=== PATIENT | male | born 1940 | race Caucasian/White ===

== ENCOUNTER → 2017-11-20 | Day surgery (SDC) | payer OTHER ==
[2017-11-15 15:17] VITALS: Ht 167.6 cm; Wt 48.2 kg
--- NOTE | 2017-11-15 15:52 | Anesthesiology Progress Note ---
Anesthesia Progress Note Date of Service Nov 15, 2017. Progress Notes Patient scheduled for EGD (per Nena Levy RN for monitoring of duodenal ulcer which was clipped 08/2017). Patient received 3 units PRBC's during admission secondary to acute blood loss anemia. Patient status post BMS x2 on 08/24/17 secondary to chest pain/ACS. Also, underwent ablation 08/2017 for a. flutter. Currently on Plavix and Eliquis. Case discussed with Dr. Williamson. If GI feels this is necessary for ulcer monitoring, okay to proceed. 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 Information given to Nena Levy RN to relay to surgeon's office.
[~2017-11-20] VITALS: Ht 167.6 cm; Wt 48.2 kg
[~2017-11-20] MED LIST: ALBU1.257 NEB; APIX1TAB3 PO; ATOR-22 PO; CLOP1TAB15 PO; FINA5TAB PO; FLM4 PO; FLUT1INH INH; FURO-85 PO; GABA-1220 PO; LEVO25TA5 PO; LIDOCAINE HCL 2% 2 ML VIAL (20MG/ML) ONE; LISI-725 PO; METO25TA3 PO; PANT40TA PO; POTA1TAB97 PO; PROPOFOL IV EMULSION 10 MG/ML 20 ML VIAL ONE; SODIUM CHLORIDE 0.9% 500ML 500 ML IV ONE; VNTHFA/IN INH
--- NOTE | 2017-11-20 09:47 | Endo History and Physical ---
History & Physical Date of Service: Nov 20, 2017. Chief Complaint: Gastro and Duodenal Ulcers Referring Physician: Zac Singh History of Present Illness Follow up on gastric ulcer Past Surgical History Hx Cardiac Surgery: Yes (HEART CATH/2 STENTS ?) Hx Internal Defibrillator: No Hx Pacemaker: No Hx Abdominal Surgery: Yes (INGUINAL HERNIA) Hx of Implantable Prosthesis: No Hx Post-Op Nausea and Vomiting: No Hx Cancer Surgery: No Hx Thoracic Surgery: No Hx Orthopedic: No Hx Urinary Tract Surgery: No Family History None Social History Smoking Status: Former Smoker Hx Substance Use: No Hx Alcohol Use: No Allergies Coded Allergies: No Known Allergies (Unverified , 11/20/17) Current Medications Reported Home Medications Medications Dose Route/Sig Max Daily Dose Days Date Category Albuterol Sulfate 1.25 Mg/3 Ml Neb 1 Vial NEB Q4 PRN 11/15/17 Reported Ventolin Hfa (Albuterol) 200 Puffs/99014 Mcg Aers 2-4 Puffs INH Q6H PRN 11/15/17 Reported Breo Ellipta (Fluticasone Furoate-Vilanterol) 1 Inh Inh 1 Dose INH QAM 11/15/17 Reported Tamsulosin HCl 0.4 Mg Cap 1 Cap PO HS 11/15/17 Reported Zestril (Lisinopril) 20 Mg Tab 10 Mg PO QAM 11/15/17 Reported Levothyroxine Sodium 25 Mcg Tab 1 Tab PO QAM 11/15/17 Reported Neurontin (Gabapentin) 400 Mg Cap 400 Mg PO TID 11/15/17 Reported K-Tab (Potassium Chloride) 20 Meq Tab 1 Tab PO QAM 11/15/17 Reported Protonix (Pantoprazole Sodium) 40 Mg Tab 40 Mg PO BID 11/15/17 Reported Toprol-Xl (Metoprolol Succinate) 25 Mg Tabcr 25 Mg PO QAM 11/15/17 Reported Lasix (Furosemide) 20 Mg Tab 10 Mg PO QAM 11/15/17 Reported Proscar (Finasteride) 5 Mg Tab 5 Mg PO QAM 11/15/17 Reported Plavix (Clopidogrel Bisulfate) 75 Mg Tab 75 Mg PO QAM 11/15/17 Reported Lipitor (Atorvastatin Calcium) 20 Mg Tab 20 Mg PO QAM 11/15/17 Reported Eliquis (Apixaban) 5 Mg Tab 5 Mg PO BID 11/15/17 Reported Vital Signs Weight (Kilograms): 48.18 Height (Feet): 5 Height (Inches): 6 Date Time Temp Pulse Resp B/P (MAP) Pulse Ox O2 Delivery O2 Flow Rate FiO2 11/20/17 09:24 36.4 57 20 238/102 (147) 99 Room Air Physical Exam General Appearance: no apparent distress Respiratory/Chest: Auscultation: breath sounds normal Cardiovascular: Heart Auscultation: RRR Abdomen: Inspection & Palpation: soft, non-distended Assessment and Plan Stable for EGD
--- NOTE | 2017-11-20 10:30 | GI REPORT ---
Patient Name: Kirby Alonso Procedure Date: 11/20/2017 10:13 AM Date of : 1940 Admit Type: Outpatient Age: 77 Gender: Male Attending MD: Precious Metcalf MD Procedure: Upper GI endoscopy Providers: Precious Metcalf MD Referring MD: Migue Love Indications: Follow-up of acute gastric ulcer Medicines: Monitored Anesthesia Care Complications: No immediate complications. Estimated Blood Loss: Estimated blood loss: none. Procedure: Pre-Anesthesia Assessment: - Prior to the procedure, a History and Physical was performed, and patient medications and allergies were reviewed. The patient is competent. The risks and benefits of the procedure and the sedation options and risks were discussed with the patient. All questions were answered and informed consent was obtained. Patient identification and proposed procedure were verified by the physician and the nurse in the procedure room. Mental Status Examination: alert and oriented. Airway Examination: normal oropharyngeal airway and neck mobility. Respiratory Examination: clear to auscultation. CV Examination: normal. ASA Grade Assessment: III - A patient with severe systemic disease. After reviewing the risks and benefits, the patient was deemed in satisfactory condition to undergo the procedure. The anesthesia plan was to use monitored anesthesia care (MAC). Immediately prior to administration of medications, the patient was re-assessed for adequacy to receive sedatives. The heart rate, respiratory rate, oxygen saturations, blood pressure, adequacy of pulmonary ventilation, and response to care were monitored throughout the procedure. The physical status of the patient was re-assessed after the procedure. After obtaining informed consent, the endoscope was passed under direct vision. Throughout the procedure, the patient's blood pressure, pulse, and oxygen saturations were monitored continuously. The scope was introduced through the mouth, and advanced to the second part of duodenum. The upper GI endoscopy was accomplished without difficulty. The patient tolerated the procedure well. Findings: A hiatal hernia was found. The proximal extent of the gastric folds (end of tubular esophagus) was 37 cm from the incisors. The hiatal narrowing was 41 cm from the incisors. A healed ulcer was found in the gastric antrum. Biopsies were taken with a cold forceps for Helicobacter pylori testing. Verification of patient identification for the specimen was done by the physician and nurse using the patient's name and date. The duodenal bulb and second portion of the duodenum were normal. Prior ulcers are well healed. Impression: - Hiatal hernia. - Scar in the gastric antrum. Biopsied. - Normal duodenal bulb and second portion of the duodenum. Prior ulcers are healed. Recommendation: - Discharge patient to home. - Await pathology results. - Use Protonix (pantoprazole) 20 mg PO daily indefinitely. - Return to referring physician. Precious Metcalf MD 11/20/2017 10:30:13 AM This report has been signed electronically. Note Initiated On: 11/20/2017 10:13 AM Number of Addenda: 0 I attest to the content of the Intraoperative Record and orders documented therein, exceptions below {[id number]}
[2017-11-20 10:59] VITALS: BP 202/91; PULSE 70; O2SAT 99
--- NOTE | 2017-11-20 11:37 | Anesthesiology Progress Note ---
Anesthesia Post Op Note Date & Time Nov 20, 2017 at 11:37 Vital Signs Pain Intensity: 0 Vital Signs Past 12 Hours Date Time Temp Pulse Resp B/P (MAP) Pulse Ox O2 Delivery O2 Flow Rate FiO2 11/20/17 10:59 70 20 202/91 (128) 99 Room Air 11/20/17 10:44 63 20 139/90 (106) 97 Room Air 11/20/17 10:29 62 18 105/69 (81) 100 Room Air 11/20/17 09:24 36.4 57 20 238/102 (147) 99 Room Air Notes Mental Status: alert / awake / arousable, participated in evaluation Pt Amnestic to Procedure: Yes Nausea / Vomiting: adequately controlled Pain: adequately controlled Airway Patency, RR, SpO2: stable & adequate BP & HR: stable & adequate Hydration State: stable & adequate Anesthetic Complications: no major complications apparent
--- NOTE | 2017-11-20 11:45 | Discharge Instructions ---
Endoscopy Patient Instructions Date / Procedure(s) Performed Nov 20, 2017. EGD Allergy Information Coded Allergies: No Known Allergies (Unverified , 11/20/17) Discharge Date / Findings Nov 20, 2017. Healed ulcer Provider Instructions Activity Restrictions - No exercising or heavy lifting for 24 hours. - Do not drink alcohol the day of the procedure. - Do not drive a car or operate machinery until the day after the procedure. - Do not make any important decisions or sign important papers in 24 hours after the procedure. Following Day: - Return to full activity which may include returning to work/school. Diet Start your diet with liquids and light foods (jello, soup, juice, toast). Then eat your usual diet if not nauseated. Treatment For Common After Affects For mild abdominal pain, bloating, or excessive gas: - Rest - Eat lightly - Lie on right side Follow-Up Information Follow-up with Zac Singh as scheduled Anesthesia Information What You Should Know You have had a procedure that required some medicine to reduce anxiety and discomfort. This treatment is called moderate sedation. After receiving the treatment, you may be sleepy, but you will be able to breathe on your own. The effects of the treatment may last for several hours. Follow these instructions along with Activity/Diet recommendations noted above: * Do NOT do anything where dizziness or clumsiness would be dangerous. * Rest quietly at home today, then you can be up and about tomorrow. * Have a responsible person stay with you the rest of today. * You may have had an I.V. today. If so, you may take the dressing off later today. Recommendations Call your doctor if: * Trouble breathing * Continuous vomiting for more than 24 hours * Temperature above 101 degrees * Severe abdominal pain or bloating * Pain not relieved by pain medicine ordered * There is increased drainage or redness from any incision * A large amount of rectal bleeding greater than 2-3 tablespoons. (If you had a polyp/s removed or have hemorrhoids, a small amount of blood - from the rectum is to be expected.) * You have any unanswered questions or concerns. IN THE EVENT OF A SERIOUS EMERGENCY, GO TO THE NEAREST EMERGENCY ROOM Your discharge instructions were prepared by provider Precious Metcalf. Patient Instructions Signature Page Kirby Alonso Patient (or Guardian) Signature/Date: I have read and understand the instructions given to me by my caregivers. Caregiver/RN/Doctor Signature/Date: The above-named patient and/or guardian has received patient instructions on this date. + Original Patient Signature Page (only) stays with chart. Please make copy for patient.
== END | disposition home or self-care (01) ==
LOC: C.GI 08:39
PROVIDERS: ATTEND Student in an Organized Health Care Education/Training Program
DX: K26.9 Duodenal ulcer, unspecified as acute or chronic, without hemorrhage or perforation (principal); K44.9 Diaphragmatic hernia without obstruction or gangrene; K25.9 Gastric ulcer, unspecified as acute or chronic, without hemorrhage or perforation; J44.9 Chronic obstructive pulmonary disease, unspecified; I10 Essential (primary) hypertension; I25.2 Old myocardial infarction; Z87.891 Personal history of nicotine dependence

== ENCOUNTER 2019-02-26 09:40 | Inpatient (IN) ==
--- NOTE | 2019-02-26 10:38 | XRay Report ---
XR chest 1V portable HISTORY: 78 years-old Male Chest Pain acute atypical chest pain COMPARISON: Chest radiograph 07/24/2018 TECHNIQUE: Portable AP view of the chest FINDINGS: Cardiac silhouette is enlarged, unchanged. There is no overt pulmonary edema. Advanced emphysema with out pneumothorax, pleural effusion or overt pulmonary edema. There are patchy bilateral airspace opac ities, notably within the midlung zones and lung bases, right greater than left. Degenerative changes of the shoulders and spine. IMPRESSION: 1. Advanced emphysema with chronic interstitial coarsening. 2. Patchy bilateral alveolar opacities are suspicious for aspiration pneumonitis versus multifocal pn eumonia. The above report was generated using voice recognition software. It may contain grammatical, syntax o r spelling errors. Electronically signed by: Serjio Becerra M.D. 02/26/2019 10:36 AM
[2019-02-26 10:43] LABS: Basophils # (auto) 0.02 K/uL (0-0.2); Basophils % (auto) 0.2 %; Hematocrit (blood only) 34.8 % (42-52); Hemoglobin 11.8 g/dL (14.0-18.0); Immature Granulocytes # (auto) 0.04 K/uL (0.00-0.02); Immature Granulocytes % (auto) 0.3 %; Lymphocytes # (auto) 0.56 K/uL (1.2-3.4); Lymphocytes % (auto) 4.2 %; Mean Corpuscular Hemoglobin 31.7 pg (25-34); Mean Corpuscular Hgb Conc 33.9 g/dL (32-36); Mean Corpuscular Volume 93.5 fL (80-100); Mean Platelet Volume 8.8 fL (7.4-10.4); Monocytes # (auto) 0.75 K/uL (0.11-0.59); Monocytes % (auto) 5.7 %; Neutrophils # (auto) 11.88 K/uL (1.4-6.5); Neutrophils % (auto) 89.6 %; Platelet Count 292 K/uL (130-400); RDW Coefficient of Variation 13.3 % (11.5-14.5); Red Blood Count 3.72 M/uL (4.7-6.1); White Blood Count 13.25 K/uL (4.8-10.8)
[2019-02-26] MEDS ORDERED: PIPERACILL/TAZOBAC CONSULT ACTIVE PRN (10:53)
[2019-02-26] MEDS ORDERED: DOXYCYCLINE HYCLATE 100 MG in DEXTROSE 5% 100 ML IV STA (10:53)
[2019-02-26] MEDS ORDERED: methylPREDNISolone 125 MG/2 ML VIAL IV STA (10:53)
[2019-02-26] MEDS ORDERED: PIPERACILLIN/TAZOBACTAM 4.5 GM/120 ML BAG IV ONE (10:53)
[2019-02-26] MEDS ORDERED: ALBUT/IPRATROP 3MG/0.5MG NEB 3 ML VIAL NEB ONE (10:56)
[2019-02-26] MEDS ORDERED: SODIUM CHLORIDE 0.9% 1000ML 1,000 ML IV ONE (10:56)
[2019-02-26 11:00] LABS: Alanine Aminotransferase 18 U/L (12-78); Aspartate Aminotransferase 19 U/L (15-37); BUN Creatinine Ratio 14.1 (10-20); Blood Urea Nitrogen 15 mg/dl (7-18); Calcium 8.8 mg/dl (8.5-10.1); Carbon Dioxide 29 mmol/L (21-32); Chloride 98 mmol/L (98-107); Est GFR (African American) 80.3; Est GFR (Non-African American) 69.3; Glucose 149 mg/dl (70-99); Lipase 79 U/L (73-393); Magnesium 2.1 mg/dl (1.8-2.4); Potassium 3.6 mmol/L (3.5-5.1); Sodium 136 mmol/L (136-145)
[2019-02-26 11:08] LABS: Albumin Globulin Ratio 0.7 (0.9-2); Alkaline Phosphatase 118 U/L (45-117); Bilirubin,Total 1.8 mg/dl (0.2-1); Globulin 4.4 gm/dl (2.5-4.0); NT Pro B Type Natriuretic Pept 1027 pg/ml (0-1800); Total Protein 7.4 gm/dl (6.4-8.2); Troponin I 0.103 ng/ml (0-0.045)
[2019-02-26 11:47] LABS: Base Excess VBG 5.1 mEq/L; HCO3 VBG 30 mmol/L; Oxygen Saturation VBG < 60.0 %; PCO2 VBG 45 mmHg (38-50); PO2 VBG 29 mmHg; pH VBG 7.44 (7.36-7.41)
[2019-02-26 12:37] LABS: Influenza A virus by PCR Neg for Influ A (Neg); Influenza B virus by PCR Neg for Influ B (Neg)
--- NOTE | 2019-02-26 12:41 | History & Physical Report ---
Date of Service February 26, 2019 Assessment & Plan (1) Multifocal pneumonia: Pt is 78 y/o M with PMH COPD, chronic hypoxia on chronic oxygen at 2.5L via [place], CAD s/p stent to circumflex in 2018, A-flutter s/p ablation in 2018, GERD, hypothyroidism, BPH presented with c/o increased SOB x 1 week, white productive cough x 5 days and tactile fevers. In ER T: 36.6, P: 101, R: 24, BP: 137/77, 95% on 2L O2 WBC: 13, H/H: 11.8/34.8 (baseline Hgb: 12), BNP: 1027, Troponin: 0.1, Lacate: 2.2. Negative influenza swab CXR: Advanced emphysema with chronic interstitial coarsening. Patchy bilateral alveolar opacities are suspicious for aspiration pneumonitis versus multifocal pneumonia. -In ER given hour long nebulizer treatment, Solumedrol 125mg, Zosyn, Doxycycline, 1L NSS -Trend lactic acid -Blood cultures pending -MRSA swab -Sputum culture -IVF -Zosyn, doxycycline -CBC, BMP in am -Pulmonology consult (2) Elevated troponin: Troponin: 0.1. EKG sinus rhythm with chronic T wave inversions anterior, lateral, inferior leads No CP Probable demand ischemia. R/O ACS. Risk factors: HTN, CAD -Monitor Vitals -Repeat EKG in am -Will trend troponin -Echo -Continue statin, plavix, metoprolol -Nitro prn CP and repeat EKG for CP -Cardiology consult (3) COPD (chronic obstructive pulmonary disease): (4) Chronic respiratory failure with hypoxia: On Chronic oxgyen at 2.5L via [place] -Continue home inhalers -Xopenex/Atrovent nebs -Solumedrol 40mg Q8H -Continue chronic oxygen supplementation -Pulmonology consult (5) Hypophosphatemia: Phos: 2.0 -Replace and monitor (6) HTN (hypertension): Stable -Continue lisinopril, metoprolol (7) CHF (congestive heart failure): Hx CHF. Recent echo 08/2018 with improved EF at 58%, grade 1 diastolic dysfunction, moderate mitral regurgitation Currently appears dry -Monitor I&O's and fluid status -Hold lasix currently (8) CAD (coronary artery disease): S/P stent to circumflex in 2018 No CP -Plan as above -Continue Plavix, statin, metoprolol (9) Hypothyroidism: -Continue levothyroxine (10) BPH (benign prostatic hyperplasia): -Continue tamsulosin DVT Prophylaxis -On Eliquis DNR/DNI as per discussion with pt Follows with Dr Singh for routine care Pt was seen and care coordinated with Dr Meyer. See addendum History of Present Illness Chief Complaint: SOB Primary Care Provider: Zac Singh DO Pt is 78 y/o M with PMH COPD, chronic hypoxia on chronic oxygen at 2.5L via [place], CAD s/p stent to circumflex in 2018, A-flutter s/p ablation in 2018, GERD, hypothyroidism, BPH presented to ER with c/o increased SOB x 1 week. Pt states for past week with increased SOB that has been worse at night. Also c/o white productive cough x 5 days. Having tactile fevers at home, hasn't taken temperature. Pt reports has been trying to use his home albuterol nebulizer without much relief. Denies CP or palpitations or LE edema. Vomited once last week. Denies diarrhea or abdominal pain. Has had decreased appetite and decreased oral intake past several days. C/O generalized weakness past week. Reports had influenza vaccine this season. Does not get out of house much. Lives home alone, daughter visits and helps with medications. Denies ill contacts. Reports chronic intermittent dizziness with standing. Denies increased symptoms and denies recent falls. Denies hematemesis, melena, hematochezia, SOARES, syncope, vision changes, neck pain, sore throat, choking, otalgia, rhinorrhea, paresthesias, rashes, urinary symptoms. Allergies Allergy/AdvReac Type Severity Reaction Status Date / Time No Known Allergies Allergy Unverified 02/26/19 10:41 Home Medications Home Medications Medication Instructions Recorded Confirmed Type albuterol sulfate 2.5 mg INHALATION QID PRN 02/26/19 02/26/19 History apixaban [Eliquis] 5 mg PO BID 02/26/19 02/26/19 History atorvastatin 20 mg PO DAILY 02/26/19 02/26/19 History clopidogrel 75 mg PO DAILY 02/26/19 02/26/19 History fluticasone furoate [Arnuity 1 inh INHALATION DAILY 02/26/19 02/26/19 History Ellipta] furosemide 20 mg PO UD 02/26/19 02/26/19 History gabapentin 400 mg PO TID 02/26/19 02/26/19 History levothyroxine 25 mcg PO DAILY 02/26/19 02/26/19 History lisinopril 10 mg PO DAILY 02/26/19 02/26/19 History metoprolol succinate 25 mg PO DAILY 02/26/19 02/26/19 History pantoprazole 20 mg PO DAILY 02/26/19 02/26/19 History potassium chloride [Klor-Con M20] 20 meq PO DAILY 02/26/19 02/26/19 History tamsulosin 0.4 mg PO DAILY 02/26/19 02/26/19 History Past Med/Surg History Medical History A-fib Atrial flutter BPH (benign prostatic hyperplasia) CAD (coronary artery disease) CHF (congestive heart failure) (Chronic) Chronic respiratory failure with hypoxia COPD (chronic obstructive pulmonary disease) (Chronic) GERD (gastroesophageal reflux disease) HTN (hypertension) (Chronic) Hypothyroidism Surgical History History of cardiac cath History of radiofrequency ablation procedure for cardiac arrhythmia Family History Other Hypertension Social History Preferred Language: Yakut Communication Ability: Effective 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 Beliefs That Will Affect Care: None marital status: / Current Living Situation: Alone current occupational status: retired Other Information That Helps Us Care for You: No Feels Safe at Home: Yes Safety Concerns: Feels Safe At This Time Smoking Status: Former smoker Hx Alcohol Use: No Hx Substance Use: No Review of Systems Review of Systems: All systems reviewed & are unremarkable except as noted in HPI & below Physical Exam Physical Exam: General: chronic ill appearing, thin elderly male, mild respiratory distress Head: normocephalic, atraumatic Eyes: PERRL, EOM's intact, conjunctiva non-injected, anicteric ENT: normal inspection external ears, nose, mucous membranes dry Neck: supple, trachea midline Lungs: R: 20 without significant retractions on current nebulizer treatment, breath sounds diminished throughout with scattered wheezing CV: regular rhythm, rate 100, no JVD, no pretibial edema Abd: normal BS, soft, non-tender Ext: no cyanosis, no calf tenderness Neuro: A&O x 3, no focal deficits noted, normal affect Skin: warm, dry Results & Data Vital Signs (Past 12 Hours) Vital Signs Temp Pulse Pulse Resp BP BP Pulse Ox 02/26/19 11:40 93 H 20 118/55 L 100 02/26/19 11:07 85 19 96 02/26/19 10:29 94 02/26/19 10:27 90 92 H 18 159/90 H 95 02/26/19 09:47 36.6 C 101 H 24 137/77 95 Laboratory Results Short CBC 02/26/19 Range/Units 10:32 WBC 13.25 H (4.8-10.8) K/uL Hgb 11.8 L (14.0-18.0) g/dL Hct 34.8 L (42-52) % Plt Count 292 (130-400) K/uL BMP 02/26/19 10:32 Sodium 136 Potassium 3.6 Chloride 98 Carbon Dioxide 29 BUN 15 Creatinine 1.03 Glucose 149 H Calcium 8.8 Cardiac Enzymes 02/26/19 Range/Units 10:32 Troponin I 0.103 H* (0-0.045) ng/ml Liver Function 02/26/19 Range/Units 10:32 Total Bilirubin 1.8 H (0.2-1) mg/dl AST 19 (15-37) U/L ALT 18 (12-78) U/L Alkaline Phosphatase 118 H (45-117) U/L Albumin 3.0 L (3.4-5.0) gm/dl Diagnostic Findings CXR: IMPRESSION: 1. Advanced emphysema with chronic interstitial coarsening. 2. Patchy bilateral alveolar opacities are suspicious for aspiration pneumonitis versus multifocal pneumonia. ECG Rate (beats per minute): 88 Rhythm: sinus rhythm Findings: + T-wave inversion (Anterolateral, inferior) Additional Comments: Compared to EKG 2018, no significant change in T wave inversions anterior, inferior, lateral Supervising Physician Co-Signing Physician Notes Attending addendum: The patient was seen and examined in the emergency room He is a 78 y/o M with PMH COPD, chronic hypoxia on chronic oxygen at 2.5L via [place], CAD s/p stent to circumflex in 2018, A-flutter s/p ablation in 2018, GERD, hypothyroidism, BPH presented with c/o increased SOB x 1 week, white productive cough x 5 days and tactile fevers. 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
[2019-02-26] MEDS ORDERED: POTASSIUM PHOS 3 MMOL/1 ML INFUSION IV STA (14:01)
[2019-02-26] MEDS ORDERED: ACETAMINOPHEN 325 MG TAB PO PRN (14:01)
[2019-02-26] MEDS ORDERED: NITROGLYCERIN SL 0.4 MG/TAB TAB SL PRN (14:01)
[2019-02-26] MEDS ORDERED: LEVALBUTEROL HCL 0.63 MG/3 ML NEB NEB PRN (14:01)
[2019-02-26] MEDS ORDERED: POTASSIUM PHOSPHATE 15 MMOL in SODIUM CHLORIDE 0.9% 250 ML IV ONE (14:15)
[2019-02-26] MEDS ORDERED: PATIENT'S HEIGHT AND/OR WEIGHT NEEDED SCH (14:15)
[2019-02-26] MEDS: LEVALBUTEROL 1.25MG/0.5ML NEB NEB SCH ×2 (14:25→19:19)
--- NOTE | 2019-02-26 15:32 | Pulmonary Consultation ---
Date of Consultation February 26, 2019 Assessment & Plan (1) Multifocal pneumonia: Patient most likely with combination pneumonia including aspiration based on history Recommend swallow study versus video swallow -will defer to primary team Aspiration precautions Agree with antibiotics. Continue doxycycline and Zosyn Treat underlying COPD exacerbation (2) COPD (chronic obstructive pulmonary disease): Patient with most recent PFTs from 08/21/2018 as listed above in HPI Home medications include * Albuterol rescue inhaler * Trelegy Ellipta * DuoNeb nebulizer Would continue treat underlying pneumonia with antibiotics Agree with steroids - taper as tolerated Continue bronchodilators scheduled and as needed (3) Chronic respiratory failure with hypoxia: Patient follows with [facility] pulmonology Recent PFTs in August 2018 as listed above With treat pneumonia and COPD exacerbation and refer back to [facility] as an outpatient Maintain SaO2 between 88 and 92% Serum carbon dioxide is 29 If status changes we will get an ABG Continue supportive care Thank you for including us in the care of this patient. Please refer to Dr. Wilson's addendum for further recommendations. We will continue to follow along with you. Supervising Physician Co-Signing Physician Notes Patient seen and examined. Discussed extensively with IVAN dong. EMR reviewed. Imaging was independently reviewed. Agree with assessment and plan as noted. Impression: 78-year-old male with advanced obstructive lung disease and chronic hypoxemic respiratory failure admitted with possible pneumonia. Recommendations: 1. Agree with antibiotics. Follow clinical response including fever curve white blood cell count. 2. Continue supplemental oxygen titrated to keep saturations at or above 88%. 3. Continue patient's outpatient respiratory regimen. He does not appear overtly bronchospastic currently. Steroids may be continued but a rapid taper may be appropriate. The patient will need to follow-up with his pulmonary providers through [facility]. History of Present Illness Attending Physician: Houston Meyer MD History of Present Illness Attending: Dr. Wilson This is a 78-year-old male that presents with past medical history including severe COPD with an FEV1 of 76% and an FEV1/FVC of 33. TLC 116. RV 219. RV/TLC 73. He also has past medical history including CAD status post stent to the circumflex in 2018, chronic anticoagulation and chronic antiplatelet therapy, history of atrial flutter status post ablation 2018, GERD, hypothyroidism, postherpetic neuralgia, BPH, cachectic, weight loss, history of tobacco abuse, history of ethanol abuse. The patient reports respiratory symptoms worsening for about the last 1 week. He is on chronic O2 at 2.5 L/min via nasal cannula. He also has a nebulizer as well as COPD medications he uses regularly at home. Over the last 3 to 4 days he has had worsening shortness of breath and refused to go to the doctor or come to the ER per his daughter. Yesterday he uses nebulizer 3 times with no improvement to his symptoms. This morning he called his daughter and reported worsening of his symptoms and she brought him to the emergency room for further evaluation treatment. PCR for influenza was negative for a and B. VBG with pH 7.44, PCO2 45, PaO2 29, HCO3 30. Chest x-ray showed advanced emphysema chronic interstitial coarsening. There were also areas of bilateral alveolar opacity suspicious for aspiration pneumonitis versus multifocal pneumonia. Patient was loaded with 125 mg of IV methylprednisolone and started on doxycycline and Zosyn to treat his pneumonia. Patient states that he had fever and chills over the weekend but temperature was undocumented. Patient also states that he had sweats and chills last night. He had no rigors that he reports. He had no nausea and vomiting other than one event secondary to cough. He does have worsening cough over the last week with whitish phlegm. He reports that he has typical cough late in the afternoon as a day goes on. He does report that he feels as though food is stuck at his "Sharad's apple". He also coughs with ingestion of liquids and food. The patient does not have any teeth and does not use dentures. The patient is a after 57 years of marriage. His 3 years ago. The patient lives alone at home and occupies himself with [id number] puzzles. He gets very short of breath walking on a flat surface after 15 to 20 feet. This is been ongoing for last 2 years. His daughter lives 5 miles away and checks on him frequently. He has no pets and no one else living with him. The patient previously smoked cigarettes for greater than 30 years but quit 20 years ago. He then chewed tobacco until 6 years ago. He also used ethanol and quit drinking 3 years ago. Allergies Allergy/AdvReac Type Severity Reaction Status Date / Time No Known Allergies Allergy Unverified 02/26/19 10:41 Home Medications Home Medications Medication Instructions Recorded Confirmed Type albuterol sulfate 2.5 mg INHALATION QID PRN 02/26/19 02/26/19 History apixaban [Eliquis] 5 mg PO BID 02/26/19 02/26/19 History atorvastatin 20 mg PO DAILY 02/26/19 02/26/19 History clopidogrel 75 mg PO DAILY 02/26/19 02/26/19 History fluticasone furoate [Arnuity 1 inh INHALATION DAILY 02/26/19 02/26/19 History Ellipta] furosemide 20 mg PO UD 02/26/19 02/26/19 History gabapentin 400 mg PO TID 02/26/19 02/26/19 History levothyroxine 25 mcg PO DAILY 02/26/19 02/26/19 History lisinopril 10 mg PO DAILY 02/26/19 02/26/19 History metoprolol succinate 25 mg PO DAILY 02/26/19 02/26/19 History pantoprazole 20 mg PO DAILY 02/26/19 02/26/19 History potassium chloride [Klor-Con M20] 20 meq PO DAILY 02/26/19 02/26/19 History tamsulosin 0.4 mg PO DAILY 02/26/19 02/26/19 History Patient History Medical History A-fib Atrial flutter BPH (benign prostatic hyperplasia) CAD (coronary artery disease) CHF (congestive heart failure) (Chronic) Chronic respiratory failure with hypoxia COPD (chronic obstructive pulmonary disease) (Chronic) GERD (gastroesophageal reflux disease) HTN (hypertension) (Chronic) Hypothyroidism Surgical History History of cardiac cath History of radiofrequency ablation procedure for cardiac arrhythmia Family History Other Hypertension Social History Preferred Language: Italian Communication Ability: Effective Park Interpreter Required: No Beliefs That Will Affect Care: None marital status: / Current Living Situation: Alone current occupational status: retired Other Information That Helps Us Care for You: No Feels Safe at Home: Yes Safety Concerns: Feels Safe At This Time Smoking Status: Former smoker Hx Alcohol Use: No Hx Substance Use: No Review of Systems Review of Systems: All systems reviewed & are unremarkable except as noted in HPI & below Physical Exam Physical Exam: GENERAL : No acute distress. Patient does get short of breath with speaking in full sentences. Patient's daughter is present in the room during interview and examination. Patient declares her as the POA and refers to her frequently for clarification of his answers. EYES: No icterus, gaze conjugate. Pupils equal round and reactive to light NOSE: No evidence of epistaxis. Nasal cannula in place and secure MOUTH: No lesions or candidiasis. No teeth and no dentures. NECK: Supple. No stridor LUNGS: Patient with quiet breath sounds throughout. No significant bronc hospasm. Patient does have some crackles at the bases. No rhonchi. There is no paradoxical chest wall movement. HEART: Regular, rate controlled ABDOMEN: Soft, NT, ND, BS Present. No guarding or rebound tenderness BACK: Patient with tenderness at the right CVA secondary to postherpetic neuralgia. No evidence of open or healing sores. EXTREMITIES: No LE edema, pedal pulses intact and equal bilaterally NEURO: A&OX3. Strength is equal and appropriate bilaterally to the upper and lower extremities. Deep tendon reflexes of the biceps brachioradialis and patellar tendons 2/4. Toes are downgoing bilaterally. Tongue is midline. No facial droop. No slurred speech. Pupils equal round and reactive to light. No focal deficits appreciated. Results & Data Vital Signs (Past 12 Hours) Vital Signs Temp Pulse Pulse Resp BP BP Pulse Ox 02/26/19 15:08 36.7 C 96 H 30 H 164/91 H 96 02/26/19 14:25 85 18 96 02/26/19 13:40 36.7 C 91 H 16 164/70 H 93 02/26/19 13:21 101 H 21 140/70 94 02/26/19 11:40 93 H 20 118/55 L 100 02/26/19 11:07 85 19 96 02/26/19 10:29 94 02/26/19 10:27 90 92 H 18 159/90 H 95 02/26/19 09:47 36.6 C 101 H 24 137/77 95 Laboratory Results 02/26/19 10:32 02/26/19 10:32 PCR influenza A and B negative Diagnostic Findings XR chest 1V portable HISTORY: 78 years-old Male Chest Pain acute atypical chest pain COMPARISON: Chest radiograph 07/24/2018 TECHNIQUE: Portable AP view of the chest FINDINGS: Cardiac silhouette is enlarged, unchanged. There is no overt pulmonary edema. Advanced emphysema without pneumothorax, pleural effusion or overt pulmonary edema. There are patchy bilateral airspace opacities, notably within the midlung zones and lung bases, right greater than left. Degenerative changes of the shoulders and spine. IMPRESSION: 1. Advanced emphysema with chronic interstitial coarsening. 2. Patchy bilateral alveolar opacities are suspicious for aspiration pneumonitis versus multifocal pneumonia. Electronically signed by: Serjio Becerra M.D. 02/26/2019 10:36 AM Medications Administered Methylprednisolone 125 mg IV Doxycycline 100 mg IV Zosyn 4.5 g IV Potassium phosphate 15 mmol PG Care Time/CCT Total # of Minutes Spent Total Time Spent with Patient: Total time spent is greater than 50% in coordination of care (as documented) at patient's floor/unit and/or counseling patient:
--- NOTE | 2019-02-26 16:11 | Cardiology Consultation ---
Date of Consultation February 26, 2019 Assessment & Plan (1) Elevated troponin: Given the clinical context of multifocal pneumonia in a patient with pulmonary hypertension along with no wall motion abnormalities on echocardiogram I do not believe the troponin elevation represents acute ischemia. No further cardiac testing or intervention is necessary at this time and would recommend continued treatment of his pneumonia. (2) Multifocal pneumonia: Will defer treatment to our pulmonary colleagues (3) CAD (coronary artery disease): Stable (4) Atrial flutter: Currently in normal sinus rhythm on Eliquis anticoagulation. Given the active pneumonia process he is at increased risk of recurrent atrial arrhythmias so his Eliquis will be continued for now along with his outpatient dose of metoprolol. (5) Tachycardia induced cardiomyopathy: Resolved History of Present Illness Reason for Consultation: Troponin elevation with a history of coronary artery disease Attending Physician: Houston Meyer MD History of Present Illness It was my pleasure to see Mr. Alonso in consultation today February 26, 2019. He is a very pleasant 78-year-old gentleman who follows with Dr. Guzmán of our cardiology practice. He presents to [facility] emergency department on 02/26/2019 with 1 week duration of increasing shortness of breath. He states over the last week he is been having difficulty catching his breath even at rest. He is also had a productive cough with white sputum and he has been feeling warm and feverish. He particularly having trouble breathing at night and has not been sleeping well because of this. His symptoms progressed to the point where he could not breathe anymore and he came in the emergency department. Initial laboratory studies in the emergency room were drawn including troponin is minimally elevated at 0.1. He denies experiencing any chest pain, palpitations, lightheadedness, dizziness or syncope. He is been take his medications as directed at home and otherwise feeling well. Past cardiac history as per Dr. Crenshaw's most recent office note of 01/07/2019: His cardiac history dates back to August 2017. He initially presented with complaints of acute worsening shortness of breath as well as exertional chest tightness. He was found to have atrial flutter with rapid ventricular response and an echocardiogram revealed severe left ventricular systolic dysfunction with an ejection fraction in the range of 25%. EKG revealed significant inferior and lateral repolarization changes with deep T-wave inversions suggestive of Coronary angiography revealed single-vessel CAD for which she underwent PCI and bare metal stenting to the circumflex. He also underwent electrophysiology study during that admission successful ablation of atypical atrial flutter for which he underwent tricuspid caval isthmus ablation. His hospital stay was complicated by blood per rectum while on anticoagulation with heparin. He was supported with transfusion and EGD revealed evidence of a duodenal ulcer which was clipped with stabilization of his hemoglobin. Allergies Allergy/AdvReac Type Severity Reaction Status Date / Time No Known Allergies Allergy Unverified 02/26/19 10:41 Home Medications Home Medications Medication Instructions Recorded Confirmed Type albuterol sulfate 2.5 mg INHALATION QID PRN 02/26/19 02/26/19 History apixaban [Eliquis] 5 mg PO BID 02/26/19 02/26/19 History atorvastatin 20 mg PO DAILY 02/26/19 02/26/19 History clopidogrel 75 mg PO DAILY 02/26/19 02/26/19 History fluticasone furoate [Arnuity 1 inh INHALATION DAILY 02/26/19 02/26/19 History Ellipta] furosemide 20 mg PO UD 02/26/19 02/26/19 History gabapentin 400 mg PO TID 02/26/19 02/26/19 History levothyroxine 25 mcg PO DAILY 02/26/19 02/26/19 History lisinopril 10 mg PO DAILY 02/26/19 02/26/19 History metoprolol succinate 25 mg PO DAILY 02/26/19 02/26/19 History pantoprazole 20 mg PO DAILY 02/26/19 02/26/19 History potassium chloride [Klor-Con M20] 20 meq PO DAILY 02/26/19 02/26/19 History tamsulosin 0.4 mg PO DAILY 02/26/19 02/26/19 History Patient History Medical History A-fib Atrial flutter BPH (benign prostatic hyperplasia) CAD (coronary artery disease) CHF (congestive heart failure) (Chronic) Chronic respiratory failure with hypoxia COPD (chronic obstructive pulmonary disease) (Chronic) GERD (gastroesophageal reflux disease) HTN (hypertension) (Chronic) Hypothyroidism Surgical History History of cardiac cath History of radiofrequency ablation procedure for cardiac arrhythmia Family History Other Hypertension Social History Preferred Language: Setswana Communication Ability: Effective Manager Trust Required: No Beliefs That Will Affect Care: None marital status: / Current Living Situation: Alone current occupational status: retired Other Information That Helps Us Care for You: No Feels Safe at Home: Yes Safety Concerns: Feels Safe At This Time Smoking Status: Former smoker Hx Alcohol Use: No Hx Substance Use: No Review of Systems Review of Systems: All systems reviewed & are unremarkable except as noted in HPI & below Physical Exam Physical Exam: General: Awake, alert and oriented x 3. No acute distress. Cachectic HEENT: Normocephalic, atraumatic. Pupils equal, round and reactive to light and accommodation. Extraocular muscles are intact. Anicteric sclera. Moist m ucous membranes. Neck: No JVD. No bruit. Cardiovascular: Regular. Positive S-4. Normal S-1 and S-2. No S-3. No murmurs or rubs. Pulmonary: Coarse breath sounds diffusely with scattered rhonchi and wheezing. No rales Abdomen: Bowel sounds x 4, soft. No rebound, guarding or tenderness. No organomegaly. Extremities: No clubbing, cyanosis or edema. +2 pedal pulses bilaterally. Skin: Warm and dry. Results & Data Vital Signs (Past 12 Hours) Vital Signs Temp Pulse Pulse Resp BP BP Pulse Ox 02/26/19 15:08 36.7 C 96 H 30 H 164/91 H 96 02/26/19 14:25 85 18 96 02/26/19 13:40 36.7 C 91 H 16 164/70 H 93 02/26/19 13:21 101 H 21 140/70 94 02/26/19 11:40 93 H 20 118/55 L 100 02/26/19 11:07 85 19 96 02/26/19 10:29 94 02/26/19 10:27 90 92 H 18 159/90 H 95 02/26/19 09:47 36.6 C 101 H 24 137/77 95 Laboratory Results Laboratory Results - last 24 hr 02/26/19 02/26/19 02/26/19 10:32 10:32 11:28 WBC 13.25 H RBC 3.72 L Hgb 11.8 L Hct 34.8 L MCV 93.5 MCH 31.7 MCHC 33.9 RDW Std Deviation 46.0 RDW Coeff of Tracey 13.3 Plt Count 292 MPV 8.8 Immature Gran % (Auto) 0.3 Neut % (Auto) 89.6 Lymph % (Auto) 4.2 [place] % (Auto) 5.7 Eos % (Auto) 0.0 Baso % (Auto) 0.2 Immature Gran # (Auto) 0.04 H Neut # (Auto) 11.88 H Lymph # (Auto) 0.56 L [place] # (Auto) 0.75 H Eos # (Auto) 0.00 Baso # (Auto) 0.02 VBG pH VBG pCO2 VBG pO2 VBG HCO3 VBG O2 Saturation VBG Base Excess Barometric Pressure Sodium 136 Potassium 3.6 Chloride 98 Carbon Dioxide 29 Anion Gap 9.0 BUN 15 Creatinine 1.03 Est Cr Clr Drug Dosing Not Reportable Est GFR ( Amer) 80.3 Est GFR (Non-Af Amer) 69.3 BUN/Creatinine Ratio 14.1 Glucose 149 H Lactate 2.2 H* Calcium 8.8 Phosphorus 2.0 L Magnesium 2.1 Total Bilirubin 1.8 H AST 19 ALT 18 Alkaline Phosphatase 118 H Troponin I 0.103 H* NT-Pro-B Natriuret Pep 1027 Total Protein 7.4 Albumin 3.0 L Globulin 4.4 H Albumin/Globulin Ratio 0.7 L Lipase 79 Influenza Type A (PCR) Influenza Type B (PCR) 02/26/19 02/26/19 02/26/19 11:28 11:44 14:21 WBC RBC Hgb Hct MCV MCH MCHC RDW Std Deviation RDW Coeff of Tracey Plt Count MPV Immature Gran % (Auto) Neut % (Auto) Lymph % (Auto) [place] % (Auto) Eos % (Auto) Baso % (Auto) Immature Gran # (Auto) Neut # (Auto) Lymph # (Auto) [place] # (Auto) Eos # (Auto) Baso # (Auto) VBG pH 7.44 H VBG pCO2 45 VBG pO2 29 VBG HCO3 30 VBG O2 Saturation < 60.0 VBG Base Excess 5.1 Barometric Pressure 726.7 Sodium Potassium Chloride Carbon Dioxide Anion Gap BUN Creatinine Est Cr Clr Drug Dosing Est GFR ( Amer) Est GFR (Non-Af Amer) BUN/Creatinine Ratio Glucose Lactate 4.1 H* Calcium Phosphorus Magnesium Total Bilirubin AST ALT Alkaline Phosphatase Troponin I NT-Pro-B Natriuret Pep Total Protein Albumin Globulin Albumin/Globulin Ratio Lipase Influenza Type A (PCR) Neg for Influ A Influenza Type B (PCR) Neg for Influ B Medications Administered Current Inpatient Medications Acetaminophen (Tylenol) 650 mg PO Q4H PRN PRN Reason: Pain or Fever Stop: 03/28/19 14:00 Apixaban (Eliquis) 5 mg PO BID NERY Stop: 03/28/19 20:59 Atorvastatin Calcium (Lipitor) 20 mg PO DAILY NERY Stop: 03/29/19 08:59 Clopidogrel Bisulfate (Plavix) 75 mg PO DAILY NERY Stop: 03/29/19 08:59 Fluticasone Propionate (Flovent Hfa 110mch) 2 puffs INH BID NERY Stop: 03/28/19 20:59 Gabapentin (Neurontin) 400 mg PO TID NERY Stop: 03/28/19 14:29 Doxycycline Hyclate 100 mg/ (Dextrose) 110 mls @ 50 mls/hr IV BID NERY Stop: 03/05/19 20:59 Sodium Chloride (Nss 1000ml) 1,000 mls @ 100 mls/hr IV .Q10H NERY Stop: 02/27/19 10:00 Potassium Phosphate 15 mmol/ (Sodium Chloride) 255 mls @ 88 mls/hr IV NOW ONE Stop: 02/26/19 17:08 Last Admin: 02/26/19 14:52 Dose: 88 mls/hr Documented by: Methylprednisolone 40 mg/ (Syringe) 0.64 mls @ 1.5 mls/min IV Q8H NERY Stop: 03/28/19 17:59 Piperacillin Sod/Tazobactam (Sod 3.375 gm/ Dextrose) 115 mls @ 28.75 mls/hr IV Q8H NERY; Protocol Stop: 03/05/19 15:59 Levalbuterol HCl (Xopenex 1.25mg/0.5ml Neb) 1.25 mg NEB Q6R NERY Stop: 03/28/19 14:14 Last Admin: 02/26/19 14:25 Dose: 1.25 mg Documented by: Levalbuterol HCl (Xopenex 0.63 Mg/3 Ml Neb) 0.63 mg NEB Q4R PRN PRN Reason: Shortness Of Breath Or Wheezing Stop: 03/28/19 14:00 Levothyroxine Sodium (Synthroid) 25 mcg PO DAILYBB [facility] Stop: 03/29/19 06:29 Lisinopril (Zestril) 10 mg PO DAILY NERY Stop: 03/29/19 08:59 Metoprolol Succinate (Toprol Xl) 25 mg PO DAILY [facility] Stop: 03/29/19 08:59 Miscellaneous Information (Consult) 1 ea N/A UD PRN PRN Reason: Consult Stop: 03/28/19 10:52 Nitroglycerin (Nitrostat) 0.4 mg SL UD PRN PRN Reason: Chest Pain Stop: 03/28/19 14:00 Pantoprazole Sodium (Protonix) 40 mg PO DAILY [facility] Stop: 03/29/19 08:59 Tamsulosin HCl (Flomax) 0.4 mg PO DAILY [facility] Stop: 03/29/19 08:59
[2019-02-26] MEDS: SODIUM CHLORIDE 0.9% 1000ML 1,000 ML IV SCH (17:24)
[2019-02-26] MEDS: PIPERACILLIN/TAZOBACTAM 3.375 GM in DEXTROSE 5% 100 ML IV SCH (17:24)
[2019-02-26] MEDS: methylPREDNISolone 40 MG in SYRINGE 0 ML IV SCH (17:25)
[2019-02-26] MEDS: GABAPENTIN 400 MG CAP PO SCH ×2 (17:25→20:33)
--- NOTE | 2019-02-26 18:55 | Emergency Department Note ---
Entered by Izzy Singh acting as a scribe for History of Present Illness General Chief complaint: Illness Stated complaint: SICK FOR A WEEK, SOB, NOT EATING OR DRINKING Time Seen by Provider: 02/26/19 10:17 Source: patient History of Present Illness Onset (ago): day(s) 8 Location: chest Pain Consistency: + other (worsening) Maximum Pain Intensity: 5 Quality: + other (illness) Relieved By: not by medication (nebulizer, inhaler) Associated symptoms: + cough (productive milky, frothy, white sputum), + fever/chills (hot flashes, chills, possible fever) and + shortness of breath The patient is a 78 year old male who presents to the Emergency Room with complaints of a worsening illness starting 8 days ago. The patient states that he has a history of COPD. He states that recently he has been having a productive cough of milky, frothy white sputum, hot flashes, and chills. He reports that he thinks he may have a fever, but has not checked. He states that along with it, he has been having increased shortness of breath. He states that he was up all last night because he could not breathe. He states that this morning he decided it was time to come to the ED because he was huffing and puffing really hard. He notes that he hast been using his nebulizer and inhalers at home with no relief. He notes that he is on Eliquis as well. The patient denies missing any doses of his medications. Home Medications Home Medications Medication Instructions Recorded Confirmed Type albuterol sulfate 2.5 mg INHALATION QID PRN 02/26/19 02/26/19 History apixaban [Eliquis] 5 mg PO BID 02/26/19 02/26/19 History atorvastatin 20 mg PO DAILY 02/26/19 02/26/19 History clopidogrel 75 mg PO DAILY 02/26/19 02/26/19 History fluticasone furoate [Arnuity 1 inh INHALATION DAILY 02/26/19 02/26/19 History Ellipta] furosemide 20 mg PO UD 02/26/19 02/26/19 History gabapentin 400 mg PO TID 02/26/19 02/26/19 History levothyroxine 25 mcg PO DAILY 02/26/19 02/26/19 History lisinopril 10 mg PO DAILY 02/26/19 02/26/19 History metoprolol succinate 25 mg PO DAILY 02/26/19 02/26/19 History pantoprazole 20 mg PO DAILY 02/26/19 02/26/19 History potassium chloride [Klor-Con M20] 20 meq PO DAILY 02/26/19 02/26/19 History tamsulosin 0.4 mg PO DAILY 02/26/19 02/26/19 History Allergies Allergy/AdvReac Type Severity Reaction Status Date / Time No Known Allergies Allergy Unverified 02/26/19 10:41 Past Med/Surg History Medical History A-fib Atrial flutter BPH (benign prostatic hyperplasia) CAD (coronary artery disease) CHF (congestive heart failure) (Chronic) Chronic respiratory failure with hypoxia COPD (chronic obstructive pulmonary disease) (Chronic) GERD (gastroesophageal reflux disease) HTN (hypertension) (Chronic) Hypothyroidism Surgical History History of cardiac cath History of radiofrequency ablation procedure for cardiac arrhythmia Family History Other Hypertension Social History Preferred Language: Croatian Communication Ability: Effective Thread Twister Required: No Beliefs That Will Affect Care: None marital status: / Current Living Situation: Alone current occupational status: retired Other Information That Helps Us Care for You: No Feels Safe at Home: Yes Safety Concerns: Feels Safe At This Time Smoking Status: Former smoker Hx Alcohol Use: No Hx Substance Use: No Review of Systems See HPI for pertinent positives & negatives. and A total of 10 systems reviewed and were otherwise negative Physical Exam Vital Signs Vital Signs - 24 hr 02/26/19 09:47 02/26/19 10:27 02/26/19 10:29 Temperature 36.6 C Temperature Source Oral Pulse Rate 101 H 90 Pulse Rate [Right Finger] 92 H Pulse Rhythm [Right Finger] Respiratory Rate 24 18 Respiratory Effort / Characteristics Non-Labored Respiratory Depth Normal Respiratory Pattern Regular Blood Pressure 137/77 Blood Pressure [Left Arm] 159/90 H Blood Pressure Mean 97 Blood Pressure Mean [Left Arm] 113 Blood Pressure Position Sitting Pulse Oximetry 95 95 94 Oxygen Delivery Method Room Air Nasal Cannula Nasal Cannula Oxygen Flow Rate 2 2 Sepsis Recent Fever Within 48 Hours No Sepsis New/Unexplained Change in Mental Status No Sepsis Action Taken by Nursing No Action Required 02/26/19 11:07 02/26/19 11:40 Temperature Temperature Source Pulse Rate Pulse Rate [Right Finger] 85 93 H Pulse Rhythm [Right Finger] Regular Respiratory Rate 19 20 Respiratory Effort / Characteristics Non-Labored Spontaneous Spontaneous Respiratory Depth Respiratory Pattern Blood Pressure Blood Pressure [Left Arm] 118/55 L Blood Pressure Mean Blood Pressure Mean [Left Arm] 76 Blood Pressure Position Pulse Oximetry 96 100 Oxygen Delivery Method Nasal Cannula Room Air Oxygen Flow Rate 2 Sepsis Recent Fever Within 48 Hours Sepsis New/Unexplained Change in Mental Status Sepsis Action Taken by Nursing GENERAL: Awake, alert, ill-appearing, in no distress HENT: Normocephalic, atraumatic. Oropharynx with dry mucous membranes and otherwise unremarkable. EYES: Normal conjunctiva. Sclera non-icteric. NECK: Supple. No nuchal rigidity. FROM. No JVD. RESPIRATORY: Scattered wheezes and rhonchi. CARDIAC: Tachycardic rate, normal rhythm. Extremities warm and well perfused. Pulses equal. ABDOMEN: Soft, non-distended. No tenderness to palpation. No rebound or guarding. No masses. RECTAL: Deferred. MUSCULOSKELETAL: Chest examination reveals no tenderness. The back is symmetrical on inspection without obvious abnormality. There is no CVA tenderness to palpation. No joint edema. LOWER EXTREMITIES: Calves are equal size bilaterally and non-tender. No edema. No discoloration. NEURO: Normal sensorium. No sensory or motor deficits noted. SKIN: No rash or jaundice noted. Course Course 1050: The patient was evaluated in room A4B. A complete history and physical exam was performed. I discussed the patient's test results and treatment plan with him and his family. They verbally agree and understand. 1114: I discussed the patient's case with Cece Patten PA-C -[facility] Hospitalist. She will evaluate the patient for further management under Dr. Meyer's service. Administered Medications Apixaban (Eliquis) 5 mg PO BID NERY Stop: 03/28/19 20:59 Last Admin: 02/26/19 20:33 Dose: 5 mg Documented by: [id number] Fluticasone Propionate (Flovent Hfa 110mch) 2 puffs INH BID NERY Stop: 03/28/19 20:59 Last Admin: 02/26/19 20:35 Dose: Not Given Documented by: [id number] Gabapentin (Neurontin) 400 mg PO TID NERY Stop: 03/28/19 14:29 Last Admin: 02/26/19 20:33 Dose: 400 mg Documented by: [id number] Admin: 02/26/19 17:25 Dose: 400 mg Documented by: [id number] Doxycycline Hyclate 100 mg/ (Dextrose) 110 mls @ 50 mls/hr IV BID NERY Stop: 03/05/19 20:59 Last Admin: 02/26/19 22:08 Dose: 50 mls/hr Documented by: [id number] Sodium Chloride (Nss 1000ml) 1,000 mls @ 100 mls/hr IV .Q10H [facility] Stop: 02/27/19 10:00 Last Admin: 02/26/19 17:24 Dose: 100 mls/hr Documented by: [id number] Methylprednisolone 40 mg/ (Syringe) 0.64 mls @ 1.5 mls/min IV Q8H [facility] Stop: 03/28/19 17:59 Last Admin: 02/26/19 17:25 Dose: 1.5 mls/min Documented by: [id number] Piperacillin Sod/Tazobactam (Sod 3.375 gm/ Dextrose) 115 mls @ 28.75 mls/hr IV Q8H [facility]; Protocol Stop: 03/05/19 15:59 Last Infusion: 02/26/19 21:44 Dose: 0 mls/hr Documented by: [id number] Admin: 02/26/19 17:24 Dose: 28.8 mls/hr Documented by: [id number] Levalbuterol HCl (Xopenex 1.25mg/0.5ml Neb) 1.25 mg NEB Q6R NERY Stop: 03/28/19 14:14 Last Admin: 02/26/19 19:19 Dose: 1.25 mg Documented by: [id number] Admin: 02/26/19 14:25 Dose: 1.25 mg Documented by: [id number] Tamsulosin HCl (Flomax) 0.4 mg PO HS NERY Stop: 03/28/19 20:59 Last Admin: 02/26/19 22:09 Dose: 0.4 mg Documented by: [id number] Discontinued Medications Albuterol (Duoneb) 12 ml NEB ONE ONE Stop: 02/26/19 10:57 Last Admin: 02/26/19 11:06 Dose: 12 ml Documented by: [id number] Piperacillin Sod/Tazobactam Sod (Zosyn) 4.5 gm in 120 mls @ 240 mls/hr IV NOW ONE Stop: 02/26/19 11:22 Last Infusion: 02/26/19 12:05 Dose: 0 mls/hr Documented by: [id number] Admin: 02/26/19 11:35 Dose: 240 mls/hr Documented by: [id number] Doxycycline Hyclate 100 mg/ (Dextrose) 110 mls @ 50 mls/hr IV NOW STA Stop: 02/26/19 13:04 Last Infusion: 02/26/19 14:29 Dose: 0 mls/hr Documented by: [id number] Admin: 02/26/19 12:09 Dose: 50 mls/hr Documented by: [id number] Sodium Chloride (Nss 1000ml) 1,000 mls @ 999 mls/hr IV .Q1H1M ONE Stop: 02/26/19 11:56 Last Infusion: 02/26/19 12:44 Dose: 0 mls/hr Documented by: [id number] Admin: 02/26/19 11:35 Dose: 999 mls/hr Documented by: [id number] Potassium Phosphate 15 mmol/ (Sodium Chloride) 255 mls @ 88 mls/hr IV NOW ONE Stop: 02/26/19 17:08 Last Infusion: 02/26/19 17:46 Dose: 0 mls/hr Documented by: [id number] Admin: 02/26/19 14:52 Dose: 88 mls/hr Documented by: [id number] Methylprednisolone (Solumedrol) 125 mg IV NOW STA Stop: 02/26/19 10:54 Last Admin: 02/26/19 11:35 Dose: 125 mg Documented by: [id number] Miscellaneous (Patient's Height And/Or Weight Needed) 1 ea N/A Q30M NERY Stop: 02/26/19 17:15 Last Admin: 02/26/19 14:27 Dose: Not Given Documented by: [id number] Critical Care Time Critical Care Time: Yes Total Critical Care Time: 40 I have personally spent greater than 35 minutes of critical care time in the direct management of this patient. This includes bedside care, interpretation of diagnostic studies, and testing, discussion with consultants, patient, and family members, and other required patient management activities. This 35 minutes is in excess of all separately billable procedures. Medical Decision Making Differential Diagnosis Differential diagnoses includes but is not limited to pneumonia, bronchitis, COPD/Asthma exacerbation, pneumothorax, pulmonary embolism, congestive heart failure, acute coronary syndrome Medical Records Attestation: I reviewed the patient's medical records. Home Medications Current Medication List: was personally reviewed by me Laboratory Data Attestation: I reviewed the patient's lab results. Result diagrams: 02/26/19 10:32 02/26/19 10:32 Lab Results 02/26/19 02/26/19 02/26/19 Range/Units 10:32 10:32 11:28 WBC 13.25 H (4.8-10.8) K/uL RBC 3.72 L (4.7-6.1) M/uL Hgb 11.8 L (14.0-18.0) g/dL Hct 34.8 L (42-52) % MCV 93.5 (80-100) fL MCH 31.7 (25-34) pg MCHC 33.9 (32-36) g/dL RDW Std Deviation 46.0 (36.4-46.3) fL RDW Coeff of Tracey 13.3 (11.5-14.5) % Plt Count 292 (130-400) K/uL MPV 8.8 (7.4-10.4) fL Immature Gran % (Auto) 0.3 % Neut % (Auto) 89.6 % Lymph % (Auto) 4.2 % Nuckolls % (Auto) 5.7 % Eos % (Auto) 0.0 % Baso % (Auto) 0.2 % Immature Gran # (Auto) 0.04 H (0.00-0.02) K/uL Neut # (Auto) 11.88 H (1.4-6.5) K/uL Lymph # (Auto) 0.56 L (1.2-3.4) K/uL Nuckolls # (Auto) 0.75 H (0.11-0.59) K/uL Eos # (Auto) 0.00 (0-0.5) K/uL Baso # (Auto) 0.02 (0-0.2) K/uL VBG pH (7.36-7.41) VBG pCO2 (38-50) mmHg VBG pO2 mmHg VBG HCO3 mmol/L VBG O2 Saturation % VBG Base Excess mEq/L Barometric Pressure mm/Hg Sodium 136 (136-145) mmol/L Potassium 3.6 (3.5-5.1) mmol/L Chloride 98 (98-107) mmol/L Carbon Dioxide 29 (21-32) mmol/L Anion Gap 9.0 (3-11) BUN 15 (7-18) mg/dl Creatinine 1.03 (0.6-1.4) mg/dl Est Cr Clr Drug Dosing Not Reportable Est GFR ( Amer) 80.3 Est GFR (Non-Af Amer) 69.3 BUN/Creatinine Ratio 14.1 (10-20) Glucose 149 H (70-99) mg/dl Lactate 2.2 H* (0.4-2.0) mmol/L Calcium 8.8 (8.5-10.1) mg/dl Phosphorus 2.0 L (2.5-4.9) mg/dl Magnesium 2.1 (1.8-2.4) mg/dl Total Bilirubin 1.8 H (0.2-1) mg/dl AST 19 (15-37) U/L ALT 18 (12-78) U/L Alkaline Phosphatase 118 H (45-117) U/L Troponin I 0.103 H* (0-0.045) ng/ml NT-Pro-B Natriuret Pep 1027 (0-1800) pg/ml Total Protein 7.4 (6.4-8.2) gm/dl Albumin 3.0 L (3.4-5.0) gm/dl Globulin 4.4 H (2.5-4.0) gm/dl Albumin/Globulin Ratio 0.7 L (0.9-2) Lipase 79 (73-393) U/L Influenza Type A (PCR) (Neg) Influenza Type B (PCR) (Neg) 02/26/19 02/26/19 Range/Units 11:28 11:44 WBC (4.8-10.8) K/uL RBC (4.7-6.1) M/uL Hgb (14.0-18.0) g/dL Hct (42-52) % MCV (80-100) fL MCH (25-34) pg MCHC (32-36) g/dL RDW Std Deviation (36.4-46.3) fL RDW Coeff of Tracey (11.5-14.5) % Plt Count (130-400) K/uL MPV (7.4-10.4) fL Immature Gran % (Auto) % Neut % (Auto) % Lymph % (Auto) % Nuckolls % (Auto) % Eos % (Auto) % Baso % (Auto) % Immature Gran # (Auto) (0.00-0.02) K/uL Neut # (Auto) (1.4-6.5) K/uL Lymph # (Auto) (1.2-3.4) K/uL Nuckolls # (Auto) (0.11-0.59) K/uL Eos # (Auto) (0-0.5) K/uL Baso # (Auto) (0-0.2) K/uL VBG pH 7.44 H (7.36-7.41) VBG pCO2 45 (38-50) mmHg VBG pO2 29 mmHg VBG HCO3 30 mmol/L VBG O2 Saturation < 60.0 % VBG Base Excess 5.1 mEq/L Barometric Pressure 726.7 mm/Hg Sodium (136-145) mmol/L Potassium (3.5-5.1) mmol/L Chloride (98-107) mmol/L Carbon Dioxide (21-32) mmol/L Anion Gap (3-11) BUN (7-18) mg/dl Creatinine (0.6-1.4) mg/dl Est Cr Clr Drug Dosing Est GFR ( Amer) Est GFR (Non-Af Amer) BUN/Creatinine Ratio (10-20) Glucose (70-99) mg/dl Lactate (0.4-2.0) mmol/L Calcium (8.5-10.1) mg/dl Phosphorus (2.5-4.9) mg/dl Magnesium (1.8-2.4) mg/dl Total Bilirubin (0.2-1) mg/dl AST (15-37) U/L ALT (12-78) U/L Alkaline Phosphatase (45-117) U/L Troponin I (0-0.045) ng/ml NT-Pro-B Natriuret Pep (0-1800) pg/ml Total Protein (6.4-8.2) gm/dl Albumin (3.4-5.0) gm/dl Globulin (2.5-4.0) gm/dl Albumin/Globulin Ratio (0.9-2) Lipase (73-393) U/L Influenza Type A (PCR) Neg for Influ A (Neg) Influenza Type B (PCR) Neg for Influ B (Neg) Imaging Data Radiologist's Impression: Radiology results as stated below per my review and the radiologist's interpretation: XR chest 1V portable HISTORY: 78 years-old Male Chest Pain acute atypical chest pain COMPARISON: Chest radiograph 07/24/2018 TECHNIQUE: Portable AP view of the chest FINDINGS: Cardiac silhouette is enlarged, unchanged. There is no overt pulmonary edema. Advanced emphysema without pneumothorax, pleural effusion or overt pulmonary edema. There are patchy bilateral airspace opacities, notably within the midlung zones and lung bases, right greater than left. Degenerative changes of the shoulders and spine. IMPRESSION: 1. Advanced emphysema with chronic interstitial coarsening. 2. Patchy bilateral alveolar opacities are suspicious for aspiration pneumonitis versus multifocal pneumonia. The above report was generated using voice recognition software. It may contain grammatical, syntax or spelling errors. Electronically signed by: Serjio Becerra M.D. 02/26/2019 10:36 AM ECG Data Attestation: I personally reviewed and interpreted this ECG as follows: Indication: + SOB/dyspnea Rate (beats per minute): 88 Rhythm: + normal sinus ECG [place]: + Normal ECG ST segments: + T-wave inversions (inferior and lateral); no ST elevation Comparison ECG Date: from (07/24/2018) Change: no significant change Blood Pressure Blood Pressure Findings: Elevated blood pressure Blood Pressure Disposition: further management by hospitalist MDM Narrative The patient is a pleasant 78-year-old gentleman with a past medical history of COPD on home O2, afib/flutter on Eliquis, CAD who presents emergency department with cough congestion and sputum production with worsening shortness of breath over the past week per hpi. On arrival the patient is uncomfortable but no acute distress, afebrile with heart rate in the 100s and vital signs otherwise stable. The patient appears clinically dry. On exam patient has diffuse wheezes and rhonchi. EKG with T wave inversions inferior and laterally that are similar to prior. There is no ST elevations. Chest x-ray consistent with multifocal pneumonia. WBC 13.2, nonspecific. H/H 11.8/34.8 within range of prior values. Lactate 2.2. However chemistry without acidosis. LFTs unremarkable. Initial Troponin slightly elevated at 0.1 however given the setting of the patient's respiratory symptoms less likely to be primary cardiac process. Blood cultures were drawn and patient was treated with broad-spectrum antibiotics. Case was discussed with Kodak Alvarado, who evaluate the patient for admission. Impression & Plan Sepsis, Multifocal pneumonia, Elevated troponin, COPD (chronic obstructive pulmonary disease) Discharge Plan Visit Data *Final* Discharge Date/Time: 02/26/19 13:21 Chief Complaint: Illness Stated Complaint: SICK FOR A WEEK, SOB, NOT EATING OR DRINKING ED Provider: Ernesto Wright Discharge Problem: Sepsis, Multifocal pneumonia, Elevated troponin, COPD (chronic obstructive pulmonary disease) Patient Disposition: Admitted As Inpatient Discharge Instructions Interventions: ED Discharge Assessment Last Done: 02/26/19 13:21 The scribe's documentation has been prepared under my direction and personally reviewed by me in its entirety. I confirm that the note above accurately reflects all work, treatment, procedures, and medical decision making performed by me.
[2019-02-26] MEDS: APIXABAN 5 MG TABLET PO SCH (20:33)
[2019-02-26] MEDS: FLUTICASONE HFA 110MCG INHALER INH SCH (20:35)
[2019-02-26] MEDS: DOXYCYCLINE HYCLATE 100 MG in DEXTROSE 5% 100 ML IV SCH (22:08)
[2019-02-26] MEDS: TAMSULOSIN HCL 0.4 MG CAP PO SCH (22:09)
[2019-02-27] MEDS: SODIUM CHLORIDE 0.9% 1000ML 1,000 ML IV SCH (00:26)
[2019-02-27] MEDS: PIPERACILLIN/TAZOBACTAM 3.375 GM in DEXTROSE 5% 100 ML IV SCH ×4 (00:26→23:23)
[2019-02-27] MEDS: LEVALBUTEROL 1.25MG/0.5ML NEB NEB SCH ×4 (01:08→19:31)
[2019-02-27] MEDS: methylPREDNISolone 40 MG in SYRINGE 0 ML IV SCH ×3 (02:20→18:50)
[2019-02-27] MEDS: LEVOTHYROXINE SODIUM 25 MCG TABLET PO SCH (05:51)
[2019-02-27 06:53] LABS: Hematocrit (blood only) 28.9 % (42-52); Hemoglobin 9.7 g/dL (14.0-18.0); Immature Granulocytes # (auto) 0.02 K/uL (0.00-0.02); Immature Granulocytes % (auto) 0.3 %; Lymphocytes # (auto) 0.16 K/uL (1.2-3.4); Lymphocytes % (auto) 2.4 %; Mean Corpuscular Hemoglobin 31.5 pg (25-34); Mean Corpuscular Hgb Conc 33.6 g/dL (32-36); Mean Corpuscular Volume 93.8 fL (80-100); Mean Platelet Volume 8.8 fL (7.4-10.4); Monocytes # (auto) 0.22 K/uL (0.11-0.59); Monocytes % (auto) 3.3 %; Neutrophils # (auto) 6.28 K/uL (1.4-6.5); Platelet Count 217 K/uL (130-400); RDW Coefficient of Variation 13.6 % (11.5-14.5); RDW Standard Deviation 46.8 fL (36.4-46.3); Red Blood Count 3.08 M/uL (4.7-6.1); White Blood Count 6.68 K/uL (4.8-10.8)
[2019-02-27 07:40] LABS: BUN Creatinine Ratio 14.9 (10-20); Calcium 7.9 mg/dl (8.5-10.1); Creatinine Clr Calc Pharmacy 60.3 ml/min; Est GFR (African American) 104.8; Est GFR (Non-African American) 90.4; Phosphorus 2.5 mg/dl (2.5-4.9); Potassium 3.4 mmol/L (3.5-5.1)
[2019-02-27] MEDS: DOXYCYCLINE HYCLATE 100 MG in DEXTROSE 5% 100 ML IV SCH ×2 (08:49→21:06)
[2019-02-27] MEDS: GABAPENTIN 400 MG CAP PO SCH ×3 (08:50→21:07)
[2019-02-27] MEDS: ATORVASTATIN 20 MG TAB PO SCH (08:50)
[2019-02-27] MEDS: lisinopriL 10 MG TAB PO SCH (08:50)
[2019-02-27] MEDS: FLUTICASONE HFA 110MCG INHALER INH SCH ×2 (08:50→21:08)
[2019-02-27] MEDS: CLOPIDOGREL BISULFATE 75 MG TAB PO SCH (08:50)
[2019-02-27] MEDS: APIXABAN 5 MG TABLET PO SCH ×2 (08:50→21:07)
[2019-02-27] MEDS: METOPROLOL SUCC 25MG EXT REL TAB PO SCH (08:50)
[2019-02-27] MEDS ORDERED: TAMSULOSIN HCL 0.4 MG CAP PO SCH (09:00)
[2019-02-27] MEDS ORDERED: POTASSIUM CHLORIDE 20 MEQ TABCR PO ONE (09:00)
[2019-02-27] MEDS: PANTOprazole 40 MG TAB PO SCH (10:21)
--- NOTE | 2019-02-27 11:18 | Pulmonology Progress Note ---
Date of Service February 27, 2019 Assessment & Plan (1) Multifocal pneumonia: Patient most likely with combination pneumonia including aspiration based on history No significant change on chest x-ray from yesterday Discussed recommendation for swallow study / video swallow with primary team Continue antibiotics. Day #2 doxycycline and Zosyn Patient was clinical improvement. Continues with distant breath sounds and respiratory discomfort We will continue steroids but begin to taper tomorrow as patient does not have significant bronchospasm Incentive spirometry and flutter valve ordered Encouraged patient to be out of bed to chair and ambulate as tolerated with assistance (2) COPD (chronic obstructive pulmonary disease): PFTs from 08/21/2018 demonstrate advanced obstructive lung disease Home medications include * Albuterol rescue inhaler * Trelegy Ellipta * DuoNeb nebulizer Continue bronchodilators Continue steroids -may be able to begin taper tomorrow as patient is feeling improved We will continue to treat as COPD exacerbation secondary to pneumonia (3) Chronic respiratory failure with hypoxia: Outpatient follow-up with [facility] pulmonology on discharge Recent PFTs in August 2018 as listed above With treat pneumonia and COPD exacerbation and refer back to [facility] as an outpatient Maintain SaO2 between 88 and 92% Serum carbon dioxide 29 on admission and now 26 No indication for acute ABG at this time Patient denies history of polysomnography exam Patient further denies history of using noninvasive ventilation such as trilogy. Continue supportive care Thank you for including us in the care of this patient. Please refer to Dr. Wilson's addendum for further recommendations. We will continue to follow along with you. Supervising Physician Co-Signing Physician Notes Patient seen and examined. Discussed extensively with IVAN tripp. EMR reviewed. Imaging was independently reviewed. Agree with assessment and plan as noted. Impression: 78-year-old male with advanced obstructive lung disease and chronic hypoxemic respiratory failure admitted with possible pneumonia. Recommendations: 1. Agree with antibiotics. Follow clinical response including fever curve white blood cell count. 2. Continue supplemental oxygen titrated to keep saturations at or above 88%. 3. Continue patient's outpatient respiratory regimen. He does not appear overtly bronchospastic currently. Steroids may be continued but a rapid taper may be appropriate. The patient will need to follow-up with his pulmonary providers through [facility]. Recommend follow up CXR in 2-4 weeks. Subjective Attending: Dr. Wilson Is a 78-year-old male that was admitted yesterday for pneumonia and COPD exacerbation. He was seen by our service at that time. Patient was starting doxycycline and Zosyn for pneumonia. Was also started on methylprednisolone and bronchodilators. Patient states that he feels 95% better today as compared to yesterday. He continues to have some shortness of breath with speech and appears to tire easily. He denies any fever or sweats last night. He continues with a nonproductive cough. His cough is exacerbated with deep inspiration. He has no chest pain or tightness today. He has no lower extremity edema or pain. He is tolerating diet. He has no further nausea or vomiting. Aside from his respiratory issues, the patient has no acute complaints. Review of Systems Review of Systems: All systems reviewed & are unremarkable except as noted in HPI & below Physical Exam Physical Exam: GENERAL : No acute distress. Pleasant. Short of breath with full sentences. Some use of accessory muscles after prolonged conversation. EYES: No icterus, gaze conjugate. PERRL NOSE: No evidence of epistaxis. Nasal cannula placed MOUTH: No lesions or candidiasis. Mucosa moist NECK: Supple LUNGS: Diminished breath sounds throughout. Some very minimal bronchospasm in the upper acevedo. Some coarse crackles in the bilateral lower bases. Continues with cough with deep inspiration. HEART: Regular, rate controlled ABDOMEN: Soft, NT, ND, BS Present EXTREMITIES: No LE edema, pedal pulses intact NEURO: A&OX3. Results & Data Vital Signs (Past 12 Hours) Vital Signs Temp Pulse Pulse Resp BP Pulse Ox 02/27/19 10:59 36.4 C L 80 28 H 186/71 H 99 02/27/19 08:13 36.5 C 79 26 H 171/79 H 95 02/27/19 08:00 64 02/27/19 06:53 67 16 98 02/27/19 02:20 36.4 C L 77 18 168/81 H 96 02/27/19 01:08 84 16 95 02/27/19 00:02 64 Laboratory Results 02/27/19 06:25 02/27/19 06:25 Diagnostic Findings SINGLE VIEW CHEST 02/27/2019 CLINICAL HISTORY: Hypoxia. Pneumonia. COPD. FINDINGS: 2 AP, portable, upright chest radiographs are compared to study dated 02/26/2019 and correlated with chest CT dated 08/22/2017. The examination is degraded by portable technique and patient rotation. The heart is enlarged and there is atherosclerotic calcification of the thoracic aorta. The pulmonary vasculature is noncongested. Enlargement of the central pulmonary arteries suggests pulmonary artery hypertension. Advanced emphysema and chronic interstitial thickening are similar to previous. Foci of parenchymal scarring are again seen throughout both lungs. Patchy bibasilar airspace opacities are again noted and similar to yesterday. No large pleural effusion or pneumothorax is seen. The skeletal structures are osteopenic. The bony thorax is grossly intact. IMPRESSION: 1. Cardiomegaly and advanced emphysema. 2. Patchy bibasilar airspace opacities are not significant change from yesterday. Correlate clinically for evidence of pneumonia/aspiration pneumonitis. Radiographic follow-up to resolution is recommended. Electronically signed by: Yanick Gilbert M.D. 02/27/2019 11:39 AM XR chest 1V portable 02/26/2019 HISTORY: 78 years-old Male Chest Pain acute atypical chest pain COMPARISON: Chest radiograph 07/24/2018 TECHNIQUE: Portable AP view of the chest FINDINGS: Cardiac silhouette is enlarged, unchanged. There is no overt pulmonary edema. Advanced emphysema without pneumothorax, pleural effusion or overt pulmonary edema. There are patchy bilateral airspace opacities, notably within the midlung zones and lung bases, right greater than left. Degenerative changes of the shoulders and spine. IMPRESSION: 1. Advanced emphysema with chronic interstitial coarsening. 2. Patchy bilateral alveolar opacities are suspicious for aspiration pneumonitis versus multifocal pneumonia. Electronically signed by: Serjio Becerra M.D. 02/26/2019 10:36 AM PG Care Time/CCT Total # of Minutes Spent Total Time Spent with Patient: Total time spent is greater than 50% in coordination of care (as documented) at patient's floor/unit and/or counseling patient: 35
[2019-02-27] MEDS ORDERED: lisinopriL 20 MG TAB PO ONE (11:30)
--- NOTE | 2019-02-27 11:40 | XRay Report ---
SINGLE VIEW CHEST CLINICAL HISTORY: Hypoxia. Pneumonia. COPD. FINDINGS: 2 AP, portable, upright chest radiographs are compared to study dated 02/26/2019 and correl ated with chest CT dated 08/22/2017. The examination is degraded by portable technique and patient rot ation. The heart is enlarged and there is atherosclerotic calcification of the thoracic aorta. The pu lmonary vasculature is noncongested. Enlargement of the central pulmonary arteries suggests pulmonary artery hypertension. Advanced emphysema and chronic interstitial thickening are similar to previous. Foci of parenchymal scarring are again seen throughout both lungs. Patchy bibasilar airspace opaciti es are again noted and similar to yesterday. No large pleural effusion or pneumothorax is seen. The s keletal structures are osteopenic. The bony thorax is grossly intact. IMPRESSION: 1. Cardiomegaly and advanced emphysema. 2. Patchy bibasilar airspace opacities are not significant change from yesterday. Correlate clinicall y for evidence of pneumonia/aspiration pneumonitis. Radiographic follow-up to resolution is recommend ed. Electronically signed by: Yanick Gilbert M.D. 02/27/2019 11:39 AM
--- NOTE | 2019-02-27 12:25 | Hospitalist Progress Note ---
Date of Service February 27, 2019 Assessment & Plan (1) Multifocal pneumonia: Sill with some coughing activity but improved. Now eating. Zosyn/Doxy. Continuing scheduled nebs and Solumedrol per Pulmonology who is following. Patient has end stage COPD. Cont current treatment pending culture results and clinical improvement. Question dysphagia symptoms reported by patient. Pending speech recommendations who evaluated him earlier. (2) COPD exacerbation: Cont scheduled nebs, Solumedrol and antibiotic treatment for pneumonia. Cont chronic oxygen supplementation. (3) HTN (hypertension): uncontrolled possibly 2/2 steroids. Additional 20mg of lisinopril given by Cardio today. Taking lisinopril 10mg daily. Cont to monitor. (4) Elevated troponin: Has stable CAD. Pt denies chest pain. Per Cards this is unlikely ACS. No further cardiac workup. Cont medical management of CAD. (5) Chronic respiratory failure with hypoxia: 2/2 end stage COPD. Cont treatment as above. (6) CAD (coronary artery disease): stable, stent in 2018, Continue Plavix, statin, metoprolol (7) Hypothyroidism: -Continue levothyroxine per home dose (8) BPH (benign prostatic hyperplasia): -Continue tamsulosin per home regimen (9) Tachycardia induced cardiomyopathy: resolved. (10) Atrial flutter: Sinus rhythm with bursts of atrial tachycardia overnight on sinus rhythm. Rate controlled with Toprol and on Eliquis for anticoagulation. (11) DVT prophylaxis: Eliquis DNR/DNI Dispo-uncertain at this time. PT/OT to evaluate. [facility] Physical Exam Physical Exam: CONSTITUTIONAL: thin, vitals as above, generally well-appearing EYES: normal conjunctivae, no scleral icterus ENT: external ear and nose normal, oropharynx clear RESPIRATORY: mild expiratory wheezing throughout with crackles at the right base. Some increased respiratory effort with speaking and he is at his baseline oxygen supplementation CARDIOVASCULAR: regular rate and rhythm, S1 and 2 heard without murmurs, gallops or rubs, no peripheral edema GASTROINTESTINAL: soft, nontender, nondistended MUSCULOSKELETAL: strength 5/5 throughout, head is normocephalic and atraumatic SKIN: warm and dry NEUROLOGIC: CN 2-12 grossly intact, no sensory deficit, normal cognition, normal speech, no gross focal deficits PSYCHIATRIC: alert cooperative and oriented to person, place and time. Results & Data Vital Signs (Past 12 Hours) Vital Signs Temp Pulse Pulse Resp BP Pulse Ox 02/27/19 12:00 64 02/27/19 10:59 36.4 C L 80 28 H 186/71 H 99 02/27/19 08:13 36.5 C 79 26 H 171/79 H 95 02/27/19 08:00 64 02/27/19 06:53 67 16 98 02/27/19 02:20 36.4 C L 77 18 168/81 H 96 02/27/19 01:08 84 16 95 Laboratory Results Short CBC 02/27/19 Range/Units 06:25 WBC 6.68 (4.8-10.8) K/uL Hgb 9.7 L (14.0-18.0) g/dL Hct 28.9 L (42-52) % Plt Count 217 (130-400) K/uL BMP 02/27/19 06:25 Sodium 139 Potassium 3.4 L Chloride 106 Carbon Dioxide 26 BUN 11 Creatinine 0.70 D Glucose 172 H Calcium 7.9 L Cardiac Enzymes 02/26/19 02/26/19 Range/Units 16:18 22:11 Troponin I 0.075 H* 0.079 H* (0-0.045) ng/ml Medications Administered Current Inpatient Medications Acetaminophen (Tylenol) 650 mg PO Q4H PRN PRN Reason: Pain or Fever Stop: 03/28/19 14:00 Apixaban (Eliquis) 5 mg PO BID [facility] Stop: 03/28/19 20:59 Last Admin: 02/27/19 08:50 Dose: 5 mg Documented by: Atorvastatin Calcium (Lipitor) 20 mg PO DAILY [facility] Stop: 03/29/19 08:59 Last Admin: 02/27/19 08:50 Dose: 20 mg Documented by: Clopidogrel Bisulfate (Plavix) 75 mg PO DAILY [facility] Stop: 03/29/19 08:59 Last Admin: 02/27/19 08:50 Dose: 75 mg Documented by: Fluticasone Propionate (Flovent Hfa 110mch) 2 puffs INH BID [facility] Stop: 03/28/19 20:59 Last Admin: 02/27/19 08:50 Dose: 2 puffs Documented by: Gabapentin (Neurontin) 400 mg PO TID [facility] Stop: 03/28/19 14:29 Last Admin: 02/27/19 08:50 Dose: 400 mg Documented by: Doxycycline Hyclate 100 mg/ (Dextrose) 110 mls @ 50 mls/hr IV BID [facility] Stop: 03/05/19 20:59 Last Infusion: 02/27/19 10:26 Dose: Infused Documented by: Methylprednisolone 40 mg/ (Syringe) 0.64 mls @ 1.5 mls/min IV Q8H [facility] Stop: 03/28/19 17:59 Last Admin: 02/27/19 10:22 Dose: 1.5 mls/min Documented by: Piperacillin Sod/Tazobactam (Sod 3.375 gm/ Dextrose) 115 mls @ 28.75 mls/hr IV Q8H [facility]; Protocol Stop: 03/05/19 15:59 Last Admin: 02/27/19 10:21 Dose: 28.8 mls/hr Documented by: Levalbuterol HCl (Xopenex 1.25mg/0.5ml Neb) 1.25 mg NEB Q6R [facility] Stop: 03/28/19 14:14 Last Admin: 02/27/19 06:53 Dose: 1.25 mg Documented by: Levalbuterol HCl (Xopenex 0.63 Mg/3 Ml Neb) 0.63 mg NEB Q4R PRN PRN Reason: Shortness Of Breath Or Wheezing Stop: 03/28/19 14:00 Levothyroxine Sodium (Synthroid) 25 mcg PO DAILYBB [facility] Stop: 03/29/19 06:29 Last Admin: 02/27/19 05:51 Dose: 25 mcg Documented by: Lisinopril (Zestril) 10 mg PO DAILY [facility] Stop: 03/29/19 08:59 Last Admin: 02/27/19 08:50 Dose: 10 mg Documented by: Metoprolol Succinate (Toprol Xl) 25 mg PO DAILY [facility] Stop: 03/29/19 08:59 Last Admin: 02/27/19 08:50 Dose: 25 mg Documented by: Miscellaneous Information (Consult) 1 ea N/A UD PRN PRN Reason: Consult Stop: 03/28/19 10:52 Nitroglycerin (Nitrostat) 0.4 mg SL UD PRN PRN Reason: Chest Pain Stop: 03/28/19 14:00 Pantoprazole Sodium (Protonix) 40 mg PO DAILY [facility] Stop: 03/29/19 08:59 Last Admin: 02/27/19 10:21 Dose: 40 mg Documented by: Tamsulosin HCl (Flomax) 0.4 mg PO HS [facility] Stop: 03/28/19 20:59 Last Admin: 02/26/19 22:09 Dose: 0.4 mg Documented by:
[2019-02-27] MEDS: TAMSULOSIN HCL 0.4 MG CAP PO SCH (21:08)
[2019-02-28] MEDS: LEVALBUTEROL 1.25MG/0.5ML NEB NEB SCH ×4 (01:05→19:14)
[2019-02-28] MEDS: methylPREDNISolone 40 MG in SYRINGE 0 ML IV SCH ×2 (02:52→10:30)
[2019-02-28] MEDS: LEVOTHYROXINE SODIUM 25 MCG TABLET PO SCH (05:37)
[2019-02-28 06:27] LABS: Hematocrit (blood only) 29.1 % (42-52); Hemoglobin 9.7 g/dL (14.0-18.0); Mean Corpuscular Hemoglobin 30.8 pg (25-34); Mean Corpuscular Hgb Conc 33.3 g/dL (32-36); Mean Corpuscular Volume 92.4 fL (80-100); Mean Platelet Volume 8.5 fL (7.4-10.4); Platelet Count 272 K/uL (130-400); RDW Coefficient of Variation 13.6 % (11.5-14.5); RDW Standard Deviation 46.1 fL (36.4-46.3); Red Blood Count 3.15 M/uL (4.7-6.1); White Blood Count 11.69 K/uL (4.8-10.8)
[2019-02-28 07:06] LABS: BUN Creatinine Ratio 15.5 (10-20); Calcium 8.2 mg/dl (8.5-10.1); Creatinine Clr Calc Pharmacy 53.8 ml/min; Est GFR (African American) 98.2; Est GFR (Non-African American) 84.7; Magnesium 1.9 mg/dl (1.8-2.4)
[2019-02-28] MEDS: DOXYCYCLINE HYCLATE 100 MG in DEXTROSE 5% 100 ML IV SCH (07:34)
[2019-02-28] MEDS: CLOPIDOGREL BISULFATE 75 MG TAB PO SCH (07:39)
[2019-02-28] MEDS: ATORVASTATIN 20 MG TAB PO SCH (07:40)
[2019-02-28] MEDS: APIXABAN 5 MG TABLET PO SCH ×2 (07:40→20:31)
[2019-02-28] MEDS: METOPROLOL SUCC 25MG EXT REL TAB PO SCH (07:41)
[2019-02-28] MEDS: GABAPENTIN 400 MG CAP PO SCH ×3 (07:42→20:31)
[2019-02-28] MEDS: PANTOprazole 40 MG TAB PO SCH (07:42)
[2019-02-28] MEDS: FLUTICASONE HFA 110MCG INHALER INH SCH ×2 (07:44→20:32)
[2019-02-28] MEDS: lisinopriL 10 MG TAB PO SCH (07:46)
--- NOTE | 2019-02-28 08:45 | Pulmonology Progress Note ---
Date of Service February 28, 2019 Assessment & Plan (1) Multifocal pneumonia: Patient most likely with combination pneumonia including aspiration based on history Swallow study scheduled for today Continue antibiotics. Day #3 doxycycline and Zosyn From a pulmonary standpoint, okay to discontinue doxycycline and Zosyn and convert to Augmentin Would change to oral prednisone today and taper over 5 days Outpatient follow-up with [facility] with follow-up chest x-ray in 2 weeks Encouraged patient to be out of bed to chair and ambulate as tolerated with assistance (2) COPD (chronic obstructive pulmonary disease): PFTs from 08/21/2018 demonstrate advanced obstructive lung disease Home medications include * Albuterol rescue inhaler * Trelegy Ellipta * DuoNeb nebulizer Okay to resume outpatient medications 5-day prednisone taper Outpatient follow-up with [facility] pulmonology (3) Chronic respiratory failure with hypoxia: Outpatient follow-up with [facility] pulmonology on discharge Recent PFTs in August 2018 as listed above With treat pneumonia and COPD exacerbation and refer back to [facility] as an outpatient Maintain SaO2 between 88 and 92% No evidence of hypercapnia Continue supportive care Thank you for including us in the care of this patient. Please refer to Dr. Wilson's addendum for further recommendations. We will sign off at this time. Please feel free to reconsult as needed. Supervising Physician Co-Signing Physician Notes Patient seen and examined. Discussed extensively with IVAN tripp. EMR reviewed. Imaging was independently reviewed. Agree with assessment and plan as noted. Impression: 78-year-old male with advanced obstructive lung disease and chronic hypoxemic respiratory failure admitted with possible pneumonia. Recommendations: 1. Agree with antibiotics. Follow clinical response including fever curve white blood cell count. 2. Continue supplemental oxygen titrated to keep saturations at or above 88%. 3. Continue patient's outpatient respiratory regimen. He does not appear overtly bronchospastic currently. Steroids may be continued but a rapid taper may be appropriate. The patient will need to follow-up with his pulmonary providers through [facility]. Recommend follow up CXR in 2-4 weeks. Will sign off. OK to discharge from pulmonary perspective. Call if questions. Subjective Attending: Dr. Wilson Is a 78-year-old male that was admitted for shortness of breath and found to have pneumonia and severe COPD. Patient presents with history that suggest aspiration pneumonia. He is scheduled for a barium swallow this morning. Patient was placed on doxycycline and Zosyn on admission and continues to show clinical improvement. Sputum culture came back with very few gram- positive cocci. Blood cultures are negative x2. Patient is now able to speak in full sentences without shortness of breath. He is also able to take deep breaths without eliciting severe cough. He still has no sputum production. He denies hemoptysis. Patient reports he has had no fever or chills or sweats. He feels significantly improved from a pulmonary standpoint. He is scheduled for a video swallow study this morning. He has no other acute complaints. Review of Systems Review of Systems: All systems reviewed & are unremarkable except as noted in HPI & below Physical Exam Physical Exam: GENERAL : No acute distress. Pleasant and talkative EYES: No icterus, gaze conjugate NOSE: No evidence of epistaxis. Nasal cannula in place MOUTH: No lesions or candidiasis. Mucosa moist NECK: Supple. LUNGS: Very minimal bibasilar rales. No rhonchi. No bronchospasm. Aeration seems to be improved since admission. HEART: Regular, rate controlled. No appreciation of murmurs gallops or rubs ABDOMEN: Soft, NT, ND, BS Present. EXTREMITIES: No LE edema, pedal pulses intact. NEURO: A&OX3 Results & Data Vital Signs (Past 12 Hours) Vital Signs Temp Pulse Resp BP Pulse Ox 02/28/19 07:05 36.4 C L 73 18 193/81 H 100 02/28/19 07:02 78 20 100 02/28/19 02:52 36.7 C 72 18 158/83 H 98 02/28/19 01:05 84 16 98 02/27/19 23:21 36.4 C L 75 20 160/81 H 99 Laboratory Results 02/28/19 06:16 02/28/19 06:16 Diagnostic Findings Previous chest x-ray 02/27/2019 No further imaging Anticipate video swallow study this morning. PG Care Time/CCT Total # of Minutes Spent Total Time Spent with Patient: Total time spent is greater than 50% in coordination of care (as documented) at patient's floor/unit and/or counseling patient: 30
--- NOTE | 2019-02-28 09:38 | Fluoroscopy Report ---
FL barium swallow CLINICAL HISTORY: c/o food sticking in stomach COMPARISON STUDY: Abdomen and pelvis CTA 08/22/2017. FLUOROSCOPY TIME: 0.4 minutes. 22 fluoroscopic spot images submitted. FINDINGS: The contours of the hypopharynx are within normal limits. Small amount of aspiration demons trated during the examination. Therefore, examination was terminated early. The esophagus appears be normal and course and caliber. No hiatus hernia. IMPRESSION: Small amount of aspiration demonstrated during the examination. Therefore, the examinatio n was terminated early. Follow-up video swallow is pending. Electronically signed by: Tra Monsivais M.D. 02/28/2019 9:37 AM
[2019-02-28] MEDS: PIPERACILLIN/TAZOBACTAM 3.375 GM in DEXTROSE 5% 100 ML IV SCH (10:29)
--- NOTE | 2019-02-28 10:50 | Fluoroscopy Report ---
VIDEO SWALLOW STUDY CLINICAL HISTORY: Aspiration. COMPARISON STUDY: Barium esophagram performed the same day 02/28/2019. Fluoroscopy time: 2.6 minutes. FINDINGS: Fluoroscopic guidance was provided to the Department of speech pathology in performing a vi boom swallow study. The patient consumed barium-impregnated pudding, cracker with paste, nectar thick liquid, and thin barium while the swallowing mechanism was observed in real-time. There was deep phar yngeal penetration without aspiration seen with nectar thick liquids. No definite penetration or aspi ration was seen with the remaining textures. Esophageal dysmotility is observed. IMPRESSION: 1. Deep pharyngeal penetration with aspiration was seen with nectar thick liquids. 2. No definite aspiration was seen with any of the additional sampled textures. 3. See dedicated speech pathology report for detailed findings and recommendations. Dictated: 02/28/2019 10:29 AM Transcribed: 02/28/2019 10:37 AM Elizabeth [id number] Electronically signed by: Yanick Gilbert M.D. 02/28/2019 10:49 AM
[2019-02-28] MEDS ORDERED: HydrALAZINE HCL 20 MG/ML VIAL IV STA ×2 (11:39→19:32)
--- NOTE | 2019-02-28 12:29 | Cardiology Progress Note ---
Date of Service February 28, 2019 Assessment & Plan (1) Elevated troponin: Given the clinical context of multifocal pneumonia in a patient with pulmonary hypertension along with no wall motion abnormalities on echocardiogram I do not believe the troponin elevation represents acute ischemia. No further cardiac testing or intervention is necessary at this time and would recommend continued treatment of his pneumonia. Will sign off, please call with questions or concerns. (2) Multifocal pneumonia: Will defer treatment to our pulmonary colleagues (3) CAD (coronary artery disease): Stable (4) Atrial flutter: Currently in normal sinus rhythm on Eliquis anticoagulation. Given the active pneumonia process he is at increased risk of recurrent atrial arrhythmias so his Eliquis will be continued for now along with his outpatient dose of metoprolol. (5) Tachycardia induced cardiomyopathy: Resolved Subjective Patient seen and examined, states that he is feeling okay today. Still with a productive cough and some shortness of breath but denies any chest pain, palpita tions, lightheadedness, dizziness or syncope. Telemetry reviewed shows normal sinus rhythm without arrhythmia or significant ectopy. Review of Systems Review of Systems: All systems reviewed & are unremarkable except as noted in HPI & below Physical Exam Physical Exam: General: Awake, alert and oriented x 3. No acute distress. HEENT: Normocephalic, atraumatic. Pupils equal, round and reactive to light and accommodation. Extraocular muscles are intact. Anicteric sclera. Moist mucous membranes. Neck: No JVD. No bruit. Cardiovascular: Regular. Positive S-4. Normal S-1 and S-2. No S-3. No murmurs or rubs. Pulmonary: Coarse breath sounds with diffuse rhonchi. Coarse breath sounds with diffuse rhonchi. No rales or wheezing Abdomen: Bowel sounds x 4, soft. No rebound, guarding or tenderness. No organomegaly. Extremities: No clubbing, cyanosis or edema. +2 pedal pulses bilaterally. Skin: Warm and dry. Results & Data Vital Signs (Past 12 Hours) Vital Signs Temp Pulse Pulse Resp BP BP Pulse Ox 02/28/19 11:32 36.4 C L 74 20 188/94 H 199/84 H 97 02/28/19 08:00 95 H 02/28/19 07:05 36.4 C L 73 18 193/81 H 100 02/28/19 07:02 78 20 100 02/28/19 02:52 36.7 C 72 18 158/83 H 98 02/28/19 01:05 84 16 98
--- NOTE | 2019-02-28 13:23 | Hospitalist Progress Note ---
Date of Service February 28, 2019 Assessment & Plan (1) Multifocal pneumonia: Improved overall with resolution of wheezing on exam. Per pulmonology we are just de-escalating therapy to Augmentin and prednisone. Patient has end- stage COPD and is aware of his limitations. We discussed possible silent aspiration causing this event and future events. He will continue to try diet modifications recommended by speech pathology. He is not interested in any further work-up or aggressive intervention that may be offered such as esophageal dilation. Continue to monitor progress (2) COPD exacerbation: Continue nebulizers, Solu-Medrol changed to prednisone for 5 days. Continue base oxygen supplementation. (3) HTN (hypertension): Urgency this morning with blood pressure in the 190s possibly secondary to steroids. IV hydralazine improved blood pressure back into normal range. Lisinopril was increased to 40 mg daily. Continue to monitor closely. Of note, patient did mention a history of whitecoat hypertension which may be contributing. Close primary care follow-up will be recommended with a BMP in 2 weeks. (4) Elevated troponin: Has stable CAD. Pt denies chest pain. Per Cards this is unlikely ACS. No further cardiac workup. Cont medical management of CAD. (5) Chronic respiratory failure with hypoxia: 2/2 end stage COPD. Cont treatment as above. (6) CAD (coronary artery disease): stable, stent in 2018, Continue Plavix, statin, metoprolol (7) Hypothyroidism: -Continue levothyroxine per home dose (8) BPH (benign prostatic hyperplasia): -Continue tamsulosin per home regimen (9) Tachycardia induced cardiomyopathy: resolved. (10) Atrial flutter: Sinus rhythm on telemetry. Rate controlled with Toprol and on Eliquis for anticoagulation. (11) Anemia: acute drop in H/H on HD2 likely 2/2 IVF administration and dilution. There is no active bleeding present. No indication for transfusion. Stable, cont to monitor. (12) DVT prophylaxis: Eliquis DNR/DNI Dispo-likely to home when clinically improved. Pending PT/OT recommendations. May benefit from pulmonary rehab-defer to pulmonology. Maureen Hassan DO [facility] Hospitalist Subjective Patient feels that breathing is better however he did have an episode with occupational therapy today where he became significantly short of breath with exertion. He felt it took him a long time to recover. Otherwise he feels improved with cough improved. We discussed the results from the barium and video swallow today resulting in silent aspiration. We discussed foods that would be good for him including moist slippery foods, but that ultimately aspiration pneumonia may still recur in the future. He reported to me that he understands he is old and things are run down and giving out on him. He does not want any aggressive interventions. Despite the fact he gets intermittent dysphasia with a globus sensation he does not want to explore dilation. He denies any pain. He is tolerating p.o. Review of Systems Review of Systems: All systems reviewed & are unremarkable except as noted in HPI & below Physical Exam Physical Exam: CONSTITUTIONAL: thin, vitals as above, generally well-appearing EYES: normal conjunctivae, no scleral icterus ENT: eMMM RESPIRATORY: Clear to auscultation throughout. Some increased respiratory effort with speaking and he is at his baseline oxygen supplementation CARDIOVASCULAR: regular rate and rhythm, S1 and 2 heard without murmurs, gallops or rubs, no peripheral edema GASTROINTESTINAL: soft, nontender, nondistended MUSCULOSKELETAL: strength 5/5 throughout, head is normocephalic and atraumatic SKIN: warm and dry NEUROLOGIC: CN 2-12 grossly intact, no sensory deficit, normal cognition, normal speech, no gross focal deficits PSYCHIATRIC: alert cooperative and oriented to person, place and time. Results & Data Vital Signs (Past 12 Hours) Vital Signs Temp Pulse Pulse Resp BP BP Pulse Ox 02/28/19 12:00 147/75 H 02/28/19 11:32 36.4 C L 74 20 188/94 H 199/84 H 97 02/28/19 08:00 95 H 02/28/19 07:05 36.4 C L 73 18 193/81 H 100 02/28/19 07:02 78 20 100 02/28/19 02:52 36.7 C 72 18 158/83 H 98 Laboratory Results Short CBC 02/28/19 Range/Units 06:16 WBC 11.69 H (4.8-10.8) K/uL Hgb 9.7 L (14.0-18.0) g/dL Hct 29.1 L (42-52) % Plt Count 272 (130-400) K/uL BMP 02/28/19 06:16 Sodium 138 Potassium 4.0 D Chloride 107 Carbon Dioxide 27 BUN 13 Creatinine 0.82 Glucose 147 H Calcium 8.2 L Medications Administered Current Inpatient Medications Acetaminophen (Tylenol) 650 mg PO Q4H PRN PRN Reason: Pain or Fever Stop: 03/28/19 14:00 Amoxicillin/Clavulanate Potassium (Augmentin 875mg) 1 tab PO BIDM [facility]; Protocol Stop: 03/07/19 16:59 Apixaban (Eliquis) 5 mg PO BID [facility] Stop: 03/28/19 20:59 Last Admin: 02/28/19 07:40 Dose: 5 mg Documented by: Atorvastatin Calcium (Lipitor) 20 mg PO DAILY [facility] Stop: 03/29/19 08:59 Last Admin: 02/28/19 07:40 Dose: 20 mg Documented by: Clopidogrel Bisulfate (Plavix) 75 mg PO DAILY [facility] Stop: 03/29/19 08:59 Last Admin: 02/28/19 07:39 Dose: 75 mg Documented by: Fluticasone Propionate (Flovent Hfa 110mch) 2 puffs INH BID [facility] Stop: 03/28/19 20:59 Last Admin: 02/28/19 07:44 Dose: 2 puffs Documented by: Gabapentin (Neurontin) 400 mg PO TID [facility] Stop: 03/28/19 14:29 Last Admin: 02/28/19 07:42 Dose: 400 mg Documented by: Levalbuterol HCl (Xopenex 1.25mg/0.5ml Neb) 1.25 mg NEB Q6R [facility] Stop: 03/28/19 14:14 Last Admin: 02/28/19 13:05 Dose: 1.25 mg Documented by: Levalbuterol HCl (Xopenex 0.63 Mg/3 Ml Neb) 0.63 mg NEB Q4R PRN PRN Reason: Shortness Of Breath Or Wheezing Stop: 03/28/19 14:00 Levothyroxine Sodium (Synthroid) 25 mcg PO DAILYBB [facility] Stop: 03/29/19 06:29 Last Admin: 02/28/19 05:37 Dose: Not Given Documented by: Lisinopril (Zestril) 40 mg PO DAILY [facility] Stop: 03/31/19 08:59 Metoprolol Succinate (Toprol Xl) 25 mg PO DAILY [facility] Stop: 03/29/19 08:59 Last Admin: 02/28/19 07:41 Dose: 25 mg Documented by: Nitroglycerin (Nitrostat) 0.4 mg UD PRN PRN Reason: Chest Pain Stop: 03/28/19 14:00 Pantoprazole Sodium (Protonix) 40 mg PO DAILY [facility] Stop: 03/29/19 08:59 Last Admin: 02/28/19 07:42 Dose: 40 mg Documented by: Prednisone (Prednisone) 40 mg PO DAILY [facility] Stop: 03/06/19 08:59 Tamsulosin HCl (Flomax) 0.4 mg PO HS [facility] Stop: 03/28/19 20:59 Last Admin: 02/27/19 21:08 Dose: 0.4 mg Documented by:
[2019-02-28] MEDS: AMOXICILLIN/CLAVULANATE 875 MG TAB PO SCH (17:10)
[2019-02-28] MEDS: TAMSULOSIN HCL 0.4 MG CAP PO SCH (20:31)
[2019-03-01] MEDS: LEVALBUTEROL 1.25MG/0.5ML NEB NEB SCH ×2 (01:13→06:56)
[2019-03-01] MEDS: LEVOTHYROXINE SODIUM 25 MCG TABLET PO SCH (06:15)
[2019-03-01] MEDS: CLOPIDOGREL BISULFATE 75 MG TAB PO SCH (08:29)
[2019-03-01] MEDS: ATORVASTATIN 20 MG TAB PO SCH (08:29)
[2019-03-01] MEDS: PANTOprazole 40 MG TAB PO SCH (08:29)
[2019-03-01] MEDS: GABAPENTIN 400 MG CAP PO SCH ×3 (08:29→20:19)
[2019-03-01] MEDS: METOPROLOL SUCC 25MG EXT REL TAB PO SCH (08:29)
[2019-03-01] MEDS: APIXABAN 5 MG TABLET PO SCH ×2 (08:30→20:18)
[2019-03-01] MEDS: FLUTICASONE HFA 110MCG INHALER INH SCH ×2 (08:30→20:20)
[2019-03-01] MEDS: lisinopriL 40 MG TAB PO SCH (08:30)
[2019-03-01] MEDS: AMOXICILLIN/CLAVULANATE 875 MG TAB PO SCH ×2 (08:31→15:55)
[2019-03-01] MEDS: predniSONE 20 MG TAB PO SCH (08:31)
[2019-03-01] MEDS: LEVALBUTEROL HCL 1.25 MG/3 ML NEB NEB SCH ×2 (13:08→19:23)
--- NOTE | 2019-03-01 15:51 | Hospitalist Progress Note ---
Date of Service March 01, 2019 Assessment & Plan (1) HTN (hypertension): Continues to have uncontrolled blood pressure requiring IV hydralazine. Switch to lisinopril to 40 mg daily with first dose this morning. We will continue to monitor closely, noting history of whitecoat hypertension. Will need close primary care follow-up as outpatient with a BMP in 2 weeks. (2) Multifocal pneumonia: Improved overall with resolution of wheezing on exam. Continue Augmentin and prednisone. Patient has end-stage COPD and is aware of his limitations. Barium and video swallow reveal evidence of silent aspiration. Speech pathology discussed modification of diet with him as well as swallowing techniques. He is not interested in further work-up or aggressive intervention that may be offered such as esophageal dilation. He verbalized understanding the risks. (3) COPD exacerbation: Continue nebulizers, continue prednisone for total 5 days. Cruciate pulmonary recommendations. Continue base oxygen supplementation. (4) Elevated troponin: Has stable CAD. Pt denies chest pain. Per Cards this is unlikely ACS. No further cardiac workup. Cont medical management of CAD. (5) Chronic respiratory failure with hypoxia: 2/2 end stage COPD. Cont treatment as above. (6) CAD (coronary artery disease): stable, stent in 2018, Continue Plavix, statin, metoprolol (7) Hypothyroidism: -Continue levothyroxine per home dose (8) BPH (benign prostatic hyperplasia): -Continue tamsulosin per home regimen (9) Tachycardia induced cardiomyopathy: resolved. (10) Atrial flutter: Sinus rhythm. Rate controlled with Toprol and on Eliquis for anticoagulation. (11) Anemia: acute drop in H/H on HD2 likely 2/2 IVF administration and dilution. There is no active bleeding present. No indication for transfusion. Stable, cont to monitor. (12) DVT prophylaxis: Eliquis DNR/DNI Dispo-likely to home when clinically improved. Pending PT/OT recommendations. May benefit from pulmonary rehab-defer to pulmonology. Maureen Hassan DO [facility] Hospitalist Subjective Patient feeling well today, denies attacks of shortness of breath today. He is still rocked by the excessive shortness of breath that occurred with yesterday's OT session. He is tolerating p.o. Blood pressure is still uncontrolled and again he reinforces his history of whitecoat hypertension. He does not feel well enough to leave today. He lives alone and depends on his daughter who is not too far away. Uncertain therapy recommendations at this point but will likely plan to return home at discharge. Bronchospasm has improved and he is doing well on current therapy. He is hemodynamically stable and ambulating and mentating at baseline. Review of Systems Review of Systems: All systems reviewed & are unremarkable except as noted in HPI & below Physical Exam Physical Exam: CONSTITUTIONAL: thin, vitals as above, generally well-appearing EYES: normal conjunctivae, no scleral icterus ENT: MMM RESPIRATORY: Clear to auscultation throughout. Some increased respiratory effort with speaking and he is at his baseline oxygen supplementation CARDIOVASCULAR: regular rate and rhythm, S1 and 2 heard without murmurs, gallops or rubs, no peripheral edema GASTROINTESTINAL: soft, nontender, nondistended MUSCULOSKELETAL: strength 5/5 throughout, head is normocephalic and atraumatic SKIN: warm and dry NEUROLOGIC: CN 2-12 grossly intact, no sensory deficit, normal cognition, normal speech, no gross focal deficits PSYCHIATRIC: alert cooperative and oriented to person, place and time. Results & Data Vital Signs (Past 12 Hours) Vital Signs Temp Pulse Pulse Resp BP Pulse Ox 03/01/19 15:16 75 178/96 H 03/01/19 15:08 36.5 C 75 19 202/100 H 96 03/01/19 13:10 71 18 98 03/01/19 11:01 36.6 C 71 18 163/83 H 95 03/01/19 10:05 71 166/78 H 03/01/19 07:30 75 03/01/19 07:05 36.4 C L 79 18 183/97 H 97 03/01/19 07:00 86 18 97 Medications Administered Current Inpatient Medications Acetaminophen (Tylenol) 650 mg PO Q4H PRN PRN Reason: Pain or Fever Stop: 03/28/19 14:00 Amoxicillin/Clavulanate Potassium (Augmentin 875mg) [address] [facility]; Protocol Stop: 03/07/19 16:59 Last Admin: 03/01/19 08:31 Dose: 1 tab Documented by: Apixaban (Eliquis) [address] [facility] Stop: 03/28/19 20:59 Last Admin: 03/01/19 08:30 Dose: 5 mg Documented by: Atorvastatin Calcium (Lipitor) [address] [facility] Stop: 03/29/19 08:59 Last Admin: 03/01/19 08:29 Dose: 20 mg Documented by: Clopidogrel Bisulfate (Plavix) 75 mg PO DAILY [facility] Stop: 03/29/19 08:59 Last Admin: 03/01/19 08:29 Dose: 75 mg Documented by: Fluticasone Propionate (Flovent Hfa 110mch) 2 puffs INH BID [facility] Stop: 03/28/19 20:59 Last Admin: 03/01/19 08:30 Dose: 2 puffs Documented by: Gabapentin (Neurontin) 400 mg PO TID [facility] Stop: 03/28/19 14:29 Last Admin: 03/01/19 14:31 Dose: 400 mg Documented by: Levalbuterol HCl (Xopenex 0.63 Mg/3 Ml Neb) 0.63 mg NEB Q4R PRN PRN Reason: Shortness Of Breath Or Wheezing Stop: 03/28/19 14:00 Levalbuterol HCl (Xopenex 1.25mg/3ml Neb) 1.25 mg NEB Q6R [facility] Stop: 03/31/19 12:59 Last Admin: 03/01/19 13:08 Dose: 1.25 mg Documented by: Levothyroxine Sodium (Synthroid) [address] [facility] Stop: 03/29/19 06:29 Last Admin: 03/01/19 06:15 Dose: 25 mcg Documented by: Lisinopril (Zestril) 40 mg PO DAILY [facility] Stop: 03/31/19 08:59 Last Admin: 03/01/19 08:30 Dose: 40 mg Documented by: Metoprolol Succinate (Toprol Xl) 25 mg PO DAILY [facility] Stop: 03/29/19 08:59 Last Admin: 03/01/19 08:29 Dose: 25 mg Documented by: Nitroglycerin (Nitrostat) 0.4 mg SL UD PRN PRN Reason: Chest Pain Stop: 03/28/19 14:00 Pantoprazole Sodium (Protonix) 40 mg PO DAILY [facility] Stop: 03/29/19 08:59 Last Admin: 03/01/19 08:29 Dose: 40 mg Documented by: Prednisone (Prednisone) 40 mg PO DAILY [facility] Stop: 03/06/19 08:59 Last Admin: 03/01/19 08:31 Dose: 40 mg Documented by: Tamsulosin HCl (Flomax) 0.4 mg PO HS [facility] Stop: 03/28/19 20:59 Last Admin: 02/28/19 20:31 Dose: 0.4 mg Documented by:
[2019-03-01] MEDS ORDERED: HydrALAZINE HCL 20 MG/ML VIAL IV STA (17:40)
[2019-03-01] MEDS: TAMSULOSIN HCL 0.4 MG CAP PO SCH (20:18)
[2019-03-01] MEDS: AMLODIPINE BESYLATE 5 MG TAB PO SCH (20:19)
[2019-03-02] MEDS: LEVALBUTEROL HCL 1.25 MG/3 ML NEB NEB SCH ×4 (00:37→19:06)
[2019-03-02] MEDS: LEVOTHYROXINE SODIUM 25 MCG TABLET PO SCH (05:41)
[2019-03-02] MEDS: APIXABAN 5 MG TABLET PO SCH ×2 (07:50→20:57)
[2019-03-02] MEDS: FLUTICASONE HFA 110MCG INHALER INH SCH ×2 (07:50→20:57)
[2019-03-02] MEDS: AMOXICILLIN/CLAVULANATE 875 MG TAB PO SCH ×2 (07:50→17:27)
[2019-03-02] MEDS: ATORVASTATIN 20 MG TAB PO SCH (07:51)
[2019-03-02] MEDS: METOPROLOL SUCC 25MG EXT REL TAB PO SCH (07:51)
[2019-03-02] MEDS: CLOPIDOGREL BISULFATE 75 MG TAB PO SCH (07:51)
[2019-03-02] MEDS: predniSONE 20 MG TAB PO SCH (07:51)
[2019-03-02] MEDS: lisinopriL 40 MG TAB PO SCH (07:51)
[2019-03-02] MEDS: PANTOprazole 40 MG TAB PO SCH (07:51)
[2019-03-02] MEDS: GABAPENTIN 400 MG CAP PO SCH ×3 (07:51→20:56)
--- NOTE | 2019-03-02 11:05 | Pulmonology Progress Note ---
Date of Service March 02, 2019 78-year-old male that was admitted for shortness of breath and found to have pneumonia and severe COPD. Patient presents with history that suggest aspiration pneumonia. He is scheduled for a barium swallow this morning. Patient was placed on doxycycline and Zosyn on admission and continues to show clinical improvement. Sputum culture came back with very few gram-positive cocci. Blood cultures are negative x2. Patient is now able to speak in full sentences without shortness of breath. He is also able to take deep breaths without eliciting severe cough. He still has no sputum production. He denies hemoptysis. Patient reports he has had no fever or chills or sweats. He feels significantly improved from a pulmonary standpoint. He is scheduled for a video swallow study this morning. He has no other acute complaints. Patient continues to complain of shortness of breath with exertion. Sputum production. No pleuritic pain recent fevers chills or sweats. Ambulating to bathroom and extremely winded. Results & Data Vital Signs (Past 12 Hours) Vital Signs Temp Pulse Resp BP BP Pulse Ox 03/02/19 07:28 90 18 93 03/02/19 07:00 36.4 C L 82 20 175/75 H 94 03/02/19 00:37 94 H 16 98 03/01/19 23:43 36.6 C 99 H 20 149/74 H 97 PG Care Time/CCT Total # of Minutes Spent Total Time Spent with Patient: Total time spent is greater than 50% in coordination of care (as documented) at patient's floor/unit and/or counseling patient:
--- NOTE | 2019-03-02 11:06 | Pulmonology Progress Note ---
Date of Service 78-year-old male that was admitted for shortness of breath and found to have pneumonia and severe COPD. Patient presents with history that suggest a spiration pneumonia. He is scheduled for a barium swallow this morning. Patient was placed on doxycycline and Zosyn on admission and continues to show clinical improvement. Sputum culture came back with very few gram-positive cocci. Blood cultures are negative x2. Patient is now able to speak in full sentences without shortness of breath. He is also able to take deep breaths without eliciting severe cough. He still has no sputum production. He denies hemoptysis. Patient reports he has had no fever or chills or sweats. He feels significantly improved from a pulmonary standpoint. He is scheduled for a video swallow study this morning. He has no other acute complaints. Assuming dyspneic with minimal exertion i.e. walking to the bathroom. Is on home oxygen. Video swallow shows deep pharyngeal penetration with aspiration was seen with nectar thick liquids. No definite aspiration otherwise. Speech therapy recommended per March 02, 2019 Assessment & Plan (1) Anemia: (2) COPD exacerbation: (3) Tachycardia induced cardiomyopathy: (4) Atrial flutter: (5) CAD (coronary artery disease): (6) Chronic respiratory failure with hypoxia: (7) Multifocal pneumonia: 78-year-old white male with significant COPD and presents with multifocal pneumonia clinically improving and will try to mobilize further and repeat chest x-ray today and compared to previous film of 02/27/2019 for considering discharge . Review of Systems Constitutional: no problem reported Eyes: no problem reported Ear, Nose, Mouth, Throat: no problem reported Respiratory: no problem reported Cardiovascular: no problem reported Gastrointestinal: no problem reported Genitourinary: no problem reported Musculoskeletal: no problem reported Integumentary: no problem reported Neurologic: no problem reported Psychiatric: no problem reported Endocrine: no problem reported Hematologic / Lymphatic: no problem reported Allergy / Immunological: no problem reported Physical Exam Constitutional: well developed and well nourished; no acute distress Eyes: PERRL, conjunctivae normal, anicteric sclerae ENMT: external ear and nose normal, oropharynx normal Neck: trachea midline, no thyromegaly Respiratory: normal respiratory effort, + hyperresonance to percussion and + prolonged expiratory phase Auscultation: + diminished lung sounds Cardiovascular: RRR, no murmur, no edema Palpation: normal PMI; no thrill Gastrointestinal (Abdomen): normal bowel sounds, soft, nontender, no hepatosplenomegaly Musculoskeletal: no cyanosis or clubbing, extremities motor strength 5/5 Gait: normal gait Skin: no rashes, warm and dry Neurologic: PERRL, EOMI, accommodation nl, no face palsy, no dysarthria Psychiatric: A+Ox3, euthymic affect Lymphatic: no cervical or axillary lymphadenopathy Results & Data Vital Signs (Past 12 Hours) Vital Signs Temp Pulse Resp BP BP Pulse Ox 03/02/19 07:28 90 18 93 03/02/19 07:00 36.4 C L 82 20 175/75 H 94 03/02/19 00:37 94 H 16 98 03/01/19 23:43 36.6 C 99 H 20 149/74 H 97 PG Care Time/CCT Total # of Minutes Spent Total Time Spent with Patient: Total time spent is greater than 50% in coordination of care (as documented) at patient's floor/unit and/or counseling patient:
--- NOTE | 2019-03-02 18:27 | Hospitalist Progress Note ---
Date of Service March 02, 2019 Assessment & Plan (1) HTN (hypertension): Blood pressure appears more controlled on the 40 mg lisinopril dose. Continue this daily with outpatient BMP in 2 weeks, and close primary care follow-up for blood pressure monitoring. Notable history of whitecoat hypertension. Switch to lisinopril to 40 mg daily with first dose this morning. We will continue to monitor closely, noting history of white coat hypertension. (2) Multifocal pneumonia: Improved overall with resolution of wheezing on exam. Continue Augmentin and prednisone. Patient has end-stage COPD and is aware of his limitations. Barium and video swallow reveal evidence of silent aspiration. Speech pathology discussed modification of diet with him as well as swallowing techniques. He is not interested in further work-up or aggressive intervention that may be offered such as esophageal dilation. He verbalized understanding the risks. Repeat chest x-ray in 4 to 6 weeks to ensure complete resolution. (3) COPD exacerbation: Continue nebulizers, continue prednisone for total 5 days. Cruciate pulmonary recommendations. Continue base oxygen supplementation. (4) Elevated troponin: Has stable CAD. Pt denies chest pain. Per Cards this is unlikely ACS. No further cardiac workup. Cont medical management of CAD. (5) Chronic respiratory failure with hypoxia: 2/2 end stage COPD. Cont treatment as above. (6) CAD (coronary artery disease): stable, stent in 2018, Continue Plavix, statin, metoprolol (7) Hypothyroidism: -Continue levothyroxine per home dose (8) BPH (benign prostatic hyperplasia): -Continue tamsulosin per home regimen (9) Tachycardia induced cardiomyopathy: resolved. (10) Atrial flutter: Sinus rhythm. Rate controlled with Toprol and on Eliquis for anticoagulation. (11) Anemia: acute drop in H/H on HD2 likely 2/2 IVF administration and dilution. There is no active bleeding present. No indication for transfusion. Stable, cont to monitor. (12) DVT prophylaxis: Eliquis DNR/DNI Dispo-likely to home when clinically improved. Pending PT/OT recommendations. May benefit from pulmonary rehab-defer to pulmonology. I did contact his daughter, Laurel, by phone today and discussed the assessment and plan with her. She agrees and all questions were answered. We discussed he may be wanted to come home tomorrow but will need assistance and close follow-up to some extent. She verbalized understanding. Maureen Pingree, [facility] Hospitalist Subjective Doing well today but appears very scared. He is concerned about going home alone and having significant shortness of breath. He does not feel well enough to go home at this point. Review of systems is essentially negative however, he continues to defer to his daughter, stating she "takes care of everything." He did mention to me that he is illiterate which is adding to his fear, most likely. Blood pressure is improved today. Review of systems is otherwise nega tive. Review of Systems Review of Systems: All systems reviewed & are unremarkable except as noted in HPI & below Physical Exam Physical Exam: CONSTITUTIONAL: thin, vitals as above, generally well-appearing EYES: normal conjunctivae, no scleral icterus ENT: MMM RESPIRATORY: Clear to auscultation throughout. No conversational dyspnea, no crackles rales or wheezes. CARDIOVASCULAR: regular rate and rhythm, S1 and 2 heard without murmurs, gallops or rubs, no peripheral edema GASTROINTESTINAL: soft, nontender, nondistended MUSCULOSKELETAL: strength 5/5 throughout, head is normocephalic and atraumatic SKIN: warm and dry NEUROLOGIC: CN 2-12 grossly intact, no sensory deficit, normal cognition, normal speech, no gross focal deficits PSYCHIATRIC: alert cooperative and oriented to person, place and time. Results & Data Vital Signs (Past 12 Hours) Vital Signs Temp Pulse Resp BP Pulse Ox 03/02/19 14:38 36.8 C 71 18 166/85 H 97 03/02/19 13:06 81 18 98 03/02/19 07:28 90 18 93 03/02/19 07:00 36.4 C L 82 20 175/75 H 94 Medications Administered Current Inpatient Medications Acetaminophen (Tylenol) 650 mg PO Q4H PRN PRN Reason: Pain or Fever Stop: 03/28/19 14:00 Amlodipine Besylate (Norvasc) 10 mg PO HS [facility] Stop: 03/31/19 20:59 Last Admin: 03/01/19 20:19 Dose: 10 mg Documented by: Amoxicillin/Clavulanate Potassium (Augmentin 875mg) 1 tab PO BIDM [facility]; Protocol Stop: 03/07/19 16:59 Last Admin: 03/02/19 17:27 Dose: 1 tab Documented by: Apixaban (Eliquis) 5 mg PO BID [facility] Stop: 03/28/19 20:59 Last Admin: 03/02/19 07:50 Dose: 5 mg Documented by: Atorvastatin Calcium (Lipitor) 20 mg PO DAILY [facility] Stop: 03/29/19 08:59 Last Admin: 03/02/19 07:51 Dose: 20 mg Documented by: Clopidogrel Bisulfate (Plavix) 75 mg PO DAILY [facility] Stop: 03/29/19 08:59 Last Admin: 03/02/19 07:51 Dose: 75 mg Documented by: Fluticasone Propionate (Flovent Hfa 110h) 2 puffs INH BID [facility] Stop: 03/28/19 20:59 Last Admin: 03/02/19 07:50 Dose: 2 puffs Documented by: Gabapentin (Neurontin) 400 mg PO TID [facility] Stop: 03/28/19 14:29 Last Admin: 03/02/19 13:40 Dose: 400 mg Documented by: Levalbuterol HCl (Xopenex 0.63 Mg/3 Ml Neb) 0.63 mg NEB Q4R PRN PRN Reason: Shortness Of Breath Or Wheezing Stop: 03/28/19 14:00 Levalbuterol HCl (Xopenex 1.25mg/3ml Neb) 1.25 mg NEB Q6R [facility] Stop: 03/31/19 12:59 Last Admin: 03/02/19 13:06 Dose: 1.25 mg Documented by: Levothyroxine Sodium (Synthroid) 25 mcg PO DAILYBB [facility] Stop: 03/29/19 06:29 Last Admin: 03/02/19 05:41 Dose: 25 mcg Documented by: Lisinopril (Zestril) 40 mg PO DAILY [facility] Stop: 03/31/19 08:59 Last Admin: 03/02/19 07:51 Dose: 40 mg Documented by: Metoprolol Succinate (Toprol Xl) 25 mg PO DAILY [facility] Stop: 03/29/19 08:59 Last Admin: 03/02/19 07:51 Dose: 25 mg Documented by: Nitroglycerin (Nitrostat) 0.4 mg SL UD PRN PRN Reason: Chest Pain Stop: 03/28/19 14:00 Pantoprazole Sodium (Protonix) 40 mg PO DAILY [facility] Stop: 03/29/19 08:59 Last Admin: 03/02/19 07:51 Dose: 40 mg Documented by: Prednisone (Prednisone) 40 mg PO DAILY [facility] Stop: 03/06/19 08:59 Last Admin: 03/02/19 07:51 Dose: 40 mg Documented by: Tamsulosin HCl (Flomax) 0.4 mg PO HS [facility] Stop: 03/28/19 20:59 Last Admin: 03/01/19 20:18 Dose: 0.4 mg Documented by:
[2019-03-02] MEDS: AMLODIPINE BESYLATE 5 MG TAB PO SCH (20:55)
[2019-03-02] MEDS: TAMSULOSIN HCL 0.4 MG CAP PO SCH (20:57)
[2019-03-03] MEDS: LEVALBUTEROL HCL 1.25 MG/3 ML NEB NEB SCH ×2 (00:57→07:06)
[2019-03-03 06:11] LABS: Basophils # (auto) 0.01 K/uL (0-0.2); Basophils % (auto) 0.1 %; Eosinophils # (auto) 0.06 K/uL (0-0.5); Eosinophils % (auto) 0.8 %; Hematocrit (blood only) 32.2 % (42-52); Hemoglobin 10.7 g/dL (14.0-18.0); Immature Granulocytes # (auto) 0.14 K/uL (0.00-0.02); Immature Granulocytes % (auto) 1.9 %; Lymphocytes # (auto) 0.58 K/uL (1.2-3.4); Lymphocytes % (auto) 7.8 %; Mean Corpuscular Hemoglobin 30.9 pg (25-34); Mean Corpuscular Hgb Conc 33.2 g/dL (32-36); Mean Corpuscular Volume 93.1 fL (80-100); Mean Platelet Volume 8.5 fL (7.4-10.4); Monocytes # (auto) 0.61 K/uL (0.11-0.59); Monocytes % (auto) 8.2 %; Neutrophils # (auto) 6.06 K/uL (1.4-6.5); Neutrophils % (auto) 81.2 %; Platelet Count 336 K/uL (130-400); RDW Standard Deviation 47.5 fL (36.4-46.3); Red Blood Count 3.46 M/uL (4.7-6.1); White Blood Count 7.46 K/uL (4.8-10.8)
[2019-03-03] MEDS: LEVOTHYROXINE SODIUM 25 MCG TABLET PO SCH (06:31)
[2019-03-03] MEDS: AMOXICILLIN/CLAVULANATE 875 MG TAB PO SCH (07:58)
[2019-03-03] MEDS: FLUTICASONE HFA 110MCG INHALER INH SCH (07:58)
[2019-03-03] MEDS: APIXABAN 5 MG TABLET PO SCH (07:58)
[2019-03-03] MEDS: ATORVASTATIN 20 MG TAB PO SCH (07:59)
[2019-03-03] MEDS: CLOPIDOGREL BISULFATE 75 MG TAB PO SCH (07:59)
[2019-03-03] MEDS: predniSONE 20 MG TAB PO SCH (07:59)
[2019-03-03] MEDS: GABAPENTIN 400 MG CAP PO SCH (07:59)
[2019-03-03] MEDS: PANTOprazole 40 MG TAB PO SCH (07:59)
[2019-03-03] MEDS: lisinopriL 40 MG TAB PO SCH (08:00)
[2019-03-03] MEDS: METOPROLOL SUCC 25MG EXT REL TAB PO SCH (08:00)
--- NOTE | 2019-03-03 09:11 | XRay Report ---
XR chest 2V PA/lateral CLINICAL HISTORY: multifocal pneumonia COMPARISON STUDY: 02/27/2019 FINDINGS: Emphysematous change bilaterally. Chronic pleural and parenchymal scarring. Aeration of lavinia g bases is slightly improved. Moderate residual interstitial change components of which may be chronic. IMPRESSION: Slightly improved aeration of the lung bases. Diffuse emphysematous change considered sta ble. The above report was generated using voice recognition software. It may contain grammatical, syntax or spelling errors. Electronically signed by: Jensen Rodney M.D. 03/03/2019 9:09 AM
--- NOTE | 2019-03-03 12:07 | Discharge Summary ---
Date of Service March 03, 2019 Admission HPI Per Admitting Provider Pt is 78 y/o M with PMH COPD, chronic hypoxia on chronic oxygen at 2.5L via [place], CAD s/p stent to circumflex in 2018, A-flutter s/p ablation in 2018, GERD, hypothyroidism, BPH presented to ER with c/o increased SOB x 1 week. Pt states for past week with increased SOB that has been worse at night. Also c/o white productive cough x 5 days. Having tactile fevers at home, hasn't taken temperature. Pt reports has been trying to use his home albuterol nebulizer without much relief. Denies CP or palpitations or LE edema. Vomited once last week. Denies diarrhea or abdominal pain. Has had decreased appetite and decreas ed oral intake past several days. C/O generalized weakness past week. Reports had influenza vaccine this season. Does not get out of house much. Lives home alone, daughter visits and helps with medications. Denies ill contacts. Reports chronic intermittent dizziness with standing. Denies increased symptoms and denies recent falls. Denies hematemesis, melena, hematochezia, SOARES, syncope, vision changes, neck pain, sore throat, choking, otalgia, rhinorrhea, paresthesias, rashes, urinary symptoms. Admission Exam Per Admitting Provider General: chronic ill appearing, thin elderly male, mild respiratory distress Head: normocephalic, atraumatic Eyes: PERRL, EOM's intact, conjunctiva non-injected, anicteric ENT: normal inspection external ears, nose, mucous membranes dry Neck: supple, trachea midline Lungs: R: 20 without significant retractions on current nebulizer treatment, breath sounds diminished throughout with scattered wheezing CV: regular rhythm, rate 100, no JVD, no pretibial edema Abd: normal BS, soft, non-tender Ext: no cyanosis, no calf tenderness Neuro: A&O x 3, no focal deficits noted, normal affect Skin: warm, dry Principal Diagnosis End stage COPD with exacerbation 2/2 pneumonia chronic hypoxic respiratory failure silent aspiration Hypertensive urgency Discharge Exam CONSTITUTIONAL: thin, vitals as above, generally well-appearing EYES: normal conjunctivae, no scleral icterus ENT: MMM RESPIRATORY: Clear to auscultation throughout. No conversational dyspnea, no crackles rales or wheezes. CARDIOVASCULAR: regular rate and rhythm, S1 and 2 heard without murmurs, gallops or rubs, no peripheral edema GASTROINTESTINAL: soft, nontender, nondistended MUSCULOSKELETAL: strength 5/5 throughout, head is normocephalic and atraumatic SKIN: warm and dry NEUROLOGIC: CN 2-12 grossly intact, no sensory deficit, normal cognition, normal speech, no gross focal deficits PSYCHIATRIC: alert cooperative and oriented to person, place and time. Discharge Data Allergies Allergy/AdvReac Type Severity Reaction Status Date / Time No Known Allergies Allergy Unverified 02/26/19 10:41 Consultations 02/26/19 11:13 ED Decision to Admit Stat 02/26/19 14:01 Consult Cardiology Routine Consult Case Management - Discharge Planning Routine Consult Pulmonology Routine Ordered Studies 02/28/19 09:00 FL barium swallow Routine 02/28/19 09:30 FL video swallow Routine Hospital Course (1) COPD exacerbation: (2) Multifocal pneumonia: (3) HTN (hypertension): (4) Elevated troponin: (5) Chronic respiratory failure with hypoxia: He was admitted to the hospitalist service and started on Solu-Medrol, Zosyn, doxycycline and nebulizer therapy for a COPD exacerbation secondary to multifocal pneumonia. Pulmonary was consulted. After a couple of days he was able to be de-escalated to Augmentin and prednisone. A barium and video swallow were performed and revealed evidence of silent aspiration. Speech pathology discussed diet modifications with him as well as swallowing techniques. He expressed that he was not interested in further work-up or aggressive intervention that may be offered to treat this such as possible esophageal dilation. He was educated that this was a permanent issue with a poor prognosis as he is at higher risk for recurrent pneumonia and worsening lung disease. He verbalized understanding of this. This was also explained to his daughter, Laurel, his main gem stone cutter and remote medical coder. During work-up he was seen to have a mildly elevated troponin and cardiology was consulted. Given the clinical context of multifocal pneumonia in a patient with pulmonary hypertension along with no wall motion abnormality seen on echocardiogram it was not thought the troponin elevation represented acute ischemia. No further cardiac testing or intervention was recommended. Of note while in the hospital his blood pressure was in a critical range requiring multiple doses of IV antihypertensives. His lisinopril was increased to 40 mg and amlodipine 10 mg at bedtime was added. At time of discharge he was mentating and ambulating well and tolerating p.o. He was deconditioned but physical therapy cleared him for safety to go home and he was starting to feel up to doing this. He has chronic respiratory failure with hypoxia at baseline, and will continue his supplemental oxygen. He lives alone and with his daughter Laurel living nearby. Discharge assessment and plan was discussed with both patient and his daughter in all parties verbalized expressed understanding of plan going home. Close primary care follow-up was recommended for a repeat blood pressure check and a BMP is recommended in 2 weeks time. Close pulmonary follow-up was also recommended to ensure he is doing well post hospitalization. A repeat chest x-ray is recommended within 4 weeks of discharge to ensure complete resolution of pneumonia. Total Time Total Time Spent Total Time Spent (In Minutes): 60 Total Time Includes: Examination of the Patient, Discharge Planning, Medication Reconciliation and Communication With Other Providers Discharge Plan Discharge Items Patient Disposition: Home - Home Health Services Reason For Visit: PNEUMONIA Discharge Diagnosis: End stage COPD with exacerbation 2/2 pneumonia chronic hypoxic respiratory failure silent aspiration Hypertensive urgency Condition on Discharge: Good Activity: Resume your previous activity Non-emergency contact: Primary Care Provider and Customer Specialist Call non-emergency contact if: you have any medication questions, your symptoms worsen, your pain is not controlled, your pain is worsening, your pain is unusual for you, your pain is concerning for you and you have a fever Follow-up/Referrals: Abisai Van MD [Physician] - Zac Singh DO [Primary Care Provider] - Diet: Heart Healthy Diet Texture: Mechanical soft (ground) Diet Comment: add gravy, sauce or condiments to make foods more moist and easier to swall Addtl Attending Provider Instructions: Please take all medications as instructed on discharge list below. It is recommended that you follow-up with your primary care provider within one week of discharge to ensure you are still breathing well and doing well post- hospitalization. Someone will contact you on Monday to set this up. Additionally, you will need a repeat chest xray in 4 week to ensure complete resolution of your pneumonia. Your PCP can order this for you. You were also put on a higher dose of blood pressure medication which will require some non- fasting bloodwork in two weeks (BMP) and a repeat BP check. Please follow-up with Dr. Van in [facility] Pulmonology as instructed or within 4-6 weeks. It was a pleasure taking care of you! Please call if you have any questions or problems. You can reach a [facility] hospitalist on duty at [facility] 24 hours a day by calling [phone]. Take care of yourself. Maureen Hassan DO [facility] Hospitalist Pending Studies at Discharge: Yes Studies:: Preliminary blood cultures are negative with final results pending at time of discharge. Stand-Alone Forms: My [facility], Smoking Cessation Medications and DC Order Prescriptions: New amoxicillin-pot clavulanate 875-125 mg Tablet 1 tab PO BIDM 4 Days Qty: 8 RF: 0 lisinopril [Zestril] 40 mg Tablet 40 mg PO DAILY Qty: 30 RF: 1 amlodipine [Norvasc] 5 mg Tablet 10 mg PO HS Qty: 30 RF: 1 Continued atorvastatin 20 mg tablet 20 mg PO DAILY RF: 0 gabapentin 400 mg capsule 400 mg PO TID RF: 0 clopidogrel 75 mg tablet 75 mg PO DAILY RF: 0 levothyroxine 25 mcg tablet 25 mcg PO DAILY RF: 0 potassium chloride [Klor-Con M20] 20 mEq tablet,ER particles/crystals 20 meq PO DAILY RF: 0 tamsulosin 0.4 mg capsule 0.4 mg PO DAILY RF: 0 Eliquis 5 mg tablet 5 mg PO BID RF: 0 Arnuity Ellipta 100 mcg/actuation blister with device 1 inh INHALATION DAILY RF: 0 albuterol sulfate 2.5 mg /3 mL (0.083 %) solution for nebulization 2.5 mg inhalation QID PRN (Reason: Shortness Of Breath Or Wheezing) RF: 0 furosemide 40 mg tablet 20 mg PO UD RF: 0 pantoprazole 20 mg tablet,delayed release (DR/EC) 20 mg PO DAILY RF: 0 metoprolol succinate 25 mg tablet extended release 24 hr 25 mg PO DAILY RF: 0 Discontinued lisinopril 10 mg tablet 10 mg PO DAILY RF: 0 Discharge Orders: Discharge Order (Routine); Ordered 03/03/19 Ordered By: Maureen Hassan Admission Data Admit Date/Time: 02/26/19 12:29 Attending Provider: Maureen Hassan Admit Provider: Houston Meyer Primary Care Provider: Zac Singh V. Other Providers: [facility] ; Houston Meyer ; Titi Correia ; Rocco Wilson Other Interventions: Discharge Summary Assessment (RN) Last Done: 03/03/19 12:13 DC Date/Time DO NOT enter until pt leaves facility: 03/03/19 12:55
--- NOTE | 2019-03-10 13:46 | Coding Query ---
CODING QUERY To promote full compliance with coding requirements relating to patient care, provider participation is requested in all cases of orthopedic coder uncertainty. Please assist us with the question(s) below: Coding Question(s): Patient admitted with COPD exacerbation and Pneumonia. Progress notes mention aspiration pneumonia and multifocal pneumonia. DS states "silent aspiration". Please check below the type of Pneumonia that was treated, if applicable. Thanks for your help! CARTER Solorzano [facility] Physician's Response(s): ___x___ Aspiration Pneumonia Multifocal Pneumonia Cannot Clinically Correlate if Aspiration or other Pneumonia was treated Other: Please document: Principal Diagnosis: "that condition established after study, to be chiefly responsible for occasioning the admission of the patient to the hospital for care." Co-Existing Principal Diagnosis: "when two or more diagnoses equally meet the criteria for principal diagnosis as determined by the circumstances of admission, diagnostic work up, and/or therapy provided, and the Alphabetic Index, Tabular List, or another coding guideline does not provide sequencing direction, any one of the diagnoses may be sequenced first." "When the physician has documented what appears to be a current diagnosis in the body of the record, but has not included the diagnosis in the final diagnostic statement, the physician should be asked whether the diagnosis should be added." (Source Coding Clinic 2 QTR90. p3-4) LETICIA
== END 2019-03-03 12:55 | disposition home health service (06) | DRG 178 ==
LOC: ED 09:40 → SUATTDRO 12:29 → 2S 12:29 → 4W 03-01 15:00

== ENCOUNTER 2021-12-26 10:02 | Inpatient (IN) ==
--- NOTE | 2021-12-26 10:35 | Emergency Department Note ---
Impression & Plan Acute anterior epistaxis, Symptomatic anemia, Hypocalcemia ED Provider Note NAME: MALIKA STEWART AGE: 81 SEX: M : 1940 ARRIVES VIA: Ambulance INFORMANT: Patient, ED PROVIDER(S): Javi Marie MD Chief Complaint: Epistaxis HPI: Patient presents due to concern for epistaxis beginning around 6 AM yesterday morning. The patient does have a chronic history of nosebleeds but only presented today as it has been more persistent. The patient has not attempted any conservative measures like pinching his nose or applying ice to the face. The patient does take Eliquis and Plavix. The patient does follow [facility] [place] with [facility]. Patient does feel weak and fatigued. No shortness of breath or chest pain. Daughter who is also present was concerned as she noticed some dark stools. Patient does not use any alcohol or tobacco. The patient is on chronic 2 and half liters nasal cannula at all times. No trauma or nose picking. Patient states that the epistaxis has been persistent. ROS: See HPI for pertinent positives and negatives. A total of 10 systems were reviewed and otherwise negative. Past medical history: See below Surgical history: See below Social history: See below Physical Exam: GENERAL: Hard of hearing, thin in appearance, nasal cannula in place. EYE EXAM: Normal conjunctiva. PERRL, no anisocoria and EOM's grossly intact w/o pain. Nose: Bilateral nares with scant red blood and associated blood clots in the bilateral nares Oropharynx: Scant blood to the left posterior pharynx, no active running of blood in the posterior pharynx. NECK: Supple, no nuchal rigidity, no adenopathy, non-tender. No signs of meningismus. FROM of the neck with good chin to chest and neck extension. No stridor. LUNGS: Clear to auscultation. Normal chest wall mechanics. HEART: Tachycardic and regular, no MRG. ABDOMEN: Abdomen soft, non-tender, normo-active bowel sounds, no masses, no rebound or guarding. BACK: No CVA TTP. SKIN: No rashes and no bruising. UPPER EXTREMITIES: Upper extremities are grossly normal. LOWER EXTREMITIES: Grossly normal, no edema. NEURO EXAM: A&O x3, cranial nerves II-XII grossly intact, normal speech, moves all 4 extremities. Differential diagnoses: Anterior epistaxis, coagulopathy, traumatic injury, fracture, septal hematoma, posterior epistaxis, infections, as well as other pathologies. Course: Patient was seen and evaluated the bedside. Full history physical exam was performed. EKG interpreted by me Sinus, rate of 94, normal intervals, normal axis, T wave versions in the anterior lateral leads. Mild depressions noted. Imaging Studies: See Below Cardiac monitoring: An order was placed for continuous cardiac monitoring. The monitor shows a rate of 107 with tachycardic and regular rhythm. Procedures: Anterior Nasal Packing by Dr. Marie Indication: Nose bleeding on Eliquis and anemic Verbal consent obtained. Risks and benefits were explained with the usual customary discussion. A time out was taken. Clots were removed with suction. The 8 naris was prepped with Afrin and lidocaine. A 5.5-cm nasal balloon was placed in a standard fashion. Cuff was inflated appropriately. Tthe patient tolerated this well. Hemostasis was achieved. No complications. MDM: Patient was seen due to concern for epistaxis. Blood work is obtained and the patient was ordered Afrin as well as TXA nebulized. The patient does take Eliquis and Plavix. Blood work patient's blood work did show concern for anemia. Most recent CBC was completed almost 3 years ago. Patient was consented for 2 units PRBCs. I did speak with on-call ENT Dr. Gamble stated that if the patient was currently on Eliquis it would be difficult to do anything about 1 pack the naris at this time. I subsequently did speak with Dr. Ruff did asked the patient about when he last took his Eliquis. Patient last took his Eliquis yesterday morning. Dr. Ruff stated that this would probably be out of his system and does not benefit from PCC's at this time. Patient did undergo packing of the right naris. Upon subsequent reassessment the patient seemed to have no further bleeding from the left nares. Posterior pharynx with only 1 clot no active bleeding. I did speak with the on-call hospitalist Yeimy Campos PA-C and the patient was admitted by Dr. Cabello. Blood work showed normal white count with a hemoglobin of 6.4. Platelet count 446. Patient's kidney function showed prerenal azotemia. Mild hypocalcemia. EKG did show ST depressions but may be demand secondary to the patient's anemia. Patient does not complain of any chest pain or shortness of breath and troponin was not elevated. Critical Care: I have personally spent 95 minutes of critical care time in direct management of this patient. This includes bedside care, interpretation of diagnostic studies, and testing, discussion with consultants, patient, and family members, and other require inpatient management activities. This 95 minutes is in excess of all separately billable procedures. Past Med/Surg History Medical History Atrial flutter BPH (benign prostatic hyperplasia) CAD (coronary artery disease) CHF (congestive heart failure) Chronic respiratory failure Chronic respiratory failure with hypoxia COPD (chronic obstructive pulmonary disease) Diastolic dysfunction GERD (gastroesophageal reflux disease) History of upper gastrointestinal bleeding HTN (hypertension) Hypothyroidism Microcytic anemia Surgical History History of cardiac cath History of radiofrequency ablation procedure for cardiac arrhythmia S/P angioplasty with stent Family History Other Hypertension Social History Smoking Status: Former smoker Second Hand Exposure: No; Do You Dip or Chew Tobacco: No; Tobacco Cessation Education Requested by Patient: No Hx Alcohol Use: Yes (quit) Hx Substance Use: No Preferred Language: Citizen Of [place] Communication Ability: Effective 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 Beliefs That Will Affect Care: None marital status: / Current Living Situation: Alone current occupational status: retired Other Information That Helps Us Care for You: No Feels Safe at Home: Yes Safety Concerns: Feels Safe At This Time Assistive Devices: Glasses and Oxygen - Continuous Assistive Devices Comment: pt does not currently use walker but wants to Allergies Allergies Allergy/AdvReac Type Severity Reaction Status Date / Time No Known Allergies Allergy Unverified 02/26/19 10:41 Home Meds Home Medications Medication Instructions Recorded Confirmed albuterol sulfate 2.5 mg/3 mL 2.5 mg inhalation QID PRN 02/26/19 12/26/21 (0.083 %) solution for nebulization Shortness Of Breath Or Wheezing apixaban 5 mg tablet (Eliquis) 5 mg PO BID 02/26/19 12/26/21 atorvastatin 20 mg tablet 20 mg PO DAILY 02/26/19 12/26/21 clopidogrel 75 mg tablet 75 mg PO DAILY 02/26/19 12/26/21 fluticasone furoate 100 1 inh inhalation DAILY 02/26/19 12/26/21 mcg/actuation blister powder for inhalation (Arnuity Ellipta) gabapentin 400 mg capsule 400 mg PO TID 02/26/19 12/26/21 levothyroxine 25 mcg tablet 25 mcg PO DAILY 02/26/19 12/26/21 metoprolol succinate 25 mg 25 mg PO DAILY 02/26/19 12/26/21 tablet,extended release 24 hr pantoprazole 20 mg tablet,delayed 20 mg PO DAILY 02/26/19 12/26/21 release tamsulosin 0.4 mg capsule 0.4 mg PO DAILY 02/26/19 12/26/21 Previous Rx's Medication Instructions Recorded amlodipine 5 mg tablet (Norvasc) 10 mg PO HS #30 tabs 03/03/19 lisinopril 40 mg tablet (Zestril) 40 mg PO DAILY #30 tabs 03/03/19 Results & Data (ED) Vital Signs Vital Signs - 24 hr 12/26/21 10:42 12/26/21 11:21 12/26/21 10:19 Temperature 36.7 C Temperature Source Oral Pulse Rate 104 H 103 H Pulse Rate [Forehead] 101 H Pulse Rate from SpO2 Sensor Respiratory Rate 18 28 H 16 Respiratory Effort / Characteristics Non-Labored Spontaneous Blood Pressure 109/88 Blood Pressure Mean 95 Blood Pressure Position Lying Pulse Oximetry 100 98 Oxygen Delivery Method Nasal Cannula Nasal Cannula Oxygen Flow Rate 3 2 Sepsis Recent Fever Within 48 Hours No Sepsis New/Unexplained Change in Mental Status No Sepsis Action Taken by Nursing No Action Required 12/26/21 10:30 12/26/21 10:30 12/26/21 11:00 Temperature Temperature Source Pulse Rate 99 H Pulse Rate [Forehead] Pulse Rate from SpO2 Sensor Respiratory Rate 14 Respiratory Effort / Characteristics Blood Pressure 126/76 117/70 Blood Pressure Mean 92 85 Blood Pressure Position Pulse Oximetry Oxygen Delivery Method Oxygen Flow Rate Sepsis Recent Fever Within 48 Hours Sepsis New/Unexplained Change in Mental Status Sepsis Action Taken by Nursing 12/26/21 11:00 12/26/21 11:30 12/26/21 11:30 Temperature Temperature Source Pulse Rate 90 107 H Pulse Rate [Forehead] Pulse Rate from SpO2 Sensor 89 107 H Respiratory Rate 22 21 Respiratory Effort / Characteristics Blood Pressure 110/76 Blood Pressure Mean 87 Blood Pressure Position Pulse Oximetry 100 100 Oxygen Delivery Method Nasal Cannula Nasal Cannula Oxygen Flow Rate 4 4 Sepsis Recent Fever Within 48 Hours Sepsis New/Unexplained Change in Mental Status Sepsis Action Taken by Nursing 12/26/21 12:00 12/26/21 12:03 12/26/21 12:03 Temperature Temperature Source Pulse Rate 109 H 113 H Pulse Rate [Forehead] Pulse Rate from SpO2 Sensor 111 H 112 H Respiratory Rate 20 21 Respiratory Effort / Characteristics Blood Pressure 115/73 Blood Pressure Mean 87 Blood Pressure Position Pulse Oximetry 100 100 Oxygen Delivery Method Nasal Cannula Oxymask Oxygen Flow Rate 4 4 Sepsis Recent Fever Within 48 Hours Sepsis New/Unexplained Change in Mental Status Sepsis Action Taken by Nursing 12/26/21 12:32 12/26/21 12:33 12/26/21 12:33 Temperature Temperature Source Pulse Rate 107 H 109 H Pulse Rate [Forehead] Pulse Rate from SpO2 Sensor Respiratory Rate 17 20 Respiratory Effort / Characteristics Blood Pressure 115/72 Blood Pressure Mean 86 Blood Pressure Position Pulse Oximetry Oxygen Delivery Method Oxygen Flow Rate Sepsis Recent Fever Within 48 Hours Sepsis New/Unexplained Change in Mental Status Sepsis Action Taken by Residential Medications Current Medication List: was personally reviewed by me Laboratory Data Attestation: I reviewed the patient's lab results. Result diagrams: 12/27/21 00:31 12/26/21 10:10 Lab Results 12/26/21 12/26/21 12/26/21 Range/Units 10:10 10:10 10:10 WBC 8.71 (4.8-10.8) K/ul RBC 3.07 L (4.63-6.08) M/uL Hgb 6.4 L* (14.0-18.0) g/dl Hct 22.7 L (40.1-51.0) % MCV 73.9 L (80.0-100.0) fL MCH 20.8 L (25.0-34.0) pg MCHC 28.2 L (32.0-36.0) g/dL RDW Std Deviation 54.4 H (36.4-46.3) fL RDW Coeff of Tracey 20.5 H (11.5-14.5) % Plt Count 446 H (130-400) K/uL MPV 9.7 (9.4-12.4) fL Immature Gran % (Auto) 0.3 % Neut % (Auto) 89.7 % Lymph % (Auto) 5.3 % [place] % (Auto) 4.1 % Eos % (Auto) 0.0 % Baso % (Auto) 0.6 % Neut # (Auto) 7.81 H (1.4-6.5) K/uL Lymph # (Auto) 0.46 L (1.2-3.4) K/uL [place] # (Auto) 0.36 (0.24-0.82) K/uL Eos # (Auto) 0.00 (0-0.50) K/uL Baso # (Auto) 0.05 (0-0.2) K/uL Immature Gran # (Auto) 0.03 H (0.00-0.02) K/uL Polychromasia 1+ Tear Drop Cells 1+ Ovalocytes 1+ Schistocytes 1+ PT 13.5 H (9.0-12.0) Seconds INR 1.3 H (0.9-1.1) APTT 24.2 (21.0-31.0) Seconds PTT Ratio 0.9 Sodium 138 (136-145) mmol/L Potassium 4.6 (3.5-5.1) mmol/L Chloride 105 (98-107) mmol/L Carbon Dioxide 23 (21-32) mmol/L Anion Gap 10 (3-11) BUN 29 H (6-23) mg/dl Creatinine 0.80 (0.6-1.4) mg/dl Est Cr Clr Drug Dosing 58.3 ml/min Est GFR ( Amer) 97.1 ml/min Est GFR (Non-Af Amer) 83.8 ml/min BUN/Creatinine Ratio 36.3 H (10-20) Glucose 200 H (70-99(Fasting)) mg/dl Calcium 8.1 L (8.5-10.1) mg/dl Total Bilirubin 1.2 H (0.2-1.0) mg/dl AST 9 L (13-39) U/L ALT 4 L (7-52) U/L Alkaline Phosphatase 129 H (34-104) U/L Total Protein 5.9 L (6.0-8.3) gm/dl Albumin 3.5 (3.4-5.0) gm/dl Globulin 2.4 L (2.5-4.0) gm/dl Albumin/Globulin Ratio 1.5 (0.9-2) SARS-CoV-2, RNA, NAAT (NEGATIVE) Blood Type Antibody Screen Crossmatch 12/26/21 12/26/21 Range/Units 11:16 11:52 WBC (4.8-10.8) K/ul RBC (4.63-6.08) M/uL Hgb (14.0-18.0) g/dl Hct (40.1-51.0) % MCV (80.0-100.0) fL MCH (25.0-34.0) pg MCHC (32.0-36.0) g/dL RDW Std Deviation (36.4-46.3) fL RDW Coeff of Tracey (11.5-14.5) % Plt Count (130-400) K/uL MPV (9.4-12.4) fL Immature Gran % (Auto) % Neut % (Auto) % Lymph % (Auto) % [place] % (Auto) % Eos % (Auto) % Baso % (Auto) % Neut # (Auto) (1.4-6.5) K/uL Lymph # (Auto) (1.2-3.4) K/uL [place] # (Auto) (0.24-0.82) K/uL Eos # (Auto) (0-0.50) K/uL Baso # (Auto) (0-0.2) K/uL Immature Gran # (Auto) (0.00-0.02) K/uL Polychromasia Tear Drop Cells Ovalocytes Schistocytes PT (9.0-12.0) Seconds INR (0.9-1.1) APTT (21.0-31.0) Seconds PTT Ratio Sodium (136-145) mmol/L Potassium (3.5-5.1) mmol/L Chloride (98-107) mmol/L Carbon Dioxide (21-32) mmol/L Anion Gap (3-11) BUN (6-23) mg/dl Creatinine (0.6-1.4) mg/dl Est Cr Clr Drug Dosing ml/min Est GFR ( Amer) ml/min Est GFR (Non-Af Amer) ml/min BUN/Creatinine Ratio (10-20) Glucose (70-99(Fasting)) mg/dl Calcium (8.5-10.1) mg/dl Total Bilirubin (0.2-1.0) mg/dl AST (13-39) U/L ALT (7-52) U/L Alkaline Phosphatase (34-104) U/L Total Protein (6.0-8.3) gm/dl Albumin (3.4-5.0) gm/dl Globulin (2.5-4.0) gm/dl Albumin/Globulin Ratio (0.9-2) SARS-CoV-2, RNA, NAAT NEGATIVE (NEGATIVE) Blood Type B Positive Antibody Screen NEGATIVE Crossmatch See Detail Administered Medications Gabapentin (Gabapentin 400 Mg Cap) 400 mg PO TID NERY Stop: 01/25/22 15:31 Last Admin: 12/26/21 21:40 Dose: Not Given Documented By: Admin: 12/26/21 21:38 Dose: 400 mg Documented By: TATYANA Pantoprazole Sodium 40 mg/ (Syringe) 10 mls @ 5 mls/min IV BID NERY Stop: 01/25/22 20:59 Last Admin: 12/26/21 21:38 Dose: 5 mls/min Documented By: TATYANA Discontinued Medications Pantoprazole Sodium 40 mg/ (Syringe) 10 mls @ 5 mls/min IV NOW ONE Stop: 12/26/21 11:01 Last Admin: 12/26/21 11:34 Dose: 5 mls/min Documented By: JYOTI Calcium Gluconate () 1,000 mg in 60 mls @ 240 mls/hr IV NOW STA Stop: 12/26/21 12:30 Last Infusion: 12/26/21 13:27 Dose: 0 mls/hr Documented By: Admin: 12/26/21 13:00 Dose: 240 mls/hr Documented By: JYOTI Lidocaine/Epinephrine (Lidocaine 1%/Epinephrine 1:100,000 50 Ml Vial) 50 ml INFIL NOW ONE Stop: 12/26/21 11:45 Last Admin: 12/26/21 13:27 Dose: 50 ml Documented By: KDAnnmarie Oxymetazoline HCl (Oxymetazoline 0.05% 30 Ml Btl) 2 sprays NA NOW ONE Stop: 12/26/21 11:01 Last Admin: 12/26/21 11:09 Dose: 2 sprays Documented By: SLJoseph Tranexamic Acid (Txa 10% Non-Iv Routes 100 Mg/Ml Vial) 500 mg NEB ONE ONE Stop: 12/26/21 11:01 Last Admin: 12/26/21 11:34 Dose: 500 mg Documented By: LOC Discharge Plan Visit Data Chief Complaint: Nose Bleed (Minor) Stated Complaint: NOSE BLEED ED Provider: Javi Marie Patient Disposition: Admitted As Inpatient Discharge Instructions Interventions: ED Discharge Assessment Last Done: 12/26/21 15:32 Prescriptions Prescriptions: No Action atorvastatin 20 mg tablet 20 mg PO DAILY gabapentin 400 mg capsule 400 mg PO TID clopidogrel 75 mg tablet 75 mg PO DAILY levothyroxine 25 mcg tablet 25 mcg PO DAILY tamsulosin 0.4 mg capsule 0.4 mg PO DAILY Eliquis 5 mg tablet 5 mg PO BID Arnuity Ellipta 100 mcg/actuation blister with device 1 inh INHALATION DAILY albuterol sulfate 2.5 mg /3 mL (0.083 %) solution for nebulization 2.5 mg inhalation QID PRN (Reason: Shortness Of Breath Or Wheezing) pantoprazole 20 mg tablet,delayed release (DR/EC) 20 mg PO DAILY metoprolol succinate 25 mg tablet extended release 24 hr 25 mg PO DAILY lisinopril [Zestril] 40 mg Tablet 40 mg PO DAILY Qty: 30 1RF amlodipine [Norvasc] 5 mg Tablet 10 mg PO HS Qty: 30 1RF
[2021-12-26] MEDS ORDERED: PANTOprazole 40 MG in SYRINGE 0 ML IV ONE (11:00)
[2021-12-26] MEDS ORDERED: OXYMETAZOLINE 0.05% 30 ML BTL ONE (11:00)
[2021-12-26] MEDS ORDERED: TXA 10% Non-IV Routes 100 MG/ML VIAL NEB ONE (11:00)
[2021-12-26 11:22] LABS: Hematocrit (blood only) 22.7 % (40.1-51.0); Hemoglobin 6.4 g/dl (14.0-18.0); Mean Corpuscular Hemoglobin 20.8 pg (25.0-34.0); Mean Corpuscular Hgb Conc 28.2 g/dL (32.0-36.0); Mean Corpuscular Volume 73.9 fL (80.0-100.0); Mean Platelet Volume 9.7 fL (9.4-12.4); Platelet Count 446 K/uL (130-400); RDW Coefficient of Variation 20.5 % (11.5-14.5); RDW Standard Deviation 54.4 fL (36.4-46.3); Red Blood Count 3.07 M/uL (4.63-6.08); White Blood Count 8.71 K/ul (4.8-10.8)
[2021-12-26 11:23] LABS: INR 1.3 (0.9-1.1); Partial Thromboplastin Ratio 0.9; Partial Thromboplastin Time 24.2 Seconds (21.0-31.0); Prothrombin Time 13.5 Seconds (9.0-12.0)
[2021-12-26] MEDS ORDERED: SODIUM CHLORIDE 0.9% 250 ML IV PRN (11:28)
[2021-12-26 11:29] LABS: Basophils # (auto) 0.05 K/uL (0-0.2); Basophils % (auto) 0.6 %; Immature Granulocytes # (auto) 0.03 K/uL (0.00-0.02); Immature Granulocytes % (auto) 0.3 %; Lymphocytes # (auto) 0.46 K/uL (1.2-3.4); Lymphocytes % (auto) 5.3 %; Monocytes # (auto) 0.36 K/uL (0.24-0.82); Monocytes % (auto) 4.1 %; Neutrophils # (auto) 7.81 K/uL (1.4-6.5); Neutrophils % (auto) 89.7 %; Ovalocytes 1+; Polychromasia 1+; Schistocytes 1+; Tear Drop Cells 1+
[2021-12-26 11:30] LABS: Albumin Globulin Ratio 1.5 (0.9-2); Albumin Level 3.5 gm/dl (3.4-5.0); BUN Creatinine Ratio 36.3 (10-20); Bilirubin,Total 1.2 mg/dl (0.2-1.0); Calcium 8.1 mg/dl (8.5-10.1); Creatinine Clr Calc Pharmacy 58.3 ml/min; Est GFR (African American) 97.1 ml/min; Est GFR (Non-African American) 83.8 ml/min; Globulin 2.4 gm/dl (2.5-4.0); Potassium 4.6 mmol/L (3.5-5.1); Total Protein 5.9 gm/dl (6.0-8.3)
[2021-12-26] MEDS ORDERED: LIDOCAINE 1%/EPINEPHRINE 1:100,000 50 ML VIAL INFIL ONE (11:44)
[2021-12-26] MEDS ORDERED: CALCIUM GLUCONATE 1,000 MG/60 ML BAG IV STA (12:16)
--- NOTE | 2021-12-26 12:44 | History & Physical Report ---
Date of Service December 26, 2021 History of Present Illness Chief Complaint: Nose bleed Primary Care Provider: Zac Singh DO Notes his nose started bleeding on night and has continued since then. He has been dealing with blood clotting running down the back of his throat. Wears 2.5-3 L O2 via NC for past 5 years. Allergies Allergy/AdvReac Type Severity Reaction Status Date / Time No Known Allergies Allergy Unverified 02/26/19 10:41 Home Medications Medication Instructions Recorded Confirmed Type albuterol sulfate 2.5 mg/3 mL 2.5 mg inhalation QID PRN 02/26/19 12/26/21 History (0.083 %) solution for nebulization Shortness Of Breath Or Wheezing apixaban 5 mg tablet (Eliquis) 5 mg PO BID 02/26/19 12/26/21 History atorvastatin 20 mg tablet 20 mg PO DAILY 02/26/19 12/26/21 History clopidogrel 75 mg tablet 75 mg PO DAILY 02/26/19 12/26/21 History fluticasone furoate 100 1 inh inhalation DAILY 02/26/19 12/26/21 History mcg/actuation blister powder for inhalation (Arnuity Ellipta) furosemide 40 mg tablet 20 mg PO UD 02/26/19 12/26/21 History gabapentin 400 mg capsule 400 mg PO TID 02/26/19 12/26/21 History levothyroxine 25 mcg tablet 25 mcg PO DAILY 02/26/19 12/26/21 History metoprolol succinate 25 mg 25 mg PO DAILY 02/26/19 12/26/21 History tablet,extended release 24 hr pantoprazole 20 mg tablet,delayed 20 mg PO DAILY 02/26/19 12/26/21 History release potassium chloride 20 mEq 20 meq PO DAILY 02/26/19 12/26/21 History tablet,extended release(part/cryst) (Klor-Con M) tamsulosin 0.4 mg capsule 0.4 mg PO DAILY 02/26/19 12/26/21 History amlodipine 5 mg tablet (Norvasc) 10 mg PO HS #30 tabs 03/03/19 12/26/21 Rx lisinopril 40 mg tablet (Zestril) 40 mg PO DAILY #30 tabs 03/03/19 12/26/21 Rx Past Med/Surg History Medical History A-fib Atrial flutter BPH (benign prostatic hyperplasia) CAD (coronary artery disease) CHF (congestive heart failure) Chronic respiratory failure with hypoxia COPD (chronic obstructive pulmonary disease) GERD (gastroesophageal reflux disease) HTN (hypertension) Hypothyroidism Surgical History History of cardiac cath History of radiofrequency ablation procedure for cardiac arrhythmia Family History Other Hypertension Social History Smoking Status: Former smoker Hx Alcohol Use: No Hx Substance Use: No Preferred Language: [place] Communication Ability: Effective Patient Care Secretary Required: No Beliefs That Will Affect Care: None marital status: / Current Living Situation: Alone current occupational status: retired Feels Safe at Home: Yes Assistive Devices: Oxygen - Continuous Results & Data Results & Data ([facility]) Vital Signs (Past 12 Hours) Vital Signs Temp Pulse Pulse Resp BP Pulse Ox O2 Del Method 12/26/21 11:21 101 H 28 H 98 Nasal Cannula 12/26/21 10:42 36.7 C 104 H 18 109/88 100 Nasal Cannula O2 Flow Rate 12/26/21 11:21 2 12/26/21 10:42 3
--- NOTE | 2021-12-26 13:00 | Electrocardiogram Report ---
Test Reason : Blood Pressure : / mmHG Vent. Rate : 094 BPM Atrial Rate : 094 BPM P-R Int : 140 ms QRS Dur : 074 ms QT Int : 320 ms P-R-T Axes : 082 072 256 degrees QTc Int : 400 ms Poor data quality, interpretation may be adversely affected Sinus rhythm with Premature atrial complexes Abnormal ECG When compared with ECG of 27-FEB-2019 06:28, ST now depressed in Anterolateral leads Confirmed by Abisai Zhu ([id number]) on 12/26/2021 1:00:18 PM Referred By: NO PCP Confirmed By:Abisai Zhu
--- NOTE | 2021-12-26 13:24 | History & Physical Report ---
Date of Service December 26, 2021 Assessment & Plan (1) Bleeding nose: (2) Symptomatic anemia: (3) Microcytic anemia: (4) Atrial flutter: (5) Chronic respiratory failure: (6) COPD (chronic obstructive pulmonary disease): (7) CAD (coronary artery disease): (8) Hypothyroidism: (9) HTN (hypertension): Plan Acute nose bleed with symptomatic chronic microcytic anemia: -ER doc reviewed the case with ENT: per them since pt is on eliquis no intervention from ENT ---- in the ER pt received vasoconstriction spray and nasal packing -pts hgb from 2020 was 11.3 --- Currently hgb is 6.4 --- pt is receiving 2 units of PRBC -will trend CBC q6hr -due to prior hx of UGI bleed and ~5 units drop of hgb from last year will do IV Protonix 40mg q12hr ---- if no appropriate increase in hgb with 2 units then will consult GI -will hold eliquis for now and continue Plavix -pts Vitals are stable - PCU tele admission Chronic respiratory failure with COPD: -will continue 2L oxymask instead of NC A flutter with diastolic dysfunction: -will continue metoprolol and Plavix -holding eliquis for now HTN: -due to acute nose bleed with anemia will hold Lisinopril but continue amlodipine and metoprolol --- will restart Lisinopril depending BP GERD/Hypothyroidism/BPH/HLD/Post herpetic neuralagia: -continue home meds Diet: Heart healthy DVT PPx: SCDs Code Status: DNR/DNI Emergency Contact: Daughter (LONG Barragan [phone]) History of Present Illness Chief Complaint: nose bleed with symptomatic anemia Primary Care Provider: Zac Singh DO Pt is a 81 y/o M with hx of COPD with chronic respiratory failure on 2L, Aflutter on eliquis, CAD s/p BMS, hx of Duodenal ulcer bleed requiring cauterization (2018), hypothyroidism, HTN, BPH, 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 Per pt he has been wearing NC (oxygen) for 5 years and has been having on and off nose bleed for a while. He also noticed black stool today but otherwise denied any prior hx of black or bloody stool. Denied any acute CP, SOB, abd pain n/v but has been coughing up blood saliva from the nose bleed. Denied any prior hx of PE or DVT. Has been complaint with eliquis and Plavix. Allergies Allergy/AdvReac Type Severity Reaction Status Date / Time No Known Allergies Allergy Unverified 02/26/19 10:41 Home Medications Medication Instructions Recorded Confirmed Type albuterol sulfate 2.5 mg/3 mL 2.5 mg inhalation QID PRN 02/26/19 12/26/21 History (0.083 %) solution for nebulization Shortness Of Breath Or Wheezing apixaban 5 mg tablet (Eliquis) 5 mg PO BID 02/26/19 12/26/21 History atorvastatin 20 mg tablet 20 mg PO DAILY 02/26/19 12/26/21 History clopidogrel 75 mg tablet 75 mg PO DAILY 02/26/19 12/26/21 History fluticasone furoate 100 1 inh inhalation DAILY 02/26/19 12/26/21 History mcg/actuation blister powder for inhalation (Arnuity Ellipta) gabapentin 400 mg capsule 400 mg PO TID 02/26/19 12/26/21 History levothyroxine 25 mcg tablet 25 mcg PO DAILY 02/26/19 12/26/21 History metoprolol succinate 25 mg 25 mg PO DAILY 02/26/19 12/26/21 History tablet,extended release 24 hr pantoprazole 20 mg tablet,delayed 20 mg PO DAILY 02/26/19 12/26/21 History release tamsulosin 0.4 mg capsule 0.4 mg PO DAILY 02/26/19 12/26/21 History amlodipine 5 mg tablet (Norvasc) 10 mg PO HS #30 tabs 03/03/19 12/26/21 Rx lisinopril 40 mg tablet (Zestril) 40 mg PO DAILY #30 tabs 03/03/19 12/26/21 Rx Past Med/Surg History Medical History (Updated 12/26/21 @ 13:32 by Hemanth Erazo MD) Atrial flutter BPH (benign prostatic hyperplasia) CAD (coronary artery disease) CHF (congestive heart failure) Chronic respiratory failure Chronic respiratory failure with hypoxia COPD (chronic obstructive pulmonary disease) Diastolic dysfunction GERD (gastroesophageal reflux disease) History of upper gastrointestinal bleeding HTN (hypertension) Hypothyroidism Microcytic anemia Surgical History History of cardiac cath History of radiofrequency ablation procedure for cardiac arrhythmia S/P angioplasty with stent Family History Other Hypertension Social History Smoking Status: Former smoker Hx Alcohol Use: No Hx Substance Use: No Preferred Language: Yoruba Communication Ability: Effective Supervisor Grounds Required: No Beliefs That Will Affect Care: None marital status: / Current Living Situation: Alone current occupational status: retired Feels Safe at Home: Yes Assistive Devices: Oxygen - Continuous Review of Systems Review of Systems: At least 10 Review of systems were reviewed and all negative except as indicated in HPI Physical Exam Physical Exam: General:. NAD, well developed, well nourished, average body habitus HEENT:.b/l nose bleed, no obvious ulcers, Normocephalic and atraumatic, Normal Conjunctiva, EOMI, Sclera is non-icteric Lungs:. No signs of respiratory distress, CTA, no wheezing or crackles Heart:. Normal S1, S2, no murmur Abdominal:. ND, Soft, NT MSK:. No deformities of UE and LE, No leg edema Skin:diffuse b/l LE skin dryness Psych:. AAOx3, normal affect Results & Data Results & Data ([facility]) Vital Signs (Past 12 Hours) Vital Signs Temp Pulse Pulse Resp BP Pulse Ox O2 Del Method 12/26/21 11:21 101 H 28 H 98 Nasal Cannula 12/26/21 10:42 36.7 C 104 H 18 109/88 100 Nasal Cannula O2 Flow Rate 12/26/21 11:21 2 12/26/21 10:42 3 Laboratory Results Short CBC 12/26/21 Range/Units 10:10 WBC 8.71 (4.8-10.8) K/ul Hgb 6.4 L* (14.0-18.0) g/dl Hct 22.7 L (40.1-51.0) % Plt Count 446 H (130-400) K/uL BMP 12/26/21 10:10 Sodium 138 Potassium 4.6 Chloride 105 Carbon Dioxide 23 BUN 29 H Creatinine 0.80 Glucose 200 H Calcium 8.1 L Liver Function 12/26/21 Range/Units 10:10 Total Bilirubin 1.2 H (0.2-1.0) mg/dl AST 9 L (13-39) U/L ALT 4 L (7-52) U/L Alkaline Phosphatase 129 H (34-104) U/L Albumin 3.5 (3.4-5.0) gm/dl Code Status & VTE Plan VTE Prophylaxis Plan VTE Prophylaxis will be ordered: Yes
[2021-12-26] MEDS ORDERED: ONDANSETRON INJ 2 MG/ML 2 ML VIAL IV PRN (15:32)
[2021-12-26] MEDS ORDERED: ALBUTEROL 0.083% NEBU SOLN 3 ML VIAL INH PRN (15:32)
[2021-12-26] MEDS ORDERED: ACETAMINOPHEN 325 MG TAB PO PRN (15:32)
[2021-12-26 18:38] LABS: Hematocrit (blood only) 34.6 % (40.1-51.0); Hemoglobin 10.4 g/dl (14.0-18.0)
[2021-12-26] MEDS: GABAPENTIN 400 MG CAP PO SCH ×2 (21:38→21:40)
[2021-12-26] MEDS: PANTOprazole 40 MG in SYRINGE 0 ML IV SCH (21:38)
[2021-12-27 00:42] LABS: Hematocrit (blood only) 29.6 % (40.1-51.0); Hemoglobin 9.1 g/dl (14.0-18.0)
[2021-12-27 09:17] LABS: Hematocrit (blood only) 29.1 % (40.1-51.0); Mean Corpuscular Hemoglobin 24.1 pg (25.0-34.0); Mean Corpuscular Hgb Conc 30.9 g/dL (32.0-36.0); Mean Platelet Volume 9.4 fL (9.4-12.4); Nucleated RBC # (auto) 0.02 K/uL (0-0); Nucleated RBC % (auto) 0.2 %; Platelet Count 304 K/uL (130-400); RDW Coefficient of Variation 19.9 % (11.5-14.5); RDW Standard Deviation 55.8 fL (36.4-46.3); Red Blood Count 3.73 M/uL (4.63-6.08); White Blood Count 10.41 K/ul (4.8-10.8)
[2021-12-27] MEDS: ATORVASTATIN 20 MG TAB PO SCH (09:30)
[2021-12-27] MEDS: CLOPIDOGREL BISULFATE 75 MG TAB PO SCH (09:31)
[2021-12-27] MEDS: FLUTICASONE FUROATE 100MCG 14 PUFFS/INHALER INH SCH (09:32)
[2021-12-27] MEDS: GABAPENTIN 400 MG CAP PO SCH ×3 (09:33→21:22)
[2021-12-27] MEDS: LEVOTHYROXINE SODIUM 25 MCG TABLET PO SCH (09:34)
[2021-12-27] MEDS: METOPROLOL SUCC 25MG EXT REL TAB PO SCH (09:35)
[2021-12-27] MEDS: PANTOprazole 40 MG in SYRINGE 0 ML IV SCH ×2 (09:36→21:21)
[2021-12-27] MEDS: TAMSULOSIN HCL 0.4 MG CAP PO SCH (09:37)
[2021-12-27] MEDS: lisinopril 40 MG TAB PO SCH (11:01)
--- NOTE | 2021-12-27 12:53 | ENT Consultation ---
Date of Consultation December 27, 2021 Assessment & Plan (1) Acute anterior epistaxis: Remove packing. Large septal perforation. If he has further bleeding endoscopic cautery would be needed. (2) Nasal septal perforation: History of Present Illness Reason for Consultation: Epistaxis Attending Physician: Pato Vela MD History of Present Illness This 81-year-old man was admitted with significant epistaxis down to 6 g of hemoglobin requiring transfusion. There is also suspicion of GI bleed. On Eliquis and Plavix. Allergies Allergy/AdvReac Type Severity Reaction Status Date / Time No Known Allergies Allergy Unverified 02/26/19 10:41 Home Medications Medication Instructions Recorded Confirmed Type albuterol sulfate 2.5 mg/3 mL 2.5 mg inhalation QID PRN 02/26/19 12/26/21 History (0.083 %) solution for nebulization Shortness Of Breath Or Wheezing apixaban 5 mg tablet (Eliquis) 5 mg PO BID 02/26/19 12/26/21 History atorvastatin 20 mg tablet 20 mg PO DAILY 02/26/19 12/26/21 History clopidogrel 75 mg tablet 75 mg PO DAILY 02/26/19 12/26/21 History fluticasone furoate 100 1 inh inhalation DAILY 02/26/19 12/26/21 History mcg/actuation blister powder for inhalation (Arnuity Ellipta) gabapentin 400 mg capsule 400 mg PO TID 02/26/19 12/26/21 History levothyroxine 25 mcg tablet 25 mcg PO DAILY 02/26/19 12/26/21 History metoprolol succinate 25 mg 25 mg PO DAILY 02/26/19 12/26/21 History tablet,extended release 24 hr pantoprazole 20 mg tablet,delayed 20 mg PO DAILY 02/26/19 12/26/21 History release tamsulosin 0.4 mg capsule 0.4 mg PO DAILY 02/26/19 12/26/21 History amlodipine 5 mg tablet (Norvasc) 10 mg PO HS #30 tabs 03/03/19 12/26/21 Rx lisinopril 40 mg tablet (Zestril) 40 mg PO DAILY #30 tabs 03/03/19 12/26/21 Rx Patient History Medical History Atrial flutter BPH (benign prostatic hyperplasia) CAD (coronary artery disease) CHF (congestive heart failure) Chronic respiratory failure Chronic respiratory failure with hypoxia COPD (chronic obstructive pulmonary disease) Diastolic dysfunction GERD (gastroesophageal reflux disease) History of upper gastrointestinal bleeding HTN (hypertension) Hypothyroidism Microcytic anemia Surgical History History of cardiac cath History of radiofrequency ablation procedure for cardiac arrhythmia S/P angioplasty with stent Family History Other Hypertension Social History Smoking Status: Former smoker Second Hand Exposure: No; Do You Dip or Chew Tobacco: No; Tobacco Cessation Education Requested by Patient: No Hx Alcohol Use: Yes (quit) Hx Substance Use: No Preferred Language: Samoan Communication Ability: Effective [place] Bacon Tier Required: No Beliefs That Will Affect Care: None marital status: / Current Living Situation: Alone current occupational status: retired Other Information That Helps Us Care for You: No Feels Safe at Home: Yes Safety Concerns: Feels Safe At This Time Assistive Devices: Glasses and Oxygen - Continuous Assistive Devices Comment: pt does not currently use walker but wants to Physical Exam Constitutional: WD/WN, vitals as above Eyes: PERRL, conjunctivae normal, anicteric sclerae ENMT: external ear and nose normal, oropharynx normal Nose: + septum abnormality (Rather large septal perforation with bright red blood but no active bleedin) Neck: trachea midline, no thyromegaly Results & Data ([facility]) Vital Signs (Past 12 Hours) Vital Signs Temp Pulse Pulse Resp BP BP Pulse Ox 12/27/21 11:00 36.5 C 83 25 H 116/78 98 12/27/21 08:07 83 12/27/21 04:06 36.4 C L 78 20 182/81 H 99 12/27/21 01:31 82 O2 Del Method O2 Flow Rate 12/27/21 11:00 Nasal Cannula 2 12/27/21 08:07 12/27/21 04:06 Nasal Cannula 2 12/27/21 01:31
--- NOTE | 2021-12-27 12:54 | Operative Report ---
PG Post Operative Report Pre & Post Diagnosis Epistaxis I identified the patient and participated in the time-out.: Yes Procedure Nasal endoscopy Surgeon Barb Gamble MD Awning Finisher None Estimated Blood Loss 0 Findings Consistent with Post-Op Diagnosis Large septal perforation Specimens None Anesthesia Type None Indications Epistaxis Description of Procedure I performed nasal endoscopy after removing right-sided nasal packing. Large septal perforation noted anterior septum. Blood along the turbinates but no active bleeding site noted. I attest to the content of the Intraoperative Record and any orders documented therein. Any exceptions are noted below.
[2021-12-27 16:40] LABS: Hematocrit (blood only) 28.2 % (40.1-51.0); Hemoglobin 8.7 g/dl (14.0-18.0)
--- NOTE | 2021-12-27 18:55 | Hospitalist Progress Note ---
Date of Service December 27, 2021 Assessment & Plan (1) Bleeding nose: (2) Symptomatic anemia: (3) Microcytic anemia: (4) Atrial flutter: (5) Chronic respiratory failure: (6) COPD (chronic obstructive pulmonary disease): (7) CAD (coronary artery disease): (8) Hypothyroidism: (9) HTN (hypertension): Plan Acute nose bleed Symptomatic/acute blood loss anemia Patient came in with 2-day history of nosebleeding, had a black stool on the day of arrival but no prior history of black or bloody stool. Admitting hemoglobin of 6.4, status post 2 unit PRBC, hemoglobin above 8, continue to monitor hemoglobin ENT evaluated, status post nasal endoscopy, large septal perforation noted, likely will need cauterization if hemoglobin continues to drop. Nasal packing removed today. Eliquis on hold. Due to prior history of UGI bleed and 5 unit drop of hemoglobin from last year, patient was started on IV Protonix, will continue with same for the time being Telemetry monitoring, vitals stable Chronic respiratory failure with COPD: -will continue 2L oxymask instead of NC due to nasal bleed. Uses 2.5 L O2 at home. A flutter with diastolic dysfunction: -will continue metoprolol and Plavix -holding eliquis for now HTN: -Resume home medication with parameters. GERD/Hypothyroidism/BPH/HLD/Post herpetic neuralagia: -continue home meds Diet: Heart healthy DVT PPx: SCDs Code Status: DNR/DNI Emergency Contact: Daughter (LONG Barragan [phone]) Admission and Anticipated Discharge Date Admission Date: December 26, 2021 Subjective Patient seen and examined at bedside as a follow-up of epistaxis and acute blood loss anemia. Patient was lying in bed, on 2 L nasal cannula oxygen, NAD, denies acute events overnight, per RN had minimal nasal bleeding after removal of nasal packing by ENT which spontaneously stopped after an hour, patient denies headache or dizziness or chest pain or palpitation or belly pain or other review of symptoms. Patient is eating okay, moving bowels okay with no blood in it per patient. Physical Exam Physical Exam: GENERAL: Alert and oriented x3. NAD, on RA. HEENT: No pallor, no icterus. Pupils equal, round and reactive to light. Oral mucosa moist. NECK: No JVD, no neck masses. HEART: S1 and S2 heard. Regular rate and rhythm. No murmur, no gallop. RESPIRATORY SYSTEM: Normal AP diameter. No accessory muscle use. No wheezing, no crackles. ABDOMEN: Soft, bowel sounds present, chronic RUQ tender d/t shingles per pt, no distention. CENTRAL NERVOUS SYSTEM: No facial droop. Speech is clear. Obeys simple commands. Moves extremities. EXTREMITIES: No edema, no erythema seen. Results & Data Results & Data ([facility]) Vital Signs (Past 12 Hours) Vital Signs Temp Pulse Pulse Pulse Resp BP BP 12/27/21 17:50 97 H 12/27/21 16:00 36.6 C 88 22 94/60 L 12/27/21 14:36 12/27/21 11:00 36.5 C 83 25 H 116/78 12/27/21 08:07 83 Pulse Ox O2 Del Method O2 Flow Rate 12/27/21 17:50 12/27/21 16:00 99 Nasal Cannula 2 12/27/21 14:36 Nasal Cannula 2 12/27/21 11:00 98 Nasal Cannula 2 12/27/21 08:07
[2021-12-27] MEDS: amLODIPine BESYLATE 5 MG TAB PO SCH (21:22)
[2021-12-28 06:27] LABS: Hematocrit (blood only) 26.2 % (40.1-51.0); Mean Corpuscular Hemoglobin 23.7 pg (25.0-34.0); Mean Corpuscular Hgb Conc 30.5 g/dL (32.0-36.0); Mean Corpuscular Volume 77.5 fL (80.0-100.0); Mean Platelet Volume 9.1 fL (9.4-12.4); Platelet Count 243 K/uL (130-400); RDW Coefficient of Variation 20.6 % (11.5-14.5); RDW Standard Deviation 57.4 fL (36.4-46.3); Red Blood Count 3.38 M/uL (4.63-6.08); White Blood Count 7.46 K/ul (4.8-10.8)
[2021-12-28 06:50] LABS: Troponin I High Sensitivity 17.6 pg/ml (0-20)
[2021-12-28 06:53] LABS: BUN Creatinine Ratio 18.8 (10-20); Calcium 7.8 mg/dl (8.5-10.1); Creatinine Clr Calc Pharmacy 44.4 ml/min; Est GFR (African American) 80.5 ml/min; Est GFR (Non-African American) 69.4 ml/min; Phosphorus 3.3 mg/dl (2.5-4.9); Potassium 3.5 mmol/L (3.5-5.1)
--- NOTE | 2021-12-28 08:06 | Ears,Nose,Throat Progress Note ---
Date of Service December 28, 2021 Assessment & Plan (1) Nasal septal perforation: Plan: large perforation, risk for rebleed (2) Acute anterior epistaxis: Plan: no further bleed, sign off for now. Please feel free to call me if any further bleeding. Admission and Anticipated Discharge Date Admission Date: December 26, 2021 Subjective No further bleeding Physical Exam Constitutional: WD/WN, vitals as above Eyes: PERRL, conjunctivae normal, anicteric sclerae ENMT: Nose: + septum abnormality (septal perforation) and + epistaxis (no further bleeding) Results & Data ([facility]) Vital Signs (Past 12 Hours) Vital Signs Temp Pulse Pulse Resp BP Pulse Ox O2 Del Method 12/28/21 07:38 73 12/28/21 02:45 36.5 C 70 18 106/64 99 Oxymask 12/28/21 00:22 75 12/27/21 22:12 36.4 C L 76 18 121/74 99 Nasal Cannula 12/27/21 21:54 Nasal Cannula O2 Flow Rate 12/28/21 07:38 12/28/21 02:45 2 12/28/21 00:22 12/27/21 22:12 2 12/27/21 21:54 2
[2021-12-28] MEDS ORDERED: POTASSIUM CHLORIDE CRTAB 20 MEQ TABCR PO STA (08:47)
[2021-12-28] MEDS: GABAPENTIN 400 MG CAP PO SCH ×3 (09:38→21:07)
[2021-12-28] MEDS: CLOPIDOGREL BISULFATE 75 MG TAB PO SCH (09:39)
[2021-12-28] MEDS: lisinopril 40 MG TAB PO SCH (09:39)
[2021-12-28] MEDS: TAMSULOSIN HCL 0.4 MG CAP PO SCH (09:39)
[2021-12-28] MEDS: FLUTICASONE FUROATE 100MCG 14 PUFFS/INHALER INH SCH (09:39)
[2021-12-28] MEDS: METOPROLOL SUCC 25MG EXT REL TAB PO SCH (09:39)
[2021-12-28] MEDS: LEVOTHYROXINE SODIUM 25 MCG TABLET PO SCH (09:40)
[2021-12-28] MEDS: ATORVASTATIN 20 MG TAB PO SCH (09:40)
[2021-12-28] MEDS: PANTOprazole 40 MG TAB PO SCH (09:42)
--- NOTE | 2021-12-28 13:34 | Hospitalist Progress Note ---
Date of Service December 28, 2021 Assessment & Plan (1) Bleeding nose: (2) Symptomatic anemia: (3) Microcytic anemia: (4) Atrial flutter: (5) Chronic respiratory failure: (6) COPD (chronic obstructive pulmonary disease): (7) CAD (coronary artery disease): (8) Hypothyroidism: (9) HTN (hypertension): Plan Acute nose bleed Symptomatic/acute blood loss anemia Patient came in with 2-day history of nose bleeding, had a black stool on the day of arrival but no prior history of black or bloody stool. Admitting hemoglobin of 6.4, status post 2 unit PRBC, hemoglobin around 8, continue to monitor hemoglobin, HnH at 2PM, resume eliquis at 2.5 mg bid if Hb stable. ENT evaluated, status post nasal endoscopy, large septal perforation noted, likely will need cauterization if hemoglobin continues to drop. For now signed off. Eliquis on hold. Hb around 8, gradually dropping, need to make sure if it stays stable before DC. Telemetry monitoring, vitals stable. Pt was in aflutter in AM per telemetry review, hence will need eliquis started as soon as possible. Chronic respiratory failure with COPD: -will continue 2L oxymask instead of NC due to nasal bleed. Uses 2.5 L O2 at home. A flutter with diastolic dysfunction: -will continue metoprolol and Plavix; was in aflutte in AM per telemetry review. -holding eliquis for now, needs be started at 2.5 mg bid as pts wt < 60 kg and age >80 yrs. HTN: -Resume home medication with parameters. GERD/Hypothyroidism/BPH/HLD/Post herpetic neuralagia: -continue home meds Diet: Heart healthy DVT PPx: SCDs Code Status: DNR/DNI Emergency Contact: Daughter (LONG Barragan [phone]) Admission and Anticipated Discharge Date Admission Date: December 26, 2021 Subjective Patient seen and examined at bedside as a follow-up of epistaxis and acute blood loss anemia. Patient was sitting up in chair, on 2 L O2 via Oxy mask, NAD, denies acute events overnight, pt denies further nasal bleeding, has dried blood crust over b/l nares. Pt denies headache or dizziness or chest pain or palpitation or belly pain or other review of symptoms. Patient is eating okay, moving bowels okay with no blood in it per patient. Pt complaining some lightheadedness with activity which has been slowly resolving. Physical Exam Physical Exam: GENERAL: Alert and oriented x3. NAD, on RA. HEENT: No pallor, no icterus. Pupils equal, round and reactive to light. Oral mucosa moist. NECK: No JVD, no neck masses. HEART: S1 and S2 heard. Regular rate and rhythm. No murmur, no gallop. RESPIRATORY SYSTEM: Normal AP diameter. No accessory muscle use. No wheezing, no crackles. ABDOMEN: Soft, bowel sounds present, chronic RUQ tender d/t shingles/post herpetic neuralgia per pt, no distention. CENTRAL NERVOUS SYSTEM: No facial droop. Speech is clear. Obeys simple commands. Moves extremities. EXTREMITIES: No edema, no erythema seen. Results & Data Results & Data ([facility]) Vital Signs (Past 12 Hours) Vital Signs Temp Pulse Pulse Pulse Resp BP BP 12/28/21 11:49 12/28/21 08:00 36.3 C L 85 15 126/81 12/28/21 11:29 36.7 C 82 16 127/78 12/28/21 07:38 73 12/28/21 02:45 36.5 C 70 18 106/64 Pulse Ox O2 Del Method O2 Flow Rate 12/28/21 11:49 Nasal Cannula 2 12/28/21 08:00 98 Oxymask 12/28/21 11:29 97 Oxymask 12/28/21 07:38 12/28/21 02:45 99 Oxymask 2
[2021-12-28 15:03] LABS: Hematocrit (blood only) 25.2 % (40.1-51.0); Hemoglobin 7.6 g/dl (14.0-18.0)
--- NOTE | 2021-12-28 16:14 | Electrocardiogram Report ---
Test Reason : Blood Pressure : / mmHG Vent. Rate : 069 BPM Atrial Rate : 069 BPM P-R Int : 146 ms QRS Dur : 074 ms QT Int : 416 ms P-R-T Axes : 083 078 250 degrees QTc Int : 445 ms Sinus rhythm with Premature supraventricular complexes Abnormal ECG When compared with ECG of 26-DEC-2021 10:34, T wave inversion more evident in Anterior leads Confirmed by Zac Ordonez ([id number]) on 12/28/2021 4:14:22 PM Referred By: NO PCP Confirmed By:Zac Ordonez
[2021-12-28] MEDS: amLODIPine BESYLATE 5 MG TAB PO SCH (21:07)
[2021-12-28 21:32] LABS: Hematocrit (blood only) 25.3 % (40.1-51.0); Hemoglobin 7.9 g/dl (14.0-18.0)
[2021-12-29 07:53] LABS: Hematocrit (blood only) 25.1 % (40.1-51.0); Hemoglobin 7.6 g/dl (14.0-18.0); Mean Corpuscular Hemoglobin 24.2 pg (25.0-34.0); Mean Corpuscular Hgb Conc 30.3 g/dL (32.0-36.0); Mean Corpuscular Volume 79.9 fL (80.0-100.0); Mean Platelet Volume 9.3 fL (9.4-12.4); Platelet Count 215 K/uL (130-400); RDW Coefficient of Variation 21.2 % (11.5-14.5); RDW Standard Deviation 60.9 fL (36.4-46.3); Red Blood Count 3.14 M/uL (4.63-6.08); White Blood Count 6.87 K/ul (4.8-10.8)
[2021-12-29 08:22] LABS: BUN Creatinine Ratio 16.7 (10-20); Calcium 7.6 mg/dl (8.5-10.1); Creatinine Clr Calc Pharmacy 51.3 ml/min; Est GFR (African American) 92.5 ml/min; Est GFR (Non-African American) 79.8 ml/min; Potassium 3.8 mmol/L (3.5-5.1)
[2021-12-29] MEDS ORDERED: SODIUM CHLORIDE 0.65% NA SOLN 45 ML (OCEAN) PRN (09:01)
[2021-12-29] MEDS: METOPROLOL SUCC 25MG EXT REL TAB PO SCH (11:06)
[2021-12-29] MEDS: lisinopril 40 MG TAB PO SCH (11:07)
[2021-12-29] MEDS: GABAPENTIN 400 MG CAP PO SCH ×3 (11:07→22:15)
[2021-12-29] MEDS: FLUTICASONE FUROATE 100MCG 14 PUFFS/INHALER INH SCH (11:07)
[2021-12-29] MEDS: TAMSULOSIN HCL 0.4 MG CAP PO SCH (11:08)
[2021-12-29] MEDS: CLOPIDOGREL BISULFATE 75 MG TAB PO SCH (11:08)
[2021-12-29] MEDS: ATORVASTATIN 20 MG TAB PO SCH (11:09)
[2021-12-29] MEDS: LEVOTHYROXINE SODIUM 25 MCG TABLET PO SCH (11:12)
[2021-12-29] MEDS: PANTOprazole 40 MG TAB PO SCH (11:41)
[2021-12-29] MEDS: BACITRACIN OINT 15 GM TUBE EXT SCH ×2 (14:00→22:16)
[2021-12-29 15:06] LABS: Hematocrit (blood only) 23.9 % (40.1-51.0); Hemoglobin 7.4 g/dl (14.0-18.0)
--- NOTE | 2021-12-29 15:46 | Hospitalist Progress Note ---
Date of Service December 29, 2021 Assessment & Plan (1) Bleeding nose: (2) Symptomatic anemia: (3) Microcytic anemia: (4) Atrial flutter: (5) Chronic respiratory failure: (6) COPD (chronic obstructive pulmonary disease): (7) CAD (coronary artery disease): (8) Hypothyroidism: (9) HTN (hypertension): Plan Acute nose bleed Symptomatic/acute blood loss anemia Patient came in with 2-day history of nose bleeding, had a black stool on the day of arrival but no prior history of black or bloody stool. Admitting hemoglobin of 6.4, status post 2 unit PRBC, continue to monitor hemoglobin, HnH at 2PM, resume eliquis at 2.5 mg bid if Hb stable. ENT evaluated, status post nasal endoscopy, large septal perforation noted, likely will need cauterization if hemoglobin continues to drop. For now signed off. Eliquis on hold. Hb stable around 7.5, need to make sure if it stays stable before DC. Will resume eliquis. D/w ENT today, no concern for ongoing nasal bleed, will start eliquis in evening and monitor. If hb drops further, will send fobt. H/o gastric and duodenal ulcers. Telemetry monitoring, vitals stable. Pt was mostly in sinus w/ PATs per telemetry review, hence will need eliquis started as soon as possible. Chronic respiratory failure with COPD: -will continue 2L oxymask instead of NC due to nasal bleed. Uses 2.5 L O2 at home. A flutter with diastolic dysfunction: -will continue metoprolol and Plavix -eliquis in pm, needs be started at 2.5 mg bid as pts wt < 60 kg and age >80 yrs. HTN: - home medication with parameters. GERD/Hypothyroidism/BPH/HLD/Post herpetic neuralagia: -continue home meds Diet: Heart healthy DVT PPx: SCDs Code Status: DNR/DNI Emergency Contact: Daughter BERNICE Barragan [phone]) Dispo: w/ pt/ot recs, cm to assist. Likely timur if Hb stays stable. Admission and Anticipated Discharge Date Admission Date: December 26, 2021 Subjective Patient seen and examined at bedside as a follow-up of epistaxis and acute blood loss anemia. Patient was lying in bed, on 2 L O2 via Oxy mask, NAD, denies acute events overnight, pt denies further nasal bleeding after yesterday afternoon. Pt denies headache or dizziness or chest pain or palpitation or belly pain or other review of symptoms. Patient is eating okay, moving bowels okay. Pt reports improvement in lightheadedness with activity. Physical Exam Physical Exam: GENERAL: Alert and oriented x3. NAD, on RA. HEENT: No pallor, no icterus. Pupils equal, round and reactive to light. Oral mucosa moist. NECK: No JVD, no neck masses. HEART: S1 and S2 heard. Regular rate and rhythm. No murmur, no gallop. RESPIRATORY SYSTEM: Normal AP diameter. No accessory muscle use. No wheezing, no crackles. ABDOMEN: Soft, bowel sounds present, chronic RUQ tender d/t shingles/post herpetic neuralgia per pt, no distention. CENTRAL NERVOUS SYSTEM: No facial droop. Speech is clear. Obeys simple com mands. Moves extremities. EXTREMITIES: No edema, no erythema seen. Results & Data Results & Data ([facility]) Vital Signs (Past 12 Hours) Vital Signs Temp Pulse Pulse Resp BP Pulse Ox O2 Del Method 12/29/21 08:00 Oxymask 12/29/21 11:16 36.8 C 81 18 132/71 98 12/29/21 07:33 36.8 C 74 18 100/63 100 12/29/21 07:12 67 O2 Flow Rate 12/29/21 08:00 2 12/29/21 11:16 2 12/29/21 07:33 2 12/29/21 07:12
[2021-12-29] MEDS: amLODIPine BESYLATE 5 MG TAB PO SCH (22:18)
[2021-12-29] MEDS: APIXABAN 2.5 MG TAB PO SCH (22:23)
[2021-12-29 22:39] LABS: Hematocrit (blood only) 24.3 % (40.1-51.0); Hemoglobin 7.6 g/dl (14.0-18.0)
--- NOTE | 2021-12-30 06:48 | Ears,Nose,Throat Progress Note ---
Date of Service December 30, 2021 Assessment & Plan (1) Acute anterior epistaxis: Plan: bleeding appears to have stopped (2) Nasal septal perforation: Plan: crusted old blood around perforation, use saline spray and bacitracin to dissolve Admission and Anticipated Discharge Date Admission Date: December 26, 2021 Subjective Patient seen and examined at bedside as a follow-up of epistaxis and acute blood loss anemia. Patient was lying in bed, on 2 L O2 via Oxy mask, NAD, denies acute events overnight, pt denies further nasal bleeding after yesterday afternoon. Pt denies headache or dizziness or chest pain or palpitation or belly pain or other review of symptoms. Patient is eating okay, moving bowels okay. Pt reports improvement in lightheadedness with activity. Physical Exam Constitutional: WD/WN, vitals as above Eyes: PERRL, conjunctivae normal, anicteric sclerae ENMT: Nose: + septum abnormality (perforation) and + epistaxis (dried blood, no active bleeding) Neck: trachea midline, no thyromegaly Results & Data ([facility]) Vital Signs (Past 12 Hours) Vital Signs Temp Pulse Pulse Resp BP BP Pulse Ox 12/30/21 03:30 36.9 C 73 20 123/72 99 12/29/21 23:34 76 12/29/21 23:17 36.8 C 54 L 20 133/72 98 12/29/21 22:32 12/29/21 19:59 36.8 C 81 20 141/96 H 97 O2 Del Method O2 Flow Rate 12/30/21 03:30 Oxymask 2 12/29/21 23:34 12/29/21 23:17 Oxymask 2 12/29/21 22:32 Oxymask 2 12/29/21 19:59 Oxymask 2
[2021-12-30 06:53] LABS: Hematocrit (blood only) 24.8 % (40.1-51.0); Hemoglobin 7.7 g/dl (14.0-18.0); Mean Corpuscular Hemoglobin 24.8 pg (25.0-34.0); Mean Platelet Volume 9.3 fL (9.4-12.4); Platelet Count 209 K/uL (130-400); RDW Coefficient of Variation 21.4 % (11.5-14.5); RDW Standard Deviation 61.2 fL (36.4-46.3); White Blood Count 5.83 K/ul (4.8-10.8)
[2021-12-30 07:25] LABS: Est GFR (African American) 96.6 ml/min; Est GFR (Non-African American) 83.4 ml/min
[2021-12-30] MEDS: CLOPIDOGREL BISULFATE 75 MG TAB PO SCH (08:25)
[2021-12-30] MEDS: METOPROLOL SUCC 25MG EXT REL TAB PO SCH (08:26)
[2021-12-30] MEDS: FLUTICASONE FUROATE 100MCG 14 PUFFS/INHALER INH SCH (08:26)
[2021-12-30] MEDS: GABAPENTIN 400 MG CAP PO SCH (08:26)
[2021-12-30] MEDS: BACITRACIN OINT 15 GM TUBE EXT SCH (08:26)
[2021-12-30] MEDS: APIXABAN 2.5 MG TAB PO SCH (08:26)
[2021-12-30] MEDS: TAMSULOSIN HCL 0.4 MG CAP PO SCH (08:26)
[2021-12-30] MEDS: ATORVASTATIN 20 MG TAB PO SCH (08:26)
[2021-12-30] MEDS: lisinopril 40 MG TAB PO SCH (08:26)
[2021-12-30] MEDS: LEVOTHYROXINE SODIUM 25 MCG TABLET PO SCH (08:26)
[2021-12-30] MEDS ORDERED: PANTOprazole 40 MG TAB PO SCH (09:00)
--- NOTE | 2021-12-30 12:57 | Discharge Summary ---
Discharge Summary Date of Service December 30, 2021 Notes For Next Care Provider He needs to have CBC and CMP in 3 to 5 days upon discharge. His Eliquis has been reduced to 2.5 mg twice a day given his age and body weight. He was admitted for nasal bleed, his bleeding has stopped, ENT evaluated him, and did not go through any cauterization. He is supposed to wear oxygen max rather than nasal cannula to avoid further nasal bleeding. Recommend him to follow-up with ENT doctor as an outpatient. Medication Changes From Visit Eliquis dose has been decreased to 2.5 mg twice a day from 5 mg twice a day. Admission HPI Per Admitting Provider Pt is a 81 y/o M with hx of COPD with chronic respiratory failure on 2L, Aflutter on eliquis, CAD s/p BMS, hx of Duodenal ulcer bleed requiring cauterization (2017), hypothyroidism, HTN, BPH, 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 Per pt he has been wearing NC (oxygen) for 5 years and has been having on and off nose bleed for a while. He also noticed black stool today but otherwise denied any prior hx of black or bloody stool. Denied any acute CP, SOB, abd pain n/v but has been coughing up blood saliva from the nose bleed. Denied any prior hx of PE or DVT. Has been complaint with eliquis and Plavix. Admission Exam Per Admitting Provider General:.NAD, well developed, well nourished, average body habitus HEENT:.b/l nose bleed, no obvious ulcers,Normocephalic and atraumatic, Normal Conjunctiva, EOMI, Sclera is non-icteric Lungs:.No signs of respiratory distress, CTA, no wheezing or crackles Heart:.Normal S1, S2, no murmur Abdominal:.ND, Soft, NT MSK:.No deformities of UE and LE, No leg edema Skin:diffuse b/l LE skin dryness Psych:.AAOx3, normal affect Principal Dx & Hospital Course #1 = Principal Diagnosis (1) Bleeding nose: (2) Symptomatic anemia: (3) Microcytic anemia: (4) Atrial flutter: (5) Chronic respiratory failure: (6) COPD (chronic obstructive pulmonary disease): (7) CAD (coronary artery disease): (8) Hypothyroidism: (9) HTN (hypertension): Plan 81-year-old patient was managed for the following: Acute nose bleed Symptomatic/acute blood loss anemia Patient came in with 2-day history of nose bleeding, had a black stool on the day of arrival but no prior history of black or bloody stool. Admitting hemoglobin of 6.4, status post 2 unit PRBC, continue to monitor hemoglobin, HnH at 2PM, resume eliquis at 2.5 mg bid if Hb stable. ENT evaluated, status post nasal endoscopy, large septal perforation noted, nasal bleeding controlled, patient did not require cauterization. Hemoglobin has been stable around 7.5 despite Eliquis, patient hemodynamically stable, reports he is at his baseline, he does say that he have some shortness of breath after walking certain distance for a long time. Patient advised not to change position rapidly between lying/sitting/standing. Patient advised to continue with his pantoprazole, his FOBT came back positive but could be due to ingested blood from nasal bleed as his hemoglobin has been stable despite Eliquis. Patient advised to present to the emergency immediately if with further nasal bleeding and also advised to stop Eliquis at that point. Patient advised to avoid nasal picking, advised to use oxygen mask instead of nasal cannula. Chronic respiratory failure with COPD: -will continue 2L oxymask instead of NC due to nasal bleed. Uses 2.5 L O2 at home. A flutter with diastolic dysfunction: -will continue metoprolol and Plavix -eliquis started at 2.5 mg bid as pts wt < 60 kg and age >80 yrs. HTN: - home medication with parameters. GERD/Hypothyroidism/BPH/HLD/Post herpetic neuralagia: -continue home meds Diet: Heart healthy DVT PPx: SCDs Code Status: DNR/DNI Emergency Contact: Daughter (LONG Barragan [phone]) Patient being discharged home with home health with following instructions at the point of discharge [instructions were communicated to patient's daughter over the phone at bedside]: Follow-up with your primary care physician within a week time and you will most likely need blood test CBC/CMP. You were admitted for bleeding nose, ENT evaluated you, your bleeding seems to have stopped and we have restarted your Eliquis, your blood level has been stable. As discussed at the bedside, recommend against picking your nose. You will have to use oxygen mask rather than nasal cannula to avoid further nasal bleeding. Follow-up with ENT As an outpatient. Because of your history of atrial flutter, your Eliquis has been started but at a lower dose of 2.5 mg twice a day given your advanced age and low body weight. If you have any nasal bleeding, immediately stop your Eliquis and contact emergency. Avoid rapid change in position between lying/sitting/standing positions. Given your history of gastric and duodenal ulcer, continue your pantoprazole. Take your medications as prescribed. Discharge Exam GENERAL: Alert and oriented x3. NAD, on RA. HEENT: No pallor, no icterus. Pupils equal, round and reactive to light. Oral mucosa moist. NECK: No JVD, no neck masses. HEART: S1 and S2 heard. Regular rate and rhythm. No murmur, no gallop. RESPIRATORY SYSTEM: Normal AP diameter. No accessory muscle use. No wheezing, no crackles. ABDOMEN: Soft, bowel sounds present, chronic RUQ tender d/t shingles/post herpetic neuralgia per pt, no distention. CENTRAL NERVOUS SYSTEM: No facial droop. Speech is clear. Obeys simple commands. Moves extremities. EXTREMITIES: No edema, no erythema seen. Updated Medication List Medication Instructions Recorded Confirmed Type albuterol sulfate 2.5 mg/3 mL 2.5 mg inhalation QID PRN 02/26/19 12/26/21 History (0.083 %) solution for nebulization Shortness Of Breath Or Wheezing apixaban 5 mg tablet (Eliquis) 5 mg PO BID 02/26/19 12/26/21 History atorvastatin 20 mg tablet 20 mg PO DAILY 02/26/19 12/26/21 History clopidogrel 75 mg tablet 75 mg PO DAILY 02/26/19 12/26/21 History fluticasone furoate 100 1 inh inhalation DAILY 02/26/19 12/26/21 History mcg/actuation blister powder for inhalation (Arnuity Ellipta) gabapentin 400 mg capsule 400 mg PO TID 02/26/19 12/26/21 History levothyroxine 25 mcg tablet 25 mcg PO DAILY 02/26/19 12/26/21 History metoprolol succinate 25 mg 25 mg PO DAILY 02/26/19 12/26/21 History tablet,extended release 24 hr pantoprazole 20 mg tablet,delayed 20 mg PO DAILY 02/26/19 12/26/21 History release tamsulosin 0.4 mg capsule 0.4 mg PO DAILY 02/26/19 12/26/21 History amlodipine 5 mg tablet (Norvasc) 10 mg PO HS #30 tabs 03/03/19 12/26/21 Rx lisinopril 40 mg tablet (Zestril) 40 mg PO DAILY #30 tabs 03/03/19 12/26/21 Rx apixaban 2.5 mg tablet (Eliquis) 2.5 mg PO BID #60 tabs 12/30/21 Rx bacitracin 500 unit/gram topical 1 applic EXT TID 7 days #14 grams 12/30/21 Rx ointment sodium chloride 0.65 % nasal spray 2 spray NA Q4H PRN nasal 12/30/21 Rx aerosol (Saline Mist) congestion #45 mL Hospital Stay Data Consultations 12/26/21 12:44 ED Decision to Admit Stat 12/26/21 13:19 Consult Otolaryngology (Head and Neck) Routine Pending Results Patient Have Any Pending Studies at Discharge: No Discharge Instructions Given to Patient (Per Discharging Provider) Follow-up with your primary care physician within a week time and you will most likely need blood test CBC/CMP. You were admitted for bleeding nose, ENT evaluated you, your bleeding seems to have stopped and we have restarted your Eliquis, your blood level has been stable. As discussed at the bedside, recommend against picking your nose. You will have to use oxygen mask rather than nasal cannula to avoid further nasal bleeding. Follow-up with ENT As an outpatient. Because of your history of atrial flutter, your Eliquis has been started but at a lower dose of 2.5 mg twice a day given your advanced age and low body weight. If you have any nasal bleeding, immediately stop your Eliquis and contact emergency. Avoid rapid change in position between lying/sitting/standing positions. Given your history of gastric and duodenal ulcer, continue your pantoprazole. Take your medications as prescribed. Total Time Total Time Spent Total Time Spent (In Minutes): 40
== END 2021-12-30 14:42 | disposition home health service (06) | DRG 151 ==
LOC: ED 10:02 → EDINP 12:53 → SUATTDRO 12:53 → 2W 15:32
DX: Z87.891 Personal history of nicotine dependence; I48.92 Unspecified atrial flutter; Z99.81 Dependence on supplemental oxygen; J34.89 Other specified disorders of nose and nasal sinuses; R04.0 Epistaxis; E03.9 Hypothyroidism, unspecified; Z79.01 Long term (current) use of anticoagulants; D62 Acute posthemorrhagic anemia; Z66 Do not resuscitate; I10 Essential (primary) hypertension; E83.51 Hypocalcemia; Z79.890 Hormone replacement therapy; Z79.02 Long term (current) use of antithrombotics/antiplatelets; J44.9 Chronic obstructive pulmonary disease, unspecified; B02.29 Other postherpetic nervous system involvement; I25.10 Atherosclerotic heart disease of native coronary artery without angina pectoris; J96.11 Chronic respiratory failure with hypoxia; K21.9 Gastro-esophageal reflux disease without esophagitis

== ENCOUNTER 2022-08-25 10:10 | Inpatient (IN) ==
[2022-08-25] MEDS ORDERED: ASPIRIN CHEW 324 MG PO STA (10:22)
[2022-08-25] MEDS ORDERED: GI COCKTAIL ED USE PO ONE (10:22)
[2022-08-25] MEDS ORDERED: ALBUT/IPRATROP 3MG/0.5MG NEB 3 ML VIAL NEB STA (10:24)
--- NOTE | 2022-08-25 10:27 | Emergency Department Note ---
Impression & Plan Atypical chest pain, Hypertensive urgency, Hx of coronary artery disease ED Provider Note Provider: River Hansen MD DATE OF SERVICE: 08/25/2022 CHIEF COMPLAINT: Chest pain HISTORY OF PRESENT ILLNESS: Patient is a 82-year-old gentleman history of CVA and chronic respiratory failure on 2 L, atrial flutter on Eliquis, CAD with stents, duodenal ulcer, hypertension, BPH, diastolic dysfunction, GERD presenting here today reporting dizziness, chest pain, shortness of breath. States since last evening he has been having intermittent left lower chest wall to left mid chest discomfort almost like a heartburn. 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 This is different. Denies any falls or syncope reports has been feeling a bit lightheaded. States his breathing is just as bad as it always is. On his baseline home oxygen. Denies wanting to vomit now recurrent abdominal pain. Denies chest discomfort at this time. Has been on and off again since last evening. Called daughter and brought by her here today. Symptoms just this morning. PAST MEDICAL HISTORY: As noted above MEDICATIONS: Reviewed home medications and took his morning medicines today. SOCIAL HISTORY: , lives by himself, former smoker PHYSICAL EXAM: GENERAL: alert and oriented in no acute distress on stretcher, hard of hearing on nasal cannula oxygen Head: normocephalic and atraumatic EYES: No injection, discharge or icterus. NECK: Trachea midline. ENT: Mucous membranes pink and moist. LUNGS: Airway patent. No retractions. Breath sounds clear with good air entry bilaterally. HEART: Regular rate and rhythm. Some right chest wall to right upper abdomen discomfort to light touch of the skin without overlying skin rash. ABDOMEN: Soft and non-tender, without guarding or rebound except in the right lateral chest wall prior areas of shingles but no active rash noted. SKIN: Acyanotic, warm, dry, without rashes EXTREMITIES: Without swelling, tenderness or deformity NEUROLOGICAL: No focal deficits. No aphasia. No facial droop or slurred speech. EK bpm appears to be a sinus rhythm with PAC. No acute ST segment elevation with some slight inferior lateral T wave changes in comparison to previous from December 28 of this past year no longer with his severe T wave inversions noted then. QTc today 396. CONTINUOUS CARDIAC MONITORING: was ordered and showed a heart rate of 60s-70s bpm in normal sinus rhythm occasional PVC later transient sinus bradycardia in the 50s. Patient's laboratory studies and imaging reviewed. Differential includes Cardiac ischemia, aortic dissection, pulmonary embolism, pneumothorax, pneumonia, pericarditis, myocarditis, esophageal rupture, GERD, cholecystitis, pancreatitis, musculoskeletal, as well as other pathologies. IMPRESSION/MEDICAL DECISION MAKING: Patient extensive history including prior a flutter and stenting on Plavix and Eliquis presenting here with some heartburn and chest discomfort symptoms as well as some hypertension intermittent since yesterday. Reports baseline poor breathing and chronic respiratory issues and on home nasal cannula oxygen. No trauma reported or actual feeding. Appears to be in sinus rhythm with occasional periods where it almost appears as if he goes into a flutter but then quickly comes out. Not having active chest discomfort at this time other than his chronic baseline right-sided chest discomfort from herpetic neuralgia previously. No active lesions noted. Given some aspirin as well as DuoNeb here to help with symptoms initially. Is huffing and puffing slightly when being assisted from wheelchair to bed in the room but again states his breathing is at baseline. Chest x-ray my review and radiology with emphysematous changes but no acute pneu monia pneumothorax or fluid overload noted. VBG within normal limits and again I doubt a primary respiratory cause to his symptoms. No leukocytosis. Anemia but improved from previous. No chemistry abnormalities. No signs of renal dysfunction. No evidence of hepatitis or pancreatitis. Troponin within normal limits. Negative COVID. Patient without recurrence of pain here. Is requesting his home Lyrica which he did not take this morning. Did take his other medication of blood pressure medications. Patient with significant hypertension normally better controlled this according to patient and his daughter at bedside. With his age and history of CAD at baseline moderate risk heart score. Discussed with patient and daughter at bedside findings. They have concerns regarding his elevated blood pressure. Given some labetalol IV and blood pressure still quite elevated. Transient bradycardia but asymptomatic. In shared decision making they wish for further observation here and discussed with the hospitalist. DIAGNOSIS: Atypical chest pain, history of CAD, hypertensive urgency DISPOSITION: Hospitalist will evaluate Patient was agreeable with this plan. Past Med/Surg History Medical History Atrial flutter BPH (benign prostatic hyperplasia) CAD (coronary artery disease) CHF (congestive heart failure) Chronic respiratory failure Chronic respiratory failure with hypoxia COPD (chronic obstructive pulmonary disease) Diastolic dysfunction GERD (gastroesophageal reflux disease) History of upper gastrointestinal bleeding HTN (hypertension) Hypothyroidism Microcytic anemia Surgical History History of cardiac cath History of radiofrequency ablation procedure for cardiac arrhythmia S/P angioplasty with stent Family History Other Hypertension Social History Smoking Status: Former smoker Second Hand Exposure: No; Do You Dip or Chew Tobacco: No; Hx Alcohol Use: Yes (quit) Hx Substance Use: No Preferred Language: Swazi Communication Ability: Effective Storeroom Attendant Required: No Beliefs That Will Affect Care: None marital status: / Current Living Situation: Alone current occupational status: retired Feels Safe at Home: Yes Assistive Devices: Oxygen - Continuous, Scooter/Electric Scooter and Walker Allergies Allergies Allergy/AdvReac Type Severity Reaction Status Date / Time No Known Allergies Allergy Unverified 08/25/22 11:29 Home Meds Home Medications Medication Instructions Recorded Confirmed albuterol sulfate 2.5 mg/3 mL 2.5 mg inhalation BID 02/26/19 08/25/22 (0.083 %) solution for nebulization atorvastatin 20 mg tablet 20 mg PO DAILY 02/26/19 08/25/22 clopidogrel 75 mg tablet 75 mg PO DAILY 02/26/19 08/25/22 fluticasone furoate 100 1 inh inhalation DAILY 02/26/19 08/25/22 mcg/actuation blister powder for inhalation (Arnuity Ellipta) levothyroxine 25 mcg tablet 25 mcg PO DAILY 02/26/19 08/25/22 metoprolol succinate 25 mg 25 mg PO DAILY 02/26/19 08/25/22 tablet,extended release 24 hr pantoprazole 20 mg tablet,delayed 20 mg PO DAILY 02/26/19 08/25/22 release tamsulosin 0.4 mg capsule 0.4 mg PO DAILY 02/26/19 08/25/22 pregabalin 150 mg capsule 150 mg PO TID 08/25/22 08/25/22 Previous Rx's Medication Instructions Recorded amlodipine 5 mg tablet (Norvasc) 10 mg PO HS #30 tabs 03/03/19 lisinopril 40 mg tablet (Zestril) 40 mg PO DAILY #30 tabs 03/03/19 apixaban 2.5 mg tablet (Eliquis) 2.5 mg PO BID #60 tabs 12/30/21 sodium chloride 0.65 % nasal spray 2 spray NA Q4H PRN nasal 12/30/21 aerosol (Saline Mist) congestion #45 mL Results & Data (ED) Vital Signs Vital Signs - 24 hr 08/25/22 10:18 08/25/22 10:39 08/25/22 10:43 Temperature 36.7 C Temperature Source Temporal Artery Scan Pulse Rate 95 H Pulse Rate [Apical] 123 H Pulse Rate from SpO2 Sensor Pulse Rhythm Regular Pulse Strength Normal Respiratory Rate 26 H Respiratory Effort / Characteristics Spontaneous Accessory Muscle Use Short of Breath SOB on Exertion Respiratory Depth Normal Respiratory Pattern Tachypnea Blood Pressure 216/98 H Blood Pressure [Right Arm] 217/96 H Blood Pressure Mean 137 Blood Pressure Mean [Right Arm] 136 Blood Pressure Position Sitting Pulse Oximetry 97 99 Oxygen Delivery Method Nasal Cannula Nasal Cannula Nasal Cannula Oxygen Flow Rate 2.5 2.5 2.5 Sepsis Recent Fever Within 48 Hours No Sepsis New/Unexplained Change in Mental Status No Sepsis Action Taken by Nursing No Action Required 08/25/22 10:45 08/25/22 10:36 08/25/22 10:57 Temperature Temperature Source Pulse Rate 85 Pulse Rate [Apical] Pulse Rate from SpO2 Sensor 86 Pulse Rhythm Pulse Strength Respiratory Rate 22 Respiratory Effort / Characteristics Respiratory Depth Respiratory Pattern Blood Pressure 212/108 H Blood Pressure [Right Arm] Blood Pressure Mean 142 Blood Pressure Mean [Right Arm] Blood Pressure Position Pulse Oximetry 99 100 Oxygen Delivery Method Nasal Cannula Oxygen Flow Rate 2.5 Sepsis Recent Fever Within 48 Hours Sepsis New/Unexplained Change in Mental Status Sepsis Action Taken by Nursing 08/25/22 10:57 08/25/22 11:00 08/25/22 11:00 Temperature Temperature Source Pulse Rate 70 70 Pulse Rate [Apical] Pulse Rate from SpO2 Sensor 67 71 Pulse Rhythm Pulse Strength Respiratory Rate 19 16 Respiratory Effort / Characteristics Respiratory Depth Respiratory Pattern Blood Pressure 207/108 H Blood Pressure [Right Arm] Blood Pressure Mean 141 Blood Pressure Mean [Right Arm] Blood Pressure Position Pulse Oximetry 99 100 Oxygen Delivery Method Oxygen Flow Rate Sepsis Recent Fever Within 48 Hours Sepsis New/Unexplained Change in Mental Status Sepsis Action Taken by Nursing 08/25/22 11:10 08/25/22 11:20 08/25/22 11:30 Temperature Temperature Source Pulse Rate 71 69 Pulse Rate [Apical] Pulse Rate from SpO2 Sensor 67 69 Pulse Rhythm Pulse Strength Respiratory Rate 17 19 Respiratory Effort / Characteristics Respiratory Depth Respiratory Pattern Blood Pressure 194/97 H Blood Pressure [Right Arm] Blood Pressure Mean 129 Blood Pressure Mean [Right Arm] Blood Pressure Position Pulse Oximetry 99 99 Oxygen Delivery Method Oxygen Flow Rate Sepsis Recent Fever Within 48 Hours Sepsis New/Unexplained Change in Mental Status Sepsis Action Taken by Nursing 08/25/22 11:30 08/25/22 11:40 08/25/22 11:50 Temperature Temperature Source Pulse Rate 67 130 H 66 Pulse Rate [Apical] Pulse Rate from SpO2 Sensor 67 65 Pulse Rhythm Pulse Strength Respiratory Rate 14 21 18 Respiratory Effort / Characteristics Respiratory Depth Respiratory Pattern Blood Pressure Blood Pressure [Right Arm] Blood Pressure Mean Blood Pressure Mean [Right Arm] Blood Pressure Position Pulse Oximetry 100 100 Oxygen Delivery Method Oxygen Flow Rate Sepsis Recent Fever Within 48 Hours Sepsis New/Unexplained Change in Mental Status Sepsis Action Taken by Nursing 08/25/22 12:00 08/25/22 12:00 08/25/22 12:19 Temperature Temperature Source Pulse Rate 63 67 Pulse Rate [Apical] Pulse Rate from SpO2 Sensor 63 Pulse Rhythm Pulse Strength Respiratory Rate 14 Respiratory Effort / Characteristics Respiratory Depth Respiratory Pattern Blood Pressure 191/106 H Blood Pressure [Right Arm] Blood Pressure Mean 134 Blood Pressure Mean [Right Arm] Blood Pressure Position Pulse Oximetry 100 Oxygen Delivery Method Oxygen Flow Rate Sepsis Recent Fever Within 48 Hours Sepsis New/Unexplained Change in Mental Status Sepsis Action Taken by Nursing 08/25/22 12:05 08/25/22 12:05 08/25/22 12:10 Temperature Temperature Source Pulse Rate 66 66 Pulse Rate [Apical] Pulse Rate from SpO2 Sensor 66 67 Pulse Rhythm Pulse Strength Respiratory Rate 22 15 Respiratory Effort / Characteristics Respiratory Depth Respiratory Pattern Blood Pressure 211/93 H Blood Pressure [Right Arm] Blood Pressure Mean 132 Blood Pressure Mean [Right Arm] Blood Pressure Position Pulse Oximetry 100 100 Oxygen Delivery Method Oxygen Flow Rate Sepsis Recent Fever Within 48 Hours Sepsis New/Unexplained Change in Mental Status Sepsis Action Taken by Nursing 08/25/22 12:20 08/25/22 12:30 08/25/22 12:30 Temperature Temperature Source Pulse Rate 67 59 L Pulse Rate [Apical] Pulse Rate from SpO2 Sensor 66 59 L Pulse Rhythm Pulse Strength Respiratory Rate 21 18 Respiratory Effort / Characteristics Respiratory Depth Respiratory Pattern Blood Pressure 191/90 H Blood Pressure [Right Arm] Blood Pressure Mean 123 Blood Pressure Mean [Right Arm] Blood Pressure Position Pulse Oximetry 100 100 Oxygen Delivery Method Oxygen Flow Rate Sepsis Recent Fever Within 48 Hours Sepsis New/Unexplained Change in Mental Status Sepsis Action Taken by Nursing 08/25/22 12:40 08/25/22 12:41 08/25/22 12:41 Temperature Temperature Source Pulse Rate 56 L 56 L Pulse Rate [Apical] Pulse Rate from SpO2 Sensor 55 L 55 L Pulse Rhythm Pulse Strength Respiratory Rate 13 20 Respiratory Effort / Characteristics Respiratory Depth Respiratory Pattern Blood Pressure 198/92 H Blood Pressure [Right Arm] Blood Pressure Mean 127 Blood Pressure Mean [Right Arm] Blood Pressure Position Pulse Oximetry 100 100 Oxygen Delivery Method Oxygen Flow Rate Sepsis Recent Fever Within 48 Hours Sepsis New/Unexplained Change in Mental Status Sepsis Action Taken by Nursing Laboratory Data 08/25/22 10:30 08/25/22 10:30 Lab Results 08/25/22 08/25/22 08/25/22 Range/Units 10:30 10:30 10:30 WBC 5.53 (4.8-10.8) K/ul RBC 4.26 L (4.70-6.10) M/uL Hgb 9.1 L (14.0-18.0) g/dl Hct 31.9 L (42.0-52.0) % MCV 74.9 L (80.0-100.0) fL MCH 21.4 L (25.0-34.0) pg MCHC 28.5 L (32.0-36.0) g/dL RDW Std Deviation 53.1 H (36.4-46.3) fL RDW Coeff of Tracey 20.0 H (11.5-14.5) % Plt Count 254 (130-400) K/uL MPV 10.4 (9.4-12.4) fL Immature Gran % (Auto) 0.2 % Neut % (Auto) 85.1 % Lymph % (Auto) 8.7 % Fergus % (Auto) 5.1 % Eos % (Auto) 0.4 % Baso % (Auto) 0.5 % Neut # (Auto) 4.71 (1.40-6.50) K/uL Lymph # (Auto) 0.48 L (1.2-3.4) K/uL Fergus # (Auto) 0.28 (0.11-0.59) K/uL Eos # (Auto) 0.02 (0-0.50) K/uL Baso # (Auto) 0.03 (0-0.2) K/uL Immature Gran # (Auto) 0.01 (0.01-0.20) K/uL Polychromasia 1+ Hypochromasia Present Ovalocytes 1+ PT 12.3 H (9.0-12.0) Seconds INR 1.1 (0.9-1.1) APTT 30.7 (21.0-31.0) Seconds PTT Ratio 1.1 VBG pH 7.36 (7.36-7.41) VBG pCO2 43 (38-50) mmHg VBG pO2 35 mmHg VBG HCO3 24 mmol/L VBG O2 Saturation < 60.0 % VBG Base Excess -1.2 mEq/L Sodium (136-145) mmol/L Potassium (3.5-5.1) mmol/L Chloride (98-107) mmol/L Carbon Dioxide (21-32) mmol/L Anion Gap (3-11) BUN (6-23) mg/dl Creatinine (0.6-1.4) mg/dl Est Cr Clr Drug Dosing Est GFR ( Amer) ml/min Est GFR (Non-Af Amer) ml/min BUN/Creatinine Ratio (10-20) Glucose (70-99(Fasting)) mg/dl Calcium (8.6-10.3) mg/dl Total Bilirubin (0.2-1.0) mg/dl AST (13-39) U/L ALT (7-52) U/L Alkaline Phosphatase (34-104) U/L Troponin I High Sens (0-20) pg/ml Total Protein (6.0-8.3) gm/dl Albumin (3.4-5.0) gm/dl Globulin (2.5-4.0) gm/dl Albumin/Globulin Ratio (0.9-2) Lipase (11-82) U/L SARS-CoV-2, RNA, NAAT (NEGATIVE) 08/25/22 08/25/22 Range/Units 10:30 10:30 WBC (4.8-10.8) K/ul RBC (4.70-6.10) M/uL Hgb (14.0-18.0) g/dl Hct (42.0-52.0) % MCV (80.0-100.0) fL MCH (25.0-34.0) pg MCHC (32.0-36.0) g/dL RDW Std Deviation (36.4-46.3) fL RDW Coeff of Tracey (11.5-14.5) % Plt Count (130-400) K/uL MPV (9.4-12.4) fL Immature Gran % (Auto) % Neut % (Auto) % Lymph % (Auto) % Fergus % (Auto) % Eos % (Auto) % Baso % (Auto) % Neut # (Auto) (1.40-6.50) K/uL Lymph # (Auto) (1.2-3.4) K/uL Fergus # (Auto) (0.11-0.59) K/uL Eos # (Auto) (0-0.50) K/uL Baso # (Auto) (0-0.2) K/uL Immature Gran # (Auto) (0.01-0.20) K/uL Polychromasia Hypochromasia Ovalocytes PT (9.0-12.0) Seconds INR (0.9-1.1) APTT (21.0-31.0) Seconds PTT Ratio VBG pH (7.36-7.41) VBG pCO2 (38-50) mmHg VBG pO2 mmHg VBG HCO3 mmol/L VBG O2 Saturation % VBG Base Excess mEq/L Sodium 136 (136-145) mmol/L Potassium 4.1 (3.5-5.1) mmol/L Chloride 104 (98-107) mmol/L Carbon Dioxide 24 (21-32) mmol/L Anion Gap 8 (3-11) BUN 9 (6-23) mg/dl Creatinine 0.80 (0.6-1.4) mg/dl Est Cr Clr Drug Dosing Not Reportable Est GFR ( Amer) 96.4 ml/min Est GFR (Non-Af Amer) 83.2 ml/min BUN/Creatinine Ratio 11.3 (10-20) Glucose 136 H (70-99(Fasting)) mg/dl Calcium 9.1 (8.6-10.3) mg/dl Total Bilirubin 2.5 H (0.2-1.0) mg/dl AST 12 L (13-39) U/L ALT 6 L (7-52) U/L Alkaline Phosphatase 153 H (34-104) U/L Troponin I High Sens 9.5 (0-20) pg/ml Total Protein 7.2 (6.0-8.3) gm/dl Albumin 4.2 (3.4-5.0) gm/dl Globulin 3.0 (2.5-4.0) gm/dl Albumin/Globulin Ratio 1.4 (0.9-2) Lipase 21 (11-82) U/L SARS-CoV-2, RNA, NAAT NEGATIVE (NEGATIVE) Administered Medications Discontinued Medications Al Hydrox/Mg Hydrox/Simethicone (Gi Cocktail Ed Use) 1 dose PO ONE ONE Stop: 08/25/22 10:23 Last Admin: 08/25/22 10:26 Dose: 1 dose Documented By: GUMARO Albuterol (Albut/Ipratrop 3mg/0.5mg Neb 3 Ml Vial) 3 ml NEB NOW STA; Protocol Stop: 08/25/22 10:25 Last Admin: 08/25/22 10:38 Dose: 3 ml Documented By: GUMARO Aspirin (Aspirin Chew 324 Mg) 324 mg PO NOW STA Stop: 08/25/22 10:23 Last Admin: 08/25/22 10:26 Dose: 324 mg Documented By: GUMARO Labetalol HCl (Labetalol Hcl Iv 5 Mg/Ml 20ml) 10 mg IV NOW STA Stop: 08/25/22 12:11 Last Admin: 08/25/22 12:22 Dose: 10 mg Documented By: GUMARO Co-signed By: GEN Pregabalin (Pregabalin 150 Mg Cap) 150 mg PO ONCE ONE Stop: 08/25/22 12:11 Last Admin: 08/25/22 12:22 Dose: 150 mg Documented By: GUMARO Imaging Data Radiologist's Impression: Chest X-Ray 08/25/22 10:22 XR chest 1V portable CLINICAL HISTORY: Chest pain, nonspecific COMPARISON STUDY: Chest radiograph March 03, 2019. Chest CT August 22, 2017. FINDINGS: Emphysema is again noted. There is no pneumothorax or pleural effusion. No consolidation is identified to suggest pneumonia. There is no ev idence for pulmonary edema. Cardiomediastinal silhouette is stable. IMPRESSION: No acute cardiopulmonary findings. Emphysema. ACT 112: Negative or not required by law. Electronically signed by: Harris Schwartz M.D. 08/25/2022 10:57 AM Discharge Plan Visit Data Chief Complaint: Chest Pain Stated Complaint: CHEST PAIN, DIZZY,SHORTNESS OF BREATH ED Provider: River Hansen Discharge Problem: Atypical chest pain, Hypertensive urgency, Hx of coronary artery disease Patient Disposition: Being Evaluated by Hospitalist Forms Stand Alone Forms: My [facility] Prescriptions Prescriptions: No Action atorvastatin 20 mg tablet 20 mg PO DAILY clopidogrel 75 mg tablet 75 mg PO DAILY levothyroxine 25 mcg tablet 25 mcg PO DAILY tamsulosin 0.4 mg capsule 0.4 mg PO DAILY Arnuity Ellipta 100 mcg/actuation blister with device 1 inh INHALATION DAILY albuterol sulfate 2.5 mg /3 mL (0.083 %) solution for nebulization 2.5 mg inhalation BID pantoprazole 20 mg tablet,delayed release (DR/EC) 20 mg PO DAILY metoprolol succinate 25 mg tablet extended release 24 hr 25 mg PO DAILY lisinopril [Zestril] 40 mg Tablet 40 mg PO DAILY Qty: 30 1RF amlodipine [Norvasc] 5 mg Tablet 10 mg PO HS Qty: 30 1RF Eliquis 2.5 mg Tablet 2.5 mg PO BID Qty: 60 0RF Saline Mist 0.65 % Aerosol,[place] 2 spray NA Q4H PRN (Reason: nasal congestion) Qty: 45 0RF pregabalin 150 mg capsule 150 mg PO TID Referrals Referrals: Zac Singh V., DO [Outside Practitioners] -
[2022-08-25 10:58] LABS: Base Excess VBG -1.2 mEq/L; HCO3 VBG 24 mmol/L; Oxygen Saturation VBG < 60.0 %; PCO2 VBG 43 mmHg (38-50); PO2 VBG 35 mmHg; pH VBG 7.36 (7.36-7.41)
--- NOTE | 2022-08-25 10:59 | XRay Report ---
XR chest 1V portable CLINICAL HISTORY: Chest pain, nonspecific COMPARISON STUDY: Chest radiograph March 03, 2019. Chest CT August 22, 2017. FINDINGS: Emphysema is again noted. There is no pneumothorax or pleural effusion. No consolidation is identified to suggest pneumonia. There is no evidence for pulmonary edema. Cardiomediastinal silhoue tte is stable. IMPRESSION: No acute cardiopulmonary findings. Emphysema. ACT 112: Negative or not required by law. Electronically signed by: Harris Schwartz M.D. 08/25/2022 10:57 AM
--- NOTE | 2022-08-25 11:09 | Electrocardiogram Report ---
Test Reason : Blood Pressure : / mmHG Vent. Rate : 078 BPM Atrial Rate : 075 BPM P-R Int : 134 ms QRS Dur : 074 ms QT Int : 348 ms P-R-T Axes : 077 076 060 degrees QTc Int : 396 ms Sinus rhythm Nonspecific ST and T wave abnormality Abnormal ECG When compared with ECG of 28-DEC-2021 00:06, T wave inversion no longer evident in Inferior leads T wave inversion no longer evident in Anterolateral leads Confirmed by Crow Machado ([id number]) on 08/25/2022 11:09:10 AM Referred By: REFERRED SELF Confirmed By:Lalo Machado
[2022-08-25 11:13] LABS: Alanine Aminotransferase 6 U/L (7-52); Albumin Globulin Ratio 1.4 (0.9-2); Albumin Level 4.2 gm/dl (3.4-5.0); Alkaline Phosphatase 153 U/L (34-104); Anion Gap 8 (3-11); Aspartate Aminotransferase 12 U/L (13-39); BUN Creatinine Ratio 11.3 (10-20); Bilirubin,Total 2.5 mg/dl (0.2-1.0); Blood Urea Nitrogen 9 mg/dl (6-23); Calcium 9.1 mg/dl (8.6-10.3); Carbon Dioxide 24 mmol/L (21-32); Chloride 104 mmol/L (98-107); Est GFR (African American) 96.4 ml/min; Est GFR (Non-African American) 83.2 ml/min; Glucose 136 mg/dl (70-99(Fasting)); Lipase 21 U/L (11-82); Potassium 4.1 mmol/L (3.5-5.1); Sodium 136 mmol/L (136-145); Total Protein 7.2 gm/dl (6.0-8.3)
[2022-08-25 11:15] LABS: Basophils # (auto) 0.03 K/uL (0-0.2); Basophils % (auto) 0.5 %; Eosinophils # (auto) 0.02 K/uL (0-0.50); Eosinophils % (auto) 0.4 %; Hematocrit (blood only) 31.9 % (42.0-52.0); Hemoglobin 9.1 g/dl (14.0-18.0); Hypochromasia Present; Immature Granulocytes # (auto) 0.01 K/uL (0.01-0.20); Immature Granulocytes % (auto) 0.2 %; Lymphocytes # (auto) 0.48 K/uL (1.2-3.4); Lymphocytes % (auto) 8.7 %; Mean Corpuscular Hemoglobin 21.4 pg (25.0-34.0); Mean Corpuscular Hgb Conc 28.5 g/dL (32.0-36.0); Mean Corpuscular Volume 74.9 fL (80.0-100.0); Mean Platelet Volume 10.4 fL (9.4-12.4); Monocytes # (auto) 0.28 K/uL (0.11-0.59); Monocytes % (auto) 5.1 %; Neutrophils # (auto) 4.71 K/uL (1.40-6.50); Neutrophils % (auto) 85.1 %; Ovalocytes 1+; Platelet Count 254 K/uL (130-400); Polychromasia 1+; RDW Standard Deviation 53.1 fL (36.4-46.3); Red Blood Count 4.26 M/uL (4.70-6.10); White Blood Count 5.53 K/ul (4.8-10.8)
[2022-08-25 11:19] LABS: Troponin I High Sensitivity 9.5 pg/ml (0-20)
[2022-08-25 11:23] LABS: INR 1.1 (0.9-1.1); Partial Thromboplastin Ratio 1.1; Partial Thromboplastin Time 30.7 Seconds (21.0-31.0); Prothrombin Time 12.3 Seconds (9.0-12.0)
[2022-08-25] MEDS ORDERED: LABETALOL HCL IV 5 MG/ML 20ML IV STA (12:10)
[2022-08-25] MEDS ORDERED: PREGABALIN 150 MG CAP PO ONE (12:10)
--- NOTE | 2022-08-25 12:55 | History & Physical Report ---
Date of Service August 25, 2022 Assessment & Plan (1) Atypical chest pain: (2) Hypertensive urgency: (3) Hx of coronary artery disease: (4) Chronic respiratory failure: (5) COPD (chronic obstructive pulmonary disease): (6) Microcytic anemia: Plan This is a 82-year-old male who has significant past medical history of chronic hypoxic respiratory failure on 2.5 L of oxygen at baseline, COPD, CAD with history of angioplasty, PAF, pulmonary hypertension, GERD, BPH, postherpetic n euralgia right upper quadrant and right flank, history of duodenal ulcer who presents to ED secondary to chest pain x1 day. Atypical chest pain Hypertensive urgency CAD with history of BMS to circumflex in 2017 Admit to telemetry Give hydralazine 10 mg IV x1 Continue metoprolol and lisinopril, will monitor effect of hydralazine but likely add amlodipine 5 mg this afternoon After reviewing outpatient records appears mostly controlled; however daughter states couple times a week checking patient's blood pressure and being in the 180s systolic Cycle troponins Daily EKG Obtain echocardiogram Consult cardiology as he is established with Dr. Gzumán obtain CT head given BP and c/o dizziness Feel less likely ACS, Cp may be 2/2 HTN urgency Chronic respiratory failure on 2 L of oxygen secondary to COPD No acute exacerbation Continue twice daily albuterol, Trelegy PAF/A. flutter hx of ablation continue metoprolol and eliquis Post Herpetic neuralgia chronic pain to RUQ/R flank x12 years recently started lyrica in July, previously on gabapentin w/o relief GERD hx of duodenal ulcer continue PPI, [id number] BPH continue flomax and finasteride Microcytic anemia appears stable over last couple years obtain anemia panel in a.m. Hypothyroidism obtain TSH/T4 levels continue levothyroxine DVT ppx: eliquis Dispo: admit to Tele for HTN urgency, acs r/o, likely d/c home when stable, pt lives alone, has cane/walker, daughter close by DNR/DNI PCP: Jayda A total of 75 was spent coordinating, documenting, and providing care for this patient excluding time spent in the performance of separately billed services. This included personally viewing all current laboratories and imaging studies, medication reconciliation, outpatient chart review, and discussion with specialists. Pt was seen in collaboration with Dr. Caputo, please see addendum History of Present Illness Chief Complaint: Chest pain x1 day. Primary Care Provider: Rafa Montelongo MD This is a 82-year-old male who has significant past medical history of chronic hypoxic respiratory failure on 2.5 L of oxygen at baseline, COPD, CAD with history of angioplasty, PAF, pulmonary hypertension, GERD, BPH, postherpetic neuralgia right upper quadrant and right flank, history of duodenal ulcer who presents to ED secondary to chest pain x1 day. Of significance in 2018 patient presented with acute worsening shortness of breath, EKG changes with atrial flutter RVR and echo revealing a 6 severe left ventricular systolic dysfunction with EF 25%. He underwent coronary angiography which revealed single-vessel CAD and underwent PCI and bare-metal stenting to the circumflex. During that time he also underwent electrophysiology study and had successful tricuspid caval ablation of right-sided atrial flutter. Repeat echocardiogram in August 2018 revealed normalization of his left ventricular ejection fraction 50%. He follows with [facility] cardiology. Patient states last evening his granddaughter and her boyfriend came over for supper and he may be used to. Shortly after they left he complained of feeling dizzy, "off balance," that was pretty persistent. He then went to bed that evening and was unable to sleep due to intermittent left-sided, "chest pain." Patient described this as heartburn although he said he never had heartburn in the past. He pointed to the pain underneath his left rib cage. Pain was off-a nd-on coming every 15 to 20 minutes and would last seconds to minutes. He described as a, "staying." Nothing made the pain better or worse as it resolved on its own. He last experienced pain at 9:30 AM and has since been pain-free while in the ER. He does have chronic shortness of breath due to his COPD and feels this is at baseline. He did feel nauseated this morning and last night was, "sweating profusely." Due to pain not improving he called daughter. Daughter states he only calls her when things are, "really bad." Symptoms do not feel similar to prior to his last heart attack requiring stent. He denies any recent illness. He does have a chronic productive cough in setting of COPD and describes as purulent in nature. He denies fever, chills, sweats, lightheadedness, syncope, shortness of breath at rest, vomiting, abdominal pain, diarrhea, changes bowel or urinary habits. The only recent changes medication was Lyrica in July due to his postherpetic neuralgia pain. In ED patient was found to be significantly hypertensive with systolic blood pressure greater than 200 and diastolic in the 90s to 100. His EKG revealed normal sinus rhythm with actual improvement in his ST and T segments from previous in 2021. In ED he received albuterol nebulizer treatment as well as 10 mg of IV labetalol. This did cause him to be mildly bradycardic at 56 bpm but did not make much improvement in his blood pressure. Allergies Allergy/AdvReac Type Severity Reaction Status Date / Time No Known Allergies Allergy Unverified 08/25/22 11:29 Home Medications Medication Instructions Recorded Confirmed Type albuterol sulfate 2.5 mg/3 mL 2.5 mg inhalation BID 02/26/19 08/25/22 History (0.083 %) solution for nebulization atorvastatin 20 mg tablet 20 mg PO DAILY 02/26/19 08/25/22 History clopidogrel 75 mg tablet 75 mg PO DAILY@1400 02/26/19 08/25/22 History levothyroxine 25 mcg tablet 25 mcg PO DAILY 02/26/19 08/25/22 History metoprolol succinate 25 mg 25 mg PO DAILY 02/26/19 08/25/22 History tablet,extended release 24 hr pantoprazole 20 mg tablet,delayed 20 mg PO DAILY 02/26/19 08/25/22 History release tamsulosin 0.4 mg capsule 0.4 mg PO HS 02/26/19 08/25/22 History lisinopril 40 mg tablet (Zestril) 40 mg PO DAILY #30 tabs 03/03/19 08/25/22 Rx apixaban 2.5 mg tablet (Eliquis) 2.5 mg PO BID #60 tabs 12/30/21 08/25/22 Rx sodium chloride 0.65 % nasal spray 2 spray NA Q4H PRN nasal 12/30/21 08/25/22 Rx aerosol (Saline Mist) congestion #45 mL famotidine 20 mg tablet 20 mg PO DAILY@1400 08/25/22 08/25/22 History finasteride 5 mg tablet 5 mg PO DAILY 08/25/22 08/25/22 History fluticasone fur. 100 mcg-umeclid 1 inh inhalation DAILY 08/25/22 08/25/22 History 62.5 mcg-vilant 25 mcg inhalat.powder (Trelegy Ellipta) potassium chloride 20 mEq 20 meq PO DAILY 08/25/22 08/25/22 History tablet,extended release(part/cryst) (Klor-Con M) pregabalin 150 mg capsule 150 mg PO TID 08/25/22 08/25/22 History Past Med/Surg History Medical History Atrial flutter BPH (benign prostatic hyperplasia) CAD (coronary artery disease) CHF (congestive heart failure) Chronic respiratory failure Chronic respiratory failure with hypoxia COPD (chronic obstructive pulmonary disease) Diastolic dysfunction GERD (gastroesophageal reflux disease) History of upper gastrointestinal bleeding HTN (hypertension) Hypothyroidism Microcytic anemia Surgical History History of cardiac cath History of radiofrequency ablation procedure for cardiac arrhythmia S/P angioplasty with stent Family History Other Hypertension Social History Smoking Status: Former smoker Second Hand Exposure: No; Do You Dip or Chew Tobacco: No; Hx Alcohol Use: No Hx Substance Use: No Preferred Language: Danish Communication Ability: Effective 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 Beliefs That Will Affect Care: None marital status: / Current Living Situation: Alone current occupational status: retired Other Information That Helps Us Care for You: No Feels Safe at Home: Yes Safety Concerns: Feels Safe At This Time Assistive Devices: Cane, Glasses, Oxygen - Continuous, Scooter/Electric Scooter and Walker Review of Systems Review of Systems: All systems reviewed & are unremarkable except as noted in HPI & below Physical Exam Physical Exam: Constitutional: Elderly, chronically appearing male, thin, hard of hearing, vitals as above, NAD, sitting up in bed, pleasant, conversing easily Head: Normocephalic, Atraumatic Eyes: PERRL, conjunctivae normal, anicteric sclerae ENMT: external ear and nose normal, oropharynx normal dry membranes Neck: trachea midline, no thyromegaly normal visual inspection Respiratory: 2.5L of O2 chronically, lungs diminished b/l, no w/r/r normal respiratory effort, lungs clear to auscultation. no accessory muscle use Cardiovascular: RRR, no murmur, no edema Vessels: no JVD or carotid bruit Chest: normal inspection of chest Abdomen: normal bowel sounds, soft, nontender, no hepatosplenomegaly , +skin discoloration to RUQ where he has PHN Musculoskeletal: no cyanosis or clubbing, extremities motor strength 5/5 Skin: no rashes, warm and dry moderate turgor Neurologic: PERRL, EOMI, accommodation nl, no face palsy, no dysarthria CN's II-XI intact bilaterally and moves all extremities Psychiatric: A+Ox3, euthymic affect Lymphatic: no cervical or axillary lymphadenopathy : deferred Results & Data Results & Data Vital Signs (Past 12 Hours) Vital Signs Temp Pulse Pulse Resp BP BP Pulse Ox 08/25/22 12:41 56 L 20 100 08/25/22 12:41 198/92 H 08/25/22 12:40 56 L 13 100 08/25/22 12:30 59 L 18 100 08/25/22 12:30 191/90 H 08/25/22 12:20 67 21 100 08/25/22 12:10 66 15 100 08/25/22 12:05 66 22 100 08/25/22 12:05 211/93 H 08/25/22 12:19 67 08/25/22 12:00 63 14 100 08/25/22 12:00 191/106 H 08/25/22 11:50 66 18 100 08/25/22 11:40 130 H 21 08/25/22 11:30 67 14 100 08/25/22 11:30 194/97 H 08/25/22 11:20 69 19 99 08/25/22 11:10 71 17 99 08/25/22 11:00 70 16 100 08/25/22 11:00 207/108 H 08/25/22 10:57 70 19 99 08/25/22 10:57 212/108 H 08/25/22 10:36 85 22 100 08/25/22 10:45 99 08/25/22 10:43 08/25/22 10:39 123 H 217/96 H 99 08/25/22 10:18 36.7 C 95 H 26 H 216/98 H 97 O2 Del Method O2 Flow Rate 08/25/22 12:41 08/25/22 12:41 08/25/22 12:40 08/25/22 12:30 08/25/22 12:30 08/25/22 12:20 08/25/22 12:10 08/25/22 12:05 08/25/22 12:05 08/25/22 12:19 08/25/22 12:00 08/25/22 12:00 08/25/22 11:50 08/25/22 11:40 08/25/22 11:30 08/25/22 11:30 08/25/22 11:20 08/25/22 11:10 08/25/22 11:00 08/25/22 11:00 08/25/22 10:57 08/25/22 10:57 08/25/22 10:36 08/25/22 10:45 Nasal Cannula 2.5 08/25/22 10:43 Nasal Cannula 2.5 08/25/22 10:39 Nasal Cannula 2.5 08/25/22 10:18 Nasal Cannula 2.5 Diagnostic Findings Chest X-Ray 08/25/22 10:22 XR chest 1V portable CLINICAL HISTORY: Chest pain, nonspecific COMPARISON STUDY: Chest radiograph March 03, 2019. Chest CT August 22, 2017. FINDINGS: Emphysema is again noted. There is no pneumothorax or pleural effusion. No consolidation is identified to suggest pneumonia. There is no evidence for pulmonary edema. Cardiomediastinal silhouette is stable. IMPRESSION: No acute cardiopulmonary findings. Emphysema. ACT 112: Negative or not required by law. Electronically signed by: Harris Schwartz M.D. 08/25/2022 10:57 AM Medications Administered Medication List Discontinued Medications Al Hydrox/Mg Hydrox/Simethicone (Gi Cocktail Ed Use) 1 dose PO ONE ONE Stop: 08/25/22 10:23 Last Admin: 08/25/22 10:26 Dose: 1 dose Documented By: MES Albuterol (Albut/Ipratrop 3mg/0.5mg Neb 3 Ml Vial) 3 ml NEB NOW STA; Protocol Stop: 08/25/22 10:25 Last Admin: 08/25/22 10:38 Dose: 3 ml Documented By: MES Aspirin (Aspirin Chew 324 Mg) 324 mg PO NOW STA Stop: 08/25/22 10:23 Last Admin: 08/25/22 10:26 Dose: 324 mg Documented By: GUMARO Labetalol HCl (Labetalol Hcl Iv 5 Mg/Ml 20ml) 10 mg IV NOW STA Stop: 08/25/22 12:11 Last Admin: 08/25/22 12:22 Dose: 10 mg Documented By: GUMARO Co-signed By: GEN Pregabalin (Pregabalin 150 Mg Cap) 150 mg PO ONCE ONE Stop: 08/25/22 12:11 Last Admin: 08/25/22 12:22 Dose: 150 mg Documented By: GUMARO ECG Rate (beats per minute): 78 Rhythm: normal sinus Additional Comments: nonspecific ST a t wave abn Previous EKG from December 2021 with significant diffuse T wave inversions COVID-19 Results Results COVID-19 Adm Lab Results: RBC 4.26 M/uL (4.70-6.10) L 08/25/22 WBC 5.53 K/ul (4.8-10.8) 08/25/22 Hgb 9.1 g/dl (14.0-18.0) L 08/25/22 Hct 31.9 % (42.0-52.0) L 08/25/22 Plt Count 254 K/uL (130-400) 08/25/22 Neutrophils (%) (Auto) 85.1 % 08/25/22 Lymphocytes (%) (Auto) 8.7 % 08/25/22 Monocytes # (Auto) 0.28 K/uL (0.11-0.59) 08/25/22 Eosinophils # (Auto) 0.02 K/uL (0-0.50) 08/25/22 Immature Granulocyte % (Auto) 0.2 % 08/25/22 Neutrophils # (Auto) 4.71 K/uL (1.40-6.50) 08/25/22 Lymphocytes # (Auto) 0.48 K/uL (1.2-3.4) L 08/25/22 Monocytes # (Auto) 0.28 K/uL (0.11-0.59) 08/25/22 Eosinophils # (Auto) 0.02 K/uL (0-0.50) 08/25/22 Basophils # (Auto) 0.03 K/uL (0-0.2) 08/25/22 Immature Granulocyte # (Auto) 0.01 K/uL (0.01-0.20) 3 Polychromasia 1+ 08/25/22 Hypochromasia Present 08/25/22 Ovalocytes 1+ 08/25/22 Na 136 mmol/L (136-145) 08/25/22 K 4.1 mmol/L (3.5-5.1) 08/25/22 Cl 104 mmol/L (98-107) 08/25/22 CO2 24 mmol/L (21-32) 08/25/22 Anion Gap 8 (3-11) 08/25/22 BUN 9 mg/dl (6-23) 08/25/22 Creatinine 0.75 mg/dl (0.6-1.4) 08/25/22 BUN/Creatinine Ratio 11.3 (10-20) 08/25/22 Glucose Level 136 mg/dl (70-99(Fasting)) H 08/25/22 Ca 9.1 mg/dl (8.6-10.3) 08/25/22 Total Bilirubin 2.5 mg/dl (0.2-1.0) H 08/25/22 Direct Bilirubin 0.5 mg/dl (0-0.2) H 08/25/22 AST/SGOT 12 U/L (13-39) L 08/25/22 ALT/SGPT 6 U/L (7-52) L 08/25/22 Alkaline Phosphatase 153 U/L (34-104) H 08/25/22 Total Protein 7.2 gm/dl (6.0-8.3) 08/25/22 Albumin 4.2 gm/dl (3.4-5.0) 08/25/22 Globulin 3.0 gm/dl (2.5-4.0) 08/25/22 Albumin/Globulin Ratio 1.4 (0.9-2) 08/25/22 PTT 30.7 Seconds (21.0-31.0) 08/25/22 INR 1.1 (0.9-1.1) 08/25/22 SARS-CoV-2, RNA, NAAT NEGATIVE (NEGATIVE) 08/25/22 Chest X-Ray 08/25/22 Code Status & VTE Plan Code Status DNR/DNI Supervising Physician Co-Signing Physician Notes Pt seen and examined by myself, Jerica Caputo MD on the day of service. Care was coordinated with Roula Gibbs PA-C. Please refer to her note for additional information. 82yo gentleman with PMHx significant for HTN and PAF/Atrial flutter presenting with chest pain and dizziness and uncontrolled blood pressures. EKG nonconcerning for ACS at this time, troponins not elevated Blood pressure control, pain control cardiology consult, appreciate recs Otherwise as above.
[2022-08-25] MEDS ORDERED: hydrALAZINE HCL 20 MG/ML VIAL IV STA (13:12)
[2022-08-25 13:50] LABS: Troponin I High Sensitivity 8.6 pg/ml (0-20)
[2022-08-25] MEDS ORDERED: POLYETHYLENE (MIRALAX) 17 GM PACK PO PRN (14:16)
[2022-08-25] MEDS ORDERED: ONDANSETRON INJ 2 MG/ML 2 ML VIAL IV PRN (14:16)
[2022-08-25] MEDS ORDERED: ACETAMINOPHEN 325 MG TAB PO PRN (14:16)
[2022-08-25] MEDS ORDERED: MAGNESIUM HYDROXIDE SUSP 30 ML UDC PO PRN (14:16)
[2022-08-25] MEDS ORDERED: ALUMINUM/MAGNESIUM SUSP 30 ML UDC PO PRN (14:16)
--- NOTE | 2022-08-25 14:21 | Cardiology Consultation ---
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 Presents to the hospital today after 12 or so hours of atypical chest discomfort and epigastric pain. Patient is significantly hypertensive with systolics in the 200s. EKG without acute changes. High-sensitivity troponins negative x2. Symptoms are atypical for cardiac chest pain, likely a GI component plus uncontrolled hypertension. PLAN: -Patient is hypertensive, recommend reduction in overall cardiac demand by improving blood pressure readings. Agree with starting amlodipine 5 mg daily. Continue lisinopril and metoprolol as ordered. Add 1/2" of nitro paste for further reduction in BP. -Continue supplemental oxygen therapy -Ongoing anemia, seems to be at baseline, however, there is not a good trend in his outpatient records. Hemoglobin in 2020 was averaging in the 11's. Need to consider further work-up as patient is on Eliquis for history of A-fib and carries a history of duodenal ulcers. Case discussed with Dr. Moffett, will follow. Supervising Physician Co-Signing Physician Notes Patient evaluation and assessment as above. Presents with pain and abdominal discomfort atypical for angina, significant hypertension possible hypertensive urgency. Evaluation in progress. EKG improved from prior tracings. Troponins negative x2 The plan as noted we will add topical nitrates as well as oral amlodipine to medications already used for hypertension. Nitrates may be increased or removed depending on blood pressure response. Cardiology will continue to follow in hospital History of Present Illness Reason for Consultation: Chest pain, HTN urgency Requesting Physician: Kodak Edmond Attending Physician: Jerica Caputo MD History of Present Illness 82-year-old male who initially presented to [facility] emergency department due to epigastric and left-sided chest discomfort. Symptoms started yesterday around 7 PM after eating a large meal of beef stew at 5 PM. He became very nauseated but did not vomit. He has chronic shortness of breath which he believes is at baseline. Intermittently throughout the night he had waxing and waning discomfort. This morning he had a bowel movement with mild relief in his symptoms. Currently he is symptom-free. Patient daughter, Laurel, is at bedside. She is his primary caregiver. In the emergency department patient was found to be significantly hypertensive with a blood pressure greater than 200 systolic. Daughter notes that his blood pressure is frequently elevated at home noting systolics averaging in the 170s to 180s. He can also have episodes of lightheadedness with position changes where his blood pressure does read lower. Only drinks 1 coke per day. Normally maintained on metoprolol succinate 25 mg daily and lisinopril 40 mg daily. EKG without acute changes. Normal sinus rhythm, nonspecific ST/T wave abnormality, improvement in prior T wave inversions compared to prior EKG. Labs: Ongoing anemia, seems to be at baseline with a hemoglobin of 9.0. Renal function electrolytes stable. High-sensitivity troponin negative x2. Chest x-ray: No acute findings, known chronic emphysema. In the emergency department patient was given labetalol as well as 10 mg of IV hydralazine. Blood pressure lowered to 176/78 on the floor. 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 He also carries a history of single-vessel coronary disease status post PCI per cardiac catheterization at that time. Reformed tobacco user, quitting about a decade ago but utilizes supplemental oxygen therapy due to hypoxic respiratory failure. No longer drinks alcohol. Primary outpatient cloth colors examiner: Dr. Guzmán Past Medical History: Coronary artery disease, status post PCI to the LAD with x1 BMS 08/2017 Paroxysmal atrial flutter, status post right-sided a flutter ablation History of tachycardic induced cardiomyopathy, LVEF as low as 25%, 08/2017 (resolved) Hypertension Dyslipidemia COPD with history of cigarette smoking, on chronic supplemental oxygen therapy Pulmonary hypertension Previous alcohol dependence History of duodenal ulcer with GI bleed GERD Chronic anemia Hypothyroidism, on replacement Allergies Allergy/AdvReac Type Severity Reaction Status Date / Time No Known Allergies Allergy Unverified 08/25/22 11:29 Home Medications Medication Instructions Recorded Confirmed Type albuterol sulfate 2.5 mg/3 mL 2.5 mg inhalation BID 02/26/19 08/25/22 History (0.083 %) solution for nebulization atorvastatin 20 mg tablet 20 mg PO DAILY 02/26/19 08/25/22 History clopidogrel 75 mg tablet 75 mg PO DAILY@1400 02/26/19 08/25/22 History levothyroxine 25 mcg tablet 25 mcg PO DAILY 02/26/19 08/25/22 History metoprolol succinate 25 mg 25 mg PO DAILY 02/26/19 08/25/22 History tablet,extended release 24 hr pantoprazole 20 mg tablet,delayed 20 mg PO DAILY 02/26/19 08/25/22 History release tamsulosin 0.4 mg capsule 0.4 mg PO HS 02/26/19 08/25/22 History lisinopril 40 mg tablet (Zestril) 40 mg PO DAILY #30 tabs 03/03/19 08/25/22 Rx apixaban 2.5 mg tablet (Eliquis) 2.5 mg PO BID #60 tabs 12/30/21 08/25/22 Rx sodium chloride 0.65 % nasal spray 2 spray NA Q4H PRN nasal 12/30/21 08/25/22 Rx aerosol (Saline Mist) congestion #45 mL famotidine 20 mg tablet 20 mg PO DAILY@1400 08/25/22 08/25/22 History finasteride 5 mg tablet 5 mg PO DAILY 08/25/22 08/25/22 History fluticasone fur. 100 mcg-umeclid 1 inh inhalation DAILY 08/25/22 08/25/22 History 62.5 mcg-vilant 25 mcg inhalat.powder (Trelegy Ellipta) potassium chloride 20 mEq 20 meq PO DAILY 08/25/22 08/25/22 History tablet,extended release(part/cryst) (Klor-Con M) pregabalin 150 mg capsule 150 mg PO TID 08/25/22 08/25/22 History Patient History Medical History Atrial flutter BPH (benign prostatic hyperplasia) CAD (coronary artery disease) CHF (congestive heart failure) Chronic respiratory failure Chronic respiratory failure with hypoxia COPD (chronic obstructive pulmonary disease) Diastolic dysfunction GERD (gastroesophageal reflux disease) History of upper gastrointestinal bleeding HTN (hypertension) Hypothyroidism Microcytic anemia Surgical History History of cardiac cath History of radiofrequency ablation procedure for cardiac arrhythmia S/P angioplasty with stent Family History Other Hypertension Social History Smoking Status: Former smoker Second Hand Exposure: No; Do You Dip or Chew Tobacco: No; Hx Alcohol Use: No Hx Substance Use: No Preferred Language: Greek Communication Ability: Effective Registered Representative Required: No Beliefs That Will Affect Care: None marital status: / Current Living Situation: Alone current occupational status: retired Other Information That Helps Us Care for You: No Feels Safe at Home: Yes Safety Concerns: Feels Safe At This Time Assistive Devices: Cane, Glasses, Oxygen - Continuous, Scooter/Electric Scooter and Walker Review of Systems Review of Systems: All systems reviewed & are unremarkable except as noted in HPI & below Physical Exam Constitutional: WD/WN, vitals as above + thin; no acute distress Eyes: PERRL, conjunctivae normal, anicteric sclerae Neck: normal visual inspection and trachea midline Respiratory: normal respiratory effort and + cough; no respiratory distress Auscultation: + diminished lung sounds, + rhonchi and + wheezes Cardiovascular: Rate/Rhythm: regular rate and regular rhythm Heart Sounds: normal S1 and normal S2; no murmur Vessels: no JVD Extremities: no edema Gastrointestinal (Abdomen): Inspection/Auscultation: + abdomen distended and normal bowel sounds Percussion/Palpation: + abdomen tender epigastric discomfort with palpation Skin: no rashes, warm and dry Psychiatric: A+Ox3, euthymic affect Results & Data Vital Signs (Past 12 Hours) Vital Signs Temp Pulse Pulse Resp BP BP Pulse Ox 08/25/22 12:41 56 L 20 100 08/25/22 12:41 198/92 H 08/25/22 12:40 56 L 13 100 08/25/22 12:30 59 L 18 100 08/25/22 12:30 191/90 H 08/25/22 12:20 67 21 100 08/25/22 12:10 66 15 100 08/25/22 12:05 66 22 100 08/25/22 12:05 211/93 H 08/25/22 12:19 67 08/25/22 12:00 63 14 100 08/25/22 12:00 191/106 H 08/25/22 11:50 66 18 100 08/25/22 11:40 130 H 21 08/25/22 11:30 67 14 100 08/25/22 11:30 194/97 H 08/25/22 11:20 69 19 99 08/25/22 11:10 71 17 99 08/25/22 11:00 70 16 100 08/25/22 11:00 207/108 H 08/25/22 10:57 70 19 99 08/25/22 10:57 212/108 H 08/25/22 10:36 85 22 100 08/25/22 10:45 99 08/25/22 10:43 08/25/22 10:39 123 H 217/96 H 99 08/25/22 10:18 36.7 C 95 H 26 H 216/98 H 97 O2 Del Method O2 Flow Rate 08/25/22 12:41 08/25/22 12:41 08/25/22 12:40 08/25/22 12:30 08/25/22 12:30 08/25/22 12:20 08/25/22 12:10 08/25/22 12:05 08/25/22 12:05 08/25/22 12:19 08/25/22 12:00 08/25/22 12:00 08/25/22 11:50 08/25/22 11:40 08/25/22 11:30 08/25/22 11:30 08/25/22 11:20 08/25/22 11:10 08/25/22 11:00 08/25/22 11:00 08/25/22 10:57 08/25/22 10:57 08/25/22 10:36 08/25/22 10:45 Nasal Cannula 2.5 08/25/22 10:43 Nasal Cannula 2.5 08/25/22 10:39 Nasal Cannula 2.5 08/25/22 10:18 Nasal Cannula 2.5 Laboratory Results Cardiac Enzymes 08/25/22 08/25/22 Range/Units 10:30 12:58 AST 12 L (13-39) U/L Troponin I High Sens 9.5 8.6 (0-20) pg/ml Coagulation 08/25/22 Range/Units 10:30 PT 12.3 H (9.0-12.0) Seconds APTT 30.7 (21.0-31.0) Seconds CBC 08/25/22 Range/Units 10:30 WBC 5.53 (4.8-10.8) K/ul RBC 4.26 L (4.70-6.10) M/uL Hgb 9.1 L (14.0-18.0) g/dl Hct 31.9 L (42.0-52.0) % Plt Count 254 (130-400) K/uL Neut # (Auto) 4.71 (1.40-6.50) K/uL Lymph # (Auto) 0.48 L (1.2-3.4) K/uL [place] # (Auto) 0.28 (0.11-0.59) K/uL Eos # (Auto) 0.02 (0-0.50) K/uL Baso # (Auto) 0.03 (0-0.2) K/uL Comprehensive Metabolic Panel 08/25/22 08/25/22 Range/Units 10:30 12:58 Sodium 136 (136-145) mmol/L Potassium 4.1 (3.5-5.1) mmol/L Chloride 104 (98-107) mmol/L Carbon Dioxide 24 (21-32) mmol/L BUN 9 (6-23) mg/dl Creatinine 0.80 (0.6-1.4) mg/dl Glucose 136 H (70-99(Fasting)) mg/dl Calcium 9.1 (8.6-10.3) mg/dl Direct Bilirubin 0.5 H (0-0.2) mg/dl AST 12 L (13-39) U/L ALT 6 L (7-52) U/L Alkaline Phosphatase 153 H (34-104) U/L Total Protein 7.2 (6.0-8.3) gm/dl Albumin 4.2 (3.4-5.0) gm/dl Intake and Output 08/24/22 08/25/22 08/25/22 22:59 06:59 14:59 Other: Weight 56.3 kg Weight Measurement Method Chair Scale Patient Weight 08/26/22 06:59 Weight 56.3 kg Diagnostic Findings Inpatient echo 08/25/2022 Pending* OUTPATIENT ECHO 08/2018 The primary indication after review was deemed appropriate and the examination was performed. Normal LV chamber size with mild concentric LVH. Normal LV systolic function without regional wall motion abnormality. Calculated LV ejection Fraction = 58% (bi-plane method of discs). Grade I diastolic dysfunction. Moderate mitral regurgitation. Normal IVC size and collapsibility with sniff indicates a normal right atrial pressure of 3 mmHg. The estimated pulmonary artery systolic pressure is 64mm Hg.
[2022-08-25 14:36] LABS: Bilirubin Direct 0.5 mg/dl (0-0.2)
[2022-08-25] MEDS: CLOPIDOGREL BISULFATE 75 MG TAB PO SCH (14:38)
[2022-08-25 14:58] LABS: Creatinine Clr Calc Pharmacy 60.5 ml/min; Est GFR (Non-African American) 85.4 ml/min
--- NOTE | 2022-08-25 15:31 | CT Scan Report ---
HEAD CT NONCONTRAST CT DOSE: 938.00 mGy.cm HISTORY: dizzy, htn TECHNIQUE: Multiaxial CT images of the head were performed without the use of intravenous contrast. A utomated exposure control was utilized for this study. A dose lowering technique was utilized adheri ng to the principles of ALARA. Comparison: None. Findings: Motion artifact. The paranasal sinuses and mastoid air cells are clear. The calvarium and s kull base are intact. There is no mass, hematoma, midline shift, acute infarct. White matter hypodens ity is nonspecific but suggestive of microvascular ischemic change. The ventricles and sulci demonstr ate mild age-related involutional changes. Small focus of encephalomalacia within the left frontal lo be consistent with an old infarct. Impression: Motion artifact. No definite acute intracranial abnormality. ACT 112: Negative or not required by law. Electronically signed by: Tra Monsivais M.D. 08/25/2022 3:29 PM
[2022-08-25] MEDS: FAMOTIDINE 20 MG TAB PO SCH (15:36)
[2022-08-25] MEDS: amLODIPine BESYLATE 5 MG TAB PO SCH (15:36)
[2022-08-25] MEDS: NITROGLYCERIN 2% OINTMENT 30GM TUBE EXT SCH ×2 (15:44→21:09)
[2022-08-25] MEDS: ALBUTEROL 0.083% NEBU SOLN 3 ML VIAL INH SCH (19:17)
[2022-08-25] MEDS: APIXABAN 2.5 MG TAB PO SCH (20:59)
[2022-08-25] MEDS: TAMSULOSIN HCL 0.4 MG CAP PO SCH (20:59)
[2022-08-25] MEDS ORDERED: METOPROLOL SUCC 25MG EXT REL TAB PO SCH (21:00)
[2022-08-25] MEDS: PREGABALIN 150 MG CAP PO SCH (21:05)
[2022-08-26] MEDS: NITROGLYCERIN 2% OINTMENT 30GM TUBE EXT SCH (03:40)
[2022-08-26] MEDS: LEVOTHYROXINE SODIUM 25 MCG TABLET PO SCH (05:44)
[2022-08-26 06:29] LABS: Hematocrit (blood only) 26.7 % (42.0-52.0); Hemoglobin 7.7 g/dl (14.0-18.0); Mean Corpuscular Hemoglobin 21.4 pg (25.0-34.0); Mean Corpuscular Hgb Conc 28.8 g/dL (32.0-36.0); Mean Corpuscular Volume 74.4 fL (80.0-100.0); Mean Platelet Volume 10.2 fL (9.4-12.4); Platelet Count 201 K/uL (130-400); RDW Coefficient of Variation 19.6 % (11.5-14.5); RDW Standard Deviation 52.4 fL (36.4-46.3); Red Blood Count 3.59 M/uL (4.70-6.10); White Blood Count 5.37 K/ul (4.8-10.8)
[2022-08-26 06:47] LABS: Albumin Globulin Ratio 1.4 (0.9-2); Albumin Level 3.4 gm/dl (3.4-5.0); BUN Creatinine Ratio 13.1 (10-20); Bilirubin,Total 2.2 mg/dl (0.2-1.0); Calcium 8.7 mg/dl (8.6-10.3); Chol HDL Ratio 3.1 (0-5); Creatinine Clr Calc Pharmacy 42.5 ml/min; Est GFR (African American) 74.5 ml/min; Est GFR (Non-African American) 64.3 ml/min; Globulin 2.4 gm/dl (2.5-4.0); Magnesium 2.1 mg/dl (1.7-2.4); Potassium 4.1 mmol/L (3.5-5.1); Total Protein 5.8 gm/dl (6.0-8.3)
[2022-08-26 07:05] LABS: Ferritin 15.1 ng/ml (8-388)
[2022-08-26 07:13] LABS: Basophils # (auto) 0.03 K/uL (0-0.2); Basophils % (auto) 0.6 %; Eosinophils # (auto) 0.05 K/uL (0-0.50); Eosinophils % (auto) 0.9 %; Immature Granulocytes # (auto) 0.01 K/uL (0.01-0.20); Immature Granulocytes % (auto) 0.2 %; Lymphocytes # (auto) 0.57 K/uL (1.2-3.4); Lymphocytes % (auto) 10.6 %; Monocytes # (auto) 0.62 K/uL (0.11-0.59); Monocytes % (auto) 11.5 %; Neutrophils # (auto) 4.09 K/uL (1.40-6.50); Neutrophils % (auto) 76.2 %; Ovalocytes 1+; Polychromasia 1+
[2022-08-26] MEDS: ALBUTEROL 0.083% NEBU SOLN 3 ML VIAL INH SCH ×2 (07:33→19:28)
--- NOTE | 2022-08-26 07:50 | Cardiology Progress Note ---
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 Presents to the hospital today after 12 or so hours of atypical chest discomfort and epigastric pain. Patient is significantly hypertensive with systolics in the 200s. EKG without acute changes. High-sensitivity troponins negative x2. Symptoms are atypical for cardiac chest pain, likely a GI component plus uncontrolled hypertension. PLAN: -Hypertension improved. Continue Lisinopril 40 mg daily and Norvasc 5 mg daily. -STOP Nitro-paste. -Short runs of AFlutter on tele, 130s- increase metoprolol succinate to 25 mg BID. Eliquis for stroke prevention. -Continue supplemental oxygen therapy -Ongoing microcytic anemia, seems to be at baseline, however, there is not a good trend in his outpatient records. Hemoglobin in 2020 was averaging in the 11s. Need to consider further work-up as patient has a history of coronary disease, and is on Eliquis for history of A-fib. Recommend maintaining hemoglobin greater than 10. Case discussed with Dr. Moffett, no further recommendations- okay for discharge from a cardiology standpoint. Admission and Anticipated Discharge Date Admission Date: August 25, 2022 Supervising Physician Co-Signing Physician Notes Patient seen and examined, chart medications and telemetry reviewed. Patient feels substantially improved this morning. Blood pressure is much better controlled. Tolerating medication adjustments as noted above. Telemetry does as in past demonstrate paroxysmal atrial flutter when short salvos. P atient poor candidate for antiarrhythmic therapy would increase metoprolol succinate to 25 mg twice per day as begun. 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 Initially presented to the hospital due atypical chest discomfort and epigastric pain. Blood pressure was significantly hypertensive with systolics in the 200s. 08/25: Lisinopril continued, metoprolol increased to 25 mg in the morning and 12.5 mg in the evening, amlodipine 5 mg daily was started as well as 1/2 inch of Nitropaste. Ongoing anemia. Echo: LVEF 60 to 65% with grade 1 diastolic dysfunction. No left ventricular wall motion abnormalities. Mild concentric LVH, Mild MR, trace TR. High-sensitivity troponin negative x4. 08/26: Telemetry: SR with PACs/PVCs, short bursts of AFlutter vs PAT ~130s EKG: Sinus bradycardia, 52 bpm with T wave inversions in anterior lateral and inferior leads, unchanged from 12/2021 Blood pressure is improving. Patient asleep in bed- woke easily. No acute complaint- feels "much better" compared to admission day. No chest pain, shortness of breath at baseline. No palpitations, lightheadedness. Eager for discharge. Review of Systems Review of Systems: All systems reviewed & are unremarkable except as noted in HPI & below Physical Exam Constitutional: WD/WN, vitals as above + thin; no acute distress Eyes: PERRL, conjunctivae normal, anicteric sclerae Neck: normal visual inspection and trachea midline Respiratory: normal respiratory effort and + cough; no respiratory distress Auscultation: + diminished lung sounds and + rhonchi; no rales and no wheezes Cardiovascular: Rate/Rhythm: regular rate and regular rhythm Heart Sounds: normal S1 and normal S2; no murmur Vessels: no JVD Extremities: no edema Gastrointestinal (Abdomen): Inspection/Auscultation: normal bowel sounds; abdomen not distended Percussion/Palpation: abdomen nontender Skin: no rashes, warm and dry Psychiatric: A+Ox3, euthymic affect Results & Data Vital Signs (Past 12 Hours) Vital Signs Temp Pulse Pulse Pulse Resp BP Pulse Ox 08/26/22 07:33 62 18 98 08/26/22 07:22 36.6 C 102 H 18 117/60 100 08/25/22 21:05 63 111/63 08/26/22 02:56 36.5 C 63 16 100/63 99 08/26/22 00:09 88 08/25/22 22:42 36.7 C 102 H 18 104/66 100 08/25/22 21:17 O2 Del Method O2 Flow Rate 08/26/22 07:33 Nasal Cannula 2 08/26/22 07:22 Room Air 08/25/22 21:05 08/26/22 02:56 Nasal Cannula 2.5 08/26/22 00:09 08/25/22 22:42 Nasal Cannula 2.5 08/25/22 21:17 Nasal Cannula 2.5 Laboratory Results Cardiac Enzymes 08/25/22 08/25/22 08/25/22 Range/Units 10:30 12:58 18:58 AST 12 L (13-39) U/L Troponin I High Sens 9.5 8.6 12.3 (0-20) pg/ml 08/26/22 08/26/22 Range/Units 01:00 05:44 AST 10 L (13-39) U/L Troponin I High Sens 14.5 (0-20) pg/ml Coagulation 08/25/22 Range/Units 10:30 PT 12.3 H (9.0-12.0) Seconds APTT 30.7 (21.0-31.0) Seconds Lipids 08/26/22 Range/Units 05:44 Triglycerides 72 (0-150) mg/dl Cholesterol 97 (0-200) mg/dl HDL Cholesterol 31 mg/dl Cholesterol/HDL Ratio 3.1 (0-5) CBC 08/25/22 08/26/22 Range/Units 10:30 05:44 WBC 5.53 5.37 (4.8-10.8) K/ul RBC 4.26 L 3.59 L (4.70-6.10) M/uL Hgb 9.1 L 7.7 L (14.0-18.0) g/dl Hct 31.9 L 26.7 L (42.0-52.0) % Plt Count 254 201 (130-400) K/uL Neut # (Auto) 4.71 4.09 (1.40-6.50) K/uL Lymph # (Auto) 0.48 L 0.57 L (1.2-3.4) K/uL [place] # (Auto) 0.28 0.62 H (0.11-0.59) K/uL Eos # (Auto) 0.02 0.05 (0-0.50) K/uL Baso # (Auto) 0.03 0.03 (0-0.2) K/uL Comprehensive Metabolic Panel 08/25/22 08/25/22 08/26/22 Range/Units 10:30 12:58 05:44 Sodium 136 138 (136-145) mmol/L Potassium 4.1 4.1 (3.5-5.1) mmol/L Chloride 104 107 (98-107) mmol/L Carbon Dioxide 24 26 (21-32) mmol/L BUN 9 14 (6-23) mg/dl Creatinine 0.80 0.75 1.07 D (0.6-1.4) mg/dl Glucose 136 H 90 (70-99(Fasting)) mg/dl Calcium 9.1 8.7 (8.6-10.3) mg/dl Direct Bilirubin 0.5 H (0-0.2) mg/dl AST 12 L 10 L (13-39) U/L ALT 6 L 4 L (7-52) U/L Alkaline Phosphatase 153 H 121 H (34-104) U/L Total Protein 7.2 5.8 L (6.0-8.3) gm/dl Albumin 4.2 3.4 (3.4-5.0) gm/dl Intake and Output 08/25/22 08/26/22 08/26/22 22:59 06:59 14:59 Intake Total 270 / 270 Output Total 400 / 400 Balance -130 / -130 Intake: Oral 270 / 270 Output: Urine 400 / 400 Other: Weight 56.4 kg 56.4 kg Weight Measurement Method Built in [facility] Patient Weight 08/27/22 06:59 Weight 56.4 kg
[2022-08-26 08:27] LABS: Estimated Average Glucose 131 mg/dl; Hemoglobin A1C 6.2 % (4.5-5.6)
[2022-08-26] MEDS: APIXABAN 2.5 MG TAB PO SCH ×2 (08:34→20:11)
[2022-08-26] MEDS: ATORVASTATIN 20 MG TAB PO SCH (08:34)
[2022-08-26] MEDS: amLODIPine BESYLATE 5 MG TAB PO SCH (08:34)
[2022-08-26] MEDS: PREGABALIN 150 MG CAP PO SCH ×3 (08:34→20:11)
[2022-08-26] MEDS: FINASTERIDE 5 MG TAB PO SCH (08:34)
[2022-08-26] MEDS: PANTOprazole 40 MG TAB PO SCH (08:35)
[2022-08-26] MEDS: lisinopril 40 MG TAB PO SCH (08:35)
[2022-08-26] MEDS: POTASSIUM CHLORIDE CRTAB 20 MEQ TABCR PO SCH (08:35)
[2022-08-26] MEDS: FLUTICASONE FUROATE 100MCG 14 PUFFS/INHALER INH SCH (08:35)
[2022-08-26] MEDS: UMECLIDINIUM/VILANTEROL 62.5/25MCG 7 PUFFS/INHALER INH SCH (08:36)
[2022-08-26] MEDS ORDERED: METOPROLOL SUCC 25MG EXT REL TAB PO SCH ×2 (09:00)
[2022-08-26] MEDS: CLOPIDOGREL BISULFATE 75 MG TAB PO SCH (13:41)
[2022-08-26] MEDS: FAMOTIDINE 20 MG TAB PO SCH (13:41)
--- NOTE | 2022-08-26 15:28 | Electrocardiogram Report ---
Test Reason : Blood Pressure : / mmHG Vent. Rate : 052 BPM Atrial Rate : 052 BPM P-R Int : 150 ms QRS Dur : 082 ms QT Int : 418 ms P-R-T Axes : 079 068 227 degrees QTc Int : 388 ms Sinus bradycardia with sinus arrhythmia Abnormal ECG When compared with ECG of 25-AUG-2022 10:18, ST no longer depressed in Inferior leads T wave inversion now evident in Inferior leads T wave inversion now evident in Anterolateral leads Confirmed by Crow Machado ([id number]) on 08/26/2022 3:28:19 PM Referred By: REFERRED SELF Confirmed By:Lalo Machado
[2022-08-26] MEDS ORDERED: IRON SUCROSE 200 MG in 0.9 % SODIUM CHLORIDE 100 ML IV ONE (15:30)
--- NOTE | 2022-08-26 15:44 | Hospitalist Progress Note ---
Date of Service August 26, 2022 Assessment & Plan (1) Atypical chest pain: (2) Hypertensive urgency: (3) Hx of coronary artery disease: (4) Chronic respiratory failure: (5) COPD (chronic obstructive pulmonary disease): (6) Microcytic anemia: Plan 82-year-old male who has significant past medical history of chronic hypoxic respiratory failure on 2.5 L of oxygen at baseline, COPD, CAD with history of angioplasty, PAF, pulmonary hypertension, GERD, BPH, postherpetic neuralgia ri ght upper quadrant and right flank, history of duodenal ulcer who presents to ED 08/25 secondary to chest pain x1 day. Atypical chest pain: Likely secondary to hypertensive urgency. Hypertensive urgency: Admitting CT head with no acute findings. CAD with history of BMS to circumflex in 2018 Comes in with chest pain, EKG without acute ST or T changes, troponin trends negative. Patient significantly hypertensive at admission. No further chest pain while in the hospital. Continue with home lisinopril, amlodipine has been added. Metoprolol has been increased to 25 mg twice daily. Blood pressure fairly better, patient reports feeling better. Cardiology evaluated, appreciate recommendation. Microcytic anemia: Has been a gradual drop over the last several years, admit hemoglobin of 9.1, hemoglobin 7.7 today. MCV microcytic. Iron studies suggestive of iron deficiency, folate low normal and vitamin B12 low. We will give IV iron for now, also IV iron tomorrow. Will replace folate and vitamin B12. Oral iron on discharge. We will get hemolysis panel, peripheral blood smear, Constantino test. Follow-up on the test. We will get FOBT. Since hemoglobin dropped 7.7 today, will make sure it is stable prior to discharge. Hemoglobin in AM. Chronic respiratory failure on 2 L of oxygen secondary to COPD: No acute exacerbation, Continue twice daily albuterol, Trelegy PAF/A. flutter: hx of ablation, continue metoprolol and eliquis Post Herpetic neuralgia: chronic pain to RUQ/R flank x12 years, recently started lyrica in July, previously on gabapentin w/o relief GERD hx of duodenal ulcer continue PPI, [id number] BPH: continue flomax and finasteride Hypothyroidism: continue levothyroxine DVT ppx: eliquis Dispo: admit to Tele for HTN urgency, acs r/o, likely d/c home when stable, pt lives alone, has cane/walker, daughter close by DNR/DNI PCP: Jayda Dispo: PT/OT, CM to assist with DC planning. Admission and Anticipated Discharge Date Admission Date: August 25, 2022 Subjective Patient seen and examined at bedside as a follow-up of typical chest pain, hypertensive urgency, microcytic anemia. Patient was lying in bed, 2 L oxygen via nasal cannula, NAD, denies any further chest pain headache or dizziness or palpitation, reports eating okay and moving bowels okay, reports having a good night. Physical Exam Physical Exam: GENERAL: Alert and oriented x3. NAD, on 2L O2 via NC. HEENT: No pallor, no icterus. Pupils equal, round and reactive to light. Oral mucosa moist. NECK: No JVD, no neck masses. HEART: S1 and S2 heard. Regular rate and rhythm. No murmur, no gallop. RESPIRATORY SYSTEM: Normal AP diameter. No accessory muscle use. No wheezing, no crackles. ABDOMEN: Soft, bowel sounds present, nontender, no distention. RUQ paresthesia (h/o shingles) CENTRAL NERVOUS SYSTEM: No facial droop. Speech is clear. Obeys simple commands. Moves extremities. EXTREMITIES: No edema, no erythema seen. Results & Data Results & Data Vital Signs (Past 12 Hours) Vital Signs Temp Pulse Pulse Resp BP BP Pulse Ox 08/26/22 15:18 36.7 C 70 20 129/76 99 08/26/22 11:27 36.6 C 68 18 107/62 97 08/26/22 07:30 53 L 08/26/22 07:30 08/26/22 07:33 62 18 98 08/26/22 07:22 36.6 C 102 H 18 117/60 100 O2 Del Method O2 Flow Rate 08/26/22 15:18 Nasal Cannula 2 08/26/22 11:27 Nasal Cannula 2 08/26/22 07:30 08/26/22 07:30 Nasal Cannula 2.5 08/26/22 07:33 Nasal Cannula 2 08/26/22 07:22 Nasal Cannula 2.5
[2022-08-26] MEDS: CYANOCOBALAMIN (B-12) 500 MCG TABLET PO SCH (16:40)
[2022-08-26] MEDS: FOLIC ACID 1 MG TAB PO SCH (16:40)
[2022-08-26] MEDS: METOPROLOL SUCC 25MG EXT REL TAB PO SCH (20:12)
[2022-08-26] MEDS: TAMSULOSIN HCL 0.4 MG CAP PO SCH (20:12)
[2022-08-27] MEDS: LEVOTHYROXINE SODIUM 25 MCG TABLET PO SCH (05:46)
[2022-08-27] MEDS: ALBUTEROL 0.083% NEBU SOLN 3 ML VIAL INH SCH ×2 (07:08→19:10)
--- NOTE | 2022-08-27 07:10 | Electrocardiogram Report ---
Test Reason : Blood Pressure : / mmHG Vent. Rate : 056 BPM Atrial Rate : 056 BPM P-R Int : 172 ms QRS Dur : 080 ms QT Int : 400 ms P-R-T Axes : 076 071 247 degrees QTc Int : 386 ms Sinus bradycardia with sinus arrhythmia Abnormal ECG When compared with ECG of 26-AUG-2022 05:38, No significant change was found Confirmed by Crow Machado ([id number]) on 08/27/2022 7:10:04 AM Referred By: REFERRED SELF Confirmed By:Lalo Machado
[2022-08-27 07:26] LABS: Hematocrit (blood only) 27.7 % (42.0-52.0); Mean Corpuscular Hemoglobin 21.4 pg (25.0-34.0); Mean Corpuscular Hgb Conc 28.9 g/dL (32.0-36.0); Mean Corpuscular Volume 74.1 fL (80.0-100.0); Mean Platelet Volume 10.1 fL (9.4-12.4); Platelet Count 212 K/uL (130-400); RDW Coefficient of Variation 19.9 % (11.5-14.5); RDW Standard Deviation 51.8 fL (36.4-46.3); Red Blood Count 3.74 M/uL (4.70-6.10); Reticulocyte % 1.8 % (0.5-2.0); Reticulocytes # 0.07 10^6/uL (0.02-0.10); White Blood Count 4.14 K/ul (4.8-10.8)
[2022-08-27 07:51] LABS: BUN Creatinine Ratio 17.8 (10-20); Bilirubin Direct 0.4 mg/dl (0-0.2); Calcium 8.6 mg/dl (8.6-10.3); Creatinine Clr Calc Pharmacy 49.9 ml/min; Est GFR (African American) 91.9 ml/min; Est GFR (Non-African American) 79.3 ml/min; Magnesium 2.1 mg/dl (1.7-2.4); Phosphorus 4.2 mg/dl (2.5-4.9); Potassium 4.1 mmol/L (3.5-5.1)
[2022-08-27] MEDS: PREGABALIN 150 MG CAP PO SCH ×3 (08:38→20:16)
[2022-08-27] MEDS: POTASSIUM CHLORIDE CRTAB 20 MEQ TABCR PO SCH (08:38)
[2022-08-27] MEDS: METOPROLOL SUCC 25MG EXT REL TAB PO SCH ×2 (08:38→20:15)
[2022-08-27] MEDS: CYANOCOBALAMIN (B-12) 500 MCG TABLET PO SCH (08:38)
[2022-08-27] MEDS: amLODIPine BESYLATE 5 MG TAB PO SCH (08:38)
[2022-08-27] MEDS: FOLIC ACID 1 MG TAB PO SCH (08:39)
[2022-08-27] MEDS: FLUTICASONE FUROATE 100MCG 14 PUFFS/INHALER INH SCH (08:39)
[2022-08-27] MEDS: lisinopril 40 MG TAB PO SCH (08:39)
[2022-08-27] MEDS: PANTOprazole 40 MG TAB PO SCH (08:39)
[2022-08-27] MEDS: APIXABAN 2.5 MG TAB PO SCH ×2 (08:39→20:16)
[2022-08-27] MEDS: FINASTERIDE 5 MG TAB PO SCH (08:39)
[2022-08-27] MEDS: ATORVASTATIN 20 MG TAB PO SCH (08:39)
[2022-08-27] MEDS: UMECLIDINIUM/VILANTEROL 62.5/25MCG 7 PUFFS/INHALER INH SCH (08:39)
[2022-08-27] MEDS ORDERED: IRON SUCROSE 400 MG in SODIUM CHLORIDE 0.9% 250 ML IV ONE (09:15)
[2022-08-27] MEDS: CLOPIDOGREL BISULFATE 75 MG TAB PO SCH (14:29)
[2022-08-27] MEDS ORDERED: SODIUM CHLORIDE 0.9% 500 ML IV SCH (14:30)
[2022-08-27] MEDS: FAMOTIDINE 20 MG TAB PO SCH (14:30)
--- NOTE | 2022-08-27 15:46 | Hospitalist Progress Note ---
Date of Service August 27, 2022 Assessment & Plan (1) Atypical chest pain: (2) Hypertensive urgency: (3) Hx of coronary artery disease: (4) Chronic respiratory failure: (5) COPD (chronic obstructive pulmonary disease): (6) Microcytic anemia: Plan 82-year-old male who has significant past medical history of chronic hypoxic respiratory failure on 2.5 L of oxygen at baseline, COPD, CAD with history of angioplasty, PAF, pulmonary hypertension, GERD, BPH, postherpetic neuralgia ri ght upper quadrant and right flank, history of duodenal ulcer who presents to ED 08/25 secondary to chest pain x1 day. Atypical chest pain: Likely secondary to hypertensive urgency. Hypertensive urgency: Admitting CT head with no acute findings. CAD with history of BMS to circumflex in 2018 Comes in with chest pain, EKG without acute ST or T changes, troponin trends negative. Patient significantly hypertensive at admission. No further chest pain while in the hospital. Continue with home lisinopril, amlodipine has been added - reduced the dose to 2.5, closely monitor BP, get ortho vitals (BP was low today). Metoprolol has been increased to 25 mg twice daily. Cardiology evaluated, appreciate recommendation. BP soft today, reduce dose of amlod or even can DC depending on parameters. Give 250 ml NSS, closely monitor vitals. get ortho vitals. Microcytic anemia: Has been a gradual drop over the last several years, admit hemoglobin of 9.1, following day 7.7. MCV microcytic. Iron studies suggestive of iron deficiency, folate low normal and vitamin B12 low. IV iron x 2; c/w folate/cyanocobalamin/iron supplements. LDH and reticulocyte count normal, Constantino test negative. Haptoglobin and peripheral blood smear pending. FOBT pending. Chronic respiratory failure on 2 L of oxygen secondary to COPD: No acute exacerbation, Continue twice daily albuterol, Trelegy PAF/A. flutter: hx of ablation, continue metoprolol and eliquis Post Herpetic neuralgia: chronic pain to RUQ/R flank x12 years, recently started lyrica in July, previously on gabapentin w/o relief GERD hx of duodenal ulcer continue PPI, [id number] BPH: continue flomax and finasteride Hypothyroidism: continue levothyroxine DVT ppx: eliquis DNR/DNI PCP: Jayda Dispo: PT/OT, CM to assist with DC planning. ? short term rehab. Admission and Anticipated Discharge Date Admission Date: August 25, 2022 Subjective Patient seen and examined at bedside as a follow-up of typical chest pain, hypertensive urgency, microcytic anemia. Patient was lying in bed, 2 L oxygen via nasal cannula, NAD, denies any further chest pain headache or dizziness or palpitation, reports eating okay and moving bowels okay, reports having a good night. PT/OT evaled, pt appears weak , will likely need rehab. Physical Exam Physical Exam: GENERAL: Alert and oriented x3. NAD, on 2L O2 via NC. HEENT: No pallor, no icterus. Pupils equal, round and reactive to light. Oral mucosa moist. NECK: No JVD, no neck masses. HEART: S1 and S2 heard. Regular rate and rhythm. No murmur, no gallop. RESPIRATORY SYSTEM: Normal AP diameter. No accessory muscle use. No wheezing, no crackles. ABDOMEN: Soft, bowel sounds present, nontender, no distention. RUQ paresthesia (h/o shingles) CENTRAL NERVOUS SYSTEM: No facial droop. Speech is clear. Obeys simple commands. Moves extremities. EXTREMITIES: No edema, no erythema seen. Results & Data Results & Data Vital Signs (Past 12 Hours) Vital Signs Temp Pulse Pulse Resp BP BP Pulse Ox 08/27/22 15:21 97 08/27/22 14:14 68 81/53 L 08/27/22 14:10 96 08/27/22 11:32 36.7 C 76 18 148/84 H 98 08/27/22 10:19 36.5 C 71 14 108/67 96 08/27/22 07:15 65 08/27/22 07:15 08/27/22 07:31 36.4 C L 92 H 18 167/76 H 97 08/27/22 07:08 69 18 94 O2 Del Method O2 Flow Rate 08/27/22 15:21 08/27/22 14:14 08/27/22 14:10 2.5 08/27/22 11:32 Room Air 08/27/22 10:19 Nasal Cannula 2.5 08/27/22 07:15 08/27/22 07:15 Nasal Cannula 2.5 08/27/22 07:31 Nasal Cannula 2 08/27/22 07:08 Room Air
[2022-08-27] MEDS: TAMSULOSIN HCL 0.4 MG CAP PO SCH (20:15)
[2022-08-28] MEDS: LEVOTHYROXINE SODIUM 25 MCG TABLET PO SCH (05:49)
[2022-08-28 06:52] LABS: Hemoglobin 7.6 g/dl (14.0-18.0); Mean Corpuscular Hemoglobin 21.6 pg (25.0-34.0); Mean Corpuscular Hgb Conc 28.1 g/dL (32.0-36.0); Mean Corpuscular Volume 76.7 fL (80.0-100.0); Mean Platelet Volume 10.6 fL (9.4-12.4); Platelet Count 204 K/uL (130-400); RDW Coefficient of Variation 20.1 % (11.5-14.5); RDW Standard Deviation 53.7 fL (36.4-46.3); Red Blood Count 3.52 M/uL (4.70-6.10); White Blood Count 5.53 K/ul (4.8-10.8)
[2022-08-28] MEDS: ALBUTEROL 0.083% NEBU SOLN 3 ML VIAL INH SCH (07:02)
[2022-08-28 07:15] LABS: BUN Creatinine Ratio 18.3 (10-20); Calcium 8.4 mg/dl (8.6-10.3); Est GFR (African American) 88.3 ml/min; Est GFR (Non-African American) 76.2 ml/min; Magnesium 2.1 mg/dl (1.7-2.4)
[2022-08-28] MEDS: APIXABAN 2.5 MG TAB PO SCH (08:44)
[2022-08-28] MEDS: UMECLIDINIUM/VILANTEROL 62.5/25MCG 7 PUFFS/INHALER INH SCH (08:44)
[2022-08-28] MEDS: lisinopril 40 MG TAB PO SCH (08:44)
[2022-08-28] MEDS: CYANOCOBALAMIN (B-12) 500 MCG TABLET PO SCH (08:44)
[2022-08-28] MEDS: ATORVASTATIN 20 MG TAB PO SCH (08:44)
[2022-08-28] MEDS: FINASTERIDE 5 MG TAB PO SCH (08:44)
[2022-08-28] MEDS: PANTOprazole 40 MG TAB PO SCH (08:44)
[2022-08-28] MEDS: POTASSIUM CHLORIDE CRTAB 20 MEQ TABCR PO SCH (08:44)
[2022-08-28] MEDS: FLUTICASONE FUROATE 100MCG 14 PUFFS/INHALER INH SCH (08:44)
[2022-08-28] MEDS: METOPROLOL SUCC 25MG EXT REL TAB PO SCH (08:44)
[2022-08-28] MEDS: PREGABALIN 150 MG CAP PO SCH ×2 (08:44→14:03)
[2022-08-28] MEDS: FOLIC ACID 1 MG TAB PO SCH (08:44)
[2022-08-28] MEDS ORDERED: amLODIPine BESYLATE 5 MG TAB PO SCH (09:00)
[2022-08-28] MEDS ORDERED: FERROUS GLUCONATE 324 MG TAB PO SCH (09:00)
[2022-08-28] MEDS: FAMOTIDINE 20 MG TAB PO SCH (14:03)
[2022-08-28] MEDS: CLOPIDOGREL BISULFATE 75 MG TAB PO SCH (14:03)
--- NOTE | 2022-08-28 14:25 | Discharge Summary ---
Date of Service August 28, 2022 Admission HPI Per Admitting Provider This is a 82-year-old male who has significant past medical history of chronic hypoxic respiratory failure on 2.5 L of oxygen at baseline, COPD, CAD with history of angioplasty, PAF, pulmonary hypertension, GERD, BPH, postherpetic neuralgia right upper quadrant and right flank, history of duodenal ulcer who presents to ED secondary to chest pain x1 day. Of significance in 2017 patient presented with acute worsening shortness of breath, EKG changes with atrial flutter RVR and echo revealing a 6 severe left ventricular systolic dysfunction with EF 25%. He underwent coronary angiography which revealed single-vessel CAD and underwent PCI and bare-metal stenting to the circumflex. During that time he also underwent electrophysiology study and had successful tricuspid caval ablation of right-sided atrial flutter. Repeat echocardiogram in August 2018 revealed normalization of his left ventricular ejection fraction 50%. He follows with [facility] cardiology. Patient states last evening his granddaughter and her boyfriend came over for supper and he may be used to. Shortly after they left he complained of feeling dizzy, "off balance," that was pretty persistent. He then went to bed that evening and was unable to sleep due to intermittent left-sided, "chest pain." Patient described this as heartburn although he said he never had heartburn in the past. He pointed to the pain underneath his left rib cage. Pain was off-and-on coming every 15 to 20 minutes and would last seconds to minutes. He described as a, "staying." Nothing made the pain better or worse as it resolved on its own. He last experienced pain at 9:30 AM and has since been pain-free while in the ER. He does have chronic shortness of breath due to his COPD and feels this is at baseline. He did feel nauseated this morning and last night was, "sweating profusely." Due to pain not improving he called daughter. Daughter states he only calls her when things are, "really bad." Symptoms do not feel similar to prior to his last heart attack requiring stent. He denies any recent illness. He does have a chronic productive cough in setting of COPD and describes as purulent in nature. He denies fever, chills, sweats, lighthead edness, syncope, shortness of breath at rest, vomiting, abdominal pain, diarrhea, changes bowel or urinary habits. The only recent changes medication was Lyrica in July due to his postherpetic neuralgia pain. In ED patient was found to be significantly hypertensive with systolic blood pressure greater than 200 and diastolic in the 90s to 100. His EKG revealed normal sinus rhythm with actual improvement in his ST and T segments from previous in 2021. In ED he received albuterol nebulizer treatment as well as 10 mg of IV labetalol. This did cause him to be mildly bradycardic at 56 bpm but did not make much improvement in his blood pressure. Admission Exam Per Admitting Provider Constitutional: Elderly, chronically appearing male, thin, hard of hearing, vitals as above, NAD, sitting up in bed, pleasant, conversing easily Head: Normocephalic, Atraumatic Eyes: PERRL, conjunctivae normal, anicteric sclerae ENMT: external ear and nose normal, oropharynx normal dry membranes Neck: trachea midline, no thyromegaly normal visual inspection Respiratory: 2.5L of O2 chronically, lungs diminished b/l, no w/r/r normal respiratory effort, lungs clear to auscultation. no accessory muscle use Cardiovascular: RRR, no murmur, no edema Vessels: no JVD or carotid bruit Chest: normal inspection of chest Abdomen: normal bowel sounds, soft, nontender, no hepatosplenomegaly , +skin discoloration to RUQ where he has PHN Musculoskeletal: no cyanosis or clubbing, extremities motor strength 5/5 Skin: no rashes, warm and dry moderate turgor Neurologic: PERRL, EOMI, accommodation nl, no face palsy, no dysarthria CN's II-XI intact bilaterally and moves all extremities Psychiatric: A+Ox3, euthymic affect Lymphatic: no cervical or axillary lymphadenopathy : deferred Principal Diagnosis Atypical chest pain Hypertensive urgency Orthostatic hypotension Microcytic anemia Discharge Exam GENERAL: Alert and oriented x3. NAD, on 2L O2 via NC. HEENT: No pallor, no icterus. Pupils equal, round and reactive to light. Oral mucosa moist. NECK: No JVD, no neck masses. HEART: S1 and S2 heard. Regular rate and rhythm. No murmur, no gallop. RESPIRATORY SYSTEM: Normal AP diameter. No accessory muscle use. No wheezing, no crackles. ABDOMEN: Soft, bowel sounds present, nontender, no distention. RUQ paresthesia (h/o shingles) CENTRAL NERVOUS SYSTEM: No facial droop. Speech is clear. Obeys simple commands. Moves extremities. EXTREMITIES: No edema, no erythema seen. Discharge Data Allergies Allergy/AdvReac Type Severity Reaction Status Date / Time No Known Allergies Allergy Unverified 08/25/22 11:29 Consultations 08/25/22 12:46 ED Decision to Admit Stat 08/25/22 13:36 Consult Cardiology Routine Ordered Studies 08/25/22 13:55 CT head/brain wo con Stat Hospital Course (1) Atypical chest pain: (2) Hypertensive urgency: (3) Hx of coronary artery disease: (4) Chronic respiratory failure: (5) COPD (chronic obstructive pulmonary disease): (6) Microcytic anemia: Plan 82-year-old male who has significant past medical history of chronic hypoxic respiratory failure on 2.5 L of oxygen at baseline, COPD, CAD with history of angioplasty, PAF, pulmonary hypertension, GERD, BPH, postherpetic neuralgia right upper quadrant and right flank, history of duodenal ulcer who presents to ED 08/25 secondary to chest pain x1 day. He was managed for the following: Atypical chest pain: Likely secondary to hypertensive urgency. resolved. Hypertensive urgency: Admitting CT head with no acute findings. CAD with history of BMS to circumflex in 2018 Comes in with chest pain, EKG without acute ST or T changes, troponin trends negative. Patient significantly hypertensive at admission. No further chest pain while in the hospital. Continue with home lisinopril, amlodipine has been added - then discontinued as pt had low BP w/ orthostasis after starting this, Pt to measure BP twice a day and maintain a log to take to PCP office for fpc BP Mx - same has been d/w pt at bedside. Metoprolol has been increased to 25 mg twice daily. Cardiology evaluated, appreciate recommendation. PT/OT evaluated, recommendation is discharging home with home health, patient is doing better with regard to baseline strength as per patient, CM communicated to set up home health. Patient hemodynamically stable and feels better and back to his baseline and would like to go home today. Microcytic anemia: Has been a gradual drop over the last several years, admit hemoglobin of 9.1, following day 7.7. MCV microcytic. Iron studies suggestive of iron deficiency, folate low normal and vitamin B12 low. IV iron x 2; c/w folate/cyanocobalamin/iron supplements. LDH and reticulocyte count normal, Constantino test negative. Haptoglobin and peripheral blood smear pending. FOBT negative. Patient to follow-up with PCP for long-term follow-up/management of his microcytic anemia. Chronic respiratory failure on 2 L of oxygen secondary to COPD: No acute exacerbation, Continue twice daily albuterol, Trelegy PAF/A. flutter: hx of ablation, continue metoprolol and eliquis Post Herpetic neuralgia: chronic pain to RUQ/R flank x12 years, recently started lyrica in July, previously on gabapentin w/o relief GERD hx of duodenal ulcer continue PPI, [id number] BPH: continue flomax and finasteride Hypothyroidism: continue levothyroxine DVT ppx: eliquis DNR/DNI PCP: Jayda Patient being discharged home with home health with following instruction at the point of discharge: Follow-up with your primary care physician within 1 week time and likely you will need labs CBC/CMP/magnesium/phosphorus. You had been found with high blood pressure at presentation and hence your blood pressure medication was readjusted initially and then you were found with orthostatic hypotension then newly added amlodipine [while in hospital] was discontinued before discharge. As discussed at the bedside, major blood pressure up to 2 times a day and maintain a log to take to your primary care physician for close monitoring of your blood pressure management. Also maintain slow transition between lying to sitting position and from sitting to standing position to avoid rapid drop in blood pressure and subsequent fall. For your microcytic anemia, you received iron transfusion while in hospital, you will be discharged on iron/folate/vitamin B12 supplements. Follow-up with PCP for monitoring/management of your anemia. Take your medications as prescribed. Home Health Attestation I certify that this patient is under my care and that I, or a physicians back office medical assistant working with me, had a face to-face encounter that meets the home health [id number] encounter requirements with this patient. The encounter with the patient was in whole, or in part, for the following medical condition, which is the primary reason for home health care (list medical condition): hypertensive urgency I certify that, based on my findings, the following services are medically necessary home health services: My clinical findings support the need for the above services because: OT Assess ADL Status and Restore Function w ADLs PT Assessment for Endurance / Balance / Strength PT Eval for Safety and Mobility PT Eval for Safety, Gait Training, Assistive Devices PT Gait and Balance Training, Strengthening and Safety Safety Further, I certify that my clinical findings support that this patient is homebound (i.e. absences from home require considerable and taxing effort and are for medical reasons or buddhist services or infrequently or of short duration when for other reasons) because: Transportation Assistance/Unable to Leave Home Unassisted Certification for Home Health Services: Based on the above findings, I certify that this patient is confined to the home and needs intermittent chcf care, physical therapy and/or speech therapy or continues to need occupational therapy. The patient is under my care, and I have initiated the establishment of the plan of care. This patient will be followed by a physician who will periodically review the plan of care. Total Time Total Time Spent Total Time Spent (In Minutes): 45 Discharge Plan Discharge Items Patient Disposition: Home - Home Health Services Reason For Visit: CHEST PAIN, DIZZY,SHORTNESS OF BREATH Discharge Diagnosis: Atypical chest pain Hypertensive urgency Orthostatic hypotension Microcytic anemia Activity: As commented below Activity Comment: Slow transition between change of position from lying to sitting to standin Non-emergency contact: Primary Care Provider Call non-emergency contact if: you have any medication questions Follow-up/Referrals: Rafa Montelongo MD [Primary Care Provider] - Diet: Heart Healthy Diet Texture: Mechanical soft (ground) Addtl Attending Provider Instructions: Follow-up with your primary care physician within 1 week time and likely you will need labs CBC/CMP/magnesium/phosphorus. You had been found with high blood pressure at presentation and hence your blood pressure medication was readjusted initially and then you were found with orthostatic hypotension then newly added amlodipine [while in hospital] was discontinued before discharge. As discussed at the bedside, major blood pressure up to 2 times a day and maintain a log to take to your primary care physician for close monitoring of your blood pressure management. Also maintain slow transition between lying to sitting position and from sitting to standing position to avoid rapid drop in blood pressure and subsequent fall. For your microcytic anemia, you received iron transfusion while in hospital, you will be discharged on iron/folate/vitamin B12 supplements. Follow-up with PCP for monitoring/management of your anemia. Take your medications as prescribed. Pending Studies at Discharge: Yes Stand-Alone Forms: My [facility], Smoking Cessation Medications and DC Order Prescriptions: New ferrous gluconate 324 mg (38 mg iron) Tablet 324 mg PO QAM Qty: 30 0RF cyanocobalamin (vitamin B-12) 500 mcg Tablet 500 mcg PO QAM Qty: 30 0RF folic acid 1 mg Tablet 1 mg PO QAM Qty: 30 0RF Continued atorvastatin 20 mg tablet 20 mg PO DAILY clopidogrel 75 mg tablet 75 mg PO DAILY@1400 levothyroxine 25 mcg tablet 25 mcg PO DAILY tamsulosin 0.4 mg capsule 0.4 mg PO HS albuterol sulfate 2.5 mg /3 mL (0.083 %) solution for nebulization 2.5 mg inhalation BID pantoprazole 20 mg tablet,delayed release (DR/EC) 20 mg PO DAILY lisinopril [Zestril] 40 mg Tablet 40 mg PO DAILY Qty: 30 1RF Eliquis 2.5 mg Tablet 2.5 mg PO BID Qty: 60 0RF Saline Mist 0.65 % Aerosol,[place] 2 spray NA Q4H PRN (Reason: nasal congestion) Qty: 45 0RF pregabalin 150 mg capsule 150 mg PO TID Trelegy Ellipta 100-62.5-25 mcg blister with device 1 inh INHALATION DAILY potassium chloride [Klor-Con M20] 20 mEq tablet,ER particles/crystals 20 meq PO DAILY famotidine 20 mg Tablet 20 mg PO DAILY@1400 finasteride 5 mg tablet 5 mg PO DAILY Changed metoprolol succinate 25 mg tablet extended release 24 hr 25 mg PO BID Qty: 60 0RF Discharge Orders: Discharge Order (Routine); Ordered 08/28/22 Ordered By: Pato Vela Admission Data Admit Date/Time: 08/27/22 16:49 Attending Provider: Pato Vela Admit Provider: Jerica Caputo Primary Care Provider: Rafa Montelongo Other Providers: Faheem Moffett ; Jerica Caputo ; [place]
== END 2022-08-28 17:02 | disposition home health service (06) | DRG 305 ==
LOC: 2S 10:10 → ED 10:10 → SUATTDRO 13:03 → 2S 13:35

== ENCOUNTER 2023-12-06 20:42 | Inpatient (IN) ==
[2023-12-06 21:56] LABS: Basophils # (auto) 0.01 K/uL (0.00-0.20); Basophils % (auto) 0.2 %; Hematocrit (blood only) 43.8 % (42.0-52.0); Hemoglobin 13.9 g/dl (14.0-18.0); Immature Granulocytes # (auto) 0.02 K/uL (0.01-0.20); Immature Granulocytes % (auto) 0.4 %; Lymphocytes # (auto) 0.52 K/uL (1.20-3.40); Lymphocytes % (auto) 11.4 %; Mean Corpuscular Hemoglobin 29.3 pg (25.0-34.0); Mean Corpuscular Hgb Conc 31.7 g/dL (32.0-36.0); Mean Corpuscular Volume 92.4 fL (80.0-100.0); Monocytes # (auto) 0.62 K/uL (0.11-0.59); Monocytes % (auto) 13.6 %; Neutrophils # (auto) 3.38 K/uL (1.40-6.50); Neutrophils % (auto) 74.4 %; Platelet Count 102 K/uL (130-400); RDW Coefficient of Variation 14.6 % (11.5-14.5); RDW Standard Deviation 49.9 fL (36.4-46.3); Red Blood Count 4.74 M/uL (4.70-6.10); White Blood Count 4.55 K/ul (4.8-10.8)
[2023-12-06 21:58] LABS: INR 1.1 (0.9-1.1); Partial Thromboplastin Ratio 1.2; Partial Thromboplastin Time 32 Seconds (21-31); Prothrombin Time 11.7 Seconds (9.0-12.0)
[2023-12-06 22:18] LABS: Alanine Aminotransferase 8 U/L (7-52); Albumin Globulin Ratio 1.3 (0.9-2); Alkaline Phosphatase 114 U/L (34-104); Anion Gap 9 (3-11); Aspartate Aminotransferase 24 U/L (13-39); BUN Creatinine Ratio 17.9 (10-20); Bilirubin,Total 1.2 mg/dl (0.2-1.0); Blood Urea Nitrogen 19 mg/dl (6-23); Calcium 8.2 mg/dl (8.6-10.3); Carbon Dioxide 26 mmol/L (21-32); Chloride 100 mmol/L (98-107); Est GFR (African American) 74.9 ml/min; Est GFR (Non-African American) 64.6 ml/min; Globulin 3.1 gm/dl (2.5-4.0); Glucose 187 mg/dl (70-99(Fasting)); Magnesium 1.9 mg/dl (1.7-2.4); Potassium 4.3 mmol/L (3.5-5.1); Sodium 135 mmol/L (136-145); Total Protein 7.1 gm/dl (6.0-8.3)
[2023-12-06] MEDS: ALBUT/IPRATROP 3MG/0.5MG NEB 3 ML VIAL NEB STA (22:21)
[2023-12-06] MEDS: methylPREDNISolone 125 MG/2 ML VIAL IV STA (22:21)
[2023-12-06 22:29] LABS: Troponin I High Sensitivity 56.7 pg/ml (0-20)
[2023-12-06 22:33] LABS: Thyroid Stimulating Hormone 3.447 uIu/ml (0.300-4.500)
[2023-12-07] MEDS: OPTIRAY 320 125ml IV ONE (00:09)
--- NOTE | 2023-12-07 00:40 | Emergency Department Note ---
History of Present Illness General Chief complaint: Weakness Stated complaint: WEAKNESS Time Seen by Provider: 12/06/23 21:41 History of Present Illness This 83-year-old gentleman with COPD chronically on oxygen presents to the ER complaining of shortness of breath for the past few weeks steadily getting worse. Patient states he had a brief episode of chest pain earlier today and the past several days but nothing prolonged or exertional. Patient denies fever, chills, abdominal pain, leg pain or swelling, flulike illness. Home Medications Medication Instructions Recorded Confirmed Type albuterol sulfate 2.5 mg/3 mL 2.5 mg inhalation Q4H PRN 02/26/19 12/06/23 History (0.083 %) solution for nebulization Shortness Of Breath Or Wheezing atorvastatin 20 mg tablet 20 mg PO DAILY 02/26/19 12/06/23 History clopidogrel 75 mg tablet 75 mg PO QAM 02/26/19 12/06/23 History levothyroxine 25 mcg tablet 25 mcg PO DAILY 02/26/19 12/06/23 History pantoprazole 20 mg tablet,delayed 20 mg PO DAILY 02/26/19 12/06/23 History release tamsulosin 0.4 mg capsule 0.4 mg PO QAM 02/26/19 12/06/23 History lisinopril 40 mg tablet (Zestril) 40 mg PO DAILY #30 tabs 03/03/19 12/06/23 Rx apixaban 2.5 mg tablet (Eliquis) 2.5 mg PO BID #60 tabs 12/30/21 12/06/23 Rx sodium chloride 0.65 % nasal spray 2 spray NA Q4H PRN nasal 12/30/21 12/06/23 Rx aerosol (Saline Mist) congestion #45 mL famotidine 20 mg tablet 20 mg PO HS 08/25/22 12/06/23 History finasteride 5 mg tablet 5 mg PO DAILY 08/25/22 12/06/23 History fluticasone fur. 100 mcg-umeclid 1 inh inhalation DAILY 08/25/22 12/06/23 History 62.5 mcg-vilant 25 mcg inhalat.powder (Trelegy Ellipta) potassium chloride 20 mEq 20 meq PO DAILY 08/25/22 12/06/23 History tablet,extended release(part/cryst) (Klor-Con M) pregabalin 150 mg capsule 150 mg PO TID 08/25/22 12/06/23 History cyanocobalamin (vitamin B-12) 500 500 mcg PO QAM #30 tabs 08/28/22 12/06/23 Rx mcg tablet ferrous gluconate 324 mg (38 mg 324 mg PO QAM #30 tabs 08/28/22 12/06/23 Rx iron) tablet folic acid 1 mg tablet 1 mg PO QAM #30 tabs 08/28/22 12/06/23 Rx metoprolol succinate 25 mg 25 mg PO BID #60 tabs 08/28/22 12/06/23 Rx tablet,extended release 24 hr acetaminophen 500 mg tablet 1,000 mg PO Q8H PRN Pain 12/06/23 12/06/23 History (Tylenol Extra Strength) albuterol sulfate 90 mcg/actuation 2 puff inhalation Q4H PRN 12/06/23 12/06/23 History aerosol inhaler Shortness Of Breath Or Wheezing silver sulfadiazine 1 % topical 1 applic topical DAILY 12/06/23 12/06/23 History cream Allergies Allergy/AdvReac Type Severity Reaction Status Date / Time No Known Allergies Allergy Verified 12/06/23 23:16 Past Med/Surg History Problem List (Updated 12/07/23 @ 00:40 by Yesika Hicks PA-C) Acute exacerbation of chronic obstructive pulmonary disease (Acute) Atypical chest pain (Acute) Hypertensive urgency (Acute) Hx of coronary artery disease (Acute) Nasal septal perforation Acute anterior epistaxis (Acute) Symptomatic anemia (Acute) Hypocalcemia (Acute) Symptomatic anemia Chronic respiratory failure Microcytic anemia Bleeding nose Anemia DVT prophylaxis COPD exacerbation Sepsis (Acute) COPD (chronic obstructive pulmonary disease) (Acute) Tachycardia induced cardiomyopathy Atrial flutter Hypophosphatemia History of radiofrequency ablation procedure for cardiac arrhythmia History of cardiac cath CAD (coronary artery disease) BPH (benign prostatic hyperplasia) Hypothyroidism GERD (gastroesophageal reflux disease) Chronic respiratory failure with hypoxia Multifocal pneumonia (Acute) Elevated troponin (Acute) A-fib COPD (chronic obstructive pulmonary disease) (Chronic) HTN (hypertension) (Chronic) CHF (congestive heart failure) (Chronic) Medical History History of upper gastrointestinal bleeding Diastolic dysfunction Surgical History S/P angioplasty with stent Family History Other Hypertension Social History Smoking Status: Former smoker Tobacco Type: Cigarettes Second Hand Exposure: No; Do You Dip or Chew Tobacco: No; Hx Alcohol Use: No Hx Substance Use: No Preferred Language: Georgian Communication Ability: Effective Dobby Looms Pegger Required: No Beliefs That Will Affect Care: None marital status: / Current Living Situation: Alone current occupational status: retired Feels Safe at Home: Yes Assistive Devices: Oxygen - Continuous and Wheelchair Review of Systems A total of 10 systems reviewed and were otherwise negative Physical Exam Vital Signs Vital Signs - 24 hr 12/06/23 20:46 12/06/23 21:50 12/06/23 22:00 Temperature 36.8 C Temperature Source Temporal Artery Scan Pulse Rate 116 H 110 H Pulse Rate [Finger] 79 Respiratory Rate 22 18 Blood Pressure 137/75 Blood Pressure [Right Arm] 163/96 H Blood Pressure Mean 95 Blood Pressure Mean [Right Arm] 118 Pulse Oximetry 96 98 Oxygen Delivery Method Nasal Cannula Room Air Oxygen Flow Rate 3 Sepsis Recent Fever Within 48 Hours No Sepsis New/Unexplained Change in Mental Status No Sepsis Action Taken by Nursing No Action Required VITALS: Vitals are noted on the nurse's note and reviewed by myself. Vital signs stable. GENERAL: Pleasant elderly male on oxygen with family present, in no acute distress, nondiaphoretic, well-developed well-nourished. SKIN: Capillary reflex less than 2 seconds. HEENT: Normocephalic. PERRLA. EOMI. Nares patent. Mucous membranes moist. Neck is supple without nuchal rigidity. HEART: Regular rate and rhythm LUNGS: Diffuse inspiratory and end expiratory wheezes, No retractions or accessory muscle use. ABDOMEN: Positive bowel sounds x 4. Normal tympanic percussion. Soft, nontender, without masses or organomegaly. Ferreira sign negative. No guarding or rebound tenderness. no CVA tenderness MUSCULOSKELETAL: No gross musculoskeletal defects. NEURO: Patient was alert and oriented to person place and time. No focal neurological deficits. Course Administered Medications Discontinued Medications Albuterol (Albut/Ipratrop 3mg/0.5mg Neb 3 Ml Vial) 3 ml NEB NOW STA; Protocol Stop: 12/06/23 21:58 Last Admin: 12/06/23 22:21 Dose: 3 ml Documented By: VALARIE Ioversol (Optiray 320 125ml) 125 ml IV ONCE ONE Stop: 12/07/23 00:09 Last Admin: 12/07/23 00:09 Dose: 118 ml Documented By: TOR Methylprednisolone (Methylprednisolone 125 Mg/2 Ml Vial) 125 mg IV NOW STA Stop: 12/06/23 21:58 Last Admin: 12/06/23 22:21 Dose: 125 mg Documented By: VALARIE Medical Decision Making Medical Records Attestation: I reviewed the patient's medical records. Home Medications Current Medication List: was personally reviewed by me Laboratory Data Attestation: I reviewed the patient's lab results. 12/06/23 21:35 12/06/23 21:35 Lab Results 12/06/23 12/06/23 Range/Units 21:35 23:30 WBC 4.55 L (4.8-10.8) K/ul RBC 4.74 (4.70-6.10) M/uL Hgb 13.9 L (14.0-18.0) g/dl Hct 43.8 (42.0-52.0) % MCV 92.4 (80.0-100.0) fL MCH 29.3 (25.0-34.0) pg MCHC 31.7 L (32.0-36.0) g/dL RDW Std Deviation 49.9 H (36.4-46.3) fL RDW Coeff of Tracey 14.6 H (11.5-14.5) % Plt Count 102 L (130-400) K/uL MPV 11.0 (9.4-12.4) fL Immature Gran % (Auto) 0.4 % Neut % (Auto) 74.4 % Lymph % (Auto) 11.4 % Major % (Auto) 13.6 % Eos % (Auto) 0.0 % Baso % (Auto) 0.2 % Neut # (Auto) 3.38 (1.40-6.50) K/uL Lymph # (Auto) 0.52 L (1.20-3.40) K/uL Major # (Auto) 0.62 H (0.11-0.59) K/uL Eos # (Auto) 0.00 (0.00-0.50) K/uL Baso # (Auto) 0.01 (0.00-0.20) K/uL Immature Gran # (Auto) 0.02 (0.01-0.20) K/uL PT 11.7 (9.0-12.0) Seconds INR 1.1 (0.9-1.1) APTT 32 H (21-31) Seconds PTT Ratio 1.2 Sodium 135 L (136-145) mmol/L Potassium 4.3 (3.5-5.1) mmol/L Chloride 100 (98-107) mmol/L Carbon Dioxide 26 (21-32) mmol/L Anion Gap 9 (3-11) BUN 19 (6-23) mg/dl Creatinine 1.06 (0.6-1.4) mg/dl Est Cr Clr Drug Dosing Not Reportable Est GFR ( Amer) 74.9 ml/min Est GFR (Non-Af Amer) 64.6 ml/min BUN/Creatinine Ratio 17.9 (10-20) Glucose 187 H (70-99(Fasting)) mg/dl Calcium 8.2 L (8.6-10.3) mg/dl Magnesium 1.9 (1.7-2.4) mg/dl Total Bilirubin 1.2 H (0.2-1.0) mg/dl AST 24 (13-39) U/L ALT 8 (7-52) U/L Alkaline Phosphatase 114 H (34-104) U/L Troponin I High Sens 56.7 H* 57.5 H* (0-20) pg/ml Total Protein 7.1 (6.0-8.3) gm/dl Albumin 4.0 (3.4-5.0) gm/dl Globulin 3.1 (2.5-4.0) gm/dl Albumin/Globulin Ratio 1.3 (0.9-2) TSH 3.447 (0.300-4.500) uIu/ml Imaging Data Attestation: I personally reviewed and interpreted this imaging study as follows: Radiologist's Impression: Chest CTA 12/06/23 22:52 Exam(s): CTA CHEST IV Amt: 118 ML OPTIRAY 320 EXAM: CT Angiography Chest With Intravenous Contrast CLINICAL HISTORY: Reason for exam: PE. TECHNIQUE: Axial computed tomographic angiography images of the chest with intravenous contrast. CTDI is 19 mGy and DLP is 368.84 mGy-cm. Automated exposure control was utilized for the study. A dose lowering technique was utilized adhering to the principles of ALARA. MIP reconstructed images were created and reviewed. COMPARISON: No relevant prior studies available. FINDINGS: Pulmonary arteries: No acute pulmonary embolism. Aorta: No acute findings. No thoracic aortic aneurysm. Lungs: Severe centrilobular emphysema. When he has had segmental scarring at the lung apices. Atelectasis at the lung bases. No mass. Pleural space: Unremarkable. No significant effusion. No pneumothorax. Heart: Unremarkable. No cardiomegaly. No significant pericardial effusion. No evidence of RV dysfunction. Bones/joints: No acute fracture. No dislocation. Soft tissues: Unremarkable. Lymph nodes: Unremarkable. No enlarged lymph nodes. IMPRESSION: Severe centrilobular emphysema. When he has had segmental scarring at the lung apices. Atelectasis at the lung bases. Electronically signed by: Mihir Shaffer MD 12/07/23 01:17 AM [facility] Narrative Prior records/ancillary studies reviewed. Triage Nursing notes reviewed. Additional history obtained from the family. The patient's history was concerning for respiratory difficulties. Differential diagnosis: Etiologies such as infections, reactive airway disease, pneumonia, pneumothorax, COPD, CHF, cardiac ischemia, pulmonary embolism, musculoskeletal, gastrointestinal, as well as others were entertained. Physical examination: As above. ER treatment provided: An order was placed for continuous cardiac monitoring. The monitor shows a rate of 60-100 with a sinus rhythm per my interpretation. Nebulizer, Solu-Medrol On reassessment the patient felt better. Diagnostic interpretation by me: The electrocardiogram was ordered for SOB. ECG: Normal sinus, normal intervals, poor baseline, ST depression in the lateral leads, rate of 85. EKG compared to prior EKG with worsening ST depression in the lateral leads independently interpreted by myself EKG #2 ordered for elevated troponin EKG: Poor baseline, normal sinus, ST depression in the inferior leads, minimal ST elevation in aVR, rate of 84. Impression normal sinus rhythm with new ST depression in the inferior leads independently interpreted by myself EKG #3 ordered for dyspnea EKG: Normal sinus, persistent ST depression in the inferior leads, poor baseline, rate of 94. Impression ST depression inferior leads independently interpreted by myself similar to prior and patient has no chest pain The labs Independently Interpreted by myself revealed elevated troponin and repeat is the same Imaging studies: Chest x-ray with no acute consolidation, pneumothorax or free air per my independent interpretation HEART SCORE: Hx: high/mod/low suspicion: 1 ECG: ST depression/nonspecific changes/normal: 1 Age: Greater than 65/45-64/less than 45: 2 Risk factors: (Hypertension, hyperlipidemia, diabetes, coronary disease, tobacco use, cocaine use): 2 Troponin: Greater than 2 times normal limits/1-2 times normal limits/normal: 2 Total: 8 Consultation: A consultation was placed with the hospitalist. The case was discussed and diagnostics were reviewed. The patient was evaluated in the ER for further treatment. He does not want to start heparin as the patient is already on Eliquis This appears to be consistent with COPD exacerbation with minimally elevated troponin and repeat is the same. Patient has had no chest pain for the past several hours. He had a brief episode earlier but nothing exertional. Patient was feeling better after the nebulizer and steroids. His lungs are reassessed and improved. He is agreeable to treatment plan of admission. Medicine does not want to start heparin and I felt this is reasonable as he is on Eliquis. Patient was admitted to the medical service for further evaluation and workup. By the evaluation outlined above emergent etiologies such as CHF, pulmonary embolism, pneumonia, pneumothorax, musculoskeletal, serious bacterial infections, as well as others were deemed relatively unlikely. The pt informed about the findings as listed above. All questions were answered and pleased with the treatment. The chart was completed utilizing [employer] Speech voice recognition software. Grammatical errors, random word insertions, pronoun errors, and incomplete sentences are an occassional consequence of this system due to software limitations, ambient noise, and hardware issues. Any formal questions or concerns about the content, text, or information contained within the body of this dictation should be directly addressed to the physician animal care assistant for clarification. Impression & Plan Acute exacerbation of chronic obstructive pulmonary disease Discharge Plan Visit Data Chief Complaint: Weakness Stated Complaint: WEAKNESS ED Provider: Javi Marie ED Midlevel Provider: Yesika Hicks Discharge Problem: Acute exacerbation of chronic obstructive pulmonary disease Patient Disposition: Admitted As Inpatient Condition: Fair Discharge Instructions Interventions: ED Discharge Assessment Last Done: 12/07/23 01:29
--- NOTE | 2023-12-07 01:18 | CT Scan Report ---
Exam(s): CTA CHEST IV Amt: 118 ML OPTIRAY 320 EXAM: CT Angiography Chest With Intravenous Contrast CLINICAL HISTORY: Reason for exam: PE. TECHNIQUE: Axial computed tomographic angiography images of the chest with intravenous contrast. CTDI is 19 mGy and DLP is 368.84 mGy-cm. Automated exposure control was utilized for the study. A dose lowering technique was utilized adhering to the principles of ALARA. MIP reconstructed images were created and reviewed. COMPARISON: No relevant prior studies available. FINDINGS: Pulmonary arteries: No acute pulmonary embolism. Aorta: No acute findings. No thoracic aortic aneurysm. Lungs: Severe centrilobular emphysema. When he has had segmental scarring at the lung apices. Atelectasis at the lung bases. No mass. Pleural space: Unremarkable. No significant effusion. No pneumothorax. Heart: Unremarkable. No cardiomegaly. No significant pericardial effusion. No evidence of RV dysfunction. Bones/joints: No acute fracture. No dislocation. Soft tissues: Unremarkable. Lymph nodes: Unremarkable. No enlarged lymph nodes. IMPRESSION: Severe centrilobular emphysema. When he has had segmental scarring at the lung apices. Atelectasis at the lung bases. Electronically signed by: Mihir Shaffer MD 12/07/23 01:17 AM
[2023-12-07] MEDS ORDERED: ALBUTEROL HFA 8 GM INHALER INH PRN (01:29)
[2023-12-07] MEDS ORDERED: ACETAMINOPHEN 325 MG TAB PO PRN (01:29)
[2023-12-07] MEDS ORDERED: NITROGLYCERIN SL 0.4 MG/TAB TAB SL PRN (01:29)
[2023-12-07] MEDS ORDERED: ALBUT/IPRATROP 3MG/0.5MG NEB 3 ML VIAL NEB PRN (01:29)
[2023-12-07] MEDS ORDERED: SODIUM CHLORIDE 0.65% NA SOLN 45 ML (OCEAN) PRN (01:29)
[2023-12-07] MEDS: DOXYCYCLINE HYCLATE 100 MG CAP PO STA (03:05)
[2023-12-07] MEDS: Patient's HEIGHT &/or WEIGHT Needed STA (03:06)
--- NOTE | 2023-12-07 04:41 | History & Physical Report ---
Date of Service December 06, 2023 Assessment & Plan (1) Acute exacerbation of chronic obstructive pulmonary disease: Plan: 83-year-old male with past medical history significant for chronic respiratory failure with hypoxia on 2.5 L oxygen at home, COPD, hypothyroidism, history of atrial flutter/atrial fibrillation, history of CAD s/p stent, history of chronic systolic and diastolic CHF, pulmonary hypertension, orthostatic hypotension, protein calorie malnutrition, GERD, BPH, postherpetic neuralgia, history of tobacco use, history of radiofrequency ablation procedure for cardiac dysrhythmia, history of duodenal ulcer who lives at home is brought in by grand children as patient having shortness of breath and cough and weakness. Patient having cough bringing phlegm last few days. And short of breath with minimal exertion. Supposed to ambulate with walker but not using it as per granddaughter's. No fevers. Earlier had chest pain but currently no chest pain. Currently no headache. Feeling dizzy when he stands up. Seems to losing his balance while ambulating. No blurry vision. No runny nose or sore throat. Appetite is not great. No difficulty swallowing. No nausea. No abdominal pain. Somewhat constipated. Normal bladder movements. Hemodynamics okay. Acute COPD exacerbation History of chronic respiratory failure with home oxygen Presents with shortness of breath and cough CTA chest no PE Received Solu-Medrol and nebs in the ER Will continue with IV Solu-Medrol 40 mg twice daily and DuoNebs ATC and as needed and p.o. doxycycline Close monitor Episode of chest pain EKG changes Troponin 56 and repeat is 57 Currently chest pain-free Will follow serial enzymes and echo Consult cardiology in a.m. for further recommendations History of CAD status post stent Statin, Plavix, Eliquis and metoprolol succinate History of a flutter/atrial fibrillation On metoprolol and Eliquis History of systolic and diastolic CHF EF 60 to 65% and grade 1 diastolic dysfunction on echo done in 08/25/2022 Will follow repeat echo Will monitor for volume overload. Hypertension On lisinopril, metoprolol succinate Will monitor Hyperlipidemia On statin Hypothyroidism On Synthyroid TSH is okay BPH On Flomax and finasteride GERD On Protonix and Pepcid Protein calorie malnutrition Dietitian consult when stable Ambulatory dysfunction PT OT when stable DVT prophylaxis On Eliquis Disposition Telemetry Full code. History of Present Illness Chief Complaint: Shortness of breath and cough Primary Care Provider: Rafa Montelongo MD 83-year-old male with past medical history significant for chronic respiratory failure with hypoxia on 2.5 L oxygen at home, COPD, hypothyroidism, history of atrial flutter/atrial fibrillation, history of CAD s/p stent, history of chronic systolic and diastolic CHF, pulmonary hypertension, orthostatic hypotension, protein calorie malnutrition, GERD, BPH, postherpetic neuralgia, history of tobacco use, history of radiofrequency ablation procedure for cardiac dysrhythmia, history of duodenal ulcer who lives at home is brought in by mili taylor as patient having shortness of breath and cough and weakness. Patient having cough bringing phlegm last few days. And short of breath with minimal exertion. Supposed to ambulate with walker but not using it as per granddaughter's. No fevers. Earlier had chest pain but currently no chest pain. Currently no headache. Feeling dizzy when he stands up. Seems to losing his balance while ambulating. No blurry vision. No runny nose or sore throat. Appetite is not great. No difficulty swallowing. No nausea. No abdominal pain. Somewhat constipated. Normal bladder movements. Hemodynamics okay. Past medical history. As mentioned above Past surgical history. EGD. Cardiac stent. Social history. . Lives alone. Quit smoking 2001. Smoked 3 packs a day for 50 years. No drug use. No alcohol use. Family history. No family history on file Allergies Allergy/AdvReac Type Severity Reaction Status Date / Time No Known Allergies Allergy Verified 12/06/23 23:16 Home Medications Medication Instructions Recorded Confirmed Type albuterol sulfate 2.5 mg/3 mL 2.5 mg inhalation Q4H PRN 02/26/19 12/06/23 History (0.083 %) solution for nebulization Shortness Of Breath Or Wheezing atorvastatin 20 mg tablet 20 mg PO DAILY 02/26/19 12/06/23 History clopidogrel 75 mg tablet 75 mg PO QAM 02/26/19 12/06/23 History levothyroxine 25 mcg tablet 25 mcg PO DAILY 02/26/19 12/06/23 History pantoprazole 20 mg tablet,delayed 20 mg PO DAILY 02/26/19 12/06/23 History release tamsulosin 0.4 mg capsule 0.4 mg PO QAM 02/26/19 12/06/23 History lisinopril 40 mg tablet (Zestril) 40 mg PO DAILY #30 tabs 03/03/19 12/06/23 Rx apixaban 2.5 mg tablet (Eliquis) 2.5 mg PO BID #60 tabs 12/30/21 12/06/23 Rx sodium chloride 0.65 % nasal spray 2 spray NA Q4H PRN nasal 12/30/21 12/06/23 Rx aerosol (Saline Mist) congestion #45 mL famotidine 20 mg tablet 20 mg PO HS 08/25/22 12/06/23 History finasteride 5 mg tablet 5 mg PO DAILY 08/25/22 12/06/23 History fluticasone fur. 100 mcg-umeclid 1 inh inhalation DAILY 08/25/22 12/06/23 History 62.5 mcg-vilant 25 mcg inhalat.powder (Trelegy Ellipta) potassium chloride 20 mEq 20 meq PO DAILY 08/25/22 12/06/23 History tablet,extended release(part/cryst) (Klor-Con M) pregabalin 150 mg capsule 150 mg PO TID 08/25/22 12/06/23 History cyanocobalamin (vitamin B-12) 500 500 mcg PO QAM #30 tabs 08/28/22 12/06/23 Rx mcg tablet ferrous gluconate 324 mg (38 mg 324 mg PO QAM #30 tabs 08/28/22 12/06/23 Rx iron) tablet folic acid 1 mg tablet 1 mg PO QAM #30 tabs 08/28/22 12/06/23 Rx metoprolol succinate 25 mg 25 mg PO BID #60 tabs 08/28/22 12/06/23 Rx tablet,extended release 24 hr acetaminophen 500 mg tablet 1,000 mg PO Q8H PRN Pain 12/06/23 12/06/23 History (Tylenol Extra Strength) albuterol sulfate 90 mcg/actuation 2 puff inhalation Q4H PRN 12/06/23 12/06/23 History aerosol inhaler Shortness Of Breath Or Wheezing silver sulfadiazine 1 % topical 1 applic topical DAILY 12/06/23 12/06/23 History cream Past Med/Surg History Problem List (Updated 12/07/23 @ 00:40 by Yesika Hicks PA-C) Acute exacerbation of chronic obstructive pulmonary disease (Acute) Atypical chest pain (Acute) Hypertensive urgency (Acute) Hx of coronary artery disease (Acute) Nasal septal perforation Acute anterior epistaxis (Acute) Symptomatic anemia (Acute) Hypocalcemia (Acute) Symptomatic anemia Chronic respiratory failure Microcytic anemia Bleeding nose Anemia DVT prophylaxis COPD exacerbation Sepsis (Acute) COPD (chronic obstructive pulmonary disease) (Acute) Tachycardia induced cardiomyopathy Atrial flutter Hypophosphatemia History of radiofrequency ablation procedure for cardiac arrhythmia History of cardiac cath CAD (coronary artery disease) BPH (benign prostatic hyperplasia) Hypothyroidism GERD (gastroesophageal reflux disease) Chronic respiratory failure with hypoxia Multifocal pneumonia (Acute) Elevated troponin (Acute) A-fib COPD (chronic obstructive pulmonary disease) (Chronic) HTN (hypertension) (Chronic) CHF (congestive heart failure) (Chronic) Medical History History of upper gastrointestinal bleeding Diastolic dysfunction Surgical History S/P angioplasty with stent Family History Other Hypertension Social History Smoking Status: Never smoker Tobacco Type: Cigarettes Second Hand Exposure: No; Do You Dip or Chew Tobacco: No; Hx Alcohol Use: No Hx Substance Use: No Preferred Language: Pakistani Communication Ability: Effective Backup Administrative Coordinator Required: No Beliefs That Will Affect Care: None marital status: / Current Living Situation: Alone current occupational status: retired Feels Safe at Home: Yes Assistive Devices: Oxygen - Continuous Review of Systems Review of Systems: All systems reviewed & are unremarkable except as noted in HPI & below Physical Exam Physical Exam: General- Not in distress Head- atraumatic Eyes- PERRL. ENT- oropharynx clear Neck- supple, no JVD. Resp: Bilateral diminished breath sounds, Mild rhonchi, no wheezing Heart- regular rhythm; no murmur, no gallop. Abdomen- normal bowel sounds, soft, nontender, no distension Extremities- no pretibial edema, no erythema seen Neuro- alert, oriented PERRL, no facial palsy; no dysarthria; moves extrem ities. Results & Data Results & Data Vital Signs (Past 12 Hours) Vital Signs Temp Pulse Pulse Resp BP BP Pulse Ox 12/06/23 22:00 79 18 163/96 H 98 12/06/23 21:50 110 H 12/06/23 20:46 36.8 C 116 H 22 137/75 96 O2 Del Method O2 Flow Rate 12/06/23 22:00 Room Air 12/06/23 21:50 12/06/23 20:46 Nasal Cannula 3 Diagnostic Findings Laboratory Results WBC 4.55 K/ul (4.8-10.8) L 12/06/23 21:35 RBC 4.74 M/uL (4.70-6.10) 12/06/23 21:35 Hgb 13.9 g/dl (14.0-18.0) L 12/06/23 21:35 Hct 43.8 % (42.0-52.0) 12/06/23 21:35 MCV 92.4 fL (80.0-100.0) 12/06/23 21:35 MCH 29.3 pg (25.0-34.0) 12/06/23 21:35 MCHC 31.7 g/dL (32.0-36.0) L 12/06/23 21:35 RDW Std Deviation 49.9 fL (36.4-46.3) H 12/06/23 21:35 RDW Coeff of Tracey 14.6 % (11.5-14.5) H 12/06/23 21:35 Plt Count 102 K/uL (130-400) L 12/06/23 21:35 MPV 11.0 fL (9.4-12.4) 12/06/23 21:35 Immature Gran % (Auto) 0.4 % 12/06/23 21:35 Neut % (Auto) 74.4 % 12/06/23 21:35 Lymph % (Auto) 11.4 % 12/06/23 21:35 Kerr % (Auto) 13.6 % 12/06/23 21:35 Eos % (Auto) 0.0 % 12/06/23 21:35 Baso % (Auto) 0.2 % 12/06/23 21:35 Neut # (Auto) 3.38 K/uL (1.40-6.50) 12/06/23 21:35 Lymph # (Auto) 0.52 K/uL (1.20-3.40) L 12/06/23 21:35 Kerr # (Auto) 0.62 K/uL (0.11-0.59) H 12/06/23 21:35 Eos # (Auto) 0.00 K/uL (0.00-0.50) 12/06/23 21:35 Baso # (Auto) 0.01 K/uL (0.00-0.20) 12/06/23 21:35 Immature Gran # (Auto) 0.02 K/uL (0.01-0.20) 12/06/23 21:35 PT 11.7 Seconds (9.0-12.0) 12/06/23 21:35 INR 1.1 (0.9-1.1) 12/06/23 21:35 APTT 32 Seconds (21-31) H 12/06/23 21:35 PTT Ratio 1.2 12/06/23 21:35 Sodium 135 mmol/L (136-145) L 12/06/23 21:35 Potassium 4.3 mmol/L (3.5-5.1) 12/06/23 21:35 Chloride 100 mmol/L (98-107) 12/06/23 21:35 Carbon Dioxide 26 mmol/L (21-32) 12/06/23 21:35 Anion Gap 9 (3-11) 12/06/23 21:35 BUN 19 mg/dl (6-23) 12/06/23 21:35 Creatinine 1.06 mg/dl (0.6-1.4) 12/06/23 21:35 Est Cr Clr Drug Dosing Not Reportable 12/06/23 21:35 Est GFR ( Amer) 74.9 ml/min 12/06/23 21:35 Est GFR (Non-Af Amer) 64.6 ml/min 12/06/23 21:35 BUN/Creatinine Ratio 17.9 (10-20) 12/06/23 21:35 Glucose 187 mg/dl (70-99(Fasting)) H 12/06/23 21:35 Calcium 8.2 mg/dl (8.6-10.3) L 12/06/23 21:35 Magnesium 1.9 mg/dl (1.7-2.4) 12/06/23 21:35 Total Bilirubin 1.2 mg/dl (0.2-1.0) H 12/06/23 21:35 AST 24 U/L (13-39) 12/06/23 21:35 ALT 8 U/L (7-52) 12/06/23 21:35 Alkaline Phosphatase 114 U/L (34-104) H 12/06/23 21:35 Troponin I High Sens 57.5 pg/ml (0-20) H* 12/06/23 23:30 Total Protein 7.1 gm/dl (6.0-8.3) 12/06/23 21:35 Albumin 4.0 gm/dl (3.4-5.0) 12/06/23 21:35 Globulin 3.1 gm/dl (2.5-4.0) 12/06/23 21:35 Albumin/Globulin Ratio 1.3 (0.9-2) 12/06/23 21:35 TSH 3.447 uIu/ml (0.300-4.500) 12/06/23 21:35 Impressions Chest CTA 12/06/23 22:52 Exam(s): CTA CHEST IV Amt: 118 ML OPTIRAY 320 EXAM: CT Angiography Chest With Intravenous Contrast CLINICAL HISTORY: Reason for exam: PE. TECHNIQUE: Axial computed tomographic angiography images of the chest with intravenous contrast. CTDI is 19 mGy and DLP is 368.84 mGy-cm. Automated exposure control was utilized for the study. A dose lowering technique was utilized adhering to the principles of ALARA. MIP reconstructed images were created and reviewed. COMPARISON: No relevant prior studies available. FINDINGS: Pulmonary arteries: No acute pulmonary embolism. Aorta: No acute findings. No thoracic aortic aneurysm. Lungs: Severe centrilobular emphysema. When he has had segmental scarring at the lung apices. Atelectasis at the lung bases. No mass. Pleural space: Unremarkable. No significant effusion. No pneumothorax. Heart: Unremarkable. No cardiomegaly. No significant pericardial effusion. No evidence of RV dysfunction. Bones/joints: No acute fracture. No dislocation. Soft tissues: Unremarkable. Lymph nodes: Unremarkable. No enlarged lymph nodes. IMPRESSION: Severe centrilobular emphysema. When he has had segmental scarring at the lung apices. Atelectasis at the lung bases. Electronically signed by: Mihir Shaffer MD 12/07/23 01:17 AM ECG Additional Comments: ECG. Sinus rhythm with first-degree AV block at rate of 94. ST depressions in inferior and lateral leads. Code Status & VTE Plan VTE Prophylaxis Plan VTE Prophylaxis will be ordered: Yes
[2023-12-07 05:36] LABS: BUN Creatinine Ratio 19.1 (10-20); Calcium 7.9 mg/dl (8.6-10.3); Creatinine Clr Calc Pharmacy 45.8 ml/min; Est GFR (African American) 91.6 ml/min; Est GFR (Non-African American) 79.1 ml/min; Potassium 4.1 mmol/L (3.5-5.1)
[2023-12-07 05:55] LABS: Hematocrit (blood only) 40.6 % (42.0-52.0); Hemoglobin 13.1 g/dl (14.0-18.0); Immature Granulocytes # (auto) 0.01 K/uL (0.01-0.20); Immature Granulocytes % (auto) 0.4 %; Lymphocytes # (auto) 0.29 K/uL (1.20-3.40); Lymphocytes % (auto) 12.7 %; Mean Corpuscular Hemoglobin 29.6 pg (25.0-34.0); Mean Corpuscular Hgb Conc 32.3 g/dL (32.0-36.0); Mean Corpuscular Volume 91.6 fL (80.0-100.0); Mean Platelet Volume 10.1 fL (9.4-12.4); Monocytes % (auto) 4.4 %; Neutrophils # (auto) 1.88 K/uL (1.40-6.50); Neutrophils % (auto) 82.5 %; Platelet Count 85 K/uL (130-400); RDW Coefficient of Variation 14.8 % (11.5-14.5); RDW Standard Deviation 50.2 fL (36.4-46.3); Red Blood Count 4.43 M/uL (4.70-6.10); White Blood Count 2.28 K/ul (4.8-10.8)
[2023-12-07 05:59] LABS: Troponin I High Sensitivity 52.4 pg/ml (0-20)
[2023-12-07] MEDS: LEVOTHYROXINE SODIUM 25 MCG TABLET PO SCH (06:02)
[2023-12-07] MEDS: ALBUT/IPRATROP 3MG/0.5MG NEB 3 ML VIAL NEB SCH (07:06)
[2023-12-07 07:25] LABS: Estimated Average Glucose 140 mg/dl; Hemoglobin A1C 6.5 % (4.5-5.6)
--- OUTSIDE RECORDS SUMMARY | 2023-12-07 08:11 | External Medical Summary | Summary of Care ---
Author Name Unknown Organization [facility] Address [address] [place] [address] Phone [phone] Care Team Providers Care Suspender Maker Name Role Phone Rafa Nagy MD Primary Care P rovider Reason for Visit * Reason Comments eRx-Medication Refill Encounter Details Date Type Department Care Team ([facility] Contact Info) Description 11/18/2023 Refill Family Practice [address] [id number] Rafa Nagy MD [address] [place] [id number] Encounter for long-term (current) use of medications*; Post herpetic neuralgia; Venous stasis ulcer of left calf limited to breakdown of skin with varicose veins (HCC); Coronary artery disease involving coushatta coronary artery of coushatta heart without angina pectoris; 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 Use as directed. 1 Each 1 8 Active Spacer/Aero-Holdin g Chambers DEVIIndications:CO PD, moderate (HCC) Use with inhaler. 1 Device 9 Active furosemide (LASIX) 40 MG Tablet Take 1/2 tablet 3 days per week. Take an additional 1.2 tablet as needed for weight gain, bloating, or edema 30 Tab 5 9 Active Additional Information Patient not taking.Reported on 08/31/2022 Acetaminophen 500 MG Oral Tablet Take 2 Tablets by mouth. Take every 8 hours as needed Active Famotidine 20 MG Oral Tablet (Pepcid) Take 1 Tablet by mouth every night at bedtime. 34 Tablet 5 1 Active Albuterol Sulfate (2.5 MG/3ML) 0.083% Inhalation Nebulization Solution (Proventil)Indicat ions:COPD, severity to be determined (HCC) INHALE 1 VIAL VIA NEBULIZER EVERY 4 HOURS NEEDED FOR WHEEZING OR SHORTNESS OF BREATH. 375 mL 11 2 Active Proventil HFA 108 (90 Base) MCG/ACT Inhalation Aerosol Solution Inhale by mouth 2 Puffs every 4 hours as needed for Wheezing. Or increased shortness of breath (Use this when not at home) 6.7 g 1 2 Active [facility] Saline Nasal [place] 0.65 % Nasal Solution 2 Active oxygen IN GASIndications:Chr onic respiratory failure with hypoxia (HCC),Supplemental oxygen dependent Use as directed 2 L/min(Oxygen) daily . Please at night and with exertion. Use oxygen mask, not nasal cannula. 1 Each 2 Active Vitamin B 12 500 MCG Oral Tablet Take 500 mcg by mouth in the morning. Active Folic Acid 1 MG Oral Tablet Take 1 Tablet by mouth in the morning. Active Ensure Active High Protein Oral Liquid Take 1 Can by mouth in the morning and 1 Can before bedtime. 85297 mL 2 is 3 Active Additional Information Patient not taking.Reported on 10/28/2022 Boost High Protein Oral Liquid Administer 474 mL daily, as directed by mouth. 26052 mL 11 3 Active Additional Information Patient not taking.Reported on 10/28/2022 Trelegy Ellipta 100-62.5-25 MCG/ACT Aerosol Powder Breath Activated (Fluticasone-Umecl idinium-Vilanterol )Indications:Chron ic obstructive pulmonary disease, unspecified (HCC) Inhale 1 Puff by mouth in the morning. 60 Each 11 3 Active Zoster Vac Recomb Adjuvanted 50 MCG/0.5ML Intramuscular Suspension Reconstituted (Shingrix)Indicati ons:Need for shingles vaccine Inject 0.5 mL into a large muscle now and repeat dose in 60 to 180 days 1 Each 1 3 Active Eliquis 2.5 MG Oral Tablet TAKE 1 TABLET BY MOUTH EVERY DAY IN THE MORNING AND BEFORE BEDTIME 180 Tablet 3 3 Active Ferrous Sulfate 325 (65 Fe) MG Oral Tablet (Feosol) Take 1 Tablet by mouth daily with breakfast. Active Pantoprazole Sodium 20 MG Oral Tablet Delayed Release (Protonix)Indicati ons:Gastroesophage al reflux disease without esophagitis TAKE 1 TABLET BY MOUTH EVERY DAY IN THE MORNING 90 Tablet 2 3 Active Tamsulosin HCl 0.4 MG Oral Capsule (Flomax)Indication s:Benign prostatic hyperplasia without lower urinary tract symptoms TAKE 1 CAPSULE BY MOUTH ONCE DAILY IN THE MORNING NEEDED FOR PROSTATE. 90 Capsule 3 4 Active Metoprolol Succinate ER 25 MG Oral Tablet Extended Release 24 Hour (toPROL XL)Indications:Cor onary artery disease involving cous[place]ta coronary artery of cous[place]ta heart without angina pectoris TAKE 1 TABLET BY MOUTH IN THE MORNING AND BEFORE BEDTIME 180 Tablet 1 4 Active Klor-Con M20 20 MEQ Oral Tablet Extended Release (Potassium Chloride ER) TAKE 1 TABLET BY MOUTH EVERY DAY IN THE MORNING 90 Tablet 1 4 Active Atorvastatin Calcium 20 MG Oral Tablet (Lipitor) TAKE 1 TABLET BY MOUTH EVERY DAY IN THE MORNING 90 Tablet 1 4 Active Clopidogrel Bisulfate 75 MG Oral Tablet (pLAVix) TAKE 1 TABLET BY MOUTH EVERY DAY IN THE MORNING 90 Tablet 1 4 Active Levothyroxine Sodium 25 MCG Oral Tablet (Levoxyl) TAKE 1 TABLET BY MOUTH AT LEAST 30 MIN PRIOR TO BREAKFAST OR OTHER MEDS 90 Tablet 1 4 Active Lisinopril 40 MG Oral Tablet TAKE 1 TABLET BY MOUTH EVERY DAY IN THE MORNING 90 Tablet 1 4 Active Finasteride 5 MG Oral Tablet (Proscar) TAKE 1 TABLET BY MOUTH EVERY DAY 90 Tablet 1 4 Active Silver sulfADIAZINE 1 % External Cream (Silvadene)Indicat ions:Venous stasis ulcer of left calf limited to breakdown of skin with varicose veins (HCC),Coronary artery disease involving cous[place] coronary artery of cous[place]ta heart without angina pectoris,Hypertens tye heart disease with chronic combined systolic and diastolic congestive heart failure (HCC) APPLY TOPICALLY TO AFFECTED AREA DAILY. APPLY TO WOUND DAILY WITH DRESSING 400 g 1 4 Active Pregabalin 200 MG Oral Capsule (Lyrica)Indication s:Post herpetic neuralgia Take 1 Capsule by mouth in the morning and 1 Capsule at noon and 1 Capsule before bedtime. 90 Capsule 5 4 Active Silver sulfADIAZINE 1 % External Cream (Silvadene)Indicat ions:Venous stasis ulcer of left calf limited to breakdown of skin with varicose veins (HCC),Coronary artery disease involving cous[place] coronary artery of cous[place]ta heart without angina pectoris,Hypertens tye heart disease with chronic combined systolic and diastolic congestive heart failure (HCC) Apply topically to affected area daily. Apply to wound daily with dressing 400 g 3 3 11/22/19 24 Discontinued documented as of this encounter (statuses as of 11/22/2023) Active Problems Problem Noted Date Diagnosed Date Atrial flutter 04/24/2023 Overview: S/p ablation Atrial fibrillation 07/21/2022 Last Assessment & Plan: Rate controlled on metoprolol Continue eiliquis Atherosclerotic heart diseas e of cous[place]ta coronary artery with other forms of angina pectoris 01/07/2022 Last Assessment & Plan: -Continues with plavix, statin, antihypertensives -Cardiac prudent diet encouraged BPH (benign prostatic hyperplasia) 01/07/2022 History of duodenal ulcer 01/07/2022 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 Amlodipine started in the hospital and discontinued 2/2 hypotension. He was discharged on lisinopril at usual dose and also increase in metoprolol per cardiology recs -Compression stockings offered, initially patient declined however after education on why these may help he is willing to try them. Thigh high compression stockings ordered. History of radiofrequency ab lation procedure for cardiac arrhythmia 07/09/2020 Moderate protein-calorie malnutrition 07/09/2020 Last Assessment & Plan: Following with [facility] RDN Encouraged high calorie diet Continues to decline any use of protein/calorie supplements Gastroesophageal reflux disease without esophagi tis 07/09/2020 Protein-calorie malnutrition 01/02/2019 Chronic respiratory failure with hypoxia 019 Last Assessment & Plan: "RED FLAG" COPD symptoms: Increased dyspnea on exertion ("I can't walk to the kitchen or up the stairs without coughing and wheezing", "My chest feels tight any time I move") Wheezing ("You can hear the whistling across the room") Medication Regimen All Classes - OMID Class D - Inhaled Cgittjpcjztqsq-DTIA-ZUVU Combination Inhaler (Artemiollegy) Self-Management plan High frequency nebulizer treatments every 4-6 hours around the clock Utilize Flutter Device hourly while awake Exacerbation plan CBC Chest Xray Additional Comments: Continue supplemental oxygen Encouraged increased use of nebulizer for SOB Again discussed possibility of adding morphine for air hunger, patient declines Chronic obstructive pulmonary disease, unspecifi ed 10/24/2018 Last Assessment & Plan: -See above POC for management. Will place orders for PFT studies, has had multiple orders placed and they have all . Unclear if he actually had them completed. Pulmonary hypertension 08/20/2018 Centrilobular emphysema 08/20/2018 Hypertensive heart disease w ith chronic combined systolic and diastolic congestive heart failure 08/01/2018 Last Assessment & Plan: "RED FLAG" HF Symptoms: Increased dyspnea on exertion (Example: "I can't walk to the kitchen or up the stairs") Increased shortness of breath at rest (Example: "I struggle to breathe even when watching TV") Orthopnea (Examples: "I have to sleep with more pillows than usual", "I sleep worse than normal") Medication Regimen: Beta Jamarcus Therapy: Metoprolol Succinate (ER) DUY Inhibitor/ARB Therapy: Lisinopril Diuretic therapy: Lasix Self - Management Plan Other/Additional Comments: No self-management plan currently in place. Will defer to primary [facility] care team/cardiology Exacerbation Plan CBC Pro-BNP Chest X-Ray Additional Comments: Encouraged low sodium diet Following with cardiology Coronary artery disease invo lving coushatta coronary artery of cous[place]ta heart without angina pectoris 09/07/2017 S/P angioplasty with stent 09/07/2017 Typical atrial flutter 08/24/2017 History of tobacco use 08/10/2015 Post herpetic neuralgia 08/10/2015 Last Assessment & Plan: Using lyrica with relief Hypothyroidism 09/18/2013 documented as of this encounter (statuses as of 11/22/2023) Resolved Problems Problem Noted Date Diagnosed Date Resolved Date Venous stasis ulcer of left calf limited to breakdown of skin with varicose veins 09/09/2022 Last Assessment & Plan: Images from the original note were not included. -Patient states he has been caring for his leg on his own. He states he washes it and puts "saave" on it. -Applying silvadene cream and needs refill however it appears to be sent 08/31/22, likely daughter has not picked up refill as of this date Symptomatic anemia 01/07/2022 3 Nasal septal perforation 01/07/202201/2024 Hyperlipidemia 01/04/2021 01/07/2022 Venous stasis ulcer of left calf limited to breakdown of skin with varicose veins 07/30/2020 History of cardiac catheterization 07/09/2020 07/21/2022 COPD, group B, by GOLD 2017 classification 09/17/2018 10/24/2018 Overview: Per COPD GOLD Classification COPD, severity to be determined 08/20/2018 09/19/2018 Overview: Per COPD GOLD Classification Gastroesophageal reflux disease 08/20/2018 01/12/2022 Overview: Duplicate diagnosis EDWARDS (dyspnea on exertion) 08/20/2018 Personal history of alcoholism 08/01/2018 11/29/2021 Hypoxia 08/01/2018 10/22/2019 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 01/02/2019 Acute systolic congestive heart failure 09/07/2017 09/07/2017 Acute combined systolic and diastolic congestive heart failure 09/07/2017 01/02/2019 COPD, moderate 07/03/2017 09/19/2018 Chronic nonspecific lung disease 03/29/2017 09/07/2017 Hypertension goal BP (blood pressure) < 150/90 09/27/2016 01/07/2022 Essential hypertension with goal blood pressure less than 140/90 08/10/2015 09/27/2016 documented as of this encounter (statuses as of 11/22/2023) Immunizations Name Administration Dates Next Due COVID-19 mRNA, LNP-s, No Pre serve, 2-Dose Series (PriceSpot) 02/17/2021,09/24/2020,08/27/2020 Covid-19, Mrna, Lnp-s, Pf, B ivalent, 30 Mcg, IM, 12 yrs and above (PriceSpot) 01/28/2022 Pneumococcal Conjugate Vacc, 13 Valent (Prevnar) 03/12/2019 Pneumococcal Polysaccharide PPV23 (Pneumovax) 07/09/2020,12/29/2011(Deferred: Patient Refused) Seasonal Influenza, PF, 6 M & above, IM , (FluLaval or Fluzone) 02/04/2020,02/14/2019 Seasonal Influenza, Quadriva lent Hd (Fluzone Hd) 01/11/2023,01/20/2022,02/09/2021 TDAP (age 10 and older)(Boostrix) 12/29/2011(Def erred: Patient Refused) documented as of this encounter Social History Tobacco Use Types Packs/Day Years Used Date Smoking Tobacco: Former Cigarettes 3 50 1 - 01/21/2002 Smokeless Tobacco: Former Chew Quit: 10/13/2015 Alcohol Use Standard Drinks/Week Comments No 0 (1 standard drink = 0.6 oz pur e alcohol) PHQ-2 Answer Date Recorded PHQ Adult Total Score 2 10/28/2022 Hunger Vital Sign Answer Date Recorded Within the past 12 months, y ou worried that your food would run out before you got the money to buy more. Never true 09/19/19 24 Within the past 12 months, t he food you bought just didn't last and you didn't have money to get more. Never true 09/19/2023 Childcare Answer Date Recorded Do you feel overwhelmed with taking care of a child, family member or friend? No 09/19/2023 Does your family need help f inding childcare? (Household - for ages 0-17 years) Not on file 09/19/2023 Clothing Answer Date Recorded Have you been unable to get clothing when it was really needed? No 09/19/2023 Is your family able to get c lothes or diapers when needed? (Household - for ages 0-17 years) Not on file 09/19/2023 Personal Safety Answer Date Recorded Do you feel unsafe or have concerns for your saf ety? No 09/19/2023 Do you have concerns for you r family's safety? (Household - for ages 0-17 years) Not on file 09/19/2023 Utilities Answer Date Recorded Do you have trouble paying y our heating, water, or electric bill? No 09/19/2023 Is your family able to pay t he heat, water, or electric bill? (Household - for ages 0-17 years) Not on file 09/19/2023 Does your family have access to good internet? (Household - for ages 0-17 years) Not on file 09/19/2023 Employment Status Answer Date Recorded Are you unemployed or without regular income? No 09/19/2023 Does the household have a re gular source of income? (Household - for ages 0-17 years) Not on file 09/19/2023 Social Connections Answer Date Recorded How often do you feel lonely or isolated from th ose around you? Never 09/19/2023 Financial Resource Strain Answer Date R ecorded Do you have any trouble payi ng for your medications, or do you think you might in the future? No 09/19/2023 Does your family have troubl e paying for medicine? (Household - for ages 0-17 years) Not on file 09/19/2023 Transportation Needs Answer Date Record ed READ ONLY Do you have troubl e getting a ride to medical visits or work? Never True 09/19/2023 Does your family have a hard time getting a ride to doctors visits? (Household - for ages 0-17 years) Not on file 09/19/2023 Has lack of transportation k ept you from medical appointments, meetings, work, or from getting things needed for daily living? Check all that apply. (Adult - for ages 18 years and over) Not on file 09/19/2023 Do you (or your family) have trouble finding or paying for a ride (transportation)? (Household - for ages 0-17 years) Not on file 09/19/2023 Housing Stability Answer Date Recorded Do you currently live in a s helter or have no steady place to sleep at night? No 09/19/2023 READ ONLY Do you think you a re at risk of becoming homeless? No 09/19/2023 Does your family worry about paying for your home or becoming homeless? (Household - for ages 0-17 years) Not on file 0 09/19/2023 Are you homeless or worried that you might be in the future? (Adult - for ages 18 years and over) Not on file Are you (or your family) antoinette eless or worried that you might be in the future? (Household - for ages 0-17 years) Not on file Food Insecurity Answer Date Recorded Do you need food for this week? No 09/19/2023 Are you able to get enough f ood for your family? (Household - for ages 0-17 years) Not on file 09/19/2023 Does your family need food t his week? (Household - for ages 0-17 years) Not on file 09/19/2023 Do you always have enough fo od for your family? (Household - for ages 0-17 years) Not on file 09/19/2023 Sex and Gender Information Value Date Recorded Sex Assigned at Not on file Gender Identity Not on file Sexual Orientation Not on file Job Start Date Occupation Industry Not on file Not on file Not on file documented as of this encounter Miscellaneous Notes * Telephone Encounter - Rafa Nagy MD - 11/22/2023 6:02 PM EDTSigned Prescriptions: Disp Refills Silver sulfADIAZINE 1 % External Cream (Si*400 g 1 Sig: APPLY TOPICALLY TO AFFECTED AREA DAILY. APPLY TO WOUND DAILY WITH DRESSING Authorizing Provider: RAFA NAGY Refused Prescriptions: Disp Refills Pregabalin 200 MG Oral Capsule [Pharmacy M*90 Cap* Sig: TAKE 1 CAPSULE BY MOUTH EVER Y DAY IN THE MORNING , AT NOON, AND BEFORE BEDTIME Refused By: RAFA NAGY Reason for Refusal: Request already responded to by other means * Telephone Encounter - [facility] - 11/22/2023 11:14 AM EDT Pending Prescriptions: Disp Refills Silver sulfADIAZINE 1 % External Cream (Si*400 g 1 Sig: APPLY TOPICALLY TO AFFECTED AREA DAILY. APPLY TO WOUND DAILY WITH DRESSING Refused Prescriptions: Disp Refills Pregabalin 200 MG Oral Capsule [Pharmacy M*90 Cap* Sig: TAKE 1 CAPSULE BY MOUTH EVERY DAY IN THE MORNING , AT NOON, AND BEFORE BEDTI ME Refused By: RAFA NAGY Reason for Refusal: Request already responded to by other means * Telephone Encounter - Preethi Tavera, reverse engineer - 11/21/2023 8:20 AM EDT Pending Prescriptions: Disp Refills Silver sulfADIAZINE 1 % External Cream (Si*400 g 1 Sig: APPLY TOPICALLY TO AFFECTED AREA DAILY. APPLY TO WOUND DAILY WITH DRESSING Refused Prescriptions: Disp Refills Pregabalin 200 MG Oral Capsule [Pharmacy M*90 Cap* Sig: TAKE 1 CAPSULE BY MOUTH EVERY DAY IN THE MORNING , AT NOON, AND BEFORE BEDTI ME Refused By: RAFA NAGY Reason for Refusal: Request already responded to by other means * Telephone Encounter - Preethi Tavera PHARM Tech - 11/21/2023 8:18 AM EDT Received message from [facility] regarding patient needing an appointment and labs. Call Placed, Left message on [employer] advising of required labs and to call back for an appointment. Thank you for your assistance Preethi Tavera Credit Clerk II [facility] 11/21/2023,8:18 AM * Telephone Encounter - Alina Tracy [facility] - 11/20/2023 2:47 PM EDT Pending Prescriptions: Disp Refills Silver sulfADIAZINE 1 % External Cream (Si*400 g 1 Sig: APPLY TOPICALLY TO AFFECTED AREA DAILY. APPLY TO WOUND DAILY WITH DRESSING Refused Prescriptions: Disp Refills Pregabalin 200 MG Oral Capsule [Pharmacy M*90 Cap* Sig: TAKE 1 CAPSULE BY MOUTH EVERY DAY IN THE MORNING , AT NOON, AND BEFORE BEDTI ME Refused By: RAFA NAGY Reason for Refusal: Request already responded to by other means * Telephone Encounter - Alina Tracy [facility] - 11/20/2023 2:47 PM EDT Unable to authorize medication refills for pended medication(s) at this time. Part of the protocol criteria used for refill authorization was not satisfied. Per refill protocol patient should have office visit on file within past year. Reviewed AMP report,Care Gaps/Health Maintenance, medications list, and for any routine labs typically ordered for thispatient. Lab orders placed. Please contact patient to schedule office visit with PRIMARY CARE and advise of labs ordered for blood draw.. Fasting is not required. Advise to obtain labs before requesting the next refill. Last Visit: 10/28/2022 (in office), Visit date not found (telemedicine) Next Visit: Visit date not found After contacting patient, please forward request to Rafa Montelongo MD. Thank You Alina Tracy, PharmD Clinical Pharmacist [facility] [phone] / [phone] 11/20/2023, 2:47 PM * Telephone Encounter - Alina Tracy RPh - 11/20/2023 2:45 PM EDT Did you pend patient's preferred pharmacy and medication before forwarding?yes Pharmacy: [id number] [address] [place] [address] Pending Prescriptions: Disp Refills Silver sulfADIAZINE 1 % External Cream (S*400 g 1 Sig: APPLY TOPICALLY TO AFFECTED AREA DAILY. APPLY TO WOUND DAILY WITH DRESSING Refused Prescriptions: Disp Refills Pregabalin 200 MG Oral Capsule [Pharmacy M*90 Cap* Sig: TAKE 1 CAPSULE BY MOUTH EVERY DAY IN THE MORNING , AT NOON, AND BEFORE BEDTIME Refused By: RAFA NAGY Reason for Refusal: Request already responded to by other means Last Visit: 10/28/2022 (in office), Visit date not found (telemedicine) Next Visit: Visit date not found If no future appointments scheduled, and last appointment is greater than a year ago, please schedule patient for a follow-up appointment Last date the medication was ordered: 10/28/22 Is this request for a controlled substance?No Urine Drug Screen:No results found for this or any previous visit. Patient Phone Numbers [facility] [phone] Labs: Lab Results Component Value Date/Time CREAT 0.9 10/05/2022 02:44 PM CREAT 1.0 09/06/2018 03:00 PM POTASSIUM 4.2 10/05/2022 02:44 PM POTASSIUM 4.2 09/06/2018 03:00 PM TSH 1.40 10/05/2022 02:44 PM TSH 1.310 07/24/2018 12:00 AM TSH 3.24 08/03/2017 04:37 PM LDLCALC 55 10/05/2022 02:44 PM LDLCALC 43 08/25/2017 12:00 AM LDLCALC 123 08/12/2015 02:42 PM LDLDIRECT NOT APPLICABLE 08/12/2015 02:42 PM ALT 12 10/05/2022 02:44 PM ALT 27 08/01/2018 02:35 PM HGBA1C 5.9 (A) 08/24/2017 12:00 AM documented in this encounter Plan of Treatment Upcoming Encounters Date Type Department Care Team (Late st Contact Info) Description 12/08/2023 2:30 PM EDT Scheduled Telephone [facility], [facility] [address] [facility] [place] [id number] Vikki Ashraf, BARNDO [address] [facility] [place] [address] 12/14/2023 12:00 PM EDT Home Visit [facility] [address] [facility] [place] [address] Karen Kay [facility] Funeral Director/Embalmer [address] [place] [facility] [place] [address] 01/01/2024 3:00 PM EDT Home Visit [facility], [facility] [address] [facility] [place] [address] Javi Hart PA-C [address] [facility] [place] [address] 01/22/2024 12:30 PM EDT Home Visit [facility], [facility] [address] [place] [address] Merced Hicks RN [address] [place] [address] Scheduled Orders Name Type Priority Associated Diagnoses Orde r Schedule COMPREHENSIVE METABOLIC PANEL Lab Routine Encounter for long-term (current) use of medications Expected: 11/27/2023 (Approximate), Expires: 11/20/2024 CBC Lab Routine Encounter for long-term (current) use of medications Expected: 11/27/2023 (Approximate), Expires: 11/20/2024 LIPID PANEL WITH DIRECT LDL IF TG IS HIGH Lab Routine Encounter for long-term (current) use of medications Expected: 11/27/2023 (Approximate), Expires: 11/20/2024 TSH WITH FREE T4 IF INDICATED Lab Routine Encounter for long-term (current) use of medications Expected: 11/27/2023 (Approximate), Expires: 11/20/2024 VITAMIN B12 Lab Routine Encounter for long-term (current) use of medications Expected: 11/27/2023 (Approximate), Expires: 11/20/2024 MAGNESIUM Lab Routine Encounter for long-term (current) use of medications Expected: 11/27/2023 (Approximate), Expires: 11/20/2024 Health Maintenance Due Date Last Done Comments DTaP,Tdap,and Td Vaccines (1 - Tdap) 07/12/1959 Zoster Vaccines (1 of 2) 1990 Adult Wellness Visit 2006 COVID-19 Vaccine ( season) 2022 01/28/2022, 02/17/2021, 09/24/2020, Additional history exists TSH 10/06/2023 10/05/2022, 12/11, 09/04/2020, Additional history exists Depression Screening 10/29/2023 10/28/2022 *NEPHROLOGY REFERRAL DUE TO RESISTANT HTN 11/17/2023 Influenza Vaccine (FLU shot) (#1) 2023 01/11/2023, 01/20/2022, 02/09/2021, Additional history exists O2 ASSESSMENT COMPLETED IN PAST YEAR FOR COPD 11/14/2024 11/15/2023 Pneumococcal Vaccine: 65+ Years Completed 07/09/2020, 03/12/2019 Alpha-1 Antitrypsin Completed 01/07/2022 HPV (Gardasil) Vaccine Aged Out No lo nger eligible based on patient's age to complete this topic Hepatitis B Vaccine Aged Out No longe r eligible based on patient's age to complete this topic MENINGOCOCCAL (MENACTRA/MENVEO) Aged Out No longer eligible based on patient's age to complete this topic documented as of this encounter Medical Devices Not on filedocumented as of this encounter Visit Diagnoses Diagnosis Encounter for long-term (current) use of medications- Primary Encounter for long-term (current) use of other medications Post herpetic neuralgia Herpes zoster with other nervous system complications Venous stasis ulcer of left calf limited to breakdown of skin with varicose veins (HCC) Coronary artery disease involving [place] coronary artery of [place] heart without angina pectoris Hypertensive 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
--- OUTSIDE RECORDS SUMMARY | 2023-12-07 08:11 | External Medical Summary | Summary of Care ---
Author Name Unknown Organization [facility] Address [address] [facility] [place] [address] Phone [phone] Care Team Providers Care Steam And Gas Turbine Assembler Name Role Phone Rafa Cage MD Primary Care P rovider Encounter Details Date Type Department Care Team (Late st Contact Info) Description 11/23/2023 Orders Only PATIENT PORTAL DO NOT DELETE THIS DEPT USED BY IV[place] [phone] Allergies No known active allergiesdocumented as of this encounter (statuses as of 11/23/2023) Medications Medication Sig Dispensed Refills Start Date End Date Status Nebulizers (NEBULIZER COMPRESSOR) MISC Inhale via nebulizer. Use as directed. 1 Each 1 06/23/2017 Active Spacer/Aero-Holding Chambers DEVIIndications:COPD , moderate (HCC) Use with inhaler. 1 Device 08/01/2018 Active furosemide (LASIX) 40 MG Tablet Take 1/2 tablet 3 days per week. Take an additional 1.2 tablet as needed for weight gain, bloating, or edema 30 Tab 5 08/16/2018 Active Additional Information Patient not taking.Reported on 08/31/2022 Acetaminophen 500 MG Oral Tablet Take 2 Tablets by mouth. Take every 8 hours as needed Active Famotidine 20 MG Oral Tablet (Pepcid) Take 1 Tablet by mouth every night at bedtime. 34 Tablet 5 02/24/2021 Active Albuterol Sulfate (2.5 MG/3ML) 0.083% Inhalation Nebulization Solution (Proventil)Indicatio ns:COPD, severity to be determined ([facility]) INHALE 1 VIAL VIA NEBULIZER EVERY 4 HOURS NEEDED FOR WHEEZING OR SHORTNESS OF BREATH. 375 mL 11 09/07/2021 Active Proventil HFA 108 (90 Base) MCG/ACT Inhalation Aerosol Solution Inhale by mouth 2 Puffs every 4 hours as needed for Wheezing. Or increased shortness of breath (Use this when not at home) 6.7 g 1 11/29/2021 Active [facility] Saline Nasal [place] 0.65 % Nasal Solution 12/30/2021 Active oxygen IN GASIndications:Chron ic respiratory failure with hypoxia (HCC),Supplemental oxygen dependent Use as directed 2 L/min(Oxygen) daily . Please at night and with exertion. Use oxygen mask, not nasal cannula. 1 Each 01/07/2022 Active Vitamin B 12 500 MCG Oral Tablet Take 500 mcg by mouth in the morning. Active Folic Acid 1 MG Oral Tablet Take 1 Tablet by mouth in the morning. Active Ensure Active High Protein Oral Liquid Take 1 Can by mouth in the morning and 1 Can before bedtime. 76474 mL 2 is 08/31/2022 Active Additional Information Patient not taking.Reported on 10/28/2022 Boost High Protein Oral Liquid Administer 474 mL daily, as directed by mouth. 43841 mL 11 08/31/2022 Active Additional Information Patient not taking.Reported on 10/28/2022 Trelegy Ellipta 100-62.5-25 MCG/ACT Aerosol Powder Breath Activated (Fluticasone-Umeclid inium-Vilanterol)Ind ications:Chronic obstructive pulmonary disease, unspecified (HCC) Inhale 1 Puff by mouth in the morning. 60 Each 11 09/09/2022 Active Zoster Vac Recomb Adjuvanted 50 MCG/0.5ML Intramuscular Suspension Reconstituted (Shingrix)Indication s:Need for shingles vaccine Inject 0.5 mL into a large muscle now and repeat dose in 60 to 180 days 1 Each 1 10/28/2022 Active Eliquis 2.5 MG Oral Tablet TAKE 1 TABLET BY MOUTH EVERY DAY IN THE MORNING AND BEFORE BEDTIME 180 Tablet 3 12/06/2022 Active Ferrous Sulfate 325 (65 Fe) MG Oral Tablet (Feosol) Take 1 Tablet by mouth daily with breakfast. Active Pantoprazole Sodium 20 MG Oral Tablet Delayed Release (Protonix)Indication s:Gastroesophageal reflux disease without esophagitis TAKE 1 TABLET BY MOUTH EVERY DAY IN THE MORNING 90 Tablet 2 03/27/2023 Active Tamsulosin HCl 0.4 MG Oral Capsule (Flomax)Indications: Benign prostatic hyperplasia without lower urinary tract symptoms TAKE 1 CAPSULE BY MOUTH ONCE DAILY IN THE MORNING NEEDED FOR PROSTATE. 90 Capsule 3 05/22/2023 Active Metoprolol Succinate ER 25 MG Oral Tablet Extended Release 24 Hour (toPROL XL)Indications:Coron harry artery disease involving [place] coronary artery of [place] heart without angina pectoris TAKE 1 TABLET BY MOUTH IN THE MORNING AND BEFORE BEDTIME 180 Tablet 1 07/18/2023 Active Klor-Con M20 20 MEQ Oral Tablet Extended Release (Potassium Chloride ER) TAKE 1 TABLET BY MOUTH EVERY DAY IN THE MORNING 90 Tablet 1 07/18/2023 Active Atorvastatin Calcium 20 MG Oral Tablet (Lipitor) TAKE 1 TABLET BY MOUTH EVERY DAY IN THE MORNING 90 Tablet 1 07/18/2023 Active Clopidogrel Bisulfate 75 MG Oral Tablet (pLAVix) TAKE 1 TABLET BY MOUTH EVERY DAY IN THE MORNING 90 Tablet 1 07/18/2023 Active Levothyroxine Sodium 25 MCG Oral Tablet (Levoxyl) TAKE 1 TABLET BY MOUTH AT LEAST 30 MIN PRIOR TO BREAKFAST OR OTHER MEDS 90 Tablet 1 07/18/2023 Active Lisinopril 40 MG Oral Tablet TAKE 1 TABLET BY MOUTH EVERY DAY IN THE MORNING 90 Tablet 1 07/20/2023 Active Finasteride 5 MG Oral Tablet (Proscar) TAKE 1 TABLET BY MOUTH EVERY DAY 90 Tablet 1 07/20/2023 Active Silver sulfADIAZINE 1 % External Cream (Silvadene)Indicatio ns:Venous stasis ulcer of left calf limited to breakdown of skin with varicose veins (HCC),Coronary artery disease involving [place] coronary artery of [place] heart without angina pectoris,Hypertensiv e heart disease with chronic combined systolic and diastolic congestive heart failure (HCC) APPLY TOPICALLY TO AFFECTED AREA DAILY. APPLY TO WOUND DAILY WITH DRESSING 400 g 1 11/22/2023 Active Pregabalin 200 MG Oral Capsule (Lyrica)Indications: Post herpetic neuralgia Take 1 Capsule by mouth in the morning and 1 Capsule at noon and 1 Capsule before bedtime. 90 Capsule 5 11/18/2023 Active documented as of this encounter (statuses as of 11/23/2023) Active Problems Problem Noted Date Diagnosed Date Atrial flutter 04/24/2023 Overview: S/p ablation Atrial fibrillation 07/21/2022 Last Assessment & Plan: Rate controlled on metoprolol Continue eiliquis Atherosclerotic heart diseas e of [place] coronary artery with other forms of angina [...] 07/09/2020 Last Assessment & Plan: Following with [facility] RDN Encouraged high calorie diet Continues to [...] Classes - OMID Class D - Inhaled [id number] Combination Inhaler (Matthew) Self-Management plan High frequency nebulizer treatments every [...] with cardiology Coronary artery disease invo lving [place] coronary artery of [place] heart without angina pectoris 09/07/2017 S/P angioplasty with stent 09/07/2017 Typical atrial flutter 08/24/2017 History of tobacco use 08/10/2015 Post herpetic neuralgia 08/10/2015 Last Assessment & Plan: Using lyrica with relief Hypothyroidism 09/18/2013 documented as of this encounter (statuses as of 11/23/2023) Resolved Problems Problem Noted Date Diagnosed Date [...] as of this date Symptomatic anemia 01/07/2022 Nasal septal perforation 01/07/202201/2024 Hyperlipidemia 01/04/2021 01/07/2022 [...] as of this encounter (statuses as of 11/23/2023) Immunizations Name Administration Dates Next Due COVID-19 mRNA, LNP-s, No Pre serve, 2-Dose Series ([place]) 02/17/2021,09/24/2020,08/27/2020 Covid-19, Mrna, Lnp-s, Pf, B ivalent, 30 Mcg, IM, 12 yrs and above ([place]) 01/28/2022 Pneumococcal Conjugate Vacc, 13 Valent (Prevnar) [...] on file documented as of this encounter Plan of Treatment Upcoming Encounters Date Type Department Care Team (Late st Contact Info) Description 12/08/2023 2:30 PM EDT Scheduled Telephone [facility], [facility] [address] [facility] [place] [id number] Vikki Ashraf RDN [address] [facility] [place] [address] 12/14/2023 12:00 PM EDT Home Visit [facility] [address] [place] [address] Karen Kay [facility] Thermodynamicist [address] [place] [address] 01/01/2024 3:00 PM EDT Home Visit [facility], [facility] [address] [address] [address] Javi Hart PA-C [address] [place] [address] 01/22/2024 12:30 PM EDT Home Visit [facility], [facility] [address] [address] [address] Merced Hicks, RN [address] [place] [address] Health Maintenance Due Date Last Done Comments [...] Not on filedocumented as of this encounter Care Teams Steam And Gas Turbine Assembler Relationship Specialty Start Date End Date Rafa Cage MD [address] [place] [address] [place] [address] PCP - General Family Medicine 07/09/20 documented as of this encounter
--- OUTSIDE RECORDS SUMMARY | 2023-12-07 08:11 | External Medical Summary | Summary of Care ---
Author Name Unknown Organization [facility] Address [address] [place] [address] Phone [phone] Care Team Providers Care Beef Selector Name Role Phone Rafa Cage MD Primary Care P rovider Reason for Visit * Reason Onset Date Comments Medication Refill 11/18/2023 Encounter Details Date Type Department Care Team ([facility] Contact Info) Description 11/18/[address] [phone] Rafa Cage MD [address] [place] [phone] Medication Refill Allergies No known active allergiesdocumented as of this encounter (statuses as of 11/18/2023) Medications Medication Sig Dispensed Refills Start Date End Date Status Nebulizers (NEBULIZER COMPRESSOR) MISC Inhale via nebulizer. Use as directed. 1 Each 1 06/23/2017 Active Spacer/Aero-Holdin g Chambers DEVIIndications:[place] PD, moderate [...] g 1 11/29/2021 Active [facility] Saline Nasal [place] 0.65 % Nasal Solution 12/30/2021 Active oxygen IN GASIndications:Chr onic respiratory failure [...] the morning and 1 Can before bedtime. 88127 mL 2 is 08/31/2022 Active Additional Information Patient not taking.Reported on 10/28/2022 Boost High Protein Oral Liquid Administer 474 mL daily, as directed by mouth. 42575 mL 11 08/31/2022 Active Additional Information Patient not taking.Reported on 10/28/2022 Trelegy Ellipta 100-62.5-25 MCG/ACT Aerosol Powder Breath Activated (Fluticasone-Umecl idinium-Vilanterol )Indications:Chron ic obstructive pulmonary disease, unspecified (HCC) Inhale 1 Puff by mouth in the morning. 60 Each 11 09/09/2022 Active Silver sulfADIAZINE 1 % External Cream (Silvadene)Indicat ions:Venous stasis ulcer of left calf limited to breakdown of skin with varicose veins (HCC),Coronary artery disease involving [place] coronary artery of [place] heart without angina pectoris,Hypertens tye heart disease with chronic combined systolic and diastolic congestive heart failure (HCC) Apply topically to affected area daily. Apply to wound daily with dressing 400 g 3 10/28/2022 Active Zoster Vac Recomb Adjuvanted 50 MCG/0.5ML [...] Hour (toPROL XL)Indications:Cor onary artery disease involving [place] coronary artery of [place] heart without angina pectoris TAKE 1 TABLET [...] EVERY DAY 90 Tablet 1 07/20/2023 Active Pregabalin 200 MG Oral Capsule (Lyrica)Indication s:Post herpetic neuralgia Take 1 Capsule by mouth in the morning and 1 Capsule at noon and 1 Capsule before bedtime. 90 Capsule 5 11/18/2023 Active Pregabalin 200 MG Oral Capsule (Lyrica)Indication s:Post herpetic neuralgia Take 1 Capsule by mouth in the morning and 1 Capsule at noon and 1 Capsule before bedtime. 90 Capsule 5 05/15/2023 4 Discontinue d(Refill) documented as of this encounter (statuses as of 11/18/2023) Active Problems Problem Noted Date Diagnosed Date Atrial flutter 04/24/2023 Overview: S/p ablation Atrial fibrillation 07/21/2022 Last Assessment & Plan: Rate controlled on metoprolol Continue eiliquis Atherosclerotic heart diseas e of [place] coronary artery with other forms of angina [...] 07/09/2020 Last Assessment & Plan: Following with [facility] RDN Encouraged high calorie diet Continues to [...] Classes - OMID Class D - Inhaled [id number] Combination Inhaler (Trellegy) Self-Management plan High frequency nebulizer treatments every [...] with cardiology Coronary artery disease invo lving [place] coronary artery of [place] heart without angina pectoris 09/07/2017 S/P angioplasty with stent 09/07/2017 Typical atrial flutter 08/24/2017 History of tobacco use 08/10/2015 Post herpetic neuralgia 08/10/2015 Last Assessment & Plan: Using lyrica with relief Hypothyroidism 09/18/2013 documented as of this encounter (statuses as of 11/18/2023) Resolved Problems Problem Noted Date Diagnosed Date [...] as of this encounter (statuses as of 11/18/2023) Immunizations Name Administration Dates Next Due COVID-19 mRNA, LNP-s, No Pre serve, 2-Dose Series (ip.access) 02/17/2021,09/24/2020,08/27/2020 Covid-19, Mrna, Lnp-s, Pf, B ivalent, 30 Mcg, IM, 12 yrs and above (Pfizer) 01/28/2022 Pneumococcal Conjugate Vacc, 13 Valent (Prevnar) [...] No 09/19/2023 Does the household have a [facility] source of income? (Household - for ages [...] PM EDT Scheduled Telephone [facility], [facility] [address] [facility] [address] Vikki Ashraf, BRANDO [address] [facility] [place] [address] 12/14/2023 12:00 PM EDT Home Visit [facility] [address] [place] [address] Karen Kay, Community [facility] Student Finance Specialist [address] [place] [address] 01/01/2024 3:00 PM EDT Home Visit [facility], [facility] [address] [place] [address] Javi Hart PA-C [address] [place] [address] 01/22/2024 12:30 PM EDT Home Visit [facility], [facility] [address] [place] [address] Merced Hicks RN [address] [place] [address] Health Maintenance Due Date Last Done Comments [...] as of this encounter Visit Diagnoses Diagnosis Post herpetic neuralgia Herpes zoster with other nervous system complications documented in this encounter Care Teams Beef Selector Relationship Specialty Start Date End Date Rafa Cage MD [address] [place] [phone] PCP - General Family Medicine 07/09/20 documented as of this encounter
--- OUTSIDE RECORDS SUMMARY | 2023-12-07 08:11 | External Medical Summary | Summary of Care ---
Author Name Unknown Organization [facility] Address [address] [place] [address] Phone [phone] Care Team Providers Care Gate Technician Name Role Phone Rafa Cage MD Primary Care P [facility] Encounter Details Date Type Department Care Team (Late st Contact Info) Description 10/26/2023 3:00 PM EDT Home Visit [facility] at [facility] [address] [place] [address] Javi Hart PA-C [address] [place] [id number] Chronic respiratory failure with hypoxia (HCC)*; Hypertensive heart disease with chronic combined systolic and diastolic congestive heart failure (HCC); Atrial fibrillation, unspecified type (HCC); Post herpetic neuralgia; Acquired hypothyroidism; Advanced care planning/counseling discussion Allergies No known active allergiesdocumented as of this encounter (statuses as of 11/12/2023) Medications Medication Sig Dispensed Refills Start Date [...] Solution (Proventil)Indicatio ns:COPD, severity to be determined (HCC) INHALE 1 [...] g 1 11/29/2021 Active [facility] Saline Nasal [place] 0.65 % Nasal Solution 12/30/2021 Active oxygen [...] the morning and 1 Can before bedtime. 99675 mL 2 is 08/31/2022 Active Additional Information Patient not taking.Reported on 10/28/2022 Boost High Protein Oral Liquid Administer 474 mL daily, as directed by mouth. 54658 mL 11 08/31/2022 Active Additional Information Patient [...] with varicose veins (HCC),Coronary artery disease involving [place] coronary artery of [place] heart without angina pectoris,Hypertensiv e heart disease [...] THE MORNING 90 Tablet 2 03/27/2023 Active Pregabalin 200 MG Oral Capsule (Lyrica)Indications: Post herpetic neuralgia Take 1 Capsule by mouth in the morning and 1 Capsule at noon and 1 Capsule before bedtime. 90 Capsule 5 05/15/2023 Active Tamsulosin HCl 0.4 MG Oral Capsule (Flomax)Indications: Benign prostatic hyperplasia without lower urinary tract symptoms TAKE 1 CAPSULE BY MOUTH ONCE DAILY IN THE MORNING NEEDED FOR PROSTATE. 90 Capsule 3 05/22/2023 Active Metoprolol Succinate ER 25 MG Oral Tablet Extended Release 24 Hour (toPROL XL)Indications:Coron harry artery disease involving [place] coronary artery of [place] heart without angina pectoris TAKE 1 TABLET [...] EVERY DAY 90 Tablet 1 07/20/2023 Active documented as of this encounter (statuses as of 11/12/2023) Active Problems Problem Noted Date Diagnosed Date Atrial flutter 04/24/2023 Overview: S/p ablation Atrial fibrillation 07/21/2022 Last Assessment & Plan: Rate controlled on metoprolol Continue eiliquis Atherosclerotic heart diseas e of [place] coronary artery with other forms of angina [...] 07/09/2020 Last Assessment & Plan: Following with [facility] RDN Encouraged high calorie diet Continues [...] Classes - OMID Class D - Inhaled Znmlxchylckzuv-DAQG-IBFA Combination Inhaler (Trellegy) Self-Management plan High frequency [...] with cardiology Coronary artery disease invo lving [place] coronary artery of [place] heart without angina pectoris 09/07/2017 S/P angioplasty with stent 09/07/2017 Typical atrial flutter 08/24/2017 History of tobacco use 08/10/2015 Post herpetic neuralgia 08/10/2015 Last Assessment & Plan: Using lyrica with relief Hypothyroidism 09/18/2013 documented as of this encounter (statuses as of 11/12/2023) Resolved Problems Problem Noted Date Diagnosed Date [...] as of this encounter (statuses as of 11/12/2023) Immunizations Name Administration Dates Next Due COVID-19 mRNA, LNP-s, No Pre serve, 2-Dose Series ([employer]) 02/17/2021,09/24/2020,08/27/2020 Covid-19, Mrna, Lnp-s, Pf, B ivalent, [...] on file documented as of this encounter Progress Notes * Javi Hart PA-C - 11/12/2023 10:11 AM EDT Images from the original note were not included. [facility] Problem Oriented Charting Provider Visit Date: 10/26/2023 Time: 10:11 AM [facility] Sub-Program: Primary Care at Home Assessment and Plan #1 Chronic respiratory failure with hypoxia (HCC) (Primary) Assessment & Plan: "RED FLAG" COPD symptoms: Increased dyspnea on exertion ("I can't walk to the kitchen or up the stairs without coughing and wheezing", "My chest feels tight any time I move") Wheezing ("You can hear the whistling across the room") Medication Regimen All Classes - OMID Class D - Inhaled Bbeomcvzrpgsqp-NQQN-GPVV Combination Inhaler (Trellegy) Self-Management plan High frequency nebulizer treatments every 4-6 hours around the clock Utilize Flutter Device hourly while awake Exacerbation plan CBC Chest Xray Additional Comments: Continue supplemental oxygen Encouraged increased use of nebulizer for SOB Again discussed possibility of adding morphine for air hunger, patient declines #2 Hypertensive heart disease with chronic combined systolic and diastolic congestive heart failure(HCC) Assessment & Plan: "RED FLAG" HF Symptoms: [...] Encouraged low sodium diet Following with cardiology #3 Atrial fibrillation, unspecified type (HCC) Assessment & Plan: Rate controlled on metoprolol Continue eiliquis #4 Post herpetic neuralgia Assessment & Plan: Using lyrica with relief #5 Acquired hypothyroidism #6 Advanced care planning/counseling discussion Additional Medical Decision Making: Patient lives alone Daughter (Laurel) is POA Daughter manages meds, groceries, bills Has POLST, DNR, DNI Progressing to end stage COPD Discussed use of morphine for air hunger, patient declines at this time No ER/hospital utilization since last visit Scheduled appointments in the next 60 days: Future Appointments-next 60 days Date/Time Provider Specialty Dept Phone 11/15/2023 2:30 PM Merced Hicks RN [facility] [phone] 12/08/2023 2:30 PM Vikki Ashraf RDN [facility] [phone] A total of 35 minutes was spent face to face (via video-based telemedicine if designated as a telemedicine visit) Subjective Subjective Is this a Telemedicine Visit? No, this is an Home Visit. Reason For [facility] Visit: Follow-Up Current Concerns: Kirby Alonso is a 83 year old male seen today for a [facility] provider visit. PMH includes chronic respiratory failure with hypoxia, COPD, pulmonary HTN, CHF, CAD s/p angioplasty with stent, afib, malnutrition, Today's concerns are: Denies concerns today, reports feeling at baseline Has ongoing EDWARDS, occasional SOB at rest On continuous supplemental o2 Appetite fair Weight stable Denies n/v Bowels regular Denies urinary complaints Additional Objective Objective There were no vitals filed for this visit. Last Weights: Wt Readings from Last 3 Encounters: 09/12/23 57.7 kg (127 lb 3.3 oz) 05/25/23 57.7 kg (127 lb 3.3 oz) 03/30/23 57.7 kg (127 lb 3.3 oz) Last BPs: BP Readings from Last 4 Encounters: 09/19/23 122/80 08/29/23 148/86 08/08/23 140/100 07/17/23 154/70 General: alert, no distress, and ill looking Neuro: alert & oriented x 3 with fluent speech Heart: regular rate & rhythm and no murmur Lungs: decreased breath sounds, few faint wheezes, no rhonchi Abdomen: abdomen soft, non-tender, and normal bowel sounds Ext: Normal extremities without edema Lab Review: I have reviewed the following results: BMP results Recent Labs Units 10/05/22 1444 01/07/22 1207 SODIUM - [facility] mmol/L 145 137 POTASSIUM - [facility] mmol/L 4.2 4.9 CHLORIDE - [facility] mmol/L 109* 102 CO2 - [facility] mmol/L 26 25 CREATININE - [facility] mg/dL 0.9 1.0 BUN - [facility] mg/dL 12 14 CBC results Recent Labs Units 10/05/22 1444 01/07/22 1207 WBC K/uL 6.03 8.68 HGB g/dL 11.6* 9.2* HCT % 39.2* 31.1* PLT K/uL 178 442* Medication Review "Bottles Out" medication review performed today and medication list in EMR updated Javi Hart PA-C 10:11 AM *Communication sent to PCP (via autofax if non-[facility]), [facility] Health Care Team members,relevant Specialty Care Physicians* documented in this encounter Miscellaneous Notes * ACP (Advance Care Planning) - Javi Hart PA-C - 11/12/2023 10:25 AM EDT Images from the original note were not included. Patient-centered Communication 10/26/2023 The patient/surrogate voluntarily agreed to participate in advance care planning discussion. They were advised that this is a separate service which may incur out of pocket cost in the form of copayment and/or deductibles. Location: Home Individual(s) present for conversation: Patient Decisions Synopsis SmartLink Most Recent Value Past ~10 years 04/24/2023 16:18 Decisions CPR decision: Declines CPR 04/24/2023 Declines CPR Intubation/Mechanical Ventilation decision: Declines Intubation/mechanical ventilation 04/24/2023 Declines Intubation/mechanical ventilation Antibiotic therapy decision: Patient chooses Antibiotic therapy 04/24/2023 Patient chooses Antibiotic therapy Artificial nutrition decision: Declines Artificial nutrition 01/22/2020 IV hydration decision: Yes 01/22/2020 Hospice decision: Undecided about Hospice 04/24/2023 Undecided about Hospice Dying at home decision: Patient chooses Dying at home 04/24/2023 Patient chooses Dying at home Additional Comments Synopsis SmartLink Most Recent Value Past ~10 years 04/24/2023 16:18 Additional Comments Additional Comments: POLST and OOH DNR in irma. 04/24/2023 POLST and OOH DNR in irma. Discerning What Matters Most to the Patient: Synopsis SmartLink Most Recent Value Past ~10 years 11/29/2021 11:34 Discerning What Matters Most to the Patient In their own words, patient's UNDERSTANDING of their illness is: I know this lung disease is getting worse 11/29/2021 I know this lung disease is getting worse Their current SYMPTOMS include: Shortnes of breath 11/29/2021 Shortnes of breath They say their illness has CHANGED THEIR LIFE by: Less enjoyment (quality of life) 11/29/2021 Less enjoyment (quality of life) The patient thinks COMPLICATIONS in the future may be: 11/29/2021 Was PROGNOSIS discussed? Yes 11/29/2021 Yes Prognosis was discussed today as likely to live: Other, please comment Worsening disease and patient understands he is getting worse 11/29/2021 Other, please comment Worsening disease and patient understands he is getting worse Progression of illness described as: Periods of stability with episodes of worsening 11/29/2021 Periods of stability with episodes of worsening The patient's HOPES are: Avoid further hospitalization;Avoid intubation/mechanical ventilation;Other (define below) 11/29/2021 Avoid further hospitalization;Avoid intubation/mechanical ventilation;Other (define below) Other, patient defines as: Doesn't even want doctor visits unless necessary 11/29/2021 Doesn't even want doctor visits unless necessary The patient defines LIVING WELL as: Being able to go to gun shows a few times a year 11/29/2021 Being able to go to gun shows a few times a year The patient's FEARS/WORRIES about illness are: Going back to the hospital;Going to a longterm 11/29/2021 Going back to the hospital;Going to a longterm Dying with uncontrolled symptoms include: Pain;Dyspnea 01/22/2020 The patient's PRIOR EXPERIENCES: was in a coma for a month before she . He does not want to be "a vegetable" where he doesn't know what is going on. It was hard watching his "lay there like that". 01/04/2021 The patient considers these as 'UNACCEPTABLE OUTCOMES': Prolonged hospital stay (define below);Prolonged mechanical ventilation (define below);Prolonged longterm stay (define below) 11/29/2021 Prolonged hospital stay (define below);Prolonged mechanical ventilation (define below);Prolonged longterm stay (define below) Source: Content from [employer] [facility] Aligning Care With What Matters Most: Synopsis SmartLink Most Recent Value Past ~10 years 04/24/2023 16:18 Aligning Care With What Matters Most In their own words, the patient's understanding of their prognosis: my breathing continues to get worse 04/24/2023 my breathing continues to get worse Interventions/Choices: CPR;Intubation/mechanical ventilation;Antibiotic therapy;Hospice; at home 04/24/2023 CPR;Intubation/mechanical ventilation;Antibiotic therapy;Hospice; at home Source: Content from [employer] [facility] 15 minutes spent in direct [id number] discussion today, Javi Hart PA-C * Assessment & Plan Note - Javi Hart PA-C - 11/12/2023 10:19 AM EDT Associated Problem(s): Post herpetic neuralgia Using lyrica with relief * Assessment & Plan Note - Javi Hart PA-C - 11/12/2023 10:19 AM EDT Associated Problem(s): Hypertensive heart disease with chronic combined systolic and diastolic congestive heart failure (HCC) "RED FLAG" HF Symptoms: Increased dyspnea on [...] Encouraged low sodium diet Following with cardiology * Assessment & Plan Note - Javi Hart PA-C - 11/12/2023 10:18 AM EDT Associated Problem(s): Atrial fibrillation (HCC) Rate controlled on metoprolol Continue eiliquis * Assessment & Plan Note - Javi Hart PA-C - 11/12/2023 10:18 AM EDT Associated Problem(s): Chronic respiratory failure with hypoxia (HCC) "RED FLAG" COPD symptoms: Increased dyspnea on exertion ("I can't walk to the kitchen or up the stairs without coughing and wheezing", "My chest feels tight any time I move") Wheezing ("You can hear the whistling across the room") Medication Regimen All Classes - OMID Class D - Inhaled Cvsmjbpjspftgf-RQXP-BEDO Combination Inhaler (Matthew) Self-Management plan High frequency nebulizer treatments every 4-6 hours around the clock Utilize Flutter Device hourly while awake Exacerbation plan CBC Chest Xray Additional Comments: Continue supplemental oxygen Encouraged increased use of nebulizer for SOB Again discussed possibility of adding morphine for air hunger, patient declines documented in this encounter Plan of Treatment Upcoming Encounters Date Type Department Care Team (Late st Contact Info) Description 11/15/2023 2:30 PM EDT Home Visit [facility] [place], [facility] [address] [phone] Merced Hicks RN [address] [place] [address] 12/08/2023 2:30 PM EDT Scheduled Telephone [facility], [facility] [address] [facility] [place] [phone] Vikki Ashraf RDN [address] [facility] [place] [phone] 01/01/2024 3:00 PM EDT Home Visit [facility], [facility] [address] [address] Javi Hart PA-C [address] [place] [address] Health Maintenance Due Date Last Done Comments DTaP,Tdap,and Td Vaccines (1 - Tdap) 07/12/1959 Zoster Vaccines (1 of 2) 1990 COVID-19 Vaccine (5 - 2022-24 season) 2022 01/28/2022, 02/17/2021, 09/24/2020, Additional history exists TSH 10/06/2023 10/05/2022, 12/11, 09/04/2020, Additional history exists Depression Screening 10/29/2023 10/28/2022 Influenza Vaccine (FLU shot) (#1) 2023 01/11/2023, 01/20/2022, 02/09/2021, Additional history exists O2 ASSESSMENT COMPLETED IN PAST YEAR FOR COPD 09/18/2024 09/19/2023 Pneumococcal Vaccine: 65+ Years Completed 07/09/2020, 03/12/2019 [...] as of this encounter Visit Diagnoses Diagnosis Chronic respiratory failure with hypoxia (HCC)- Primary Chronic respiratory failure Hypertensive heart disease with chronic combined systolic and diastolic congestive heart failure (HCC) Atrial fibrillation, unspecified type (HCC) Post herpetic neuralgia Herpes zoster with other nervous system complications Acquired hypothyroidism Unspecified hypothyroidism Advanced care planning/counseling discussion Other specified counseling documented in this encounter Care Teams Gate Technician Relationship Specialty Start Date End Date Rafa Cage MD [address] [place] [address] [phone] PCP - General Family Medicine 07/09/20 documented as of this encounter
--- OUTSIDE RECORDS SUMMARY | 2023-12-07 08:12 | External Medical Summary | Summary of Care ---
Author Name Unknown Organization [facility] Address [address] [facility] [place] [address] Phone [phone] Care Team Providers Care Field Examiner Name Role Phone Rafa Cage MD Primary Care P [facility] Encounter Details Date Type Department Care Team (Late st Contact Info) Description 10/31/2023 Population Health External Data Unspecified Department Allergies No known active allergiesdocumented as of this encounter (statuses as of 11/03/2023) Medications Medication Sig Dispensed Refills Start Date [...] g 1 11/29/2021 Active [facility] Saline Nasal [place] 0.65 % Nasal Solution 12/30/2021 Active oxygen [...] the morning and 1 Can before bedtime. 77206 mL 2 is 08/31/2022 Active Additional Information Patient not taking.Reported on 10/28/2022 Boost High Protein Oral Liquid Administer 474 mL daily, as directed by mouth. 50914 mL 11 08/31/2022 Active Additional Information Patient [...] with varicose veins (HCC),Coronary artery disease involving the [place] coronary artery of the [place] heart without angina pectoris,Hypertensiv e heart disease [...] Hour (toPROL XL)Indications:Coron harry artery disease involving the [place] coronary artery of [place] heart without angina pectoris TAKE 1 TABLET [...] as of this encounter (statuses as of 11/03/2023) Active Problems Problem Noted Date Diagnosed Date Atrial flutter 04/24/2023 Overview: S/p ablation Atrial fibrillation 07/21/2022 Last Assessment & Plan: Rate controlled on metoprolol Continue eiliquis Atherosclerotic heart diseas e of the [place] coronary artery with other forms of angina [...] 07/09/2020 Last Assessment & Plan: Following with [facility] RDN Encouraged high calorie diet Continues [...] Classes - OMID Class D - Inhaled Zeakocgugfpzxo-ZQKK-HWHU Combination Inhaler (Artemiollegy) Self-Management plan High frequency nebulizer treatments every 4-6 hours around the clock Utilize Flutter Device hourly while awake Exacerbation plan CBC Chest Xray Additional Comments: Continue supplemental oxygen Encouraged increased use of nebulizer for SOB Progressing towards end stage COPD Can consider low dose SL morphine for air hunger as SOB worsens Chronic obstructive pulmonary disease, unspecifi ed 10/24/2018 [...] with cardiology Coronary artery disease invo lving the [place] coronary artery of [place] heart without angina pectoris 09/07/2017 S/P angioplasty with stent 09/07/2017 Typical atrial flutter 08/24/2017 History of tobacco use 08/10/2015 Post herpetic neuralgia 08/10/2015 Hypothyroidism 09/18/2013 documented as of this encounter (statuses as of 11/03/2023) Resolved Problems Problem Noted Date Diagnosed Date [...] as of this encounter (statuses as of 11/03/2023) Immunizations Name Administration Dates Next Due COVID-19 mRNA, LNP-s, No Pre serve, 2-Dose Series ([employer]) 02/17/2021,09/24/2020,08/27/2020 Covid-19, Mrna, Lnp-s, Pf, B ivalent, 30 Mcg, IM, 12 yrs and above ([employer]) 01/28/2022 Pneumococcal Conjugate Vacc, 13 Valent (Prevnar) [...] 2:30 PM EDT [facility] Visit [facility], [facility] [address] [facility] [place] [address] Merced Hicks RN [address] [place] [address] 12/08/2023 2:30 PM EDT Scheduled Telephone [facility], [facility] [address] [facility] [place] [phone] Vikki Ashraf RDN [address] [facility] [place] [address] Health Maintenance Due Date Last Done Comments DTaP,Tdap,and Td Vaccines (1 - Tdap) 07/12/1959 Zoster Vaccines (1 of 2) 1990 COVID-19 Vaccine ( - season) 2022 01/28/2022, 02/17/2021, 09/24/2020, Additional history exists TSH 10/06/2023 10/05/2022, 12/11, 09/04/2020, Additional history exists *CXR OR CT FOR COPD EVER 10/22/2023 Depression Screening 10/29/2023 10/28/2022 Influenza Vaccine (FLU [...] filedocumented as of this encounter Care Teams Field Examiner Relationship Specialty Start Date End Date Rafa Cage MD [address] [place] [address] [phone] PCP - General Family Medicine 07/09/20 documented as of this encounter
--- OUTSIDE RECORDS SUMMARY | 2023-12-07 08:12 | External Medical Summary | Summary of Care ---
Author Name Unknown Organization [facility] Address [address] [facility] [place] [address] Phone [phone] Care Team Providers Care Transport Rn Name Role Phone Rafa Cage MD Primary Care P rovider Reason for Visit * Reason Onset Date Comments Medical Nutrition Therapy 09/13/2023 Encounter Details Date Type Department Care Team (Latest Contact Info) Description 09/13/2023 12:30 PM EDT Scheduled Telephone [facility], [facility] [address] [facility] [place] [address] Vikki Ashraf, RDN [address] [facility] [place] [phone] Moderate protein-calorie malnutrition (HCC)* Allergies No known active allergiesdocumented as of this encounter (statuses as of 09/13/2023) Medications Medication Sig Dispensed Refills Start Date [...] g 1 11/29/2021 Active [facility] Saline Nasal S[place] 0.65 % Nasal Solution 12/30/2021 Active oxygen [...] the morning and 1 Can before bedtime. 38669 mL 2 is 08/31/2022 Active Additional Information Patient not taking.Reported on 10/28/2022 Boost High Protein Oral Liquid Administer 474 mL daily, as directed by mouth. 78240 mL 11 08/31/2022 Active Additional Information Patient [...] with varicose veins (HCC),Coronary artery disease involving [place] coronary artery of [place] heart without angina pectoris,Hypertensiv e heart disease [...] Hour (toPROL XL)Indications:Coron harry artery disease involving [place] coronary artery of [place] heart without angina pectoris TAKE 1 TABLET [...] as of this encounter (statuses as of 09/13/2023) Active Problems Problem Noted Date Diagnosed Date Atrial flutter 04/24/2023 Overview: S/p ablation Atrial fibrillation 07/21/2022 Last Assessment & Plan: Rate controlled on metoprolol Continue eiliquis Atherosclerotic heart diseas e of [place] coronary artery with other forms of angina pectoris 01/07/2022 Last Assessment & Plan: -Continues with plavix, statin, antihypertensives -Cardiac prudent diet encouraged BPH (benign prostatic hyperplasia) 01/07/2022 Nasal septal perforation 01/07/2022 History of duodenal ulcer 01/07/2022 Unable [...] Last Assessment & Plan: Following with [facility] RDN Encouraged high calorie diet Continues to [...] Classes - OMID Class D - Inhaled Lfkyqhvsmuouqu-MAGC-YOKN Combination Inhaler (Trellegy) Self-Management plan High frequency [...] with cardiology Coronary artery disease invo lving [place] coronary artery of [place] heart without angina pectoris 09/07/2017 S/P angioplasty with stent 09/07/2017 Typical atrial flutter 08/24/2017 History of tobacco use 08/10/2015 Post herpetic neuralgia 08/10/2015 Hypothyroidism 09/18/2013 documented as of this encounter (statuses as of 09/13/2023) Resolved Problems Problem Noted Date Diagnosed Date [...] of this date Symptomatic anemia 01/07/2022 3 Hyperlipidemia 01/04/2021 01/07/2022 Venous stasis ulcer of [...] as of this encounter (statuses as of 09/13/2023) Immunizations Name Administration Dates Next Due COVID-19 mRNA, LNP-s, No Pre serve, 2-Dose Series ([employer]) 02/17/2021,09/24/2020,08/27/2020 Covid-19, Mrna, Lnp-s, Pf, B ivalent, [...] the money to buy more. Never true 08/08/19 24 Within the past 12 months, t he food you bought just didn't last and you didn't have money to get more. Never true 08/08/2023 Sex and Gender Information Value Date Recorded Sex Assigned at Not on file Gender Identity Not on file Sexual Orientation Not on file Job Start Date Occupation Industry Not on file Not on file Not on file documented as of this encounter Last Filed Vital Signs Vital Sign Reading Time Taken Comments Blood Pressure - - Pulse - - Temperature - - Respiratory Rate - - Oxygen Saturation - - Inhaled Oxygen Concentration - - Weight 57.7 kg (127 lb 3.3 oz) 09/12/2023 1:39 P M EDT Height 167.6 cm (5' 5.98") 09/12/2023 1:39 PM ED T Body Mass Index 20.54 09/12/2023 1:39 PM EDT documented in this encounter Miscellaneous Notes * Telephone Encounter - Vikki Ashraf Belia, RDN - 09/12/2023 1:30 PM EDT NUTRITION FOLLOW-UP NOTE - OUTPATIENT Elizabeth Name: Kirby Alonso [facility] Date: 09/12/2023 Time: 1:32 PM Patient was identified by name and date. After connecting to the patient via telephone, the patient was identified by name and date of . Patient was then informed that this was a telephone call only visit. The patient agreed to participate. Visit Disposition: Routine follow-up Total call duration was 11 minutes. 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) I11.0, I50.42 Pulmonary hypertension (HCC) I27.20 Centrilobular emphysema (HCC) J43.2 Chronic obstructive pulmonary disease, unspecified (HCC) J44.9 Protein-calorie malnutrition (HCC) E46 Chronic respiratory failure with hypoxia (HCC) J96.11 History of radiofrequency ablation procedure for cardiac arrhythmia Z98.890 Moderate protein-calorie malnutrition (HCC) E44.0 Gastroesophageal reflux disease without esophagitis K21.9 Orthostatic hypotension I95.1 Atherosclerotic heart disease of [place] coronary artery with other forms of angina pectoris (HCC) I25.118 BPH (benign prostatic hyperplasia) N40.0 Nasal septal perforation J34.89 History of duodenal ulcer Z87.19 Unable to read or write Z55.0 Atrial fibrillation (HCC) I48.91 Venous stasis ulcer of left calf limited to breakdown of skin with varicose veins (HCC) I83.022, L97.221 Support System: Child (Daughter), Self Barriers To Learning: Hard of hearing and Unable to read Special Education Needs: Simplified materials, Verbal instructions and Instruct caregiver Food/Nutrition-Related History Describes typical meal pattern/po intake as indicated below: Breakfast: 2 scrambled eggs, 2 slices of toast with butter, frozen FF/"just popcorn sometimes"/RiceKrispies cereal with milk Snacks: cookies Lunch: chipped beef sandwich/ham salad sandwich/leftovers/homemade soups with crackers Snacks: cookies Dinner: salmon, baked potato, green beans/pork chop, mashed potatoes, carrots/meat balls with sauceand pasta/chili with buttered roll Snacks: popcorn/ice cream/popsicles/homemade vegetable soup with crackers Drinks: water/Coke/Pepsi/coffee Restaurant meals: at least once a month Alcohol: None Tobacco Use: No Food/Nutrition-Related History: Diet Recall/Food Logs Indicate: Describes typical meal pattern/po intake as indicated below: Breakfast: 2 scrambled eggs, 2 slices of toast with butter, frozen FF/"just popcorn sometimes"/RiceKrispies cereal with milk Snacks: cookies Lunch: chipped beef sandwich/ham salad sandwich/leftovers/homemade soups with crackers Snacks: cookies Dinner: salmon, baked potato, green beans/pork chop, mashed potatoes, carrots/meat balls with sauceand pasta/chili with buttered roll Snacks: popcorn/ice cream/popsicles/homemade vegetable soup with crackers Drinks: water/Coke/Pepsi/coffee Restaurant meals: at least once a month Alcohol: None Tobacco Use: No Food and Nutrient Intake and other pertinent information: Patient continues to live alone Patient's Daughter has been assisting with care/food shopping/prepping/cooking of some meals/transportation The nutrition benefits of oral nutrition supplements were reviewed, but Patient declined when offered Since last call, Patient with chronic wound posterior LLE remains (small pin point areas/silver sulfadiazine cream to area as treatment as needed) Reinforced the necessity of including healthier, protein rich foods in all meals/snacks to aid in skin support/skin health (suggestions offered/previously sent info to Daughter) Patient is edentulous/can chew most meats and other hard foods sufficiently--no difficulties reported Since last call, appetite, PO intake, and hydration, remain good with no difficulties reported No food insecurity reported this call Patient able to read and write at a basic level ("I left school when I was 13 yrs old") Medications Changes/Updates: None reported Nutrition-Focused Physical Findings Full nutrition focused physical exam not conducted (telephone nutrition assessment) Per nursing assessment (home visit 08/29/23) Pain 0 Physical Exam Constitutional: General: He is not in acute distress. Cardiovascular: Rate and Rhythm: Normal rate and regular rhythm. Pulses: Normal pulses. Heart sounds: Normal heart sounds. Pulmonary: Effort: Pulmonary effort is normal. Comments: Lungs diminished throughout Abdominal: General: Bowel sounds are normal. Palpations: Abdomen is soft. Skin: General: Skin is warm and dry. Neurological: Mental Status: He is alert and oriented to person, place, and time. Problems/Symptoms: Review of Systems Constitutional: Negative. Eyes: Negative. Respiratory: Positive for shortness of breath (EDWARDS -at baseline). Cardiovascular: Negative. Gastrointestinal: Positive for abdominal pain. Genitourinary: Negative. Musculoskeletal: Positive for arthralgias. Right side pain from past shingles Skin: Positive for wound (chronic wound of posterior LLE - using silvadene - several pin point openareas). Neurological: Negative. Psychiatric/Behavioral: Negative. Anthropometric Measurements Current Weight: Wt Readings from Last 1 Encounters: 09/12/23 57.7 kg (127 lb 3.3 oz) Wt Readings from Last 4 Encounters: 09/12/23 57.7 kg (127 lb 3.3 oz) 05/25/23 57.7 kg (127 lb 3.3 oz) 03/30/23 57.7 kg (127 lb 3.3 oz) 01/17/23 57.7 kg (127 lb 3.3 oz) Weight Change: No new updated weight obtained Requested to nursing to obtain next home visit if possible BMI Readings from Last 1 Encounters: 09/12/23 20.54 kg/m Biochemical Data, Medical Tests, and Procedures Latest Reference Range & Units 01/07/22 12:07 10/05/22 14:44 Sodium 135 - 146 mmol/L 137 145 Potassium 3.5 - 5.1 mmol/L 4.9 4.2 Chloride 98 - 107 mmol/L 102 109 (H) CO2 22 - 32 mmol/L 25 26 BUN 6 - 20 mg/dL 14 12 Creatinine 0.6 - 1.2 mg/dL 1.0 0.9 Estimated Glomerular Filtration Rate >=60 mL/min 77 84 Anion Gap 7 - 15 mmol/L 10 10 Glucose 70 - 120 mg/dL 123 (H) 123 (H) Calcium 8.4 - 10.2 mg/dL 8.4 8.5 Protein 6.0 - 8.3 g/dL 6.4 6.6 (H): Data is abnormally high Latest Reference Range & Units 01/07/22 12:07 10/05/22 14:44 HGB 14.0 - 16.8 g/dL 9.2 (L) 11.6 (L) HCT 40.0 - 48.4 % 31.1 (L) 39.2 (L) (L): Data is abnormally low Latest Reference Range & Units 01/07/22 12:07 10/05/22 14:44 Albumin 3.8 - 5.0 g/dL 4.1 4.2 Previous Nutrition Diagnosis: Suboptimal energy intake related to High calorie, high fat and/or high sugar selections, Excess intake of sweetened beverages, Inadequate fruit and vegetable intake, Inadequate calorie intake, Inadequate protein intake, Lack of exposure to nutritional management of Malnutrition/Left Calf Wound/Heart Health as evidenced by Reported diet and/or activity recall Progress towards goals: 1) Consume 3 meals/day plus between meal snacks of nutritious, low sodium, protein/calorie dense foods (reinforced healthier foods to consume and those foods to avoid/suggested options/previously sent info)--in progress 2) Switch out sweetened beverages with more water (2-3 bottles of water/day--16.9 oz each)--in progress 3) Consume Harrington Instant Breakfast Drink oral nutrition supplement 1-2x daily for additional nutrition support--not meeting (not consuming at all/again, declined any other oral nutrition supplements at this time) CURRENT NUTRITION DIAGNOSIS Suboptimal energy intake related to High calorie, high fat and/or high sugar selections, Excess intake of sweetened beverages, Inadequate fruit and vegetable intake, Inadequate calorie intake, Inadequate protein intake, Lack of exposure to nutritional management of Malnutrition/Left Calf Wound/Heart Health as evidenced by Reported diet and/or activity recall NUTRITION INTERVENTION: FOOD AND/OR NUTRIENT DELIVERY Meals Snacks NUTRITION EDUCATION Initial/brief nutrition education NUTRITION COUNSELING Strategies Nutrition Prescription: Diet: 2000 mg Sodium (heart health) Good Nutrition High Calorie/High Protein (low BMI/skin health) Iron Rich Foods (low H/H lab work) Rodrick Nagy: Rodrick Edwards (Male): 1457.32 (09/12/23 1339) Daily Calorie Needs: 1457 Kcals + 500 Kcals = 1957 Kcals/day (promote weight gain/low BMI) Daily Protein Needs: 58-69 Grams protein (1-1.2g/kg/bw of 57.7 kg) Current Goals: 1) Consume 3 meals/day plus between meal snacks of nutritious, low sodium, protein/calorie/iron rich foods 2) Switch out sweetened beverages with more water (2-3 bottles of water/day--16.9 oz each) 3) Consume Harrington Instant Breakfast Drink oral nutrition supplement 1-2x daily for additional nutrition support Dietitian Action: Cardiac Education: 2000 mg Na Diet and List of High Sodium Foods Good Nutrition Education: Boosting Calorie Intake , Boosting Protein Intake, Enjoying More Fruits & Vegetables , Guide to Health Eating, Healthy Eating Away From Home , Iron Rich Foods, Snack Ideas, High Calorie Beverage Recipes, Make Healthy Food Choices, MyPlate , Planning Healthy, Easy Meals, and Start Your Day with Healthy Breakfast Recommendations to Ordering Provider: Continue current plan of nutrition care. NUTRITION MONITORING AND EVALUATION: The following will be monitored and evaluated at the next visit: Monitor weight. Monitor labs. Review food logs. Monitor goals and progress. Plan: Patient scheduled to return in 4-6 weeks; dietitian phone # given for future reference. 15 minutes Medical Nutrition Therapy Time In: 1230 (09/13/23 1423) Time Out: 1241 (09/13/23 1423) 15 min (8-22 min) 30 min (23-37 min) 45 min (38-52 min) 60 min (53-67 min) 75 min (68-82 min) 90 min (83-97 min) 105 min (98-113 min) Vikki Ashraf RDN [facility], [facility] documented in this encounter Plan of Treatment Upcoming Encounters Date Type Department Care Team (Late st Contact Info) Description 09/19/2023 1:00 PM EDT Home Visit Care Coordination and Integration [address] [place] [address] Karen Kay, Community Health Radiography Technician [address] [place] [address] 10/03/2023 10:00 AM EDT Home Visit [facility] [place], [facility] [address] [facility] [place] [address] Merced Hicks RN [address] [facility] [place] [address] 10/26/2023 3:00 PM EDT Home Visit [facility], [facility] [address] [facility] [place] [address] Javi Hart PA-C [address] [place] [address] 10/27/2023 3:30 PM EDT Scheduled Telephone [facility], [facility] [address] [facility] [place] [address] Vikki Ashraf RDN [address] [facility] [place] [address] Health Maintenance Due Date Last Done Comments DTaP,Tdap,and Td Vaccines (1 - Tdap) 07/12/1959 Zoster Vaccines (1 of 2) 1990 COVID-19 Vaccine (5 - season) 2022 01/28/2022, 02/17/2021, 09/24/2020, Additional history exists *NEPHROLOGY REFERRAL DUE TO RESISTANT HTN 06/14/2023 TSH 10/06/2023 10/05/2022, 093 , 09/04/2020, Additional history exists Depression Screening 10/29/2023 10/28/2022 O2 ASSESSMENT COMPLETED IN PAST YEAR FOR COPD 08/28/2024 08/29/2023 Pneumococcal Vaccine: 65+ Years Completed 07/09/2020, 03/12/2019 Alpha-1 Antitrypsin Completed 01/07/2022 Influenza Vaccine (FLU shot) Completed 07/2022, 01/20/2022, 02/09/2021, Additional history exists GARDASIL-HPV IMMUNIZATION SERIES Aged Out No longer eligible based on patient's age to complete this topic Hepatitis B Aged Out No longer eligi ble based on patient's age to complete this topic MENINGOCOCCAL (MENACTRA/MENVEO) Aged Out No longer eligible based on patient's age to complete this topic documented as of this encounter Medical Devices Not on filedocumented as of this encounter Visit Diagnoses Diagnosis Moderate protein-calorie malnutrition (HCC)- Primary Malnutrition of moderate degree documented in this encounter Care Teams Transport Rn Relationship Specialty Start Date End Date Rafa Cage MD [address] [place] [phone] PCP - General Family Medicine 07/09/20 documented as of this encounter
--- OUTSIDE RECORDS SUMMARY | 2023-12-07 08:12 | External Medical Summary | Summary of Care ---
Author Name Unknown Organization [facility] Address [address] [facility] [address] Phone [phone] Care Team Providers Care Distribution Supervisor Name Role Phone Rafa Cage MD Primary Care P rovider Reason for Visit * Reason Onset Date Comments [facility]: Maintenance 09/14/2023 Encounter Details Date Type Department Care Team (Late st Contact Info) Description 09/14/2023 Telephone [facility] [address] [facility] [place] [address] Dorys Jaime, [address] [place] [address] [facility]: Maintenance Allergies No known active allergiesdocumented as of this encounter (statuses as of 09/14/2023) Medications Medication Sig Dispensed Refills Start Date [...] g 1 11/29/2021 Active [facility] Saline Nasal [place] 0.65 % Nasal Solution 12/30/2021 Active oxygen [...] the morning and 1 Can before bedtime. 91438 mL 2 is 08/31/2022 Active Additional Information Patient not taking.Reported on 10/28/2022 Boost High Protein Oral Liquid Administer 474 mL daily, as directed by mouth. 80327 mL 11 08/31/2022 Active Additional Information Patient [...] with varicose veins (HCC),Coronary artery disease involving [place] coronary artery of [place] heart without angina pectoris,Hypertensiv e heart disease [...] Hour (toPROL XL)Indications:Coron harry artery disease involving [place] coronary artery of [place] heart without angina pectoris TAKE 1 TABLET [...] as of this encounter (statuses as of 09/14/2023) Active Problems Problem Noted Date Diagnosed Date Atrial flutter 04/24/2023 Overview: S/p ablation Atrial fibrillation 07/21/2022 Last Assessment & Plan: Rate controlled on metoprolol Continue eiliquis Atherosclerotic heart diseas e of [place] coronary artery with other forms of angina [...] 07/09/2020 Last Assessment & Plan: Following with [facility] RDN Encouraged high calorie diet Continues [...] Classes - OMID Class D - Inhaled Dtrtzoblzzgblz-GHCI-CMMU Combination Inhaler (Matthew) Self-Management plan High frequency [...] with cardiology Coronary artery disease invo lving [place] coronary artery of [place] heart without angina pectoris 09/07/2017 S/P angioplasty with stent 09/07/2017 Typical atrial flutter 08/24/2017 History of tobacco use 08/10/2015 Post herpetic neuralgia 08/10/2015 Hypothyroidism 09/18/2013 documented as of this encounter (statuses as of 09/14/2023) Resolved Problems Problem Noted Date Diagnosed Date [...] as of this encounter (statuses as of 09/14/2023) Immunizations Name Administration Dates Next Due COVID-19 mRNA, LNP-s, No Pre serve, 2-Dose Series ([employer]) 02/17/2021,09/24/2020,08/27/2020 Covid-19, Mrna, Lnp-s, Pf, B [...] encounter Miscellaneous Notes * Telephone Encounter - Dorys Jaime CM - 09/14/2023 2:32 PM EDT Call placed to [facility]. No answer. LVM for Admissions requesting a call back Call placed to [facility]. No answer. LVM for Admissions requesting a call back Dorys Jaime [facility] [email or web address] documented in this encounter Plan of Treatment Upcoming Encounters Date Type Department Care Team (Late st Contact Info) Description 09/19/2023 1:00 PM EDT Home Visit Care Coordination and Integration [address] [place] [facility] [place] [address] Karen Kay, [facility] Window Installation Subcontractor [address] [place] [address] 10/03/2023 10:00 AM EDT Home Visit [facility], [facility] [address] [place] [address] Merced Hicks RN [address] [place] [address] 10/26/2023 3:00 PM EDT Home Visit [facility], [facility] [address] [place] [address] Javi Hart PA-C [address] [facility] [place] [address] 10/27/2023 3:30 PM EDT Scheduled Telephone [facility], [facility] [address] [facility] [place] [address] Vikki Ashraf RDN [address] [facility] [place] [address] Health Maintenance Due Date Last Done Comments DTaP,Tdap,and Td Vaccines (1 - Tdap) 07/12/1959 Zoster Vaccines (1 of 2) 1990 COVID-19 Vaccine (5 - 2022- season) 2022 01/28/2022, 02/17/2021, 09/24/2020, Additional history exists *NEPHROLOGY REFERRAL DUE TO RESISTANT HTN 06/14/2023 TSH 10/06/2023 10/05/2022, 12/11, 09/04/2020, Additional history [...] filedocumented as of this encounter Care Teams Distribution Supervisor Relationship Specialty Start Date End Date Rafa Cage MD [address] [place] [address] [phone] PCP - General Family Medicine 07/09/20 documented as of this encounter
--- OUTSIDE RECORDS SUMMARY | 2023-12-07 08:12 | External Medical Summary | Summary of Care ---
Author Name Unknown Organization [facility] Address [address] [facility] [place] [address] Phone [phone] Care Team Providers Care Graphic Art Sales Representative Name Role Phone Rafa Cage MD Primary Care P rovider Encounter Details Date Type Department Care Team (Late st Contact Info) Description 10/02/2023 Population Health External Data Unspecified Department Allergies No known active allergiesdocumented as of this encounter (statuses as of 10/03/2023) Medications Medication Sig Dispensed Refills Start Date [...] g 1 11/29/2021 Active [facility] Sal[facility] [place] 0.65 % Nasal Solution 12/30/2021 Active oxygen [...] the morning and 1 Can before bedtime. 19209 mL 2 is 08/31/2022 Active Additional Information Patient not taking.Reported on 10/28/2022 Boost High Protein Oral Liquid Administer 474 mL daily, as directed by mouth. 69456 mL 11 08/31/2022 Active Additional Information Patient [...] with varicose veins (HCC),Coronary artery disease involving alutiiq coronary artery of alutiiq heart without angina pectoris,Hypertensiv e heart disease [...] Hour (toPROL XL)Indications:Coron harry artery disease involving alutiiq coronary artery of alutiiq heart without angina pectoris TAKE 1 TABLET [...] as of this encounter (statuses as of 10/03/2023) Active Problems Problem Noted Date Diagnosed Date Atrial flutter 04/24/2023 Overview: S/p ablation Atrial fibrillation 07/21/2022 Last Assessment & Plan: Rate controlled on metoprolol Continue eiliquis Atherosclerotic heart diseas e of alutiiq coronary artery with other forms of angina [...] 07/09/2020 Last Assessment & Plan: Following with [facility] RDN Encouraged high calorie diet [...] Classes - OMID Class D - Inhaled Bvanamelbsidtm-GUPE-CUWC Combination Inhaler (Trellegy) Self-Management plan High frequency [...] with cardiology Coronary artery disease invo lving alutiiq coronary artery of alutiiq heart without angina pectoris 09/07/2017 S/P angioplasty with stent 09/07/2017 Typical atrial flutter 08/24/2017 History of tobacco use 08/10/2015 Post herpetic neuralgia 08/10/2015 Hypothyroidism 09/18/2013 documented as of this encounter (statuses as of 10/03/2023) Resolved Problems Problem Noted Date Diagnosed Date [...] as of this encounter (statuses as of 10/03/2023) Immunizations Name Administration Dates Next Due COVID-19 mRNA, LNP-s, No Pre serve, 2-Dose Series (Arcarios) 02/17/2021,09/24/2020,08/27/2020 Covid-19, Mrna, Lnp-s, Pf, B ivalent, 30 Mcg, IM, 12 yrs and above (Arcarios) 01/28/2022 Pneumococcal Conjugate Vacc, 13 Valent (Prevnar) [...] Care Team (Late st Contact Info) Description 10/03/2023 10:00 AM EDT Home Visit [facility], [facility] [address] [address] Merced Hicks RN [address] [place] [address] 10/26/2023 3:00 PM EDT Home Visit [facility], [facility] [address] [address] Javi Hart PA-C [address] [address] 10/27/2023 3:30 PM EDT Scheduled Telephone [facility], [facility] [address] [facility] [place] [address] Vikki Ashraf RDN [address] [facility] [place] [address] Health Maintenance Due Date Last Done Comments [...] filedocumented as of this encounter Care Teams Graphic Art Sales Representative Relationship Specialty Start Date End Date Rafa Cage MD [address] [place] [address] PCP - General Family Medicine 07/09/20 documented as of this encounter
--- OUTSIDE RECORDS SUMMARY | 2023-12-07 08:12 | External Medical Summary | Summary of Care ---
Author Name Unknown Organization [facility] Address [address] [facility] [place] [address] Phone [phone] Care Team Providers Care Ordnance Artificer Name Role Phone Rafa Cage MD Primary Care P rovider Reason for Visit * Reason Onset Date Comments [facility]: Maintenance 10/03/2023 Encounter Details Date Type Department Care Team (Late st Contact Info) Description 10/03/2023 12:15 PM EDT Scheduled Telephone [facility], [facility] [address] [facility] [place] [address] Coordinator, [facility] [address] [facility] [place] [address] Allergies No known active allergiesdocumented as of [...] g 1 11/29/2021 Active [facility] Saline Nasal [place] 0.65 % Nasal Solution 12/30/2021 Active oxygen [...] the morning and 1 Can before bedtime. 78486 mL 2 is 08/31/2022 Active Additional Information Patient not taking.Reported on 10/28/2022 Boost High Protein Oral Liquid Administer 474 mL daily, as directed by mouth. 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 [...] 07/09/2020 Last Assessment & Plan: Following with [facility] RDN Encouraged high calorie diet Continues [...] Classes - OMID Class D - Inhaled Cvtrrqmxyjwthu-ZBTB-YTFZ Combination Inhaler (Rodrigoegy) Self-Management plan High frequency nebulizer treatments every [...] with cardiology Coronary artery disease invo lving nuiqsut coronary artery of nuiqsut heart without angina pectoris 09/07/2017 S/P angioplasty [...] mRNA, LNP-s, No Pre serve, 2-Dose Series ([employer]) 02/17/2021,09/24/2020,08/27/2020 Covid-19, Mrna, Lnp-s, Pf, B ivalent, [...] encounter Miscellaneous Notes * Telephone Encounter - Isabella Appiah RN - 10/03/2023 8:40 AM EDT [facility] Telephonic Nurse Follow-Up Call [facility] Subprogram: Primary Care at Home Follow Up Call Type: Routine follow up call / Status Check Acute issue requiring follow-up call: Other: comprehensive phone assessment in place of home visit Objective: 09/19/2023 12:16 PM 09/12/2023 1:39 PM 08/29/2023 10:47 AM 08/08/2023 9:46 AM 07/17/2023 1:01 PM VITALS ACROSS ENCOUNTERS BP 122/80 148/86 140/100 154/70 Pulse 45 58 118 72 Weight 57.7 kg BMI 20.54 BMI 20.54 kg/m2 Remote Patient Monitoring: NONE Oxygen Needs: NO CHANGE from baseline supplemental oxygen needs DME Needs: NO DME needs identified Medications: Was bottles out med rec completed: yes If no, why? Does pt need any refills on medications?No No medication or dose adjustments made during acute episode Subjective: Condition Status: Symptoms resolved and back to baseline Current Concerns: Spoke with daughterLaurel. Reports that patient has been doing well. Agreeable to change home visit to video visit for today. Pt's breathing has been at baseline. Wearing his oxygen at 2LPM continuous. Daughter reports when going through ROS that patient has chest pain intermittently. No pattern to when it occurs. Can happen at rest or with activity. Occurs at least weekly and pt has refused repeatedly to go to ED when it happens. Daughter reports that pt has seen cardiology in the past, but she is not sure pt would want any work up for the pain. Advised daughter to have that discussion with patient and RN will follow up with her tomorrow. Daughter reports pain has been occurring for months and pt does not report to RNCM during visit because he doesn't want to go to the hospital. Most recent episode was Monday, 09/30 that she is aware of. Unsure how long it lasted. POLST on file. Pt is DNR Reinforced to call [facility] with further episodes of chest pain and if pt wants intervention, he should go to ED when chest pain occurs. Denies any sxs of fluid retention. No swelling. HPI: Constitutional: no weight loss, no weakness, and no fatigue Resp: no cough, no sputum, no wheezing, and no increased SOB from baseline Cardiac: no chest pain, no orthopnea, and no dyspnea on exertion GI: no pain, no heartburn, no diarrhea, no constipation Musculoskeletal: no significant joint or muscle pain and no swelling Neuro: no memory loss, no weakness, and no falling Education Provided: COPD: Pt instructed to: -Call with increased SOB, wheezing, chest tightness, increased cough, increased sputum with change in color or consistency and fever. -Wash hands often -Drink plenty of fluids -Use inhalers as directed, do not stop or skip doses -Avoid stress -Rest when tired or SOB -Avoid triggers -Clean inhalers once a week Reinforced ED for emergencies. Disposition: Issue resolved. All appropriate follow up scheduled. Future Visits Scheduled: Future Appointments-next 60 days Date/Time Provider Specialty Dept Phone 10/03/2023 12:15 PM [facility] [phone] 10/26/2023 3:00 PM Javi Hart PA-C [facility] [phone] 10/27/2023 3:30 PM Vikki Ashraf RDN [facility] [phone] Isabella Appiah, RN documented in this encounter Plan of Treatment Upcoming Encounters Date Type Department Care Team (Late st Contact Info) Description 10/04/2023 12:15 PM EDT Scheduled Telephone [facility], [facility] [address] [facility] [place] [address] Coordinator, [facility] [place] [address] 10/26/2023 3:00 PM EDT Home Visit [facility], [facility] [address] [place] [address] Javi Hart PA-C [address] [facility] [place] [address] 10/27/2023 3:30 PM EDT Scheduled Telephone [facility], [facility] [address] [facility] [place] [address] Vikki Ashraf RDN [address] [facility] [place] [address] 11/15/2023 2:30 PM EDT Home Visit [facility], [facility] [address] [facility] [place] [address] Merced Hicks, RN [address] [facility] [place] [address] Health Maintenance Due Date Last Done Comments [...] filedocumented as of this encounter Care Teams Ordnance Artificer Relationship Specialty Start Date End Date Rafa Cage MD [address] [place] [address] PCP - General Family Medicine 07/09/20 documented as of this encounter
--- OUTSIDE RECORDS SUMMARY | 2023-12-07 08:12 | External Medical Summary | Summary of Care ---
Author Name Unknown Organization [facility] Address [address] [facility] [place] [address] Phone [phone] Care Team Providers Care Rail Track Layer Name Role Phone Rafa Cage MD Primary Care P rovider Reason for Visit * Reason Onset Date Comments [facility]: Maintenance 10/04/2023 Encounter Details Date Type Department Care Team (Late st Contact Info) Description 10/04/2023 12:15 PM EDT Scheduled Telephone [facility], [facility] [address] [facility] [place] [address] Coordinator, [facility] [address] [facility] [place] [address] Allergies No known active allergiesdocumented as of this encounter (statuses as of 10/04/2023) Medications Medication Sig Dispensed Refills Start Date [...] g 1 11/29/2021 Active [facility] Saline Nasal [place] 0.65 % Nasal Solution 12/30/2021 Active oxygen [...] the morning and 1 Can before bedtime. 81887 mL 2 is 08/31/2022 Active Additional Information Patient not taking.Reported on 10/28/2022 Boost High Protein Oral Liquid Administer 474 mL daily, as directed by mouth. 90552 mL 11 08/31/2022 Active Additional Information Patient [...] with varicose veins (HCC),Coronary artery disease involving nondalton coronary artery of nondalton heart without angina pectoris,Hypertensiv e heart disease [...] Hour (toPROL XL)Indications:Coron harry artery disease involving nondalton coronary artery of nondalton heart without angina pectoris TAKE 1 TABLET [...] as of this encounter (statuses as of 10/04/2023) Active Problems Problem Noted Date Diagnosed Date Atrial flutter 04/24/2023 Overview: S/p ablation Atrial fibrillation 07/21/2022 Last Assessment & Plan: Rate controlled on metoprolol Continue eiliquis 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 [...] Classes - OMID Class D - Inhaled Rugizbtfhtygzj-PQYJ-RKXC Combination Inhaler (Rodrigoegy) Self-Management plan High frequency [...] with cardiology Coronary artery disease invo lving nondalton coronary artery of nondalton heart without angina pectoris 09/07/2017 S/P angioplasty with stent 09/07/2017 Typical atrial flutter 08/24/2017 History of tobacco use 08/10/2015 Post herpetic neuralgia 08/10/2015 Hypothyroidism 09/18/2013 documented as of this encounter (statuses as of 10/04/2023) Resolved Problems Problem Noted Date Diagnosed Date [...] as of this encounter (statuses as of 10/04/2023) Immunizations Name Administration Dates Next Due COVID-19 mRNA, LNP-s, No Pre serve, 2-Dose Series ([employer]) 02/17/2021,09/24/2020,08/27/2020 Covid-19, Mrna, Lnp-s, Pf, B ivalent, [...] encounter Miscellaneous Notes * Telephone Encounter - Reina Law RN - 10/04/2023 9:26 AM EDT [facility] Telephonic Nurse Follow-Up Call [facility] Subprogram: Primary Care at Home Follow Up Call Type: Routine follow up call / Status Check Acute issue requiring follow-up call: Other: follow up with daughter to see if patient is interested in work up for chest pain reported during phone assessment 10/03/23. Objective: 09/19/2023 12:16 PM 09/12/2023 1:39 PM 08/29/2023 10:47 AM 08/08/2023 9:46 AM 07/17/2023 1:01 PM VITALS ACROSS ENCOUNTERS BP 122/80 148/86 140/100 154/70 Pulse 45 58 118 72 Weight 57.7 kg BMI 20.54 BMI 20.54 kg/m2 Remote Patient Monitoring: NONE Oxygen Needs: NO supplemental oxygen needs identified DME Needs: Nebulizer machine and supplies Medications: No medication or dose adjustments made during acute episode Subjective: Condition Status: Improvement in symptoms but not at baseline Current Concerns: Spoke with daughter Laurel, reports he is doing okay today but she was able to speak with him and he is not interested in any type of cardiology work up for chest pain. Daughter will discuss with Javi at next home visit Disposition: Routed to [facility] and/or [facility] Care Team for further advice Future Visits Scheduled: Future Appointments-next 60 days Date/Time Provider Specialty Dept Phone 10/04/2023 12:15 PM CoordinatorGwendolyn [facility] [phone] 10/26/2023 3:00 PM Javi Hart PA-C [facility] [phone] 10/27/2023 3:30 PM Vikki Ashraf RDN [facility] [phone] 11/15/2023 2:30 PM Merced Hicks RN [facility] [phone] Reina Law RN documented in this encounter Plan of Treatment Upcoming Encounters Date Type Department Care Team (Late st Contact Info) Description 10/26/2023 3:00 PM EDT Home Visit [facility], [facility] [address] [address] Javi Hart PA-C [address] [place] [address] 10/27/2023 3:30 PM EDT Scheduled Telephone [facility], [facility] [address] [facility] [place] [address] Vikki Ashraf RDN [address] [place] [address] 11/15/2023 2:30 PM EDT Home Visit [facility], [facility] [address] [address] Merced Hicks RN [address] [address] Health Maintenance Due Date Last Done Comments [...] filedocumented as of this encounter Care Teams Rail Track Layer Relationship Specialty Start Date End Date Rafa Cage MD [address] [place] [phone] PCP - General Family Medicine 07/09/20 documented as of this encounter
--- OUTSIDE RECORDS SUMMARY | 2023-12-07 08:12 | External Medical Summary | Summary of Care ---
Author Name Unknown Organization [facility] Address [address] [address] Phone [phone] Care Team Providers Care Filter Machine Operator Name Role Phone Rafa Cage MD Primary Care P rovider Reason for Visit * Reason Onset Date Comments Medical Nutrition Therapy 10/27/2023 Encounter Details Date Type Department Care Team (Latest Contact Info) Description 10/27/2023 3:30 PM EDT Scheduled Telephone [facility], [facility] [address] [facility] [place] [address] Vikki Ashraf, RDN [address] [facility] [place] [address] Moderate protein-calorie malnutrition (HCC)* Allergies No known active allergiesdocumented as of this encounter (statuses as of 10/27/2023) Medications Medication Sig Dispensed Refills Start Date [...] g 1 11/29/2021 Active [facility] Saline Nasal [place] 0.65 % Nasal Solution 12/30/2021 Active oxygen [...] the morning and 1 Can before bedtime. [address]2349 mL 2 is 08/31/2022 Active Additional Information Patient not taking.Reported on 10/28/2022 Boost High Protein Oral Liquid Administer 474 mL daily, as directed by mouth. 67449 mL 11 08/31/2022 Active Additional Information Patient [...] with varicose veins (HCC),Coronary artery disease involving chickaloon coronary artery of chickaloon heart without angina pectoris,Hypertensiv e heart disease [...] Hour (toPROL XL)Indications:Coron harry artery disease involving chickaloon coronary artery of chickaloon heart without angina pectoris TAKE 1 TABLET [...] as of this encounter (statuses as of 10/27/2023) Active Problems Problem Noted Date Diagnosed Date Atrial flutter 04/24/2023 Overview: S/p ablation Atrial fibrillation 07/21/2022 Last Assessment & Plan: Rate controlled on metoprolol Continue eiliquis Atherosclerotic heart diseas e of 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 [...] 07/09/2020 Last Assessment & Plan: Following with [facility] RDN Encouraged high calorie diet Continues [...] Classes - OMID Class D - Inhaled Ljeiuuzjyidqkp-MPYT-UWSC Combination Inhaler (Kristany) Self-Management plan High frequency nebulizer treatments every [...] with cardiology Coronary artery disease invo lving chickaloon coronary artery of chickaloon heart without angina pectoris 09/07/2017 S/P angioplasty with stent 09/07/2017 Typical atrial flutter 08/24/2017 History of tobacco use 08/10/2015 Post herpetic neuralgia 08/10/2015 Hypothyroidism 09/18/2013 documented as of this encounter (statuses as of 10/27/2023) Resolved Problems Problem Noted Date Diagnosed Date [...] as of this encounter (statuses as of 10/27/2023) Immunizations Name Administration Dates Next Due COVID-19 mRNA, LNP-s, No Pre serve, 2-Dose Series (Pfizer) 02/17/2021,09/24/2020,08/27/2020 Covid-19, Mrna, Lnp-s, Pf, B ivalent, [...] Notes * Telephone Encounter - Vikki Ashraf RDN - 10/26/2023 3:30 PM EDT NUTRITION PROGRESS NOTE - [facility] Patient Phone Numbers: [phone] (Home Phone) Call placed to pt as follow-up from initial nutrition assessment from 09/12/23. Patient denies any issues related to diet information previously provided. Describes typical meal pattern/po intake as indicated [...] a month Alcohol: None Tobacco Use: No Currently living alone, but Patient's Daughter will assist with care/food shopping/prepping/cookingof some meals/transportation This dietitian again reviewed the nutrition and health benefits of oral nutrition supplements, but Patient declined when offered Chronic wound posterior LLE remains since last call (small pin point areas/silver sulfadiazine cream to area as treatment as needed) Stressed the importance to incorporate more nutritious, protein rich foods in all meals/snacks to aid in skin support/skin health (provided healthy choices/previously sent info to Daughter) Patient is edentulous but can still can chew most meats and other hard foods sufficiently--no difficulties reported PO intake and appetite, and hydration, remain "pretty darn good" since last call No difficulties reported No food insecurity reported this call Patient able to read and write at a basic level ("I left school when I was 13 yrs old") Patient denies any issues related to changes in wt. Wt Readings from Last 3 Encounters: 09/12/23 57.7 kg (127 lb 3.3 oz) 05/25/23 57.7 kg (127 lb 3.3 oz) 03/30/23 57.7 kg (127 lb 3.3 oz) Requested new weight at next home visit if possible Previous Nutrition Goals: 1) Consume 3 meals/day plus between meal snacks of nutritious, low sodium, protein/calorie dense foods (reiterated more nutritious foods to consume and those foods to avoid/examples suggested /previously sent info)--in progress 2) Switch out sweetened beverages with more water (2-3 bottles of water/day--16.9 oz each)--in progress 3) Consume Sundance Instant Breakfast Drink oral nutrition supplement 1-2x daily for additional nutrition support--not meeting (not consuming at all/again, declined any other oral nutrition supplements at this time) Reinforced nutrition goals. Encouraged continued progress towards goals Follow up as scheduled. Encouraged pt to contact [facility] at [phone] for any non-emergent changes/concerns. Vikki Ashraf MS, RDN, LDN Clinical Dietitian [facility] 10/27/23 documented in this encounter Plan of Treatment Upcoming Encounters Date Type Department Care Team (Late st Contact Info) Description 11/15/2023 2:30 PM EDT Home Visit [facility], [place] [facility] [address] [place] [address] Merced Hicks, RN [address] [place] [address] 12/08/2023 2:30 PM EDT Scheduled Telephone [facility], [facility] [address] [facility] [place] [phone] Vikki Ashraf RDN [address] [facility] [place] [address] Health Maintenance Due Date Last Done Comments [...] degree documented in this encounter Care Teams Filter Machine Operator Relationship Specialty Start Date End Date Rafa Cage MD [address] [place] [phone] PCP - General Family Medicine 07/09/20 documented as of this encounter
--- OUTSIDE RECORDS SUMMARY | 2023-12-07 08:12 | External Medical Summary | Summary of Care ---
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 [address] [facility] [place] [id number] Allergies No known active allergiesdocumented as of this encounter (statuses as of 09/12/2023) Medications Medication Sig Dispensed Refills Start Date [...] g 1 11/29/2021 Active [facility] Nasal [place] 0.65 % Nasal Solution 12/30/2021 Active oxygen [...] the morning and 1 Can before bedtime. 31203 mL 2 is 08/31/2022 Active Additional Information Patient not taking.Reported on 10/28/2022 Boost High Protein Oral Liquid Administer 474 mL daily, as directed by mouth. 88400 mL 11 08/31/2022 Active Additional Information Patient [...] with varicose veins (HCC),Coronary artery disease involving [place] coronary artery of [place] heart without angina pectoris,Hypertensiv e heart disease [...] Hour (toPROL XL)Indications:Coron harry artery disease involving [place] coronary artery of [place] heart without angina pectoris TAKE 1 TABLET [...] as of this encounter (statuses as of 09/12/2023) Active Problems Problem Noted Date Diagnosed Date Atrial flutter 04/24/2023 Overview: S/p ablation Atrial fibrillation 07/21/2022 Last Assessment & Plan: Rate controlled on metoprolol Continue eiliquis Atherosclerotic heart diseas e of [place] coronary artery with other forms of angina [...] 07/09/2020 Last Assessment & Plan: Following with [facility] RDN Encouraged high calorie diet Continues [...] Classes - OMID Class D - Inhaled Bdbtcahasqemel-VWTR-SXBJ Combination Inhaler (Matthew) Self-Management plan High frequency [...] with cardiology Coronary artery disease invo lving [place] coronary artery of [place] heart without angina pectoris 09/07/2017 S/P angioplasty with stent 09/07/2017 Typical atrial flutter 08/24/2017 History of tobacco use 08/10/2015 Post herpetic neuralgia 08/10/2015 Hypothyroidism 09/18/2013 documented as of this encounter (statuses as of 09/12/2023) Resolved Problems Problem Noted Date Diagnosed Date [...] as of this encounter (statuses as of 09/12/2023) Immunizations Name Administration Dates Next Due COVID-19 mRNA, LNP-s, No Pre serve, 2-Dose Series ([employer]) 02/17/2021,09/24/2020,08/27/2020 Covid-19, Mrna, Lnp-s, Pf, B ivalent, [...] encounter Miscellaneous Notes * Telephone Encounter - Belén Vitale, JOVANY - 09/12/2023 1:31 PM EDT Worker was consulted by Merced SHERIDAN CM Third Mate Placement ( Medical Assistance) Chart was reviewed. This interview was conducted over the phone with Laurel AmosDaughter [phone] There are no food insecurities at this time. [facility] New Assessment for Social Work Is this for a hospital or rehab discharge to home? Verified Demographics: yes Does the patient speak Georgian? yes Does the patient read Georgian? No - Kirby can not read or write Is the patient able to understand instructions? Limited Lives with: Alone Support System in the home: Lives alone Support System outside of the home: Laurel >Daughter lives @ 8 miles away 3 other children but they are not involved Granddaughter> Katina next door but is not helpful Living Environment:unseen Condition of living environment: unseen Neighborhood: unseen Pets: n/a Transportation: Laurel Main Source of Income: Social Security @$ 971.00 Does the patient receive any government assistance? Food [place] @$148.00 Health Care Benefits: Pt has [employer] Insurance ?: n/a DME Equipment:Rolling Walker // Wheelchair / Cane/ O2 Ability to Complete: needs assistance with ADL's/ presently not changing clothes and baths PRN in the sink Education: unclear what grade he left but can not read or write Spiritual/Taoism Beliefs Life Planning: n/a History of Violence or Trauma: MENTAL STATUS EVALUATION: Orientation: x3 Appearance: unseen Eye Contact:unseen Behavior: uncooperative tat times Speech: clear Mood: unrelated at times Mood Persistence: responsive Affect: Intensity: normal Range: normal Type: limited Thought Process: limited Thought Content: Within normal limited Attention: Normal Sleep: poor Interest: poor Guilt/Self-blame: n/a Energy: Down significantly Concentration:limited Appetite: fair Mental Health:depression Smoking >n/a Alcohol > n/a Marital Status > asa of 2015 Computer >active by Daughter Shopping > Family Home > Owned by Laurel as of 2014 Continent > no Fall > risk Gait > Independent Hearing > poor Meals > Daughter Memory > forgetful Vision > fair Weight > stable Halfway Facility > n/a Criminal Background>n/a Plan B >placement Finances>Laurel Over @$ 8000.00 in assets>n/a Home Security > n/a Camera>n/a Audio >n/a Alert system> n/a DANGEROUSNESS TO SELF & OTHERS ASSESSMENT: Risk Factors: Suicidal ideation/Intent: n/a Family history of suicide: n/a Access to means: Guns Protective Factors: Easy access to clinical interventions: Limited Family and community support: Limited Skills in problem solving, conflict resolution and distress tolerance: limited Coping Skills: limited Cultural and episcopalian beliefs that discourage suicide and support hopefulness: n/a Substance Abuse Use / History: n/a Anxiety: n/a Major physical illness: See Problem List Recent losses or change in socio economic status: n/a Assessment: Based on these risk and protective factors, this patient's suicide risk is assessed to be: Minimal Depression Test Summary, Results are Patient Reported: The value you specified in the flowsheet rows parameter was overridden by citrix systems administrator build. Remove the value in the flowsheet rows parameter or contact an citrix systems administrator. The value you specified in the flowsheet rows parameter was overridden by citrix systems administrator build. Remove the value in the flowsheet rows parameter or contact an citrix systems administrator. The value you specified in the flowsheet rows parameter was overridden by citrix systems administrator build. Remove the value in the flowsheet rows parameter or contact an citrix systems administrator.. The value you specified in the flowsheet rows parameter was overridden by citrix systems administrator build. Remove the value in the flowsheet rows parameter or contact an citrix systems administrator. 1. Little interest or pleasure in doing things The value you specified in the flowsheet rows parameter was overridden by citrix systems administrator build. Remove the value in the flowsheet rows parameter or contact an citrix systems administrator. 2. Feeling down, depressed or hopeless The value you specified in the flowsheet rows parameter was overridden by citrix systems administrator build. Remove the value in the flowsheet rows parameter or contact an citrix systems administrator. 3. Trouble falling or staying asleep, or sleeping too much The value you specified in the flowsheetrows parameter was overridden by citrix systems administrator build. Remove the value in the flowsheet rows parameter or contact an citrix systems administrator. 4. Poor appetite or overeating The value you specified in the flowsheet rows parameter was overridden by citrix systems administrator build. Remove the value in the flowsheet rows parameter or contact an citrix systems administrator. 5. Feeling tired of having little energy The value you specified in the flowsheet rows parameter was overridden by citrix systems administrator build. Remove the value in the flowsheet rows parameter or contact an citrix systems administrator. 6. Feeling bad about yourself - or that you are a failure, or have let yourself of your family downThe value you specified in the flowsheet rows parameter was overridden by citrix systems administrator build. Remove the value in the flowsheet rows parameter or contact an citrix systems administrator. 7. Trouble concentrating on things, such as reading the newspaper or watching television The value you specified in the flowsheet rows parameter was overridden by citrix systems administrator build. Remove the value in the flowsheet rows parameter or contact an citrix systems administrator. 8. Moving or speaking so slowly that other people could have noticed. Or the opposite - being so fidgety or restless that you have been moving around a lot more than usual The value you specified in the flowsheet rows parameter was overridden by citrix systems administrator build. Remove the value in the flowsheet rows parameter or contact an citrix systems administrator. 9. Thoughts that you would be better off , or of hurting yourself The value you specified in the flowsheet rows parameter was overridden by citrix systems administrator build. Remove the value in the flowsheet rows parameter or contact an citrix systems administrator. Diagnosed Health Conditions: See Problem List Med Reconciliation: Taking all medication as directed?: yes [facility] Barriers to Treatment: No identified barriers Social Work Goals/Interventions: Behavioral Health needs: No needs identified at this time Drug and Alcohol needs: No needs identified at this time Complex Psychosocial needs: No needs identified at this time Plan: 1/Third Mate Placement Laurel has discussed the options of SNF placement. As shared, Kirby is agreeable. Laurel has researched community availability. She was informed that admit from home is @ 1 year out for placement. Laurel requested records be sent to [facility] SNF and [facility] SN[facility]. She is aware of the process and that the payor source is Medical Assistance. Worker reached out to Dorys MOORE. Records will be sent out as requested above. Laurel offered no other complaints or concerns at this time. Fall precautions were stressed. No falls were recently reported. Emotional Support was offered. Laurel was encouraged to contact the [facility] Team with any questions or concerns . Phone number for [facility] was provided . Worker provided contact number [phone] for any follow up needed. Belén Vitale LCSW [facility] Finance Specialist [facility] [phone] documented in this encounter Plan of Treatment Upcoming Encounters Date Type Department Care Team (Late st Contact Info) Description 09/13/2023 12:30 PM EDT Scheduled Telephone [facility], [facility] [address] [facility] [place] [address] Vikki Ashraf RDN [address] [facility] [address] Moderate protein-calorie malnutrition (HCC)* 09/19/2023 1:00 PM EDT Home Visit Care Coordination and Integration [address] [place] [address] Karen Kay, Community Health Packing Floor Worker [address] [place], [place] [id number] 10/03/2023 10:00 AM EDT Home Visit [facility], [facility] [address] [place] [address] Merced Hicks RN [address] [facility] [place] [address] 10/26/2023 3:00 PM EDT Home Visit [facility], [facility] [address] [place] [address] Javi Hart PA-C [address] [place] [address] 10/27/2023 3:30 PM EDT Scheduled Telephone [facility], [facility] [address] [facility] [facility] [place] [address] Vikki Ashraf RDN [address] [facility] [place] [address] Health Maintenance Due Date Last Done Comments [...] filedocumented as of this encounter Care Teams Tariff Compiling Clerk Relationship Specialty Start Date End Date Rafa Cage MD [address] [place] [address] PCP - General Family Medicine 07/09/20 documented as of this encounter
--- OUTSIDE RECORDS SUMMARY | 2023-12-07 08:12 | External Medical Summary | Summary of Care ---
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 Encounter Details Date Type Department Care Team (Late st Contact Info) Description 09/20/2023 9:00 AM EDT Scheduled Telephone [facility], [facility] [address] [facility] [place] [address] [facility] [address] [facility] [place] [phone] Allergies No known active allergiesdocumented as of this encounter (statuses as of 09/20/2023) Medications Medication Sig Dispensed Refills Start Date [...] g 1 11/29/2021 Active [facility] Sal[facility] Nasal [place] 0.65 % Nasal Solution 12/30/2021 Active oxygen [...] the morning and 1 Can before bedtime. 27607 mL 2 is 08/31/2022 Active Additional Information Patient not taking.Reported on 10/28/2022 Boost High Protein Oral Liquid Administer 474 mL daily, as directed by mouth. 72038 mL 11 08/31/2022 Active Additional Information Patient [...] with varicose veins (HCC),Coronary artery disease involving [place] coronary artery of [place] heart without angina pectoris,Hypertensiv e heart disease [...] Hour (toPROL XL)Indications:Coron harry artery disease involving [place] coronary artery of [place] heart without angina pectoris TAKE 1 TABLET [...] as of this encounter (statuses as of 09/20/2023) Active Problems Problem Noted Date Diagnosed Date Atrial flutter 04/24/2023 Overview: S/p ablation Atrial fibrillation 07/21/2022 Last Assessment & Plan: Rate controlled on metoprolol Continue eiliquis Atherosclerotic heart diseas e of [place] coronary artery with other forms of angina [...] 07/09/2020 Last Assessment & Plan: Following with [facility] RDN Encouraged high calorie diet [...] Classes - OMID Class D - Inhaled Gxqkuwrnjpghqw-ZFLQ-HKFW Combination Inhaler (Matthew) Self-Management plan High frequency [...] with cardiology Coronary artery disease invo lving [place] coronary artery of [place] heart without angina pectoris 09/07/2017 S/P angioplasty with stent 09/07/2017 Typical atrial flutter 08/24/2017 History of tobacco use 08/10/2015 Post herpetic neuralgia 08/10/2015 Hypothyroidism 09/18/2013 documented as of this encounter (statuses as of 09/20/2023) Resolved Problems Problem Noted Date Diagnosed Date [...] as of this encounter (statuses as of 09/20/2023) Immunizations Name Administration Dates Next Due COVID-19 mRNA, LNP-s, No Pre serve, 2-Dose Series ([employer]) 02/17/2021,09/24/2020,08/27/2020 Covid-19, Mrna, Lnp-s, Pf, B ivalent, [...] money to get more. Never true 09/19/2023 Sex and Gender Information Value Date Recorded Sex Assigned at Not on file Gender Identity Not on file Sexual Orientation Not on file Job Start Date Occupation Industry Not on file Not on file Not on file documented as of this encounter Miscellaneous Notes * Telephone Encounter - Belén Vitale LCSW - 09/20/2023 10:22 AM EDT Worker was consulted by Merced SHERIDAN CM Placement Chart was reviewed. Worker placed a call to Laurel >Daughter [phone]. Laurel was updated on the no open bed status on the local SNF facilities. As shared, she also has called and aware of the no open bed status at this time. Laurel offered no other complaints or concerns at this time. Fall precautions were stressed. No falls were recently reported. Emotional Support was offered. Laurel was encouraged to contact the [facility] Team with any questions or concerns . Phone number for [facility] was provided . Worker provided contact number [phone] for any follow up needed. Belén Vitale LCSW [facility] Cake Press Operator [facility] [phone] documented in this encounter Plan of Treatment Upcoming Encounters Date Type Department Care Team (Late st Contact Info) Description 10/03/2023 10:00 AM EDT [facility] Visit [facility], [facility] [address] [place] [address] Merced Hicks RN [address] [place] [address] 10/26/2023 3:00 PM EDT Home Visit [facility], [facility] [address] [place] [address] Javi Hart PA-C [address] [place] [address] 10/27/2023 3:30 PM EDT Scheduled Telephone [facility], [facility] [address] [facility] [place] [address] Vikki Ashraf RDN [address] [facility] [place] [address] Health Maintenance Due Date Last Done Comments DTaP,Tdap,and Td Vaccines (1 - Tdap) 07/12/1959 Zoster Vaccines (1 of 2) 1990 COVID-19 Vaccine ( - 2022-24 season) 2022 01/28/2022, 02/17/2021, 09/24/2020, [...] filedocumented as of this encounter Care Teams Miller First Relationship Specialty Start Date End Date Rafa Cage MD [address] [place] [id number] PCP - General Family Medicine 07/09/20 documented as of this encounter
--- OUTSIDE RECORDS SUMMARY | 2023-12-07 08:12 | External Medical Summary | Summary of Care ---
Author Name Unknown Organization [facility] Address [address] [place] [address] Phone [phone] Care Team Providers Care Cue Selector Name Role Phone Rafa Cage MD Primary Care P rovider Encounter Details Date Type Department Care Team (Late st Contact Info) Description 09/19/2023 1:00 PM EDT Home Visit Care Coordination and Integration [address] [place], [place] [phone] Karen Kay [facility] Health Skate Boarder [address] [place], [place] [phone] Allergies No known active allergiesdocumented as of this encounter (statuses as of 09/19/2023) Medications Medication Sig Dispensed Refills Start Date [...] g 1 11/29/2021 Active [facility] Saline Nasal [place] 0.65 % Nasal Solution 12/30/2021 Active oxygen [...] the morning and 1 Can before bedtime. 67706 mL 2 is 08/31/2022 Active Additional Information Patient not taking.Reported on 10/28/2022 Boost High Protein Oral Liquid Administer 474 mL daily, as directed by mouth. 88263 mL 11 08/31/2022 Active Additional Information Patient [...] with varicose veins (HCC),Coronary artery disease involving [place] coronary artery of [place] heart without angina pectoris,Hypertensiv e heart disease [...] Hour (toPROL XL)Indications:Coron harry artery disease involving [place] coronary artery of [place] heart without angina pectoris TAKE 1 TABLET [...] as of this encounter (statuses as of 09/19/2023) Active Problems Problem Noted Date Diagnosed Date Atrial flutter 04/24/2023 Overview: S/p ablation Atrial fibrillation 07/21/2022 Last Assessment & Plan: Rate controlled on metoprolol Continue eiliquis Atherosclerotic heart diseas e of [place] coronary artery with other forms of angina [...] Last Assessment & Plan: Following with [facility] RDN Encouraged high calorie diet Continues [...] Classes - OMID Class D - Inhaled Ycwjvdxcvifctf-YWVF-GQBP Combination Inhaler (Trellegy) Self-Management plan High frequency [...] with cardiology Coronary artery disease invo lving [place] coronary artery of [place] heart without angina pectoris 09/07/2017 S/P angioplasty with stent 09/07/2017 Typical atrial flutter 08/24/2017 History of tobacco use 08/10/2015 Post herpetic neuralgia 08/10/2015 Hypothyroidism 09/18/2013 documented as of this encounter (statuses as of 09/19/2023) Resolved Problems Problem Noted Date Diagnosed Date [...] as of this encounter (statuses as of 09/19/2023) Immunizations Name Administration Dates Next Due COVID-19 mRNA, LNP-s, No Pre serve, 2-Dose Series ([employer]) 02/17/2021,09/24/2020,08/27/2020 Covid-19, Mrna, Lnp-s, Pf, B ivalent, [...] Sign Reading Time Taken Comments Blood Pressure 122/80 09/19/2023 12:16 PM EDT Pulse 45 09/19/2023 12:16 PM EDT Temperature 36.5 C (97.7 F) 09/19/2023 12:16 PM E DT Respiratory Rate - - Oxygen Saturation 95% 09/19/2023 12:16 PM EDT Inhaled Oxygen Concentration - - Weight - - Height - - Body Mass Index - - documented in this encounter Progress Notes * Karen Kay, Community Health Skate Boarder - 09/19/2023 12:27 PM EDT Telemedicine visit: No Community Health Skate Boarder (NORTH) documentation: CHW return home visit. Pt. Reports he is feeling well. Vitals were good this date. Pt. States he has no new issues or concerns. Denies any new needs for assistance with food, medications or any household concerns. documented in this encounter Plan of Treatment Upcoming Encounters Date Type Department Care Team (Late st Contact Info) Description 10/03/2023 10:00 AM EDT [facility] Visit [facility], [facility] [address] [place] [address] Merced Hicks RN [address] [place] [address] 10/26/2023 3:00 PM EDT Home Visit [facility], [facility] [address] [place] [address] Javi Hart PA-C [address] [place] [address] 10/27/2023 3:30 PM EDT Scheduled Telephone [facility], [facility] [address] [facility] [place] [address] Vikki Ashraf RDN [address] [facility] [place] [address] Health Maintenance Due Date Last Done Comments [...] filedocumented as of this encounter Care Teams Cue Selector Relationship Specialty Start Date End Date Rafa Cage MD [address] [place] [address] PCP - General Family Medicine 07/09/20 documented as of this encounter
--- OUTSIDE RECORDS SUMMARY | 2023-12-07 08:13 | External Medical Summary | Summary of Care ---
Author Name Unknown Organization [facility] [address] [facility] [address] Phone [phone] Care Team Providers Care Dirt Contractor Name Role Phone Rafa Cage MD Primary Care P rovider Reason for Visit * Reason Onset Date Comments Medical Nutrition Therapy 08/07/2023 Encounter Details Date Type Department Care Team (Latest Contact Info) Description 08/07/2023 8:30 AM EDT Scheduled Telephone [facility], [facility] [address] [facility] [place] [address] Vikki Ashraf, RDN [address] [facility] [place] [id number] Moderate protein-calorie malnutrition (HCC)* Allergies No known active allergiesdocumented as of this encounter (statuses as of 08/07/2023) Medications Medication Sig Dispensed Refills Start Date End Date Status Nebulizers (NEBULIZER COMPRESSOR) MISC Inhale via nebulizer. Use as directed. 1 Each 1 06/23/2017 Active Spacer/Aero-Holding Chambers DEVIIndications:DOG HAIR CLIPPER D, moderate (HCC) Use with inhaler. 1 Device 0 08/01/2018 Active furosemide (LASIX) 40 MG Tablet Take 1/2 tablet 3 days per week. Take an additional 1.2 tablet as needed for weight gain, bloating, or edema 30 Tab 5 08/16/2018 Active Additional Information Patient not taking.Reported on 08/31/2022 Acetaminophen 500 MG Oral Tablet Take 2 Tablets by mouth. Take every 8 hours as needed 0 Active Famotidine 20 MG Oral Tablet (Pepcid) Take 1 Tablet by mouth every night at bedtime. 34 Tablet 5 02/24/2021 Active Albuterol Sulfate (2.5 MG/3ML) 0.083% Inhalation Nebulization Solution (Proventil)Indicati ons:COPD, severity to be determined (HCC) INHALE 1 [...] g 1 11/29/2021 Active [facility] Saline Nasal [place] 0.65 % Nasal Solution 0 12/30/2021 Active oxygen IN GASIndications:Sensory Scientist leela respiratory failure with hypoxia (HCC),Supplemental oxygen dependent Use as directed 2 L/min(Oxygen) daily . Please at night and with exertion. Use oxygen mask, not nasal cannula. 1 Each 0 01/07/2022 Active Vitamin B 12 500 MCG Oral Tablet Take 500 mcg by mouth in the morning. 0 Active Folic Acid 1 MG Oral Tablet Take 1 Tablet by mouth in the morning. 0 Active Ensure Active High Protein Oral Liquid Take 1 Can by mouth in the morning and 1 Can before bedtime. 44977 mL 2 08/31/2022 Active Additional Information Patient not taking.Reported on 10/28/2022 Boost High Protein Oral Liquid Administer 474 mL daily, as directed by mouth. 34246 mL 11 08/31/2022 Active Additional Information Patient not taking.Reported on 10/28/2022 Trelegy Ellipta 100-62.5-25 MCG/ACT Aerosol Powder Breath Activated (Fluticasone-Umecli dinium-Vilanterol)I ndications:Chronic obstructive pulmonary disease, unspecified (HCC) Inhale 1 Puff by mouth in the morning. 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 Apply to wound daily with dressing 400 g 3 10/28/2022 Active Zoster Vac Recomb Adjuvanted 50 MCG/0.5ML Intramuscular Suspension Reconstituted (Shingrix)Indicatio ns:Need for shingles vaccine Inject 0.5 mL into [...] 1 Tablet by mouth daily with breakfast. 0 Active Pantoprazole Sodium 20 MG Oral Tablet Delayed Release (Protonix)Indicatio ns:Gastroesophageal reflux disease without esophagitis TAKE 1 TABLET BY MOUTH EVERY DAY IN THE MORNING 90 Tablet 2 03/27/2023 Active Pregabalin 200 MG Oral Capsule (Lyrica)Indications :Post herpetic neuralgia Take 1 Capsule by mouth in the morning and 1 Capsule at noon and 1 Capsule before bedtime. 90 Capsule 5 05/15/2023 Active Tamsulosin HCl 0.4 MG Oral Capsule (Flomax)Indications :Benign prostatic hyperplasia without lower urinary tract symptoms TAKE 1 CAPSULE BY MOUTH ONCE DAILY IN THE MORNING NEEDED FOR PROSTATE. 90 Capsule 3 05/22/2023 Active Metoprolol Succinate ER 25 MG Oral Tablet Extended Release 24 Hour (toPROL XL)Indications:Lisa nary artery disease involving gambell coronary artery of gambell heart without angina pectoris TAKE 1 TABLET [...] THE MORNING 90 Tablet 1 07/18/2023 Active Bacitracin 500 UNIT/GM External OintmentIndications :Skin abrasion Apply topically to affected area 3 times a day. As directed 30 g 1 07/17/2023 08/16/2023 Active Clopidogrel Bisulfate 75 MG Oral Tablet [...] as of this encounter (statuses as of 08/07/2023) Active Problems Problem Noted Date Diagnosed Date Atrial flutter 04/24/2023 Overview: S/p ablation Atrial fibrillation 07/21/2022 Last Assessment & Plan: Rate controlled on metoprolol Continue eiliquis Atherosclerotic heart diseas e of gambell coronary artery with other forms of angina [...] 07/09/2020 Last Assessment & Plan: Following with [facility] RDN Encouraged high calorie diet Continues [...] Classes - OMID Class D - Inhaled Gqpdkuaicrxacs-VIIZ-LXCM Combination Inhaler (Trellegy) Self-Management plan High frequency [...] with cardiology Coronary artery disease invo lving gambell coronary artery of gambell heart without angina pectoris 09/07/2017 S/P angioplasty with stent 09/07/2017 Typical atrial flutter 08/24/2017 History of tobacco use 08/10/2015 Post herpetic neuralgia 08/10/2015 Hypothyroidism 09/18/2013 documented as of this encounter (statuses as of 08/07/2023) Resolved Problems Problem Noted Date Diagnosed Date [...] as of this encounter (statuses as of 08/07/2023) Immunizations Name Administration Dates Next Due COVID-19 [...] the money to buy more. Never true 06/01/19 24 Within the past 12 months, t he food you bought just didn't last and you didn't have money to get more. Never true 06/01/2023 Sex and Gender Information Value Date Recorded Sex Assigned at Not on file Gender Identity Not on file Sexual Orientation Not on file Job Start Date Occupation Industry Not on file Not on file Not on file documented as of this encounter Miscellaneous Notes * Telephone Encounter - Vikki Ashraf RDN - 08/07/2023 9:04 AM EDT NUTRITION PROGRESS NOTE - [facility] Patient Phone Numbers: [phone] (Home Phone) Call placed to pt as follow-up from initial nutrition assessment. Patient denies any issues related to diet [...] month Alcohol: None Tobacco Use: No Currently lives alone, but Daughter will assist with care/food shopping/prepping/cooking of some meals/transportation Again, Patient has declined when oral nutrition supplements were offered (the nutrition benefits of oral nutrition supplements were reviewed again) Chronic wound posterior LLE has healed since last call (silver sulfadiazine cream to area as treatment as needed) Reiterated the importance of incorporating more nutritious, protein rich foods in all meals/snacks to aid in skin support/skin health (examples given/previously sent info to Daughter) Patient is edentulous/can chew most meats and other hard foods sufficiently--no difficulties reported PO intake, appetite, hydration, remain good since last call No difficulties reported No food insecurity reported this call Patient able to read and write at a basic level ("I left school when I was 13 yrs old") Patient denies any issues related to changes in wt. Wt Readings from Last 3 Encounters: 05/25/23 57.7 kg (127 lb 3.3 oz) 03/30/23 57.7 kg (127 lb 3.3 oz) 01/17/23 57.7 kg (127 lb 3.3 oz) Previous Nutrition Goals: 1) Consume 3 meals/day plus between meal snacks of nutritious, low sodium, protein/calorie dense foods (discussed nutritious foods to consume and those foods to avoid/examples given/previously sent info)--in progress 2) Switch out sweetened beverages with more water (2-3 bottles of water/day--16.9 oz each)--in progress 3) Consume Vesta Instant Breakfast Drink oral nutrition supplement 1-2x daily for additional nutrition support--not meeting (not consuming at all/again, declined any other oral nutrition supplements at this time) Reinforced nutrition goals. Encouraged continued progress towards goals Follow up as scheduled. Encouraged pt to contact [facility] at [phone] for any non-emergent changes/concerns. Vikki Ashraf MS, RDN, LDN Clinical Dietitian [facility] 08/07/2023 9:06 AM documented in this encounter Plan of Treatment Upcoming Encounters Date Type Department Care Team (Late st Contact Info) Description 08/08/2023 9:30 AM EDT Home Visit Care Coordination and Integration [address] [place] [address] Karen Kay [facility] C Engineer [address] [place] [address] 08/29/2023 10:00 AM EDT Home Visit [facility], [facility] [address] [place] [address] Merced Hicks RN 132 [place] [address] 09/13/2023 12:30 PM EDT Scheduled Telephone [facility], [facility] [address] [facility] [place] [address] Vikki Ashraf RDN [address] [facility] [place] [address] Health Maintenance Due Date Last Done Comments DTaP,Tdap,and Td Vaccines (1 - Tdap) 07/12/1959 Zoster Vaccines (1 of 2) 1990 COVID-19 Vaccine ( season) 2022 01/28/2022, 02/17/2021, 09/24/2020, Additional history exists *NEPHROLOGY REFERRAL DUE TO RESISTANT HTN 06/14/2023 TSH 10/06/2023 10/05/2022, 12/11, 09/04/2020, Additional history exists Depression Screening 10/29/2023 10/28/2022 O2 ASSESSMENT COMPLETED IN PAST YEAR FOR COPD 07/16/2024 07/17/2023 Pneumococcal Vaccine: 65+ Years Completed 07/09/2020, 03/12/2019 [...] degree documented in this encounter Care Teams Dirt Contractor Relationship Specialty Start Date End Date Rafa Cage MD [address] [place] [address] [phone] PCP - General Family Medicine 07/09/20 documented as of this encounter
--- OUTSIDE RECORDS SUMMARY | 2023-12-07 08:13 | External Medical Summary | Summary of Care ---
Author Name Unknown Organization [facility] [address] [facility] [address] Phone [phone] Care Team Providers Care Lanolin Plant Operator Name Role Phone Rafa Cage MD [facility] Reason for Visit * Reason Onset Date Comments [facility]: Maintenance 08/29/2023 Encounter Details Date Type Department Care Team (Late st Contact Info) Description 08/29/2023 Telephone [facility], [facility] [address] [facility] [place] [address] Merced Hicks RN 132 [facility] [address] [facility]: Maintenance Allergies No known active allergiesdocumented as of this encounter (statuses as of 09/08/2023) Medications Medication Sig Dispensed Refills Start Date [...] g 1 11/29/2021 Active [facility] Saline Nasal [place] 0.65 % Nasal Solution 12/30/2021 Active oxygen [...] the morning and 1 Can before bedtime. 89875 mL 2 is 08/31/2022 Active Additional Information Patient not taking.Reported on 10/28/2022 Boost High Protein Oral Liquid Administer 474 mL daily, as directed by mouth. 02412 mL 11 08/31/2022 Active Additional Information Patient [...] with varicose veins (HCC),Coronary artery disease involving cheesh-na coronary artery of cheesh-na heart without angina pectoris,Hypertensiv e heart disease [...] Hour (toPROL XL)Indications:Coron harry artery disease involving cheesh-na coronary artery of cheesh-na heart without angina pectoris TAKE 1 TABLET [...] EVERY DAY IN THE MORNING 90 Tablet 07/18/2023 Active Clopidogrel Bisulfate 75 MG Oral [...] as of this encounter (statuses as of 09/08/2023) Active Problems Problem Noted Date Diagnosed Date Atrial flutter 04/24/2023 Overview: S/p ablation Atrial fibrillation 07/21/2022 Last Assessment & Plan: Rate controlled on metoprolol Continue eiliquis Atherosclerotic heart diseas e of cheesh-na coronary artery with other forms of angina [...] 07/09/2020 Last Assessment & Plan: Following with [facility] RDN Encouraged high calorie diet [...] Classes - OMID Class D - Inhaled Yjdvtcjzhcytyv-TISA-FAAZ Combination Inhaler (Matthew) Self-Management plan High frequency [...] with cardiology Coronary artery disease invo lving cheesh-na coronary artery of cheesh-na heart without angina pectoris 09/07/2017 S/P angioplasty with stent 09/07/2017 Typical atrial flutter 08/24/2017 History of tobacco use 08/10/2015 Post herpetic neuralgia 08/10/2015 Hypothyroidism 09/18/2013 documented as of this encounter (statuses as of 09/08/2023) Resolved Problems Problem Noted Date Diagnosed Date [...] as of this encounter (statuses as of 09/08/2023) Immunizations Name Administration Dates Next Due COVID-19 mRNA, LNP-s, No Pre serve, 2-Dose Series (Tuan800) 02/17/2021,09/24/2020,08/27/2020 Covid-19, Mrna, Lnp-s, Pf, B ivalent, [...] encounter Miscellaneous Notes * Telephone Encounter - Merced iHcks RN - 08/29/2023 11:08 AM EDT Please arrange for a provider visit with Javi Hart PA-C 2-3 weeks. Would be better in person d/t PAMUNKEY. Thank you! documented in this encounter Plan of Treatment Upcoming Encounters Date Type Department Care Team (Late st Contact Info) Description 09/13/2023 12:30 PM EDT Scheduled Telephone [facility], [facility] [address] [facility] [place] [address] Vikki Ashraf, RDN [address] [facility] [place] [address] 09/19/2023 1:00 PM EDT Home Visit Care Coordination and Integration [address] [place] [address] Karen Kay [facility] Senior Android Developer [address] [place] [address] 10/03/2023 10:00 AM EDT Home Visit [facility], [facility] [address] [place] [address] Merced Hicks RN 132 [facility] [place] [address] 10/26/2023 3:00 PM EDT Home Visit [facility], [facility] [address] [place] [address] Javi Hart PA-C [address] [place] [address] Health Maintenance Due Date Last Done Comments [...] filedocumented as of this encounter Care Teams Lanolin Plant Operator Relationship Specialty Start Date End Date Rafa Cage MD [address] [place] [phone] PCP - General Family Medicine 07/09/20 documented as of this encounter
--- OUTSIDE RECORDS SUMMARY | 2023-12-07 08:13 | External Medical Summary | Summary of Care ---
Author Name Unknown Organization [facility] Address [address] [place] [address] Phone [phone] Care Team Providers Care Rubber Vulcanizing Machine Operator Name Role Phone Rafa Cage MD Primary Care P rovider Reason for Visit * Reason Onset Date Comments Appointment 08/29/2023 Encounter Details Date Type Department Care Team (Late st Contact Info) Description 08/29/2023 Telephone [facility] [place], [place] [facility] [address] [place], [place] [phone] Services, Scheduling [address] [place] [address] Appointment Allergies No known active allergiesdocumented as of this encounter (statuses as of 08/29/2023) Medications Medication Sig Dispensed Refills Start Date [...] g 1 11/29/2021 Active [facility] Saline Nasal [place] 0.65 % Nasal Solution 12/30/2021 Active oxygen [...] the morning and 1 Can before bedtime. 98937 mL 2 is 08/31/2022 Active Additional Information Patient not taking.Reported on 10/28/2022 Boost High Protein Oral Liquid Administer 474 mL daily, as directed by mouth. 24401 mL 11 08/31/2022 Active Additional Information Patient [...] with varicose veins (HCC),Coronary artery disease involving big sandy coronary artery of big sandy heart without angina pectoris,Hypertensiv e heart disease [...] Hour (toPROL XL)Indications:Coron harry artery disease involving big sandy coronary artery of big sandy heart without angina pectoris TAKE 1 TABLET [...] IN THE MORNING 90 Tablet 07/18/2023 Active Levothyroxine Sodium 25 MCG Oral [...] as of this encounter (statuses as of 08/29/2023) Active Problems Problem Noted Date Diagnosed Date Atrial flutter 04/24/2023 Overview: S/p ablation Atrial fibrillation 07/21/2022 Last Assessment & Plan: Rate controlled on metoprolol Continue eiliquis Atherosclerotic heart diseas e of big sandy coronary artery with other forms of angina [...] Last Assessment & Plan: Following with [facility] RDN Encouraged high calorie diet Continues [...] Classes - OMID Class D - Inhaled Qlfripjnornlfl-HWIA-LXHS Combination Inhaler (Matthew) Self-Management plan High frequency [...] with cardiology Coronary artery disease invo lving big sandy coronary artery of big sandy heart without angina pectoris 09/07/2017 S/P angioplasty with stent 09/07/2017 Typical atrial flutter 08/24/2017 History of tobacco use 08/10/2015 Post herpetic neuralgia 08/10/2015 Hypothyroidism 09/18/2013 documented as of this encounter (statuses as of 08/29/2023) Resolved Problems Problem Noted Date Diagnosed Date [...] as of this encounter (statuses as of 08/29/2023) Immunizations Name Administration Dates Next Due COVID-19 mRNA, LNP-s, No Pre serve, 2-Dose Series (CargoSense) 02/17/2021,09/24/2020,08/27/2020 Covid-19, Mrna, Lnp-s, Pf, B ivalent, 30 Mcg, IM, 12 yrs and above (CargoSense) 01/28/2022 Pneumococcal Conjugate Vacc, 13 Valent (Prevnar) [...] encounter Miscellaneous Notes * Telephone Encounter - Shanta Dsouza OSA - 08/29/2023 12:01 PM EDT Kurt request f to f with Tanner, set appt for 10/25 first available for [facility], sent reminder for appt with RN documented in this encounter Plan of Treatment Upcoming Encounters Date Type Department Care Team (Late st Contact Info) Description 09/13/2023 12:30 PM EDT Scheduled Telephone [facility], [facility] [address] [facility] [address] Vikki Ashraf, RDN [address] [facility] [place] [address] 09/19/2023 1:00 PM EDT Home Visit Care Coordination and Integration [address] [place] [address] Karen Kay, [facility] [place] [address] [place] [address] 10/03/2023 10:00 AM EDT Home Visit [facility], [facility] [address] [place] [address] Merced Hicks RN [address] [place] [address] 10/26/2023 3:00 PM EDT Home Visit [facility], [facility] [place] [address] Javi Hart PA-C [address] [facility] [place] [address] Health Maintenance Due Date Last Done Comments [...] filedocumented as of this encounter Care Teams Rubber Vulcanizing Machine Operator Relationship Specialty Start Date End Date Rafa Cage MD [address] [place] [phone] PCP - General Family Medicine 07/09/20 documented as of this encounter
--- OUTSIDE RECORDS SUMMARY | 2023-12-07 08:13 | External Medical Summary | Summary of Care ---
Author Name Unknown Organization [facility] Address [address] [place] [address] Phone [phone] Care Team Providers Care Purchasing Manager/Sales Name Role Phone Rafa Cage MD Primary Care P rovider Reason for Visit * Reason Onset Date Comments Health Maintenance 08/09/2023 Encounter Details Date Type Department Care Team ([facility] st Contact Info) Description 08/09/2023 Telephone Family [address] [phone] Rafa Cage MD [address] [place] [address] Health Maintenance Allergies No known active allergiesdocumented as of this encounter (statuses as of 08/09/2023) Medications Medication Sig Dispensed Refills Start Date End Date Status Nebulizers (NEBULIZER COMPRESSOR) MISC Inhale via nebulizer. Use as directed. 1 Each 1 06/23/2017 Active Spacer/Aero-Holding Chambers DEVIIndications:VP BIOLOGY D, moderate (HCC) Use with inhaler. 1 [...] g 1 11/29/2021 Active [facility] Saline Nasal [place] 0.65 % Nasal Solution 0 12/30/2021 Active oxygen IN GASIndications:Technical Support Analyst leela respiratory failure with hypoxia (HCC),Supplemental oxygen [...] the morning and 1 Can before bedtime. 23240 mL 2 08/31/2022 Active Additional Information Patient not taking.Reported on 10/28/2022 Boost High Protein Oral Liquid Administer 474 mL daily, as directed by mouth. 19805 mL 11 08/31/2022 Active Additional Information Patient [...] with varicose veins (HCC),Coronary artery disease involving ekwok coronary artery of ekwok heart without angina pectoris,Hypertensi ve heart disease [...] Hour (toPROL XL)Indications:Lisa nary artery disease involving ekwok coronary artery of ekwok heart without angina pectoris TAKE 1 TABLET [...] as of this encounter (statuses as of 08/09/2023) Active Problems Problem Noted Date Diagnosed Date Atrial flutter 04/24/2023 Overview: S/p ablation Atrial fibrillation 07/21/2022 Last Assessment & Plan: Rate controlled on metoprolol Continue eiliquis Atherosclerotic heart diseas e of ekwok coronary artery with other forms of angina [...] 07/09/2020 Last Assessment & Plan: Following with [facility] RDN Encouraged high calorie diet Continues [...] Classes - OMID Class D - Inhaled Qnxjfvqqsagjxy-ISKP-LJHG Combination Inhaler (Trellegy) Self-Management plan High frequency [...] with cardiology Coronary artery disease invo lving ekwok coronary artery of ekwok heart without angina pectoris 09/07/2017 S/P angioplasty with stent 09/07/2017 Typical atrial flutter 08/24/2017 History of tobacco use 08/10/2015 Post herpetic neuralgia 08/10/2015 Hypothyroidism 09/18/2013 documented as of this encounter (statuses as of 08/09/2023) Resolved Problems Problem Noted Date Diagnosed Date [...] as of this date Symptomatic anemia 01/07/2022 Hyperlipidemia 01/04/2021 01/07/2022 Venous stasis ulcer of [...] as of this encounter (statuses as of 08/09/2023) Immunizations Name Administration Dates Next Due COVID-19 [...] encounter Miscellaneous Notes * Telephone Encounter - Heidy Lemus LPN - 08/09/2023 9:46 AM EDT Care Gaps Comprehensive Care Outreach Last Office/Telemedicine Visit: 10/28/2022 (in office), Visit date not found (telemedicine) Next Office Visit: Visit date not found Hemoglobin AIC Results: No results found for: "HEMOGLOBIN A1C" BP Readings from Last 1 Encounters: 08/08/23 140/100 Reviewed Health Maintenance below: TSH 10/06/2023 Care Gap Outreach Action Taken: Unable to reach and DidLoghart message sent Phone rang and then loud screeching sound. documented in this encounter Plan of Treatment Upcoming Encounters Date Type Department Care Team (Late st Contact Info) Description 08/29/2023 10:00 AM EDT Home Visit [facility], [facility] [address] [place] [address] Merced Hicks RN [address] [place] [address] 09/13/2023 12:30 PM EDT Scheduled Telephone [facility], [facility] [address] [facility] [place] [address] Vikki Ashraf RDN [address] [facility] [place] [address] Health Maintenance Due Date Last Done Comments DTaP,Tdap,and Td Vaccines (1 - Tdap) 07/12/1959 Zoster Vaccines (1 of 2) 1990 COVID-19 Vaccine (5 - season) 2022 01/28/2022, 02/17/2021, 09/24/2020, Additional history exists *NEPHROLOGY REFERRAL DUE TO RESISTANT HTN 06/14/2023 TSH 10/06/2023 10/05/2022, 12/11, 09/04/2020, Additional history exists Depression Screening 10/29/2023 10/28/2022 O2 ASSESSMENT COMPLETED IN PAST YEAR FOR COPD 08/07/2024 08/08/2023 Pneumococcal Vaccine: 65+ Years Completed 07/09/2020, 03/12/2019 [...] filedocumented as of this encounter Care Teams Purchasing Manager/Sales Relationship Specialty Start Date End Date Rafa Cage MD [address] [place] [phone] PCP - General Family Medicine 07/09/20 documented as of this encounter
--- OUTSIDE RECORDS SUMMARY | 2023-12-07 08:13 | External Medical Summary | Summary of Care ---
Author Name Unknown Organization [facility] Address [address] [facility] [place] [address] Phone [phone] Care Team Providers Care Office Administration Name Role Phone Rafa Cage MD Primary Care P [facility] Reason for Visit * Reason Comments [facility]: Maintenance Encounter Details Date Type Department Care Team (Late st Contact Info) Description 08/29/2023 10:00 AM EDT Home Visit [facility], [facility] [address] [facility] [place] [address] Merced Hicks, RN 132 [facility] [place] [address] Allergies No known active allergiesdocumented as of [...] g 1 11/29/2021 Active [facility] Saline Nasal [place] 0.65 % Nasal Solution 12/30/2021 Active oxygen [...] the morning and 1 Can before bedtime. 57045 mL 2 is 08/31/2022 Active Additional Information Patient not taking.Reported on 10/28/2022 Boost High Protein Oral Liquid Administer 474 mL daily, as directed by mouth. 17398 mL 11 08/31/2022 Active Additional Information Patient [...] with varicose veins (HCC),Coronary artery disease involving venetie ir[place] coronary artery of ven[place] ir[place] heart without angina pectoris,Hypertensiv e heart disease [...] Hour (toPROL XL)Indications:Coron harry artery disease involving venetie ira coronary artery of venet[place] ir[place] heart without angina pectoris TAKE 1 TABLET [...] Continue eiliquis Atherosclerotic heart diseas e of ven[place] ir[place] coronary artery with other forms of angina [...] 07/09/2020 Last Assessment & Plan: Following with [facility] RDN Encouraged high calorie diet Continues to [...] Classes - OMID Class D - Inhaled Iojcjctspfhdfn-PYKF-TCNH Combination Inhaler (Artemiollegy) Self-Management plan High frequency [...] with cardiology Coronary artery disease invo lving venetie ira coronary artery of venetie ir[place] heart without angina pectoris 09/07/2017 S/P angioplasty [...] mRNA, LNP-s, No Pre serve, 2-Dose Series ([employer]) 02/17/2021,09/24/2020,08/27/2020 Covid-19, Mrna, Lnp-s, Pf, B ivalent, [...] Sign Reading Time Taken Comments Blood Pressure 148/86 08/29/2023 10:47 AM EDT Pulse 58 08/29/2023 10:47 AM EDT Temperature 36 C (96.8 F) 08/29/2023 10: 47 AM EDT Respiratory Rate 20 08/29/2023 10:4 7 AM EDT Oxygen Saturation 96% 08/29/2023 10: 47 AM EDT o2 on at 2.5 l/min via nc Inhaled Oxygen Concentration - - Weight - - Height - - Body Mass Index - - documented in this encounter Progress Notes * Merced Hicks, RN - 08/29/2023 8:25 AM EDT [facility] Visit Date: 08/29/2023 Time: 10:25 AM Name: Kirby Alonso : 1940 Current Concerns: Pt seen for return RNCM visit He states he has been having abdominal pain on and off the past several weeks but but it is feelingbetter today He also reports his appetite has been down Bowels are moving regularly No issues with urine He reports he feels he has been getting more pain lately "everywhere" Has Tylenol on hand but states he doesn't like to take anything extra He reports he does take it when he has a headache Advised to try a daily dose to see if that will help his pain His abdominal pain is now new - he is on pantoprazole and famotidine and was started on these for this c/o in the past Will arrange for a provider visit for further f/u Physical Exam: BP 148/86 | Pulse 58 | Temp 36 C (96.8 F) | Resp 20 | SpO2 96% Comment: o2 on at 2.5 l/min via nc Pain 0 Physical Exam Constitutional: General: He [...] [place] [facility]). Neurological: Negative. Psychiatric/Behavioral: Negative. Medication Reconciliation: (See medication list) Does patient take medications as ordered: Yes Patient Well Being: PHQ2/9: No questionnaires available. No change in living situation Denies falls MAH-10 Completed this Visit: No. Routine visit and No falls since last visit Advanced Care Planning: POLST. Reinforcement/Education: COPD: Pt instructed to: -Call with increased SOB, wheezing, chest tightness, increased cough, increased sputum with change in color or consistency and fever. -Wash hands often -Drink plenty of fluids -Use inhalers as directed, do not stop or skip doses -Avoid stress -Rest when tired or SOB -Avoid triggers -Clean inhalers once a week Educated on home safety: Create a fall proof home Clear floors of clutter, loose wires, throw rugs, and cords. Make sure halls, stairways, and entrances are well lit. Install a nightlight in your bedroom, hallway and bathroom. Install grab bars or handrails in the bathroom and on stairs. Use a non-skid tub/shower mat. Avoid climbing on a chair; instead use a step stool with a high handrail. Keep sidewalks and steps in good repair Keep steps and sidewalks free of snow and ice. Using aids to support and prevent falls If you have poor balance or have fallen in the past, consider additional support such as a cane or walker. Use a cane with good support and that is the proper length for you. Use a walker if a cane doesnt provide enough support. Avoid medications that increase the risk of falling by causing dizziness, change in sensation or slowed reflexes. Certain medicines may cause falls - blood pressure pills, heart medicines, water pills, or sleepingpills. Be sure to understand each medicine that you are taking and any side effects that may occur. Improve your balance and flexibility with muscle strengthening exercises. Ask your health care provider for some exercises that will be right for you. Reinforced safety education and fall prevention. and Reinforced medication regimen. Timing., Dosing., and Purspose. Treatment/Plan: Continue meds as prescribed/reviewed Fall precaution - slow position change Silver sulfadiazine cream to chronic wound posterior LLE as needed Oxygen at 2-3 l/min via nc continuously Albuterol neb ever 4 hours as needed Keep all appts as scheduled Take APAP daily to help with pain Home Interventions Provided: Home Intervention: Other; eval Reinforced current Plan of Care, including self-management and medication regimen Patient's 'Red Flags': SOB at rest Dizziness Chest pain Patient Needs to Remember: Call [facility] at with any new or worsening health concerns or problems, red flag symptoms. Referrals Needed: Other none Follow Up: Is there cellular connectivity/connectivity in the home? Yes Does the patient have internet in the home? No Patient encouraged to call the intake phone number for all urgent but not emergent issues. Is the patient new to [facility] within the last 30 days? No, Assess appropriateness for upcoming telehealth visits. Cancel telehealth visits & schedule home visit with care boilermaker central steam plant(s)as indicated. Provider is in agreement with Plan of Care: Yes Scheduled to follow up with patient in 3 weeks with CHW, 3 weeks after with RNCM - provider visit TBD. Merced Hicks RN 08/29/2023 10:25 AM documented in this encounter Plan of Treatment Upcoming Encounters Date Type Department Care Team (Late st Contact Info) Description 09/13/2023 12:30 PM EDT Scheduled Telephone [facility], [facility] [address] [facility] [place] [address] Vikki Ashraf RDN [address] [facility] [place] [address] 09/19/2023 1:00 PM EDT Home Visit [facility] [address] [place] [facility] [place] [address] Karen Kay Community Health Lead Recreation Assistant [address] [place] [address] 10/03/2023 10:00 AM EDT Home Visit [facility], [facility] [address] [address] Merced Hicks RN [facility] [place] [address] Health Maintenance Due Date Last Done Comments [...] filedocumented as of this encounter Care Teams Office Administration Relationship Specialty Start Date End Date Rafa Cage MD [address] [place] [address] PCP - General Family Medicine 07/09/20 documented as of this encounter
--- OUTSIDE RECORDS SUMMARY | 2023-12-07 08:13 | External Medical Summary | Summary of Care ---
Author Name Unknown Organization [facility] Address [address] [facility] [place] [address] Phone [phone] Care Team Providers Care Roving Machine Operator Name Role Phone Rafa Cage MD Primary Care P rovider Encounter Details Date Type Department Care Team (Late st Contact Info) Description 08/29/2023 Population Health External Data Unspecified Department Allergies No known active allergiesdocumented as of this encounter (statuses as of 08/30/2023) Medications Medication Sig Dispensed Refills Start Date [...] g 1 11/29/2021 Active [facility] Saline Nasal [place] 0.65 % Nasal Solution 12/30/2021 Active oxygen [...] the morning and 1 Can before bedtime. 78963 mL 2 is 08/31/2022 Active Additional Information Patient not taking.Reported on 10/28/2022 Boost High Protein Oral Liquid Administer 474 mL daily, as directed by mouth. 67735 mL 11 08/31/2022 Active Additional Information Patient [...] with varicose veins (HCC),Coronary artery disease involving [place] coronary artery of [place] heart without angina pectoris,Hypertensiv e heart disease [...] Hour (toPROL XL)Indications:Coron harry artery disease involving [place] coronary artery of [place] heart without angina pectoris TAKE 1 TABLET [...] as of this encounter (statuses as of 08/30/2023) Active Problems Problem Noted Date Diagnosed Date Atrial flutter 04/24/2023 Overview: S/p ablation Atrial fibrillation 07/21/2022 Last Assessment & Plan: Rate controlled on metoprolol Continue eiliquis Atherosclerotic heart diseas e of [place] coronary artery with other forms of angina [...] 07/09/2020 Last Assessment & Plan: Following with [facility] RDN Encouraged high calorie diet Continues to [...] Classes - OMID Class D - Inhaled Yoqraosufuxdvs-HBPM-YHJT Combination Inhaler (Trellegy) Self-Management plan High frequency [...] with cardiology Coronary artery disease invo lving [place] coronary artery of [place] heart without angina pectoris 09/07/2017 S/P angioplasty with stent 09/07/2017 Typical atrial flutter 08/24/2017 History of tobacco use 08/10/2015 Post herpetic neuralgia 08/10/2015 Hypothyroidism 09/18/2013 documented as of this encounter (statuses as of 08/30/2023) Resolved Problems Problem Noted Date Diagnosed Date [...] as of this encounter (statuses as of 08/30/2023) Immunizations Name Administration Dates Next Due COVID-19 mRNA, LNP-s, No Pre serve, 2-Dose Series (PT [employer]) 02/17/2021,09/24/2020,08/27/2020 Covid-19, Mrna, Lnp-s, Pf, B ivalent, 30 Mcg, IM, 12 yrs and above (PT [employer]) 01/28/2022 Pneumococcal Conjugate Vacc, 13 Valent (Prevnar) [...] PM EDT Scheduled Telephone [facility], [facility] [address] [facility] [address] Vikki Ashraf, BRANDO [address] [place] [address] 09/19/2023 1:00 PM EDT Home Visit [facility] [address] [place] [facility] [place] [address] Karen Kay, Community Health Molded Frames Assembler [address] [place] [facility] [place] [address] 10/03/2023 10:00 AM EDT [facility] [address] [place] [address] Merced Hicks, RN [address] [place] [address] 10/26/2023 3:00 PM EDT Home Visit [facility] [place] [address] [place] [address] Javi Hart PA-C [address] [place] [address] Health Maintenance Due Date Last Done Comments [...] filedocumented as of this encounter Care Teams Roving Machine Operator Relationship Specialty Start Date End Date Rafa Cage MD [address] [place], [place] [address] [address] PCP - General Family Medicine 07/09/20 documented as of this encounter
--- OUTSIDE RECORDS SUMMARY | 2023-12-07 08:13 | External Medical Summary | Summary of Care ---
Author Name Unknown Organization [facility] Address [address] [facility] [place] [address] Phone [phone] Care Team Providers Care Crisis Mental Health Therapist Name Role Phone Rafa Cage MD Primary Care P rovider Encounter Details Date Type Department Care Team (Late st Contact Info) Description 08/25/2023 Population Health External Data Unspecified Department Allergies [...] g 1 11/29/2021 Active [facility] Saline Nasal [place] 0.65 % Nasal Solution 12/30/2021 Active oxygen [...] the morning and 1 Can before bedtime. 18819 mL 2 is 08/31/2022 Active Additional Information Patient not taking.Reported on 10/28/2022 Boost High Protein Oral Liquid Administer 474 mL daily, as directed by mouth. 65775 mL 11 08/31/2022 Active Additional Information Patient [...] with varicose veins (HCC),Coronary artery disease involving ute coronary artery of ute heart without angina pectoris,Hypertensiv e heart disease [...] Hour (toPROL XL)Indications:Coron harry artery disease involving ute coronary artery of ute heart without angina pectoris TAKE 1 TABLET [...] Continue eiliquis Atherosclerotic heart diseas e of ute coronary artery with other forms of angina [...] 07/09/2020 Last Assessment & Plan: Following with [facility] RDN Encouraged high calorie diet Continues [...] Classes - OMID Class D - Inhaled Enjbjupqmclccg-WMQE-IVQD Combination Inhaler (Trellegy) Self-Management plan High frequency [...] with cardiology Coronary artery disease invo lving ute coronary artery of ute heart without angina pectoris 09/07/2017 S/P angioplasty [...] mRNA, LNP-s, No Pre serve, 2-Dose Series ([employer]) 02/17/2021,09/24/2020,08/27/2020 Covid-19, Mrna, Lnp-s, Pf, B ivalent, 30 Mcg, IM, 12 yrs and above ([employer]) 01/28/2022 Pneumococcal Conjugate Vacc, 13 Valent (Prevnar) [...] PM EDT Scheduled Telephone [facility], [facility] [address] [facility] [address] Vikki Ashraf, BRANDO [address] [place] [facility] [place] [address] 09/19/2023 1:00 PM EDT Home Visit [facility] Coord[facility] Integration [address] [place] [facility] [place] [address] Karen Kay, Community Health Operating Table Assembler [address] [place] [address] 10/03/2023 10:00 AM EDT Home Visit [facility], [facility] [address] [place] [address] Merced Hicks, RN [address] [place] [address] 10/26/2023 3:00 PM EDT Home Visit [facility] [place], [facility] [address] [place] [address] Javi Hart PA-C [address] [place] [address] Health Maintenance Due Date Last Done Comments [...] filedocumented as of this encounter Care Teams Crisis Mental Health Therapist Relationship Specialty Start Date End Date Rafa Cage MD [address] [place], [place] [address] [address] PCP - General Family Medicine 07/09/20 documented as of this encounter
--- OUTSIDE RECORDS SUMMARY | 2023-12-07 08:13 | External Medical Summary | Summary of Care ---
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 [address] [facility] [place] [id number] Allergies No known active allergiesdocumented as of this encounter (statuses as of 09/05/2023) Medications Medication Sig Dispensed Refills Start Date [...] g 1 11/29/2021 Active [facility] Saline Nasal [place] 0.65 % Nasal Solution 12/30/2021 Active oxygen [...] the morning and 1 Can before bedtime. 04839 mL 2 is 08/31/2022 Active Additional Information Patient not taking.Reported on 10/28/2022 Boost High Protein Oral Liquid Administer 474 mL daily, as directed by mouth. 30068 mL 11 08/31/2022 Active Additional Information Patient [...] with varicose veins (HCC),Coronary artery disease involving [place] coronary artery of [place] heart without angina pectoris,Hypertensiv e heart disease [...] Hour (toPROL XL)Indications:Coron harry artery disease involving [place] coronary artery of [place] heart without angina pectoris TAKE 1 TABLET [...] as of this encounter (statuses as of 09/05/2023) Active Problems Problem Noted Date Diagnosed Date Atrial flutter 04/24/2023 Overview: S/p ablation Atrial fibrillation 07/21/2022 Last Assessment & Plan: Rate controlled on metoprolol Continue eiliquis Atherosclerotic heart diseas e of [place] coronary artery with other forms of angina [...] 07/09/2020 Last Assessment & Plan: Following with [facility] RDN Encouraged high calorie diet [...] Classes - OMID Class D - Inhaled Rbkgnmpufekgft-CAWO-BUTD Combination Inhaler (Matthew) Self-Management plan High frequency [...] with cardiology Coronary artery disease invo lving [place] coronary artery of [place] heart without angina pectoris 09/07/2017 S/P angioplasty with stent 09/07/2017 Typical atrial flutter 08/24/2017 History of tobacco use 08/10/2015 Post herpetic neuralgia 08/10/2015 Hypothyroidism 09/18/2013 documented as of this encounter (statuses as of 09/05/2023) Resolved Problems Problem Noted Date Diagnosed Date [...] as of this encounter (statuses as of 09/05/2023) Immunizations Name Administration Dates Next Due COVID-19 mRNA, LNP-s, No Pre serve, 2-Dose Series ([employer]) 02/17/2021,09/24/2020,08/27/2020 Covid-19, Mrna, Lnp-s, Pf, B ivalent, [...] Telephone Encounter - Belén Vitale LCSW - 09/05/2023 10:37 AM EDT Worker was consulted by Merced SHERIDAN CM Jail Placement Chart was reviewed. Worker placed a call to Kirby at [phone]. Unable to connect. Worker placed a call to Laurel Amosdaughter at [phone]. Message left for a return call. Belén Vitale LCSW [facility] Pt Escort [facility] [phone] documented in this encounter Plan of Treatment Upcoming Encounters Date Type Department Care Team (Late st Contact Info) Description 09/13/2023 12:30 PM EDT Scheduled Telephone [facility], [facility] [address] [facility] [place] [address] Vikki Ashraf, RDN [address] [facility] [place] [address] 09/19/2023 1:00 PM EDT Home Visit [facility] Coordination and Integration [address] [place] [address] Karen Kay Community Health Agency Sales Director [address] [place] [address] 10/03/2023 10:00 AM EDT Home Visit [facility], [facility] [address] [place] [address] Merced Hicks, RN [address] [place] [address] 10/26/2023 3:00 PM EDT Home Visit [facility], [facility] [address] [place] [address] Javi Hart PA-C [address] [place] [address] Health Maintenance Due Date Last Done Comments DTaP,Tdap,and Td Vaccines (1 - Tdap) 07/12/1959 Zoster Vaccines (1 of 2) 1990 COVID-19 Vaccine (5 - 24 season) 2022 01/28/2022, 02/17/2021, 09/24/2020, Additional history [...] filedocumented as of this encounter Care Teams Software Manager Relationship Specialty Start Date End Date Rafa Cage MD [address] [place] [address] PCP - General Family Medicine 07/09/20 documented as of this encounter
--- OUTSIDE RECORDS SUMMARY | 2023-12-07 08:13 | External Medical Summary | Summary of Care ---
Author Name Unknown Organization [facility] Address [address] [facility] [address] Phone [phone] Care Team Providers Care Guest Services Name Role Phone Rafa Cage MD [facility] Reason for Visit * Reason Onset Date Comments [facility]: Maintenance 09/05/2023 Encounter Details Date Type Department Care Team (Late st Contact Info) Description 09/05/2023 Telephone [facility], [facility] [address] [facility] [place] [address] Merced Hicks RN 132 [place] [address] [facility]: Maintenance Allergies No known [...] g 1 11/29/2021 Active [facility] Saline Nasal [place] 0.65 % Nasal Solution 12/30/2021 Active oxygen [...] the morning and 1 Can before bedtime. 66497 mL 2 is 08/31/2022 Active Additional Information Patient not taking.Reported on 10/28/2022 Boost High Protein Oral Liquid Administer 474 mL daily, as directed by mouth. 07416 mL 11 08/31/2022 Active Additional Information Patient [...] with varicose veins (HCC),Coronary artery disease involving tel[place] coronary artery of tel[place] heart without angina pectoris,Hypertensiv e heart disease [...] Hour (toPROL XL)Indications:Coron harry artery disease involving [place] coronary artery of [place] heart without angina pectoris TAKE 1 TABLET [...] Continue eiliquis Atherosclerotic heart diseas e of tel[place] coronary artery with other forms of angina [...] 07/09/2020 Last Assessment & Plan: Following with [facility] RDN Encouraged high calorie diet Continues [...] the room") Medication Regimen All Classes - MOID Class D - Inhaled Ytlvzaxodcjwjk-MQQX-RGVR Combination Inhaler (Matthew) Self-Management plan High frequency [...] with cardiology Coronary artery disease invo lving tel[place] coronary artery of tel[place] heart without angina pectoris 09/07/2017 S/P angioplasty [...] mRNA, LNP-s, No Pre serve, 2-Dose Series ([employer]) 02/17/2021,09/24/2020,08/27/2020 Covid-19, Mrna, Lnp-s, Pf, B ivalent, [...] Miscellaneous Notes * Telephone Encounter - Merced Hicks RN - 09/05/2023 9:55 AM EDT Spoke with pt's dtr. She reports pt has been requiring more care at home. She has been overwhelmed trying to take care of him and it is not an option for him to go live with her. She has been looking into LTC options for him at SNF. Requesting help from SW OPERATING COST CLERK referral placed. documented in this encounter Plan of Treatment Upcoming Encounters Date Type Department Care Team (Late st Contact Info) Description 09/13/2023 12:30 PM EDT Scheduled Telephone [facility], [facility] [address] [facility] [place] [address] Vikki Ashraf RDN [address] [facility] [place] [address] 09/19/2023 1:00 PM EDT Home Visit Care Coordination and Integration [address] [place] [address] Karen Kay, Community Health Boat Garnisher [address] [place] [address] 10/03/2023 10:00 AM EDT Home Visit [facility], [facility] [address] [place] [address] Merced Hicks RN 132 [facility] [place] [address] 10/26/2023 3:00 PM EDT Home Visit [facility], [facility] [address] [place] [address] Javi Hart PA-C [address] [place] [address] Health Maintenance Due Date Last Done Comments [...] of this encounter Visit Diagnoses Diagnosis Chronic obstructive pulmonary disease, unspecified COPD type (HCC)- Primary documented in this encounter Care Teams Guest Services Relationship Specialty Start Date End Date Rafa Cage MD [address] [place] [address] PCP - General Family Medicine 07/09/20 documented as of this encounter
--- OUTSIDE RECORDS SUMMARY | 2023-12-07 08:13 | External Medical Summary | Summary of Care ---
Author Name Unknown Organization [facility] Address [address] [facility] [address] [address] Phone [phone] Care Team Providers Care Vest Backer Name Role Phone Rafa Cage MD Primary Care P rovider Reason for Visit * Reason Onset Date Comments [place] Technician Documentation 09/12/2023 Encounter Details Date Type Department Care Team (Late st Contact Info) Description 09/12/2023 1:30 PM EDT Scheduled Telephone [facility], [facility] [address] [facility] [place] [address] [facility] [address] [facility] [place] [id number] Allergies No known active allergiesdocumented as of [...] g 1 11/29/2021 Active [facility] Saline Nasal [place] 0.65 % Nasal Solution 12/30/2021 Active oxygen [...] the morning and 1 Can before bedtime. 05948 mL 2 is 08/31/2022 Active Additional Information Patient not taking.Reported on 10/28/2022 Boost High Protein Oral Liquid Administer 474 mL daily, as directed by mouth. 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 RDN Encouraged high calorie diet Continues to [...] Classes - OMID Class D - Inhaled Dsxrotlflwjuwo-TFXP-ZBDP Combination Inhaler (Matthew) Self-Management plan High frequency [...] with cardiology Coronary artery disease invo lving assiniboine and gros ventre tribes coronary artery of assiniboine and gros ventre tribes heart without angina pectoris 09/07/2017 S/P angioplasty [...] mRNA, LNP-s, No Pre serve, 2-Dose Series ([employer]) 02/17/2021,09/24/2020,08/27/2020 Covid-19, Mrna, Lnp-s, Pf, B ivalent, [...] Worker was consulted by Merced SHERIDAN CM Cash Processor Placement ( Medical Assistance) Chart was reviewed. This interview was conducted over the phone with Laurel AmosDaughter [phone] There are no food insecurities at this time. [facility] New Assessment for Social Work Is this for a hospital or rehab discharge to home? Verified Demographics: yes Does the patient speak Armenian? yes Does the patient read Armenian? No - Kirby can not read or [...] the patient receive any government assistance? Food [place] @$148.00 Health Care Benefits: Pt has [employer] Insurance ?: n/a DME Equipment:Rolling Walker // Wheelchair / Cane/ O2 Ability to Complete: needs assistance with ADL's/ presently not changing clothes and baths PRN in the sink Education: unclear what grade he left but can not read or write Spiritual/Orthodox Beliefs Life Planning: n/a History of Violence [...] forgetful Vision > fair Weight > stable Usp Facility > n/a Criminal Background>n/a Plan B [...] tolerance: limited Coping Skills: limited Cultural and uatsdin beliefs that discourage suicide and support hopefulness: [...] the flowsheet rows parameter was overridden by clinical administrator build. Remove the value in the flowsheet rows parameter or contact an clinical administrator. The value you specified in the flowsheet rows parameter was overridden by clinical administrator build. Remove the value in the flowsheet rows parameter or contact an clinical administrator. The value you specified in the flowsheet rows parameter was overridden by clinical administrator build. Remove the value in the flowsheet rows parameter or contact an clinical administrator.. The value you specified in the flowsheet rows parameter was overridden by clinical administrator build. Remove the value in the flowsheet rows parameter or contact an clinical administrator. 1. Little interest or pleasure in doing things The value you specified in the flowsheet rows parameter was overridden by clinical administrator build. Remove the value in the flowsheet rows parameter or contact an clinical administrator. 2. Feeling down, depressed or hopeless The value you specified in the flowsheet rows parameter was overridden by clinical administrator build. Remove the value in the flowsheet rows parameter or contact an clinical administrator. 3. Trouble falling or staying asleep, or sleeping too much The value you specified in the flowsheetrows parameter was overridden by clinical administrator build. Remove the value in the flowsheet rows parameter or contact an clinical administrator. 4. Poor appetite or overeating The value you specified in the flowsheet rows parameter was overridden by clinical administrator build. Remove the value in the flowsheet rows parameter or contact an clinical administrator. 5. Feeling tired of having little energy The value you specified in the flowsheet rows parameter was overridden by clinical administrator build. Remove the value in the flowsheet rows parameter or contact an clinical administrator. 6. Feeling bad about yourself - or that you are a failure, or have let yourself of your family downThe value you specified in the flowsheet rows parameter was overridden by clinical administrator build. Remove the value in the flowsheet rows parameter or contact an clinical administrator. 7. Trouble concentrating on things, such as reading the newspaper or watching television The value you specified in the flowsheet rows parameter was overridden by clinical administrator build. Remove the value in the flowsheet rows parameter or contact an clinical administrator. 8. Moving or speaking so slowly that other people could have noticed. Or the opposite - being so fidgety or restless that you have been moving around a lot more than usual The value you specified in the flowsheet rows parameter was overridden by clinical administrator build. Remove the value in the flowsheet rows parameter or contact an clinical administrator. 9. Thoughts that you would be better off , or of hurting yourself The value you specified in the flowsheet rows parameter was overridden by clinical administrator build. Remove the value in the flowsheet rows parameter or contact an clinical administrator. Diagnosed Health Conditions: See Problem List Med Reconciliation: Taking all medication as directed?: yes [facility] Barriers to Treatment: No identified barriers Social Work Goals/Interventions: Behavioral Health needs: No needs identified at this time Drug and Alcohol needs: No needs identified at this time Complex Psychosocial needs: No needs identified at this time Plan: 1/Cash Processor Placement Laurel has discussed the options of SNF placement. As shared, Kirby is agreeable. Laurel has researched community availability. She was informed that admit from home is @ 1 year out for placement. Laurel requested records be sent to [facility] and [facility]. She is aware of the [...] was provided . Worker provided contact number [phone] for any follow up needed. Belén Vitale LCSW [facility] [employer] [facility] [phone] documented in this encounter Plan of Treatment Upcoming Encounters Date Type Department Care Team (Late st Contact Info) Description 09/13/2023 12:30 PM EDT Scheduled Telephone [facility], [facility] [address] [facility] [place] [address] Vikki Ashraf RDN [address] [facility] [place] [address] Moderate protein-calorie malnutrition (HCC)* 09/19/2023 1:00 PM EDT Home Visit [facility] Integration [address] [place] [address] Karen Kay, Community Health Licensed Nursing Assistant [address] [place], [place] [phone] 10/03/2023 10:00 AM EDT Home Visit [facility], [facility] [address] [place] [address] Merced Hicks RN [facility] [place] [address] 10/26/2023 3:00 PM EDT Home Visit [facility], [facility] [address] [place] [address] Javi Hart PA-C [address] [place] [address] 10/27/2023 3:30 PM EDT Scheduled Telephone [facility], [facility] [address] [facility] [place] [address] Vikki Ashraf RDN [address] [facility] [place] [address] Health Maintenance Due Date Last Done Comments [...] filedocumented as of this encounter Care Teams Vest Backer Relationship Specialty Start Date End Date Rafa Cage MD [address] [place] [phone] PCP - General Family Medicine 07/09/20 documented as of this encounter
--- OUTSIDE RECORDS SUMMARY | 2023-12-07 08:13 | External Medical Summary | Summary of Care ---
Author Name Unknown Organization [facility] Address [address] [place] [address] Phone [phone] Care Team Providers Care Lead Python Developer Name Role Phone Rafa Cage MD Primary Care P [facility] Encounter Details Date Type Department Care Team (Late st Contact Info) Description 08/08/2023 9:30 AM EDT Home Visit Care Coordination and Integration [address] [place], [place] [phone] Karen Kay [facility] Patch Driller [address] [place], [place] [phone] Allergies No known active allergiesdocumented as of this encounter (statuses as of 08/08/2023) Medications Medication Sig Dispensed Refills Start Date End Date Status Nebulizers (NEBULIZER COMPRESSOR) MISC Inhale via nebulizer. Use as directed. 1 Each 1 06/23/2017 Active Spacer/Aero-Holding Chambers DEVIIndications:SCIENTIFIC DIVER D, moderate (HCC) Use with inhaler. 1 [...] g 1 11/29/2021 Active [facility] Saline Nasal [place] 0.65 % Nasal Solution 0 12/30/2021 Active oxygen IN GASIndications:Model Technician leela respiratory failure with hypoxia (HCC),Supplemental oxygen [...] the morning and 1 Can before bedtime. 30345 mL 2 08/31/2022 Active Additional Information Patient not taking.Reported on 10/28/2022 Boost High Protein Oral Liquid Administer 474 mL daily, as directed by mouth. 94942 mL 11 08/31/2022 Active Additional Information Patient [...] with varicose veins (HCC),Coronary artery disease involving sokaogon coronary artery of sokaogon heart without angina pectoris,Hypertensi ve heart disease [...] Hour (toPROL XL)Indications:Lisa nary artery disease involving sokaogon coronary artery of sokaogon heart without angina pectoris TAKE 1 TABLET [...] as of this encounter (statuses as of 08/08/2023) Active Problems Problem Noted Date Diagnosed Date Atrial flutter 04/24/2023 Overview: S/p ablation Atrial fibrillation 07/21/2022 Last Assessment & Plan: Rate controlled on metoprolol Continue eiliquis 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 [...] 07/09/2020 Last Assessment & Plan: Following with [facility] RDN Encouraged high calorie diet Continues [...] Classes - OMID Class D - Inhaled Vlqczjncwdrfjx-EBXS-LEDO Combination Inhaler (Trellegy) Self-Management plan High frequency [...] with cardiology Coronary artery disease invo lving sokaogon coronary artery of sokaogon heart without angina pectoris 09/07/2017 S/P angioplasty with stent 09/07/2017 Typical atrial flutter 08/24/2017 History of tobacco use 08/10/2015 Post herpetic neuralgia 08/10/2015 Hypothyroidism 09/18/2013 documented as of this encounter (statuses as of 08/08/2023) Resolved Problems Problem Noted Date Diagnosed Date [...] as of this encounter (statuses as of 08/08/2023) Immunizations Name Administration Dates Next Due COVID-19 mRNA, LNP-s, No Pre serve, 2-Dose Series ([facility]) 02/17/2021,09/24/2020,08/27/2020 Covid-19, Mrna, Lnp-s, Pf, B ivalent, 30 Mcg, IM, 12 yrs and above ([facility]) 01/28/2022 Pneumococcal Conjugate Vacc, 13 Valent (Prevnar) [...] Sign Reading Time Taken Comments Blood Pressure 140/100 08/08/2023 9:46 AM EDT Pulse 118 08/08/2023 9:46 AM EDT Temperature 36.7 C (98 F) 08/08/2023 9:46 AM EDT Respiratory Rate 22 08/08/2023 9:46 AM EDT Oxygen Saturation 97% 08/08/2023 9:46 AM EDT Inhaled Oxygen Concentration - - Weight - - Height - - Body Mass Index - - documented in this encounter Progress Notes * Karen Kay [facility] Driller - 08/08/2023 10:28 AM EDT Telemedicine visit: No [facility] Patch Driller ([facility]) documentation: CHW hv for wellness visit Pt had significant SOB at beginning of visit, however, once pt. Sat at the table a few minutes his breathing leveled out. Pt compliant with medications and states his daughter Laurel puts them into weekly minders for pt. Pt. States he doesn't need any resources at this time. I did question him about PACE/PACENET program, but he wasn't sure. I left a message with his daughter to call me to determine if this program issomething he would need. CHW confirmed that pt. Has contact information for CM. documented in this encounter Plan of Treatment Upcoming Encounters Date Type Department Care Team (Late st Contact Info) Description 08/29/2023 10:00 AM EDT [facility] Visit [facility], [facility] [address] [facility] [place] [address] Merced Hicks, RN [address] [facility] [place] [address] 09/13/2023 12:30 PM EDT Scheduled Telephone [facility], [facility] [address] [facility] [place] [address] Vikki Ashraf RDN [address] [facility] [place] [address] Health Maintenance Due Date Last Done Comments DTaP,Tdap,and Td Vaccines (1 - Tdap) 07/12/1959 Zoster Vaccines (1 of 2) 1990 COVID-19 Vaccine (2022-24 season) 2022 01/28/2022, 02/17/2021, 09/24/2020, Additional history [...] filedocumented as of this encounter Care Teams Lead Python Developer Relationship Specialty Start Date End Date Rafa Cage MD [address] [place] [phone] PCP - General Family Medicine 07/09/20 documented as of this encounter
--- OUTSIDE RECORDS SUMMARY | 2023-12-07 08:14 | External Medical Summary | Summary of Care ---
Author Name Unknown Organization [facility] Address [address] [facility] [place] [address] Phone [phone] Care Team Providers Care Concrete Conveyor Operator Name Role Phone Rafa Cage MD Primary Care P rovider Reason for Visit * Reason Onset Date Comments Medical Nutrition Therapy 06/13/2023 Encounter Details Date Type Department Care Team (Latest Contact Info) Description 06/13/2023 2:00 PM EST Scheduled Telephone [place] [facility] [address] [facility] [place] [address] Vikki Ashraf, RDN [address] [place] [facility] [place] [address] Hypertensive 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 Use as directed. 1 Each 1 06/23/2017 Active Spacer/Aero-Holding Chambers DEVIIndications:HOGSHEAD HAND D, moderate (HCC) Use with inhaler. 1 [...] g 1 11/29/2021 Active [facility] Saline Nasal [place] 0.65 % Nasal Solution 0 12/30/2021 Active oxygen IN GASIndications:Senior Contracts Administrator leela respiratory failure with hypoxia (HCC),Supplemental oxygen [...] the morning and 1 Can before bedtime. 15594 mL 2 08/31/2022 Active Additional Information Patient not taking.Reported on 10/28/2022 Boost High Protein Oral Liquid Administer 474 mL daily, as directed by mouth. 03190 mL 11 08/31/2022 Active Additional Information Patient [...] with varicose veins (HCC),Coronary artery disease involving kenaitze coronary artery of kenaitze heart without angina pectoris,Hypertensi ve heart disease with chronic combined systolic and diastolic congestive heart failure (HCC) Apply topically to affected area daily. Apply to wound daily with dressing 400 g 3 10/28/2022 Active Metoprolol Succinate ER 25 MG Oral Tablet Extended Release 24 Hour (toPROL XL)Indications:Lisa nary artery disease involving kenaitze coronary artery of kenaitze heart without angina pectoris Take 1 Tablet by mouth in the morning and 1 Tablet before bedtime. 180 Tablet 3 10/28/2022 Active Zoster Vac Recomb Adjuvanted 50 MCG/0.5ML Intramuscular Suspension Reconstituted (Shingrix)Indicatio ns:Need for shingles vaccine Inject 0.5 mL into a large muscle now and repeat dose in 60 to 180 days 1 Each 1 10/28/2022 Active Finasteride 5 MG Oral Tablet (Proscar) TAKE 1 TABLET BY MOUTH EVERY DAY 90 Tablet 3 12/06/2022 Active Lisinopril 40 MG Oral Tablet TAKE 1 TABLET BY MOUTH EVERY DAY IN THE MORNING 90 Tablet 3 12/06/2022 Active Clopidogrel Bisulfate 75 MG Oral Tablet (pLAVix)Indications :Coronary artery disease involving kenaitze coronary artery of kenaitze heart without angina pectoris TAKE 1 TABLET BY MOUTH EVERY DAY IN THE MORNING 90 Tablet 3 12/06/2022 Active Levothyroxine Sodium 25 MCG Oral Tablet (Levoxyl) TAKE 1 TABLET BY MOUTH AT LEAST 30 MIN PRIOR TO BREAKFAST OR OTHER MEDS 90 Tablet 3 12/06/2022 Active Eliquis 2.5 MG Oral Tablet TAKE 1 TABLET BY MOUTH EVERY DAY IN THE MORNING AND BEFORE BEDTIME 180 Tablet 3 12/06/2022 Active Ferrous Sulfate 325 (65 Fe) MG Oral Tablet (Feosol) Take 1 Tablet by mouth daily with breakfast. 0 Active Klor-Con M20 20 MEQ Oral Tablet Extended Release (Potassium Chloride ER) TAKE 1 TABLET BY MOUTH EVERY DAY IN THE MORNING 90 Tablet 1 02/21/2023 Active Atorvastatin Calcium 20 MG Oral Tablet (Lipitor) TAKE 1 TABLET BY MOUTH EVERY DAY IN THE MORNING 90 Tablet 1 02/21/2023 Active Pantoprazole Sodium 20 MG Oral Tablet [...] FOR PROSTATE. 90 Capsule 3 05/22/2023 Active Ciprofloxacin HCl 500 MG Oral Tablet (Cipro) Take 1 Tablet by mouth in the morning and 1 Tablet before bedtime. Do all this for 7 days. 14 Tablet 0 06/08/2023 06/15/2023 Active documented as of this encounter (statuses as of 06/13/2023) Active Problems Problem Noted Date Diagnosed Date Atrial flutter 04/24/2023 Overview: S/p ablation Atrial fibrillation 07/21/2022 Last Assessment & Plan: Rate controlled on metoprolol Continue eiliquis Atherosclerotic heart diseas e of kenaitze coronary artery with other forms of angina [...] Last Assessment & Plan: Following with [facility] RDN Encouraged high calorie diet [...] Classes - OMID Class D - Inhaled Ifimotuhwgcgrw-TEAD-HYPW Combination Inhaler (Trellegy) Self-Management plan High frequency [...] with cardiology Coronary artery disease invo lving kenaitze coronary artery of kenaitze heart without angina pectoris 09/07/2017 S/P angioplasty with stent 09/07/2017 Typical atrial flutter 08/24/2017 History of tobacco use 08/10/2015 Post herpetic neuralgia 08/10/2015 Hypothyroidism 09/18/2013 documented as of this encounter (statuses as of 06/13/2023) Resolved Problems Problem Noted Date Diagnosed Date [...] as of this encounter (statuses as of 06/13/2023) Immunizations Name Administration Dates Next Due COVID-19 mRNA, LNP-s, No Pre serve, 2-Dose Series ([employer]) 02/17/2021,09/24/2020,08/27/2020 Covid-19, Mrna, Lnp-s, Pf, B ivalent, [...] Miscellaneous Notes * Telephone Encounter - Vikki Ashraf, BRANDO - 06/12/2023 3:07 PM EST NUTRITION PROGRESS NOTE - [facility] [employer] Patient Phone Numbers: [phone] (Home Phone) Call placed to pt as follow-up from initial nutrition assessment from 05/25/23. Patient denies any issues related to diet [...] a month Alcohol: None Tobacco Use: No Patient continues to live alone, but Daughter will assist with care/food shopping/prepping/cooking of some meals) Patient continues to decline any oral nutrition supplements when offered (the nutrition benefits of oral nutrition supplements were discussed again) Chronic wound posterior LLE continues since last call (silver sulfadiazine cream to area as treatment) Reiterated the importance of incorporating nutritious, protein rich foods in all meals/snacks to aid in continued wound healing/skin support (examples reviewed/previously sent info to Daughter) Patient is edentulous/can chew most meats and other hard foods sufficiently--no difficulties reported Appetite, hydration, and PO intake remain "doing fine" since last call No difficulties reported this call No food insecurity reported this call Patient [...] foods to consume and those foods to avoid/provided options/previously sentinfo)--in progress 2) Switch out sweetened beverages with more water (2-3 bottles of water/day--16.9 oz each)--in progress 3) Consume [place] Instant Breakfast Drink oral nutrition supplement 1-2x daily for additional nutrition support--not meeting (not consuming at all/again, declined any other oral nutrition supplements at this time) Reinforced nutrition goals. Encouraged continued progress towards goals Follow up as scheduled. Encouraged pt to contact [facility] at [phone] for any non-emergent changes/concerns. Vikki Ashraf MS, ANDREWSN, LDN Clinical Dietitian [facility] 06/12/2023 3:07 PM documented in this encounter Plan of Treatment Upcoming Encounters Date Type Department Care Team (Late st Contact Info) Description 07/07/2023 2:30 PM EDT Scheduled Telephone [facility], [facility] [address] [facility] [place] [address] Vikki Ashraf RDN [address] [facility] [place] [phone] Health Maintenance Due Date Last Done Comments DTaP,Tdap,and Td Vaccines (1 - Tdap) 07/12/1959 Zoster Vaccines (1 of 2) 1990 COVID-19 Vaccine (2022- season) 2022 01/28/2022, 02/17/2021, 09/24/2020, Additional history exists TSH 10/06/2023 10/05/2022, 12/11, 09/04/2020, Additional history exists Depression Screening 10/29/2023 10/28/2022 O2 ASSESSMENT COMPLETED IN PAST YEAR FOR COPD 06/07/2024 06/08/2023 Pneumococcal Vaccine: 65+ Years Completed 07/09/2020, 03/12/2019 [...] as of this encounter Visit Diagnoses Diagnosis Hypertensive heart disease with chronic combined systolic and diastolic congestive heart failure (HCC)- Primary documented in this encounter Care Teams Concrete Conveyor Operator Relationship Specialty Start Date End Date Rafa Cage MD [address] [place] [phone] PCP - General Family Medicine 07/09/20 documented as of this encounter
--- OUTSIDE RECORDS SUMMARY | 2023-12-07 08:14 | External Medical Summary | Summary of Care ---
Author Name Unknown Organization [facility] Address [address] [place] [address] Phone [phone] Care Team Providers Care Spray Pilot Name Role Phone Rafa Cage MD Primary Care P [facility] Reason for Visit * Reason Onset Date Comments [facility]: Maintenance 07/17/2023 Encounter Details Date Type Department Care Team (Late st Contact Info) Description 07/17/2023 Telephone [facility], [facility] 132 [facility] [place] [address] Merced Hicks RN 132 [facility] [place] [address] [facility]: Maintenance Allergies No known active allergiesdocumented as of this encounter (statuses as of 07/17/2023) Medications Medication Sig Dispensed Refills Start Date End Date Status Nebulizers (NEBULIZER COMPRESSOR) MISC Inhale via nebulizer. Use as directed. 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 1 [...] g 1 11/29/2021 Active [facility] Saline Nasal [place] 0.65 % Nasal Solution 0 12/30/2021 Active oxygen IN GASIndications:Network Technician leela respiratory failure with hypoxia (HCC),Supplemental [...] the morning and 1 Can before bedtime. 57316 mL 2 08/31/2022 Active Additional Information Patient not taking.Reported on 10/28/2022 Boost High Protein Oral Liquid Administer 474 mL daily, as directed by mouth. 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 Apply to wound daily with dressing 400 g 3 10/28/2022 Active Metoprolol Succinate ER 25 MG Oral Tablet Extended Release 24 Hour (toPROL XL)Indications:Lisa nary artery disease involving [place] coronary artery of [place] heart without angina pectoris Take 1 Tablet [...] Oral Tablet (pLAVix)Indications :Coronary artery disease involving [place] coronary artery of [place] heart without angina pectoris TAKE [...] FOR PROSTATE. 90 Capsule 3 05/22/2023 Active Bacitracin 500 UNIT/GM External OintmentIndications :Skin abrasion Apply topically to affected area 3 times a day. As directed 30 g 1 07/17/2023 08/16/2023 Active documented as of this encounter (statuses as of 07/17/2023) Active Problems Problem Noted Date Diagnosed Date Atrial flutter 04/24/2023 Overview: S/p ablation Atrial fibrillation 07/21/2022 Last Assessment & Plan: Rate controlled on metoprolol Continue eiliquis Atherosclerotic heart diseas e of [place] coronary artery with other forms [...] 07/09/2020 Last Assessment & Plan: Following with [facility] RDN Encouraged high calorie diet Continues [...] Classes - OMID Class D - Inhaled Nvtmpbzwivmjfe-LNHK-YVMH Combination Inhaler (Trellegy) Self-Management plan High frequency [...] with cardiology Coronary artery disease invo lving [place] coronary artery of [place] heart without angina pectoris 09/07/2017 S/P angioplasty with stent 09/07/2017 Typical atrial flutter 08/24/2017 History of tobacco use 08/10/2015 Post herpetic neuralgia 08/10/2015 Hypothyroidism 09/18/2013 documented as of this encounter (statuses as of 07/17/2023) Resolved Problems Problem Noted Date Diagnosed Date [...] as of this encounter (statuses as of 07/17/2023) Immunizations Name Administration Dates Next Due COVID-19 [...] encounter Miscellaneous Notes * Telephone Encounter - Roula Avila LPN - 07/17/2023 4:26 PM EDT Spoke with daughter and made aware script was sent. * Telephone Encounter - Rafa Cage MD - 07/17/2023 1:56 PM EDT Bacitracin ointment electronically prescribed to [facility] pharmacy [place]. 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 He sometimes goes back and forth between that and [facility]. Its pretty well healed over now but has some scarring, small opening in the center. He is asking if he could get a refill on the Bacitracin ointment please. [facility] in [place] is pharmacy. Thank you! documented in this encounter Plan of Treatment Upcoming Encounters Date Type Department Care Team (Late st Contact Info) Description 07/17/2023 5:30 PM EDT [facility] [address] Merced Hicks, RN [facility] [address] 08/07/2023 8:30 AM EDT Scheduled Telephone [facility], [facility] [address] [facility] [place] [address] Vikki Ashraf RDN [address] [facility] [place] [address] 08/08/2023 9:30 AM EDT Home Visit [facility] [address] [place] [address] Karen Kay, Community Health Teacher Citizenship [address] [place] [address] 08/29/2023 10:00 AM EDT [facility], [facility] [address] [place] [address] Merced Hicks RN [address] [place] [address] Health Maintenance Due Date Last Done Comments [...] as of this encounter Visit Diagnoses Diagnosis Skin abrasion- Primary Abrasion or friction burn of other, multiple, and unspecified sites, without mention of infection documented in this encounter Care Teams Spray Pilot Relationship Specialty Start Date End Date Rafa Cage MD [address] [place] [address] [place] [address] PCP - General Family Medicine 07/09/20 documented as of this encounter
--- OUTSIDE RECORDS SUMMARY | 2023-12-07 08:14 | External Medical Summary | Summary of Care ---
Author Name Unknown Organization [facility] Address [address] [facility] [place] [address] Phone [phone] Care Team Providers Care Analysis Internship Name Role Phone Rafa Cage MD Primary Care P [facility] Reason for Visit * Reason Comments [facility]: Maintenance Encounter Details Date Type Department Care Team (Late st Contact Info) Description 07/17/2023 5:30 PM EDT Home Visit [facility], [facility] 132 [facility] [place] [address] Merced Hicks, RN 132 [facility] [place] [address] Allergies No known active allergiesdocumented as of [...] g 1 11/29/2021 Active [facility] Saline Nasal [place] 0.65 % Nasal Solution 0 12/30/2021 Active oxygen IN GASIndications:Chron ic respiratory [...] the morning and 1 Can before bedtime. 24384 mL 2 08/31/2022 Active Additional Information Patient not taking.Reported on 10/28/2022 Boost High Protein Oral Liquid Administer 474 mL daily, as directed by mouth. 58360 mL 11 08/31/2022 Active Additional Information Patient [...] with varicose veins (HCC),Coronary artery disease involving [place] coronary artery of [place] heart without angina pectoris,Hypertensiv e heart disease with chronic combined systolic and diastolic congestive heart failure (HCC) Apply topically to affected area daily. Apply to wound daily with dressing 400 g 3 10/28/2022 Active Metoprolol Succinate ER 25 MG Oral Tablet Extended Release 24 Hour (toPROL XL)Indications:Coron harry artery disease involving [place] coronary artery of [place] heart without angina pectoris Take [...] Active Clopidogrel Bisulfate 75 MG Oral Tablet (pLAVix)Indications: Coronary artery disease involving [place] coronary artery of [place] heart without angina pectoris TAKE [...] FOR PROSTATE. 90 Capsule 3 05/22/2023 Active documented as of this encounter (statuses as of 07/17/2023) Active Problems Problem Noted Date Diagnosed Date Atrial flutter 04/24/2023 Overview: S/p ablation Atrial fibrillation 07/21/2022 Last Assessment & Plan: Rate controlled on metoprolol Continue eiliquis Atherosclerotic heart diseas e of [place] coronary artery with other forms [...] 07/09/2020 Last Assessment & Plan: Following with [facility] RDN Encouraged high calorie diet [...] Classes - OMID Class D - Inhaled Sabhtoobqnieru-CBXP-NKGR Combination Inhaler (Trellegy) Self-Management plan High frequency [...] with cardiology Coronary artery disease invo lving [place] coronary artery of [place] heart without angina pectoris 09/07/2017 [...] mRNA, LNP-s, No Pre serve, 2-Dose Series (BlueKite) 02/17/2021,09/24/2020,08/27/2020 Covid-19, Mrna, Lnp-s, Pf, B ivalent, [...] Sign Reading Time Taken Comments Blood Pressure 154/70 07/17/2023 1:01 PM EDT Pulse 72 07/17/2023 1:01 PM EDT Temperature 36.4 C (97.5 F) 07/17/2023 1 :01 PM EDT Respiratory Rate 18 07/17/2023 1:01 PM EDT Oxygen Saturation 98% 07/17/2023 1:0 1 PM EDT o2 on at 2.5 l/min via nc Inhaled Oxygen Concentration - - Weight - - Height - - Body Mass Index - - documented in this encounter Progress Notes * Merced Hicks RN - 07/17/2023 12:55 PM EDT [facility] Food Technician Visit Date: 07/17/2023 Time: 12:55 PM Name: Kirby Alonso : 1940 Current Concerns: Pt seen for return RNCM visit He states he has been feeling good the past couple weeks, however last month he was pretty sick Thinks he had pneumonia and he didn't tell anyone, didn't even tell his daughter. States he felt pretty bad for about 3 weeks Wears oxygen at 2.5 l/min via [place] continuously Occasionally gets nosebleeds but states not very often if he keeps from picking at his nose Denies pain today No issues with LLE chronic wound - closed at this time Does have silvadene as it often reopens - he often scratches and picks at it. No acute concerns at this time Physical Exam: BP 154/70 | Pulse 72 | Temp 36.4 C (97.5 F) | Resp 18 | SpO2 98% Comment: o2 on at 2.5 l/min via nc Pain 0 Physical Exam Constitutional: General: He is not in acute distress. Cardiovascular: Rate and Rhythm: Normal rate and regular rhythm. Pulses: Normal pulses. Heart sounds: Normal heart sounds. Pulmonary: Effort: Pulmonary effort is normal. Comments: Diminished breath sounds throughout Abdominal: General: Bowel sounds are normal. Palpations: Abdomen is soft. Skin: General: Skin is warm and dry. Neurological: Mental Status: He is alert and oriented to person, place, and time. Problems/Symptoms: Review of Systems Constitutional: Negative. HENT: Negative. Eyes: Negative. Respiratory: Positive for shortness of breath (EDWARDS - at baseline). Cardiovascular: Negative. Gastrointestinal: Negative. Genitourinary: Negative. Musculoskeletal: Chronic pain of right side from hx of shingles Skin: Positive for wound (chronic sore of posterior LLE scarring). Psychiatric/Behavioral: Negative. Medication Reconciliation: (See medication list) Does patient take medications as ordered: Yes Patient Well Being: PHQ2/9: No questionnaires available. No change in living situation Denies falls [facility]-10 Completed this Visit: No. Routine visit and No falls since last visit Advanced Care Planning: POLST. Reinforcement/Education: Educated on home safety: Create a fall [...] exercises that will be right for you. COPD: Pt instructed to: -Call with increased SOB, wheezing, chest tightness, increased cough, increased sputum with change in color or consistency and fever. -Wash hands often -Drink plenty of fluids -Use inhalers as directed, do not stop or skip doses -Avoid stress -Rest when tired or SOB -Avoid triggers -Clean inhalers once a week Reinforced safety education and fall prevention. and Reinforced medication regimen. Timing., Dosing., and Purspose. Treatment/Plan: Continue meds as prescribed/reviewed Fall precaution - slow position change Silver sulfadiazine cream to chronic wound posterior LLE as needed Oxygen at 2-3 l/min via nc continuously Albuterol neb ever 4 hours as needed Keep all appts as scheduled Home Interventions Provided: Home Intervention: Other; eval Reinforced current Plan of Care, including self-management and medication regimen Patient's 'Red Flags': SOB at rest dizziness Chest pain Patient Needs to Remember: Call [facility] at with any new or worsening health [...] visits & schedule home visit with care pricing/signage team member(s)as indicated. Provider is in agreement with Plan of Care: Yes Scheduled to follow up with patient in 3 weeks with [facility], 3 weeks after with DANIKA. Merced Hicks RN 07/17/2023 12:55 PM documented in this encounter Plan of Treatment Upcoming Encounters Date Type Department Care Team (Late st Contact Info) Description 08/07/2023 8:30 AM EDT Scheduled Telephone [facility], [facility] [address] [facility] [place] [address] Vikki Ashraf RDN [address] [facility] [place] [address] 08/08/2023 9:30 AM EDT Home Visit Care Coordination and Integration [address] [place] [address] Karen Kay Community [facility] [employer] [address] [place] [address] 08/29/2023 10:00 AM EDT Home Visit [facility], [facility] 132 [place] [address] Merced Hicks RN 132 [place] [address] Health Maintenance Due Date Last Done Comments [...] filedocumented as of this encounter Care Teams Analysis Internship Relationship Specialty Start Date End Date Rafa Cage MD [address] [place] [address] PCP - General Family Medicine 07/09/20 documented as of this encounter
--- OUTSIDE RECORDS SUMMARY | 2023-12-07 08:14 | External Medical Summary | Summary of Care ---
Author Name Unknown Organization [facility] Address [address] [facility] [address] Phone [phone] Care Team Providers Care Manifest Clerk Name Role Phone Rafa Cage MD Primary [facility] P [facility] Reason for Visit * Reason Onset Date Comments [facility]: Maintenance 07/17/2023 Encounter Details Date Type Department Care Team (Late st Contact Info) Description 07/17/2023 Telephone [facility], [facility] 132 [facility] [place] [address] Merced Hicks RN 132 [facility] [place] [address] [facility]: Maintenance Allergies No known active allergiesdocumented as of this encounter (statuses as of 07/17/2023) Medications Medication Sig Dispensed Refills Start Date End Date Status Nebulizers (NEBULIZER COMPRESSOR) MISC Inhale via nebulizer. Use as directed. 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 1 [...] g 1 11/29/2021 Active [facility] Saline Nasal [place] 0.65 % Nasal Solution 0 12/30/2021 Active oxygen IN GASIndications:Patient Information Coordinator leela respiratory failure with hypoxia (HCC),Supplemental oxygen [...] the morning and 1 Can before bedtime. 95511 mL 2 08/31/2022 Active Additional Information Patient not taking.Reported on 10/28/2022 Boost High Protein Oral Liquid Administer 474 mL daily, as directed by mouth. 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 Apply to wound daily with dressing 400 g 3 10/28/2022 Active Metoprolol Succinate ER 25 MG Oral Tablet Extended Release 24 Hour (toPROL XL)Indications:Lisa nary artery disease involving [place] coronary artery of [place] heart without angina pectoris Take 1 Tablet [...] Oral Tablet (pLAVix)Indications :Coronary artery disease involving [place] coronary artery of [place] heart without angina pectoris TAKE 1 TABLET [...] Continue eiliquis Atherosclerotic heart diseas e of [place] coronary artery with other forms of angina [...] 07/09/2020 Last Assessment & Plan: Following with [facility] RDN Encouraged high calorie diet Continues [...] Classes - OMID Class D - Inhaled Fkzqivipcopxwh-PXBL-EOCZ Combination Inhaler (Trellegy) Self-Management plan High frequency [...] with cardiology Coronary artery disease invo lving [place] coronary artery of [place] heart without angina pectoris 09/07/2017 S/P angioplasty [...] PM EDT Bacitracin ointment electronically prescribed to [facility] pharmacy [place]. 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 He sometimes goes back and [facility] that and [facility]. Its pretty well healed over now but has some scarring, small opening in the center. He is asking if he could get a refill on the Bacitracin ointment please. [facility] in [place] is pharmacy. Thank you! documented in this encounter Plan of Treatment Upcoming Encounters Date Type Department Care Team (Late st Contact Info) Description 07/17/2023 5:30 PM EDT [facility], [facility] [address] Merced Hicks, RN [facility] [address] 08/07/2023 8:30 AM EDT Scheduled Telephone [facility], [facility] [address] [facility] [place] [address] Vikki Ashrfa RDN [address] [facility] [place] [address] 08/08/2023 9:30 AM EDT Home Visit Care Coordination and Integration [address] [place] [address] Karen Kay, Community Health O[employer] Sorter [address] [place] [address] 08/29/2023 10:00 AM EDT Home Visit [facility], [facility] [address] [place] [address] Merced Hicks RN [address] [place] [address] Health Maintenance Due Date Last Done Comments [...] infection documented in this encounter Care Teams Manifest Clerk Relationship Specialty Start Date End Date Rafa Cage MD [address] [place] [address] [place] [address] PCP - General Family Medicine 07/09/20 documented as of this encounter
--- OUTSIDE RECORDS SUMMARY | 2023-12-07 08:14 | External Medical Summary | Summary of Care ---
Author Name Unknown Organization [facility] Address [address] [place] [address] Phone [phone] Care Team Providers Care Fish Bin Tender Name Role Phone Rafa Cage MD Primary Care P rovider Reason for Visit * Reason Comments Outpatient Testing Encounter Details Date Type Department Care Team (Late st Contact Info) Description 06/06/2023 12:30 PM EST Laboratory Laboratory, [place] [address] [place] [address] [facility] [address] [place] [address] Dysuria Allergies No known active allergiesdocumented as of this encounter (statuses as of 06/12/2023) Medications Medication Sig Dispensed Refills Start Date [...] g 1 11/29/2021 Active [facility] Saline Nasal [place] 0.65 % Nasal Solution 0 12/30/2021 Active [...] the morning and 1 Can before bedtime. 39753 mL 2 08/31/2022 Active Additional Information Patient not taking.Reported on 10/28/2022 Boost High Protein Oral Liquid Administer 474 mL daily, as directed by mouth. 68601 mL 11 08/31/2022 Active Additional Information Patient [...] with varicose veins (HCC),Coronary artery disease involving andreafski coronary artery of andreafski heart without angina pectoris,Hypertensiv e heart disease with chronic combined systolic and diastolic congestive heart failure (HCC) Apply topically to affected area daily. Apply to wound daily with dressing 400 g 3 10/28/2022 Active Metoprolol Succinate ER 25 MG Oral Tablet Extended Release 24 Hour (toPROL XL)Indications:Coron harry artery disease involving andreafski coronary artery of andreafski heart without angina pectoris Take 1 Tablet [...] Oral Tablet (pLAVix)Indications: Coronary artery disease involving andreafski coronary artery of andreafski heart without angina pectoris TAKE 1 TABLET [...] as of this encounter (statuses as of 06/12/2023) Active Problems Problem Noted Date Diagnosed Date Atrial flutter 04/24/2023 Overview: S/p ablation Atrial fibrillation 07/21/2022 Last Assessment & Plan: Rate controlled on metoprolol Continue eiliquis Atherosclerotic heart diseas e of andreafski coronary artery with other forms of angina [...] Last Assessment & Plan: Following with [facility] RDN Encouraged high calorie diet [...] Classes - OMID Class D - Inhaled [id number] Combination Inhaler (Trellegy) Self-Management plan High frequency [...] with cardiology Coronary artery disease invo lving andreafski coronary artery of andreafski heart without angina pectoris 09/07/2017 S/P angioplasty with stent 09/07/2017 Typical atrial flutter 08/24/2017 History of tobacco use 08/10/2015 Post herpetic neuralgia 08/10/2015 Hypothyroidism 09/18/2013 documented as of this encounter (statuses as of 06/12/2023) Resolved Problems Problem Noted Date Diagnosed Date [...] as of this encounter (statuses as of 06/12/2023) Immunizations Name Administration Dates Next Due COVID-19 mRNA, LNP-s, No Pre serve, 2-Dose Series ([employer]) 02/17/2021,09/24/2020,08/27/2020 Covid-19, Mrna, Lnp-s, Pf, B [...] as of this encounter Miscellaneous Notes * Result Encounter Note - Javi Hart PA-C - 06/08/2023 4:25 PM EST Ordered cipro * Addendum Note - Amanda Ferreira TECH - 06/06/2023 10:11 PM ESTAddended by: AMANDA FERREIRA on: 06/06/2023 10:11 PM Modules accepted: Orders documented in this encounter Plan of Treatment Upcoming Encounters Date Type Department Care Team (Latest Contact Info) Description 06/13/2023 2:00 PM EST Scheduled Telephone [facility], [facility] [address] [facility] [place] [address] Vikki Ashraf RDN [address] [facility] [place] [address] Hypertensive heart disease with chronic combined systolic and diastolic congestive heart failure (HCC)* 07/07/2023 2:30 PM EDT Scheduled Telephone [facility], [facility] [address] [facility] [place] [address] Vikki Ashraf RDN [address] [facility] [place] [address] Health Maintenance Due Date Last Done Comments [...] Not on filedocumented as of this encounter Procedures Procedure Name Priority Date/Time Associated Diagnosis Comments URINALYSIS, REFLEX TO CULTURE Routine 06/06/2023 12:33 PM EST Dysuria URINALYSIS, REFLEX TO CULTURE (CUP ONLY) Routine 06/06/2023 12:33 PM EST Dysuria URINALYSIS, REFLEX TO CULTURE (NOT FOR NEUTROPENIC PATIENTS) Routine 06/06/2023 12:33 PM EST Dysuria CULTURE, URINE, QUANTITATIVE Routine 06/06/2023 12:33 PM EST Dysuria documented in this encounter Results * (ABNORMAL) CULTURE, URINE, QUANTITATIVE (06/06/2023 12:33 PM EST) Culture Growth >100,000 colonies/mL Staphylococcu s, coagulase negative(A) MICROBROTH DILUTIONS 06/09/2023 8:24 AM EST LAB[facility] Urine Urine specimen obtained by clean catch procedure / Unknown Non-blood Collection / Unknown 06/06/2023 12:33 PM EST 06/06/2023 12:34 PM EST [facility] - 06/09/2023 8:24 AM EST <10,000 colonies/ml mixed normal kelle Organism Antibiotic Method Susceptibility Staphylococcus, coagulase negative Nitrofurantoin MICROBROTH DILUTIONS <=16: Susceptible Staphylococcus, coagulase negative Oxacillin MICROBROTH DILUTIONS >=4: Resistant Comment:Oxacillin/Me thicillin resistant Staphylococci are considered clinically resistant to all Beta-lactam (Penicillin and Cephalosporin) antibiotics. Quinolone antibiotics should also not be used for Staphylococci that are Oxacillin resistant. Staphylococcus, coagulase negative Penicillin G MICROBROTH DILUTIONS >=0.5: Resistant Staphylococcus, coagulase negative Tetracycline MICROBROTH DILUTIONS >=16: Resistant Staphylococcus, coagulase negative Trimeth/Sulfamethoxazole MICROBROTH DILUTIONS <=10: Susceptible Staphylococcus, coagulase negative Vancomycin MICROBROTH DILUTIONS 2: Susceptible Rafa Guan MD LAB [address] - GENERAL ORDERABLES [facility] [address] [place] [address] * (ABNORMAL) URINALYSIS, REFLEX TO CULTURE (06/06/2023 12:33 PM EST) Color, Urine Yellow Colorless, Light Yellow, Yellow, Dark Yellow 06/06/2023 11:04 PM EST [facility] Clarity, Urine Slightly Cloudy(A) Clear 06/06/2023 11:04 PM EST [facility] Glucose, Urine Negative Negative mg/dL 06/06/2023 11:04 PM EST [facility] Bilirubin, Urine Negative Negative 06/06/2023 11:04 PM EST [facility] Ketone, Urine Negative Negative mg/dL 06/06/2023 11:04 PM EST [facility] Specific [place], Urine 1.017 1.003 - 1.030 06/06/2023 11:04 PM EST [facility] Blood, Urine Negative Negative 06/06/2023 11:04 PM EST [facility] pH, Urine 7.0 5.0 - 7.5 Units 06/06/2023 11:04 PM EST [facility] Protein, Urine 30(A) Negative mg/dL 06/06/2023 11:04 PM EST [facility] Urobilinogen, Urine 2.0(A) Normal mg/dL 06/06/2023 11:04 PM EST [facility] Nitrite, Urine Negative Negative 06/06/2023 11:04 PM EST [facility] Esterase, Urine Large(A) Negative 06/06/2023 11:04 PM EST [facility] RBC, Urine 0-2 0 - 2 /HPF 06/06/2023 11:04 PM EST [facility] WBC, Urine 50+(A) 0 - 2 /HPF 06/06/2023 11:04 PM EST [facility] Bacteria, Urine >200(A) 0 - 25 /HPF 06/06/2023 11:04 PM EST [facility] Hyaline, Cast, Urine 1-4(A) None /LPF 06/06/2023 11:04 PM EST [facility] Urine Urine specimen obtained by clean catch procedure / Unknown Non-blood Collection / Unknown 06/06/2023 12:33 PM EST 06/06/2023 12:34 PM EST Javi Hart PA-C LAB URINE ORDERABLES Performing Organization Address City/[facility]/ZIP Co de Phone Number LAB[facility]ATORY [facility] [address] [place] [address] * URINALYSIS, REFLEX TO CULTURE (CUP ONLY) (06/06/2023 12:33 PM EST) Urinalysis, Reflex to Culture Specimen Specimen collected and received 06/06/2023 2:01 PM EST [facility] Urine Urine specimen obtained by clean catch procedure / Unknown Non-blood Collection / Unknown 06/06/2023 12:33 PM EST 06/06/2023 12:34 PM EST Javi Hart PA-C LAB URINE ORDERABLES Performing Organization Address City/[facility] de Phone Number [facility]AT[facility] [address] [place] [address] documented in this encounter Visit Diagnoses Diagnosis Dysuria Hypertensive heart disease with chronic combined systolic and diastolic congestive heart failure (HCC)- Primary documented in this encounter Care Teams Fish Bin Tender Relationship Specialty Start Date End Date Rafa Cage MD [address] [place] [phone] PCP - General Family Medicine 07/09/20 documented as of this encounter
--- OUTSIDE RECORDS SUMMARY | 2023-12-07 08:14 | External Medical Summary | Summary of Care ---
Author Name Unknown Organization [facility] Address [address] [place] [address] Phone [phone] Care Team Providers Care Pull Up Hand Name Role Phone Rafa Nagy MD Primary Care P rovider Reason for Visit * Reason Comments eRx-Medication Refill Encounter Details Date Type Department Care Team ([facility] Contact Info) Description 07/17/2023 Refill Family Practice [address] [phone] Rafa Nagy MD [address] [place] [phone] Coronary artery disease involving upper sioux coronary artery of upper sioux heart without angina pectoris Allergies No known active allergiesdocumented as of this encounter (statuses as of 07/18/2023) Medications Medication Sig Dispensed Refills Start Date End Date Status Nebulizers (NEBULIZER COMPRESSOR) MISC Inhale via nebulizer. Use as directed. 1 Each 1 8 Active Spacer/Aero-Holdin g Chambers DEVIIndications:CO PD, moderate (HCC) Use with inhaler. 1 Device 0 9 Active furosemide (LASIX) 40 MG Tablet [...] g 1 2 Active [facility] Saline Nasal [place] 0.65 % Nasal Solution 0 2 Active oxygen IN GASIndications:Chr onic respiratory failure with hypoxia (HCC),Supplemental oxygen dependent Use as directed 2 L/min(Oxygen) daily . Please at night and with exertion. Use oxygen mask, not nasal cannula. 1 Each 0 2 Active Vitamin B 12 500 MCG Oral Tablet Take 500 mcg by mouth in the morning. 0 Active Folic Acid 1 MG Oral Tablet Take 1 Tablet by mouth in the morning. 0 Active Ensure Active High Protein Oral Liquid Take 1 Can by mouth in the morning and 1 Can before bedtime. 96144 mL 2 3 Active Additional Information Patient not taking.Reported on 10/28/2022 Boost High Protein Oral Liquid Administer 474 mL daily, as directed by mouth. 37955 mL 11 3 Active Additional Information Patient not taking.Reported on 10/28/2022 Trelegy Ellipta 100-62.5-25 MCG/ACT Aerosol Powder Breath Activated (Fluticasone-Umecl idinium-Vilanterol )Indications:Chron ic obstructive pulmonary disease, unspecified (HCC) Inhale 1 Puff by mouth in the morning. 60 Each 11 3 Active Silver sulfADIAZINE 1 % External Cream (Silvadene)Indicat ions:Venous stasis ulcer of left calf limited to breakdown of skin with varicose veins (HCC),Coronary artery disease involving upper sioux coronary artery of upper sioux heart without angina pectoris,Hypertens tye heart disease with chronic combined systolic and diastolic congestive heart failure (HCC) Apply topically to affected area daily. Apply to wound daily with dressing 400 g 3 3 Active Zoster Vac Recomb Adjuvanted 50 MCG/0.5ML Intramuscular Suspension Reconstituted (Shingrix)Indicati ons:Need for shingles vaccine Inject 0.5 mL into a large muscle now and repeat dose in 60 to 180 days 1 Each 1 3 Active Finasteride 5 MG Oral Tablet (Proscar) TAKE 1 TABLET BY MOUTH EVERY DAY 90 Tablet 3 3 Active Lisinopril 40 MG Oral Tablet TAKE 1 TABLET BY MOUTH EVERY DAY IN THE MORNING 90 Tablet 3 3 Active Eliquis 2.5 MG Oral Tablet [...] THE MORNING 90 Tablet 2 3 Active Pregabalin 200 MG Oral Capsule (Lyrica)Indication s:Post herpetic neuralgia Take 1 Capsule by mouth in the morning and 1 Capsule at noon and 1 Capsule before bedtime. 90 Capsule 5 4 Active Tamsulosin HCl 0.4 MG Oral Capsule (Flomax)Indication s:Benign prostatic hyperplasia without lower urinary tract symptoms TAKE 1 CAPSULE BY MOUTH ONCE DAILY IN THE MORNING NEEDED FOR PROSTATE. 90 Capsule 3 4 Active Metoprolol Succinate ER 25 MG Oral Tablet Extended Release 24 Hour (toPROL XL)Indications:Cor onary artery disease involving upper sioux coronary artery of upper sioux heart without angina pectoris TAKE 1 TABLET [...] THE MORNING 90 Tablet 1 4 Active Bacitracin 500 UNIT/GM External OintmentIndication s:Skin abrasion Apply topically to affected area 3 times a day. As directed 30 g 1 4 08/16/19 24 Active Clopidogrel Bisulfate 75 MG Oral Tablet (pLAVix) TAKE 1 TABLET BY MOUTH EVERY DAY IN THE MORNING 90 Tablet 1 4 Active Levothyroxine Sodium 25 MCG Oral Tablet (Levoxyl) TAKE 1 TABLET BY MOUTH AT LEAST 30 MIN PRIOR TO BREAKFAST OR OTHER MEDS 90 Tablet 1 4 Active Metoprolol Succinate ER 25 MG Oral Tablet Extended Release 24 Hour (toPROL XL)Indications:Cor onary artery disease involving upper sioux coronary artery of upper sioux heart without angina pectoris Take 1 Tablet by mouth in the morning and 1 Tablet before bedtime. 180 Tablet 3 3 07/18/19 24 Discontinued Clopidogrel Bisulfate 75 MG Oral Tablet (pLAVix)Indication s:Coronary artery disease involving upper sioux coronary artery of upper sioux heart without angina pectoris TAKE 1 TABLET BY MOUTH EVERY DAY IN THE MORNING 90 Tablet 3 3 07/18/19 24 Discontinued Levothyroxine Sodium 25 MCG Oral Tablet (Levoxyl) TAKE 1 TABLET BY MOUTH AT LEAST 30 MIN PRIOR TO BREAKFAST OR OTHER MEDS 90 Tablet 3 3 07/18/19 24 Discontinued Klor-Con M20 20 MEQ Oral Tablet Extended Release (Potassium Chloride ER) TAKE 1 TABLET BY MOUTH EVERY DAY IN THE MORNING 90 Tablet 1 3 07/18/19 24 Discontinued Atorvastatin Calcium 20 MG Oral Tablet (Lipitor) TAKE 1 TABLET BY MOUTH EVERY DAY IN THE MORNING 90 Tablet 1 3 07/18/19 24 Discontinued documented as of this encounter (statuses as of 07/18/2023) Active Problems Problem Noted Date Diagnosed Date Atrial flutter 04/24/2023 Overview: S/p ablation Atrial fibrillation 07/21/2022 Last Assessment & Plan: Rate controlled on metoprolol Continue eiliquis Atherosclerotic heart diseas e of upper sioux coronary artery with other forms of angina [...] Classes - OMID Class D - Inhaled [id number] Combination Inhaler (Matthew) Self-Management plan High frequency [...] with cardiology Coronary artery disease invo lving upper sioux coronary artery of upper sioux heart without angina pectoris 09/07/2017 S/P angioplasty with stent 09/07/2017 Typical atrial flutter 08/24/2017 History of tobacco use 08/10/2015 Post herpetic neuralgia 08/10/2015 Hypothyroidism 09/18/2013 documented as of this encounter (statuses as of 07/18/2023) Resolved Problems Problem Noted Date Diagnosed Date [...] as of this encounter (statuses as of 07/18/2023) Immunizations Name Administration Dates Next Due COVID-19 mRNA, LNP-s, No Pre serve, 2-Dose Series ([employer]) 02/17/2021,09/24/2020,08/27/2020 Covid-19, Mrna, Lnp-s, Pf, B ivalent, 30 Mcg, IM, 12 yrs and above ([employer]) 01/28/2022 Pneumococcal Conjugate Vacc, 13 Valent (Prevnar) [...] encounter Miscellaneous Notes * Telephone Encounter - Merrill Collado [facility] - 07/18/2023 2:54 PM EDTSigned Prescriptions: Disp Refills Metoprolol Succinate ER 25 MG Oral Tablet *180 Ta*1 Sig: TAKE 1 TABLET BY MOUTH IN THE MORNING AND BEFORE BEDTIMEAuthorizing Provider: RAFA NAGY User: MERRILL COLLADO Klor-Con M20 20 MEQ Oral Tablet Extended R*90 Tab*1 Sig: TAKE 1 TABLET BY MOUTH EVERY DAY IN THE MORNINGAuthorizing Provider: RAFA NAGY User: MERRILL COLLADO Atorvastatin Calcium 20 MG Oral Tablet (Li*90 Tab*1 Sig: TAKE 1 TABLETBY MOUTH EVERY DAY IN THE MORNINGAuthorizing Provider: RAFA NAGY User: MERRILL COLLADO Clopidogrel Bisulfate 75 MG Oral Tablet (p*90 Tab*1 Sig: TAKE 1 TABLET BY MOUTHEVERY DAY IN THE MORNINGAuthorizing Provider: RAFA NAGY User: MERRILL COLLADO Levothyroxine Sodium 25 MCG Oral Tablet (L*90 Tab*1 Sig: TAKE 1 TABLET BY MOUTH AT LEAST 30 MIN PRIOR TO BREAKFAST OROTHER MEDSAuthorizing Provider: RAFA NAGY User: MERRILL COLLADO----- documented in this encounter Plan of Treatment Upcoming Encounters Date Type Department Care Team (Late st Contact Info) Description 08/07/2023 8:30 AM EDT Scheduled Telephone [facility], [facility] [address] [facility] [place] [id number] Vikki Ashraf RDN [address] [facility] [place] [phone] 08/08/2023 9:30 AM EDT Home Visit [facility] [address] [place] [address] [facility] [employer] Operator [address] [place] [address] 08/29/2023 10:00 AM EDT Home Visit [facility], [facility] [address] [facility] [place] [address] Merced Hicks, RN [address] [facility] [place] [address] Health Maintenance Due Date Last Done Comments [...] as of this encounter Visit Diagnoses Diagnosis Coronary artery disease involving upper sioux coronary artery of upper sioux heart without angina pectoris documented in this encounter Care Teams Pull Up Hand Relationship Specialty Start Date End Date Rafa Nagy MD [address] [place] [phone] PCP - General Family Medicine 07/09/20 documented as of this encounter
--- OUTSIDE RECORDS SUMMARY | 2023-12-07 08:14 | External Medical Summary | Summary of Care ---
Author Name Unknown Organization [facility] Address [address] [facility] [place] [address] Phone [phone] Care Team Providers Care Proof Press Operator Name Role Phone Rafa Cage MD Primary Care P rovider Reason for Visit * Reason Onset Date Comments Medical Nutrition Therapy 07/07/2023 Encounter Details Date Type Department Care Team (Latest Contact Info) Description 07/07/2023 2:30 PM EDT Scheduled Telephone [facility], [facility] [address] [facility] [place] [id number] Vikki Ashraf, RDN [address] [facility] [place] [phone] Hypertensive heart disease with chronic combined systolic and diastolic congestive heart failure (HCC)* Allergies No known active allergiesdocumented as of this encounter (statuses as of 07/07/2023) Medications Medication Sig Dispensed Refills Start Date [...] g 1 11/29/2021 Active [facility] Saline Nasal [place] 0.65 % Nasal Solution 0 12/30/2021 Active [...] the morning and 1 Can before bedtime. 42029 mL 2 08/31/2022 Active Additional Information Patient not taking.Reported on 10/28/2022 Boost High Protein Oral Liquid Administer 474 mL daily, as directed by mouth. 13533 mL 11 08/31/2022 Active Additional Information Patient [...] with varicose veins (HCC),Coronary artery disease involving [place] coronary artery of [place] heart without angina pectoris,Hypertensiv e heart disease with chronic combined systolic and diastolic congestive heart failure (HCC) Apply topically to affected area daily. Apply to wound daily with dressing 400 g 3 10/28/2022 Active Metoprolol Succinate ER 25 MG Oral Tablet Extended Release 24 Hour (toPROL XL)Indications:Coron harry artery disease involving [place] coronary artery of [place] heart without angina pectoris Take 1 Tablet [...] Oral Tablet (pLAVix)Indications: Coronary artery disease involving [place] coronary artery of [place] heart without angina pectoris TAKE 1 TABLET [...] as of this encounter (statuses as of 07/07/2023) Active Problems Problem Noted Date Diagnosed Date Atrial flutter 04/24/2023 Overview: S/p ablation Atrial fibrillation 07/21/2022 Last Assessment & Plan: Rate controlled on metoprolol Continue eiliquis Atherosclerotic heart diseas e of [place] coronary artery with other forms of angina [...] 07/09/2020 Last Assessment & Plan: Following with [facility] RDN Encouraged high calorie diet Continues to decline any use of protein/calorie supplements Gastroesophageal reflux disease without esophagi tis 07/09/2020 Protein-calorie malnutrition 01/02/2019 Chronic respiratory failure with hypoxia 09/25/2 019 Last Assessment & Plan: "RED FLAG" COPD symptoms: Increased dyspnea on exertion ("I can't walk to the kitchen or up the stairs without coughing and wheezing", "My chest feels tight any time I move") Wheezing ("You can hear the whistling across the room") Medication Regimen All Classes - OMID Class D - Inhaled Qvopgzldzxvrcy-WIAO-HWVV Combination Inhaler (Trellegy) Self-Management plan High frequency [...] with cardiology Coronary artery disease invo lving [place] coronary artery of [place] heart without angina pectoris 09/07/2017 S/P angioplasty with stent 09/07/2017 Typical atrial flutter 08/24/2017 History of tobacco use 08/10/2015 Post herpetic neuralgia 08/10/2015 Hypothyroidism 09/18/2013 documented as of this encounter (statuses as of 07/07/2023) Resolved Problems Problem Noted Date Diagnosed Date [...] as of this encounter (statuses as of 07/07/2023) Immunizations Name Administration Dates Next Due COVID-19 mRNA, LNP-s, No Pre serve, 2-Dose Series (FREECULTR) 02/17/2021,09/24/2020,08/27/2020 Covid-19, Mrna, Lnp-s, Pf, B ivalent, [...] Telephone Encounter - Vikki Ashraf RDN - 07/07/2023 9:49 AM EDT NUTRITION PROGRESS NOTE - [facility] Patient Phone Numbers: [phone] (Other) [phone] (Home Phone) Call placed to pt as [...] a month Alcohol: None Tobacco Use: No Lives alone, Daughter continues to assist with care/food shopping/prepping/cooking of some meals This dietitian discussed the nutrition benefits of oral nutrition supplements, but Patient declinedwhen offered (the nutrition benefits of oral nutrition supplements were discussed again) Since last call, chronic wound posterior LLE continues since (silver sulfadiazine cream to area as treatment) Reinforced the necessity of including more nutritious, protein rich foods in all meals/snacks to aid in continued wound healing/skin support (options provided/previously sent info to Daughter) Patient is edentulous/can chew most meats and other hard foods sufficiently--no difficulties reported Since last call, appetite, hydration, and PO intake remain good with no difficulties reported No [...] nutritious, low sodium, protein/calorie dense foods (reiterated healthy foods to consume and those foods to avoid/provided options/previously sent info)--in progress 2) Switch out sweetened beverages with more water (2-3 bottles of water/day--16.9 oz each)--in progress 3) Consume [place] Instant Breakfast Drink oral nutrition supplement 1-2x daily for additional nutrition support--not meeting (not consuming at all/again, declined any other oral nutrition supplements at this time) Reinforced nutrition goals. Encouraged continued progress towards goals Follow up as scheduled. Encouraged pt to contact [facility] at [phone] for any non-emergent changes/concerns. Vikki Ashraf MS, RDN, LDN Clinical Dietitian [facility] 07/07/2023 9:51 AM documented in this encounter Plan of Treatment Upcoming Encounters Date Type Department Care Team (Late st Contact Info) Description 07/17/2023 5:30 PM EDT Home Visit [facility], [facility] [address] [facility] [place] [address] Merced Hicks RN [address] [place] [phone] 08/07/2023 8:30 AM EDT Scheduled Telephone [facility], [facility] [address] [facility] [place] [phone] Vikki Ashraf RDN [address] [facility] [place] [phone] Health Maintenance Due Date Last Done Comments [...] Primary documented in this encounter Care Teams Proof Press Operator Relationship Specialty Start Date End Date Rafa Cage MD [address] [place] [id number] PCP - General Family Medicine 07/09/20 documented as of this encounter
--- OUTSIDE RECORDS SUMMARY | 2023-12-07 08:14 | External Medical Summary | Summary of Care ---
Author Name Unknown Organization [facility] Address [address] [place] [address] Phone [phone] Care Team Providers Care Drier Operator Helper Name Role Phone Rafa Nagy MD Primary Care P rovider Reason for Visit * Reason Comments eRx-Medication Refill Encounter Details Date Type Department Care Team ([facility] [address] Contact Info) Description 07/19/2023 Refill Family Practice [address] [id number] Rafa Nagy MD [address] [place] [phone] Allergies No known active allergiesdocumented as of this encounter (statuses as of 07/20/2023) Medications Medication Sig Dispensed Refills Start Date [...] g 1 2 Active [facility] Saline Nasal [place] 0.65 % Nasal Solution 0 2 Active [...] the morning and 1 Can before bedtime. 90817 mL 2 3 Active Additional Information Patient not taking.Reported on 10/28/2022 Boost High Protein Oral Liquid Administer 474 mL daily, as directed by mouth. 94927 mL 11 3 Active Additional Information Patient [...] with varicose veins (HCC),Coronary artery disease involving hoh coronary artery of hoh heart without angina pectoris,Hypertens tye heart disease [...] Hour (toPROL XL)Indications:Cor onary artery disease involving hoh coronary artery of hoh heart without angina pectoris TAKE 1 TABLET [...] EVERY DAY 90 Tablet 1 4 Active Finasteride 5 MG Oral Tablet (Proscar) TAKE 1 TABLET BY MOUTH EVERY DAY 90 Tablet 3 3 07/20/19 24 Discontinued Lisinopril 40 MG Oral Tablet TAKE 1 TABLET BY MOUTH EVERY DAY IN THE MORNING 90 Tablet 3 3 07/20/19 24 Discontinued documented as of this encounter (statuses as of 07/20/2023) Active Problems Problem Noted Date Diagnosed Date Atrial flutter 04/24/2023 Overview: S/p ablation Atrial fibrillation 07/21/2022 Last Assessment & Plan: Rate controlled on metoprolol Continue eiliquis Atherosclerotic heart diseas e of hoh coronary artery with other forms of angina [...] 07/09/2020 Last Assessment & Plan: Following with [facility] RDN Encouraged high calorie diet [...] Classes - OMID Class D - Inhaled Hkeworjxikpuwc-BNQO-RZES Combination Inhaler (Trellegy) Self-Management plan High frequency [...] with cardiology Coronary artery disease invo lving hoh coronary artery of hoh heart without angina pectoris 09/07/2017 S/P angioplasty with stent 09/07/2017 Typical atrial flutter 08/24/2017 History of tobacco use 08/10/2015 Post herpetic neuralgia 08/10/2015 Hypothyroidism 09/18/2013 documented as of this encounter (statuses as of 07/20/2023) Resolved Problems Problem Noted Date Diagnosed Date [...] as of this encounter (statuses as of 07/20/2023) Immunizations Name Administration Dates Next Due COVID-19 mRNA, LNP-s, No Pre serve, 2-Dose Series (Zoodak) 02/17/2021,09/24/2020,08/27/2020 Covid-19, Mrna, Lnp-s, Pf, B ivalent, 30 Mcg, IM, 12 yrs and above (Zoodak) 01/28/2022 Pneumococcal Conjugate Vacc, 13 Valent (Prevnar) [...] encounter Miscellaneous Notes * Telephone Encounter - Iris Harry RPh - 07/20/2023 1:14 PM EDTSigned Prescriptions: Disp Refills Lisinopril 40 MG Oral Tablet 90 Tab*1 Sig: TAKE 1 TABLET BY MOUTH EVERY DAY IN THE MORNINGAuthorizing Provider: RAFA NAGY User: IRIS HARRY Finasteride 5 MG Oral Tablet (Proscar) 90 Tab*1 Sig: TAKE 1 TABLET BY MOUTH EVERY DAYAuthorizing Provider: RAFA NAGY User: IRIS HARRY documented in this encounter Plan of Treatment Upcoming Encounters Date Type Department Care Team (Late st Contact Info) Description 08/07/2023 8:30 AM EDT Scheduled Telephone [facility], [facility] [address] [place] [address] Vikki Ashraf, RDN [address] [place] [address] 08/08/2023 9:30 AM EDT Home Visit [facility] [address] [place] [address] Karen Kay [facility] [address] [place] [address] 08/29/2023 10:00 AM EDT Home Visit [facility], [facility] [address] [address] Merced Hicks, RN [address] [place] [address] Health Maintenance Due Date Last Done Comments [...] filedocumented as of this encounter Care Teams Drier Operator Helper Relationship Specialty Start Date End Date Rafa Nagy MD [address] [place] [phone] PCP - General Family Medicine 07/09/20 documented as of this encounter
[2023-12-07] MEDS: methylPREDNISolone 40 MG in SYRINGE 0 ML IV SCH (08:59)
[2023-12-07] MEDS ORDERED: NON-FORMULARY MEDICATION (Fluticasone-Umeclidin-Vilanter [Trelegy Ellipta] 100-62.5-25 mcg INH SCH (09:00)
[2023-12-07] MEDS: SILVER SULFADIAZINE 1% CR 50 GM JAR TOP SCH (09:00)
[2023-12-07] MEDS ORDERED: methylPREDNISolone 125 MG/2 ML VIAL IV SCH (09:00)
[2023-12-07] MEDS: TAMSULOSIN HCL 0.4 MG CAP PO SCH (09:01)
[2023-12-07] MEDS: POTASSIUM CHLORIDE CRTAB 20 MEQ TABCR PO SCH (09:02)
[2023-12-07] MEDS: PANTOprazole 40 MG TAB PO SCH (09:02)
[2023-12-07] MEDS: FERROUS GLUCONATE 324 MG TAB PO SCH (09:03)
[2023-12-07] MEDS: FOLIC ACID 1 MG TAB PO SCH (09:03)
[2023-12-07] MEDS: FINASTERIDE 5 MG TAB PO SCH (09:03)
[2023-12-07] MEDS: CYANOCOBALAMIN (B-12) 500 MCG TABLET PO SCH (09:04)
[2023-12-07] MEDS: DOXYCYCLINE HYCLATE 100 MG CAP PO SCH (09:04)
[2023-12-07] MEDS: ATORVASTATIN 20 MG TAB PO SCH (09:04)
[2023-12-07] MEDS: APIXABAN 2.5 MG TAB PO SCH (09:05)
[2023-12-07] MEDS: FLUTICASONE FUROATE 100MCG 14 PUFFS/INHALER INH SCH (09:06)
[2023-12-07] MEDS: UMECLIDINIUM/VILANTEROL 62.5/25MCG 7 PUFFS/INHALER INH SCH (09:06)
[2023-12-07] MEDS: CLOPIDOGREL BISULFATE 75 MG TAB PO SCH (09:07)
[2023-12-07] MEDS: METOPROLOL SUCC 25MG EXT REL TAB PO SCH ×2 (09:15→21:03)
[2023-12-07] MEDS: lisinopril 40 MG TAB PO SCH (09:15)
[2023-12-07] MEDS: PREGABALIN 150 MG CAP PO SCH (09:44)
--- NOTE | 2023-12-07 09:52 | XRay Report ---
SINGLE VIEW CHEST CLINICAL HISTORY: Generalized weakness. FINDINGS: 2 AP upright chest radiographs are compared to study dated 08/25/2022 and correlated with est CT dated 08/22/2017. The heart is enlarged noting atherosclerotic calcification of the thoracic ao rta. The pulmonary vasculature is noncongested. Advanced emphysema and chronic interstitial thickenin g is similar to previous. Foci of parenchymal scarring are seen throughout both lungs. No airspace co nsolidation or large pleural effusion is identified. No pneumothorax is seen. The skeletal structures are osteopenic. The bony thorax is grossly intact. IMPRESSION: Cardiomegaly and advanced emphysema with no acute cardiopulmonary abnormality identified. ACT 112: Negative or not required by law. Electronically signed by: Yanick Gilbert M.D. 12/07/2023 9:50 AM
--- NOTE | 2023-12-07 10:16 | Hospitalist Progress Note ---
Date of Service December 07, 2023 Assessment & Plan (1) Acute exacerbation of chronic obstructive pulmonary disease: Plan: Mr. Alonso is an 83-year-old male with past medical history significant for chronic respiratory failure with hypoxia on 2.5 L oxygen at home, COPD, hypothyroidism, history of atrial flutter/atrial fibrillation, history of CAD s/p stent, history of chronic systolic and diastolic CHF, pulmonary hypertension, orthostatic hypotension, protein calorie malnutrition, GERD, BPH, postherpetic neuralgia, history of tobacco use, history of radiofrequency ablation procedure for cardiac dysrhythmia, history of duodenal ulcer who lives home alone and was admitted for management of COPD and concerns of tachy-krupa syndrome. Spoke to daughter for update. Daughter notes patient lives at home alone and is concerned about patient's safety and ability to life alone. Additionally, the daughter notes that she has started filling some applications out for [facility] and other facilties already. Will monitor on tele to determine the next step from cardiology standpoint. #Episodic Bradycardia, c/f tachycbrady syndrome #EDWARDS rates as low as 30s overnight, notable cardiac/pulm history Cardiology consulted given concern for need of PM -reduce metoprolol to 12.5mg bid with old parameters -NPO after midnight for eval #COPD exacerbation #Chronic respiratory failure with home oxygen 2L Presents with shortness of breath and cough CTA chest no PE Received Solu-Medrol and nebs in the ER Discontinued IV methylpred Prednisone 40mg daily starting tomorrow Add procal Will discontinue doxycycline, no clear sign of overt infection Mucinex bid #Elevated troponin,like demand iso hypoxia, arrhythmia Troponin 56 and repeat is 57 Will follow serial enzymes and echo Consult cardiology in a.m. 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 Continue Statin, Plavix, Eliquis and metoprolol succinate #History of a flutter/atrial fibrillation On metoprolol and Eliquis metoprolol reduced as above #Hypertension On lisinopril, metoprolol succinate Will monitor #Hyperlipidemia On statin #Hypothyroidism On Synthyroid TSH 3.447 #BPH On Flomax and finasteride #GERD On Protonix and Pepcid #Protein calorie malnutrition Dietitian consult placed ensure supplement ordered #Ambulatory dysfunction PT OT when stable DVT prophylaxis On Eliquis Disposition Telemetry Full code. Admission and Anticipated Discharge Date Admission Date: December 06, 2023 Subjective Evaluated patient at bedside, patient denies any current symptoms He states his biggest concern is dizziness then SOB when walking. He denies any worsening wheezing, but he does state that he is fairly limited overall from a physical standpoint due to his SOB Physical Exam Constitutional: WD/WN, vitals as above (cachectic, frail gentleman ) Respiratory: diminished breath sounds, occasional expiratory wheeze, no distress noted Cardiovascular: flaco+, RRR intermittent krupa to low 40s in Results & Data Results & Data Vital Signs (Past 12 Hours) Vital Signs Pulse Resp BP Pulse Ox O2 Del Method O2 Flow Rate 12/07/23 09:44 Nasal Cannula 2.5 12/07/23 07:06 50 L 18 100 Nasal Cannula 2.5 12/07/23 06:00 47 L 21 130/73 96 Nasal Cannula 2.5 12/07/23 03:00 61 18 168/109 H 97 Nasal Cannula 2 Laboratory Results Short CBC 12/06/23 12/07/23 Range/Units 21:35 04:25 WBC 4.55 L 2.28 L (4.8-10.8) K/ul Hgb 13.9 L 13.1 L (14.0-18.0) g/dl Hct 43.8 40.6 L (42.0-52.0) % Plt Count 102 L 85 L (130-400) K/uL BMP 12/06/23 12/07/23 21:35 04:25 Sodium 135 L 134 L Potassium 4.3 4.1 Chloride 100 99 Carbon Dioxide 26 28 BUN 19 17 Creatinine 1.06 0.89 Glucose 187 H 162 H Calcium 8.2 L 7.9 L Liver Function 12/06/23 Range/Units 21:35 Total Bilirubin 1.2 H (0.2-1.0) mg/dl AST 24 (13-39) U/L ALT 8 (7-52) U/L Alkaline Phosphatase 114 H (34-104) U/L Albumin 4.0 (3.4-5.0) gm/dl Medications Administered Home Medications Medication Instructions Recorded Confirmed Last Taken albuterol sulfate 2.5 mg/3 mL 2.5 mg inhalation Q4H PRN 02/26/19 12/06/23 08/24/22 (0.083 %) solution for nebulization Shortness Of Breath Or Wheezing atorvastatin 20 mg tablet 20 mg PO DAILY 02/26/19 12/06/23 08/25/22 clopidogrel 75 mg tablet 75 mg PO QAM 02/26/19 12/06/23 08/25/22 levothyroxine 25 mcg tablet 25 mcg PO DAILY 02/26/19 12/06/23 08/25/22 pantoprazole 20 mg tablet,delayed 20 mg PO DAILY 02/26/19 12/06/23 08/25/22 release tamsulosin 0.4 mg capsule 0.4 mg PO QAM 02/26/19 12/06/23 08/25/22 lisinopril 40 mg tablet (Zestril) 40 mg PO DAILY #30 tabs 03/03/19 12/06/23 08/25/22 apixaban 2.5 mg tablet (Eliquis) 2.5 mg PO BID #60 tabs 12/30/21 12/06/23 08/25/22 sodium chloride 0.65 % nasal spray 2 spray NA Q4H PRN nasal 12/30/21 12/06/23 08/24/22 aerosol (Saline Mist) congestion #45 mL famotidine 20 mg tablet 20 mg PO HS 08/25/22 12/06/23 Unknown finasteride 5 mg tablet 5 mg PO DAILY 08/25/22 12/06/23 Unknown fluticasone fur. 100 mcg-umeclid 1 inh inhalation DAILY 08/25/22 12/06/23 Unknown 62.5 mcg-vilant 25 mcg inhalat.powder (Trelegy Ellipta) potassium chloride 20 mEq 20 meq PO DAILY 08/25/22 12/06/23 Unknown tablet,extended release(part/cryst) (Klor-Con M) pregabalin 150 mg capsule 150 mg PO TID 08/25/22 12/06/23 08/25/22 cyanocobalamin (vitamin B-12) 500 500 mcg PO QAM #30 tabs 08/28/22 12/06/23 Unknown mcg tablet ferrous gluconate 324 mg (38 mg 324 mg PO QAM #30 tabs 08/28/22 12/06/23 Unknown iron) tablet folic acid 1 mg tablet 1 mg PO QAM #30 tabs 08/28/22 12/06/23 Unknown metoprolol succinate 25 mg 25 mg PO BID #60 tabs 08/28/22 12/06/23 Unknown tablet,extended release 24 hr acetaminophen 500 mg tablet 1,000 mg PO Q8H PRN Pain 12/06/23 12/06/23 Unknown (Tylenol Extra Strength) albuterol sulfate 90 mcg/actuation 2 puff inhalation Q4H PRN 12/06/23 12/06/23 Unknown aerosol inhaler Shortness Of Breath Or Wheezing silver sulfadiazine 1 % topical 1 applic topical DAILY 12/06/23 12/06/23 Unknown cream Active Medications Generic Name Dose Route Start Last Admin Trade Name Freq PRN Reason Stop Dose Admin Albuterol 3 ml 12/07/23 07:00 12/07/23 07:06 Albut/Ipratrop 3mg/0.5mg Neb 3 Ml Vial NEB 01/06/24 06:59 3 ml QIDR NERY Administration Protocol Apixaban 2.5 mg 12/07/23 09:00 12/07/23 09:05 Apixaban 2.5 Mg Tab PO 01/06/24 08:59 2.5 mg BID NERY Administration Atorvastatin Calcium 20 mg 12/07/23 09:00 12/07/23 09:04 Atorvastatin 20 Mg Tab PO 01/06/24 08:59 20 mg DAILY NERY Administration Clopidogrel Bisulfate 75 mg 12/07/23 09:00 12/07/23 09:07 Clopidogrel Bisulfate 75 Mg Tab PO 01/06/24 08:59 75 mg QAM NERY Administration Cyanocobalamin 500 mcg 12/07/23 09:00 12/07/23 09:04 Cyanocobalamin (B-12) 500 Mcg Tablet PO 01/06/24 08:59 500 mcg QAM NERY Administration Doxycycline Hyclate 100 mg 12/07/23 09:00 12/07/23 09:04 Doxycycline Hyclate 100 Mg Cap PO 12/14/23 08:59 100 mg BID NERY Administration Ferrous Gluconate 324 mg 12/07/23 09:00 12/07/23 09:03 Ferrous Gluconate 324 Mg Tab PO 01/06/24 08:59 324 mg QAM NERY Administration Finasteride 5 mg 12/07/23 09:00 12/07/23 09:03 Finasteride 5 Mg Tab PO 01/06/24 08:59 5 mg DAILY NERY Administration Fluticasone Furoate 1 puffs 12/07/23 09:00 12/07/23 09:06 Fluticasone Furoate 100mcg 14 Puffs/Inhaler INH 01/06/24 08:59 1 puffs DAILY NERY Administration Folic Acid 1 mg 12/07/23 09:00 12/07/23 09:03 Folic Acid 1 Mg Tab PO 01/06/24 08:59 1 mg QAM NERY Administration Methylprednisolone 40 mg/ 0.64 mls @ 1.5 mls/min 12/07/23 09:00 12/07/23 08:59 Syringe IV 01/06/24 08:59 1.5 mls/min BID NERY Administration Levothyroxine Sodium 25 mcg 12/07/23 06:30 12/07/23 06:02 Levothyroxine Sodium 25 Mcg Tablet PO 01/06/24 06:29 25 mcg DAILYBB NERY Administration Lisinopril 40 mg 12/07/23 09:00 12/07/23 09:15 Lisinopril 40 Mg Tab PO 01/06/24 08:59 Not Given DAILY NERY Metoprolol Succinate 25 mg 12/07/23 09:00 12/07/23 09:15 Metoprolol Succ 25mg Ext Rel Tab PO 01/06/24 08:59 Not Given BID NERY Pantoprazole Sodium 40 mg 12/07/23 09:00 12/07/23 09:02 Pantoprazole 40 Mg Tab PO 01/06/24 08:59 40 mg DAILY NERY Administration Potassium Chloride 20 meq 12/07/23 09:00 12/07/23 09:02 Potassium Chloride Crtab 20 Meq Tabcr PO 01/06/24 08:59 20 meq DAILY NERY Administration Pregabalin 150 mg 12/07/23 09:00 12/07/23 09:44 Pregabalin 150 Mg Cap PO 01/06/24 08:59 150 mg TID NERY Administration Silver Sulfadiazine 1 appln 12/07/23 09:00 12/07/23 09:00 Silver Sulfadiazine 1% Cr 50 Gm Jar TOP 01/06/24 08:59 1 appln DAILY NERY Administration Tamsulosin HCl 0.4 mg 12/07/23 09:00 12/07/23 09:01 Tamsulosin Hcl 0.4 Mg Cap PO 01/06/24 08:59 0.4 mg QAM NERY Administration Umeclidinium/Vilanterol 1 puffs 12/07/23 09:00 12/07/23 09:06 Umeclidinium/Vilanterol 62.5/25mcg 7 Puffs/Inhaler INH 01/06/24 08:59 1 puffs DAILY NERY Administration
[2023-12-07 11:25] LABS: Appearance Urine Clear (Clear); Bacteria Urine Automated None Seen (None Seen); Bilirubin Urine Negative (Negative); Blood Urine Negative (Negative); Cast Urine Automated 0-2 /lpf (0-2); Color Urine Yellow; Epithelial Cell Urine Auto 0-2 /hpf (0-2); Glucose Urine UA Negative (Negative); Ketones Urine Trace (Negative); Leukocyte Esterase Urine Negative (Negative); Nitrite Urine Negative (Negative); Protein Urine 2+ (Negative); RBC Urine Automated 0-2 /hpf (0-2); Specific Gravity Urine > 1.045 (1.000-1.030); Urobilinogen Urine Negative (Negative); WBC Urine Automated 0-5 /hpf (0-5)
--- NOTE | 2023-12-07 12:25 | Cardiology Consultation ---
Date of Consultation December 07, 2023 Assessment & Plan (1) Acute exacerbation of chronic obstructive pulmonary disease: (2) Atypical chest pain: (3) ASCVD (arteriosclerotic cardiovascular disease): (4) Tachy-deepak syndrome: Plan Complex 83-year-old male admitted with working diagnosis of acute on chronic obstructive pulmonary disease exacerbation. 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 Patient with multivessel coronary artery disease status post PCI of the left circumflex. Troponin elevated likely represents demand ischemia only. Echo this admission with preserved LV systolic function. EKG and continuous telemetry with evidence of Tachy-Deepak Syndrome with symptoms on presentation appearing to be multifactorial in etiology. With the possibility of infection and the patient's hesitancy to proceed with pacemaker we will attempt adjustments in medications initially Metoprolol succinate will be continued though with dosing reduced to 12.5 mg twice per day with hold parameters. Continue telemetry without interruption. Recommend NPO status after midnight pending cardiology evaluation in AM Supervising Physician Co-Signing Physician Notes Attending attestation: Case reviewed with the advanced practitioner. I have personally performed a history and physical examination on the patient. I have reviewed the advanced practitioner's documentation on the date of service referenced in note, and I agree with, and take responsibility for the plan of care. Subjective: Patient known to the undersigned, having establish with me at the time of his index cardiac hospitalization in 2018. Seen in the emergency department, room C-line. Accompanied by his 2 granddaughters. He came to the emergency department further prompting due to worsening shortness of breath. He wears supplementary oxygen [id number] at home. Recently noted to be more short of breath with minimal exertion. Denies lightheadedness, dizziness, syncope or near syncope. He has no subjective sensation of palpitations. Exam: Cardiovascular: Regular rhythm, no murmurs, no edema, cachectic Data: EKG performed today 12/07/2023: Sinus bradycardia 45 bpm, inferior lateral T wave abnormality. Compared to the tracing performed on 12/06/2023 at 2250: Sinus rhythm at 94 bpm noted at that time. The diffuse repolarization abnormalities are chronic. Telemetry: Sinus bradycardia in the 40s noted earlier today, while sitting up in bed eating lunch, sinus rhythm in the 70s to 90s noted with frequent brief runs of SVT at about 100 bpm. Echocardiogram performed today revealed mild concentric left ventricular hypertrophy, LVEF in the range of 55 to 60%, the right ventricular chamber size and systolic function are normal. Mild aortic valve sclerosis without stenosis noted, the Pulmonary artery systolic pressure is estimated to be 35 mmHg. Compared to the previous study performed in Aug, 2022, sinus rhythm in the 60s noted at that time as compared to sinus bradycardia in the 40s noted at the time of the present study Impression/ Plan: -Patient underwent cavotricuspid isthmus ablation of right-sided atrial flutter in [address] Machado that had been preceded by cardiac catheterization revealing high-grade circumflex stenosis for which he was treated with 2 drug- eluting stents. He was also found to have a bleeding duodenal ulcer during that hospital stay. He has been maintained on metoprolol succinate 25 mg daily for years without documented recurrence of atrial flutter or development of atrial fibrillation. An outpatient cardiac monitor technician had previously revealed frequent asymptomatic brief runs of supraventricular tachycardia, similar to that which I am observing on telemetry at present. Per review of his outpatient record, in October, metoprolol succinate was titrated to 25 mg twice daily and then was changed back to 25 mg 1 time per day in July,. His family believes that he is taking metoprolol succinate 25 mg once a day at bedtime. He received no metoprolol this morning due to hold parameters at sinus bradycardia in the 40s noted. Patient felt to be at high risk for any sort of procedure, and based on his clinical presentation I have concerns that he is really in the hospital for what is likely end-stage lung disease. Recommend changing his metoprolol succinate to 12.5 mg twice daily, with holding parameters for heart rate less than 60 and systolic blood pressure less than 100. As noted, his heart rate is much improved at present as of 1:48 PM compared overnight last night and early this morning. He denies any history suggestive of angina or syncope. And he does not seem to subjectively noticed the brief runs of SVT. Conservative measures felt to be most appropriate in this case unless he has a change in condition. Patient was agreeable to this plan and stated that he had a lot of anxiety when I brought up the idea of a pacemaker and he would like to avoid such an invasive procedure if at all possible. I spent a total of 70 minutes coordinating, documenting, and providing care for this patient excluding time spent in the performance of separately billed services or time spent by another provider. Migue Guzmán DO History of Present Illness Reason for Consultation: Intermittent bradycardia, dizziness Requesting Physician: Dr. Kalyani Quintero MD Attending Physician: Dr. Kalyani Quintero MD History of Present Illness Mr. Kirby Alonso is an 83-year-old male who presented to the [facility] ER on December 06, 2023 with acute on chronic dyspnea, cough and weakness. Patient notes "My lungs are bad. I keep getting weaker. I have a hard time walking. I am dizzy." Patient admitted with a working diagnosis of an acute COPD exacerbation; he is being treated with IV Solu-Medrol, DuoNebs, and oral doxycycline. Multiple EKGs obtained with patient also monitored on te lemetry continuously, findings notable for mild Tachy-Deepak Syndrome. EKGs demonstrate sinus with atrial ectopy, significant diffuse STT wave abnormality. High-sensitivity troponin minimally elevated at 56.7 -> 57.5 -> 52.4 -> 36.8 pg/mL. Resting echocardiography this admission revealed normal LV systolic function without regional wall motion abnormality. Imaging of the chest with advanced emphysema, without acute cardiopulmonary abnormality. The patient is significantly limited by his pulmonary disease. Dyspnea precludes him from performing activities of daily living. He is unable to walk from 1 side of the room to the other. He describes chest discomfort occurring without rhyme or reason, couple of taps, without overt angina. No sustained palpitations. He has a chronic cough productive of phlegm, without hemoptysis. He denies orthopnea or PND. He notes no lower extremity peripheral edema though notes lower extremity wounds, filler picker. No syncope. No fevers. No chills. No n ight sweats. No melena or hematochezia. Past Medical and Surgical History Atrial flutter with rapid ventricular response, tachycardia induced cardiomyopathy with echocardiography at that time (2017) with severe LV systolic function, EF 25%. Multivessel coronary artery disease status post PCI of the left circumflex Status post tricuspid caval ablation for right sided atrial flutter History of GI bleeding, duodenal ulcer status post clipping SVT Oxygen dependent chronic respiratory failure COPD Hypertension Dyslipidemia Hypothyroidism BPH GERD Protein calorie malnutrition Ambulatory dysfunction Social History: Reformed smoker having quit in his early 70s after smoking up to 3 packs/day since the age of 6. No smokeless tobacco. History of heavy alcohol use, up to 12 pack/day, abstaining for years. No illegal/illicit drug use. 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 Allergies Allergy/AdvReac Type Severity Reaction Status Date / Time No Known Allergies Allergy Verified 12/06/23 23:16 Home Medications Medication Instructions Recorded Confirmed Type albuterol sulfate 2.5 mg/3 mL 2.5 mg inhalation Q4H PRN 02/26/19 12/06/23 History (0.083 %) solution for nebulization Shortness Of Breath Or Wheezing atorvastatin 20 mg tablet 20 mg PO DAILY 02/26/19 12/06/23 History clopidogrel 75 mg tablet 75 mg PO QAM 02/26/19 12/06/23 History levothyroxine 25 mcg tablet 25 mcg PO DAILY 02/26/19 12/06/23 History pantoprazole 20 mg tablet,delayed 20 mg PO DAILY 02/26/19 12/06/23 History release tamsulosin 0.4 mg capsule 0.4 mg PO QAM 02/26/19 12/06/23 History lisinopril 40 mg tablet (Zestril) 40 mg PO DAILY #30 tabs 03/03/19 12/06/23 Rx apixaban 2.5 mg tablet (Eliquis) 2.5 mg PO BID #60 tabs 12/30/21 12/06/23 Rx sodium chloride 0.65 % nasal spray 2 spray NA Q4H PRN nasal 12/30/21 12/06/23 Rx aerosol (Saline Mist) congestion #45 mL famotidine 20 mg tablet 20 mg PO HS 08/25/22 12/06/23 History finasteride 5 mg tablet 5 mg PO DAILY 08/25/22 12/06/23 History fluticasone fur. 100 mcg-umeclid 1 inh inhalation DAILY 08/25/22 12/06/23 History 62.5 mcg-vilant 25 mcg inhalat.powder (Trelegy Ellipta) potassium chloride 20 mEq 20 meq PO DAILY 08/25/22 12/06/23 History tablet,extended release(part/cryst) (Klor-Con M) pregabalin 150 mg capsule 150 mg PO TID 08/25/22 12/06/23 History cyanocobalamin (vitamin B-12) 500 500 mcg PO QAM #30 tabs 08/28/22 12/06/23 Rx mcg tablet ferrous gluconate 324 mg (38 mg 324 mg PO QAM #30 tabs 08/28/22 12/06/23 Rx iron) tablet folic acid 1 mg tablet 1 mg PO QAM #30 tabs 08/28/22 12/06/23 Rx metoprolol succinate 25 mg 25 mg PO BID #60 tabs 08/28/22 12/06/23 Rx tablet,extended release 24 hr acetaminophen 500 mg tablet 1,000 mg PO Q8H PRN Pain 12/06/23 12/06/23 History (Tylenol Extra Strength) albuterol sulfate 90 mcg/actuation 2 puff inhalation Q4H PRN 12/06/23 12/06/23 History aerosol inhaler Shortness Of Breath Or Wheezing silver sulfadiazine 1 % topical 1 applic topical DAILY 12/06/23 12/06/23 History cream Patient History Medical History History of upper gastrointestinal bleeding Diastolic dysfunction Surgical History S/P angioplasty with stent Family History Other Hypertension Social History Smoking Status: Never smoker Tobacco Type: Cigarettes Second Hand Exposure: No; Do You Dip or Chew Tobacco: No; Hx Alcohol Use: No Hx Substance Use: No Preferred Language: Irish Communication Ability: Effective Claim Auditor Required: No Beliefs That Will Affect Care: None marital status: / Current Living Situation: Alone current occupational status: retired Feels Safe at Home: Yes Assistive Devices: Oxygen - Continuous Review of Systems Review of Systems: Complete Review of Systems is as stated above, negative, or noncontributory Physical Exam Physical Exam: General: A&Ox3. Cachectic. No acute distress. Hard of hearing HENT: Normocephalic. Atraumatic. Mucous membranes are dry Eyes: PER. Conjunctiva pink, sclera clear. Neck: Bilateral carotid bruits. No JVD. No HJR. Heart: Irregular with frequent atrial ectopy. No murmur. No rub. Lungs: Markedly diminished. Diffuse expiratory wheezing Abdomen: +BS. Soft. Nontender. No masses or organomegaly. Extremities: Excoriations without evidence of cellulitis/infection. No clubbing, cyanosis, or edema. Limited neurological examination is without focal deficits. Pulses: radial=2/4, posterior tibial=0/4. Results & Data Vital Signs (Past 12 Hours) Vital Signs Temp Pulse Resp BP Pulse Ox O2 Del Method O2 Flow Rate 12/07/23 11:41 57 L 16 98 Nasal Cannula 2.5 12/07/23 11:06 36.6 C 52 L 20 136/88 97 Nasal Cannula 2.5 12/07/23 09:44 Nasal Cannula 2.5 12/07/23 07:06 50 L 18 100 Nasal Cannula 2.5 12/07/23 06:00 47 L 21 130/73 96 Nasal Cannula 2.5 12/07/23 03:00 61 18 168/109 H 97 Nasal Cannula 2 Laboratory Results Cardiac Enzymes 12/06/23 12/06/23 12/07/23 Range/Units 21:35 23:30 04:25 AST 24 (13-39) U/L Troponin I High Sens 56.7 H* 57.5 H* 52.4 H* (0-20) pg/ml 12/07/23 Range/Units 11:10 AST (13-39) U/L Troponin I High Sens 36.8 H D (0-20) pg/ml Coagulation 12/06/23 Range/Units 21:35 PT 11.7 (9.0-12.0) Seconds APTT 32 H (21-31) Seconds CBC 12/06/23 12/07/23 Range/Units 21:35 04:25 WBC 4.55 L 2.28 L (4.8-10.8) K/ul RBC 4.74 4.43 L (4.70-6.10) M/uL Hgb 13.9 L 13.1 L (14.0-18.0) g/dl Hct 43.8 40.6 L (42.0-52.0) % Plt Count 102 L 85 L (130-400) K/uL Neut # (Auto) 3.38 1.88 (1.40-6.50) K/uL Lymph # (Auto) 0.52 L 0.29 L (1.20-3.40) K/uL Clark # (Auto) 0.62 H 0.10 L (0.11-0.59) K/uL Eos # (Auto) 0.00 0.00 (0.00-0.50) K/uL Baso # (Auto) 0.01 0.00 (0.00-0.20) K/uL Comprehensive Metabolic Panel 12/06/23 12/07/23 Range/Units 21:35 04:25 Sodium 135 L 134 L (136-145) mmol/L Potassium 4.3 4.1 (3.5-5.1) mmol/L Chloride 100 99 (98-107) mmol/L Carbon Dioxide 26 28 (21-32) mmol/L BUN 19 17 (6-23) mg/dl Creatinine 1.06 0.89 (0.6-1.4) mg/dl Glucose 187 H 162 H (70-99(Fasting)) mg/dl Calcium 8.2 L 7.9 L (8.6-10.3) mg/dl AST 24 (13-39) U/L ALT 8 (7-52) U/L Alkaline Phosphatase 114 H (34-104) U/L Total Protein 7.1 (6.0-8.3) gm/dl Albumin 4.0 (3.4-5.0) gm/dl Intake and Output 12/06/23 12/07/23 12/07/23 22:59 06:59 14:59 Intake Total 120 / 120 Output Total 125 / 125 100 / 100 Balance -5 / -5 -100 / -100 Intake: Oral 120 / 120 Output: Urine 125 / 125 100 / 100 Other: Weight 51.9 kg Weight Measurement Method Built in [facility] Diagnostic Findings December 07, 2023 TTE Interpretation Summary ([facility], Dr. Guzmán): Sinus bradycardia present during echo. Mild concentric LVH. Normal LV wall motion. Normal LV systolic function. EF 55 to 60%. Normal RV size and function. Mild aortic valve sclerosis without significant stenosis. Pulmonary artery systolic pressures estimated to be at the upper limit of normal, 35 mmHg. Telemetry with evidence of Tachy-Deepak Syndrome. Heart rates down into the 30s, sinus bradycardia. No high degree AV block. Predominant rhythm is sinus, with intermittent sinus tachycardia, frequent atrial ectopy. No overt atrial fibrillation/flutter.
--- NOTE | 2023-12-07 14:53 | Emergency Department Note ---
ED Visit Note I was consulted by the Advanced Practice Provider Tracey Hicks PA-C. I performed a substantive portion of the visit including all aspects of medical decision making. .
[2023-12-07] MEDS ORDERED: GLUCOSE 40% GEL 15 GM TUBE PO PRN (15:03)
[2023-12-07] MEDS ORDERED: GLUCOSE 10 TAB/TUBE PO PRN (15:03)
[2023-12-07] MEDS ORDERED: GLUCAGON FOR INJ 1 MG VIAL SQ PRN (15:03)
[2023-12-07] MEDS ORDERED: DEXTROSE 50% 50 ML SYRINGE IV PRN (15:03)
[2023-12-07] MEDS: INSULIN ASPART PER UNIT CHARGE SC SCH (18:05)
[2023-12-07] MEDS: FAMOTIDINE 20 MG TAB PO SCH (21:02)
[2023-12-07] MEDS: guaiFENesin 600 MG TABCR PO SCH (21:02)
[2023-12-08 06:48] LABS: Hematocrit (blood only) 38.8 % (42.0-52.0); Hemoglobin 12.7 g/dl (14.0-18.0); Mean Corpuscular Hemoglobin 29.7 pg (25.0-34.0); Mean Corpuscular Hgb Conc 32.7 g/dL (32.0-36.0); Mean Corpuscular Volume 90.9 fL (80.0-100.0); Mean Platelet Volume 11.2 fL (9.4-12.4); Platelet Count 92 K/uL (130-400); RDW Coefficient of Variation 14.7 % (11.5-14.5); RDW Standard Deviation 49.2 fL (36.4-46.3); Red Blood Count 4.27 M/uL (4.70-6.10); White Blood Count 5.17 K/ul (4.8-10.8)
[2023-12-08 06:56] LABS: BUN Creatinine Ratio 32.2 (10-20); Calcium 8.2 mg/dl (8.6-10.3); Creatinine Clr Calc Pharmacy 46.7 ml/min; Est GFR (African American) 92.5 ml/min; Est GFR (Non-African American) 79.8 ml/min
--- NOTE | 2023-12-08 07:17 | Hospitalist Progress Note ---
Date of Service December 08, 2023 Assessment & Plan (1) Acute exacerbation of chronic obstructive pulmonary disease: Plan: Mr. Alonso is an 83-year-old male with past medical history significant for chronic respiratory failure with hypoxia on 2.5 L oxygen at home, COPD, hypothyroidism, history of atrial flutter/atrial fibrillation, history of CAD s/p stent, history of chronic systolic and diastolic CHF, pulmonary hypertension, orthostatic hypotension, protein calorie malnutrition, GERD, BPH, postherpetic neuralgia, history of tobacco use, history of radiofrequency ablation procedure for cardiac dysrhythmia, history of duodenal ulcer who lives home alone and was admitted for management of COPD and concerns of tachy-krupa syndrome. Spoke to daughter for update. Daughter notes patient lives at home alone and is concerned about patient's safety and ability to life alone. Additionally, the daughter notes that she has started filling some applications out for [facility] and other facilties already. Will monitor on tele to determine the next step from cardiology standpoint. #Episodic Bradycardia, c/f tachycbrady syndrome #EDWARDS rates as low as 30s overnight, notable cardiac/pulm history Cardiology consulted given concern for need of PM -continue reduced metoprolol to 12.5mg bid with old parameters Orthostatic vs ordered ECHO stable this am with EF 55-60% #COPD exacerbation #Chronic respiratory failure with home oxygen 2L Presents with shortness of breath and cough CTA chest no PE Received Solu-Medrol and nebs in the ER Discontinued IV methylpred Prednisone 40mg daily x 5 days procal 0.02 Azithromycin for COPD exacerbation Mucinex bid #Elevated troponin,like demand iso hypoxia, arrhythmia Troponin 56 and repeat is 57 stable #Multivessel coronary artery disease s/p pci LCx #History of tachymediated cardiomyopathy Echo this admission with preserved LV systolic function. Continue Statin, Plavix, Eliquis and metoprolol succinate #History of a flutter/atrial fibrillation On metoprolol and Eliquis metoprolol reduced as above #Hypertension On lisinopril, metoprolol succinate #Hyperlipidemia On statin #Hypothyroidism On Synthyroid TSH 3.447 #BPH On Flomax and finasteride #GERD On Protonix and Pepcid #Protein calorie malnutrition Dietitian consult placed ensure supplement ordered #Ambulatory dysfunction PT OT ordered DVT prophylaxis On Eliquis Disposition Telemetry Full code. Admission and Anticipated Discharge Date Admission Date: December 06, 2023 Subjective Tele reviewed: a fib from 48-110 overnight No acute events overnight Physical Exam Constitutional: WD/WN, vitals as above Respiratory: diminished bilaterally Cardiovascular: RRR, no murmur, no edema Results & Data Results & Data Vital Signs (Past 12 Hours) Vital Signs Temp Pulse Pulse Resp BP Pulse Ox O2 Del Method 12/08/23 03:31 36.8 C 69 18 151/82 H 93 Nasal Cannula 12/07/23 23:17 36.7 C 82 17 125/77 99 Nasal Cannula 12/07/23 21:30 105 H 12/07/23 20:32 84 17 94 Nasal Cannula O2 Flow Rate 12/08/23 03:31 4 12/07/23 23:17 4 12/07/23 21:30 12/07/23 20:32 4 Laboratory Results Short CBC 12/08/23 Range/Units 06:11 WBC 5.17 (4.8-10.8) K/ul Hgb 12.7 L (14.0-18.0) g/dl Hct 38.8 L (42.0-52.0) % Plt Count 92 L (130-400) K/uL BMP 12/08/23 06:11 Sodium 137 Potassium 4.0 Chloride 100 Carbon Dioxide 29 BUN 28 H Creatinine 0.87 Glucose 142 H Calcium 8.2 L Medications Administered Home Medications Medication Instructions Recorded Confirmed Last Taken albuterol sulfate 2.5 mg/3 mL 2.5 mg inhalation Q4H PRN 02/26/19 12/06/23 08/24/22 (0.083 %) solution for nebulization Shortness Of Breath Or Wheezing atorvastatin 20 mg tablet 20 mg PO DAILY 02/26/19 12/06/23 08/25/22 clopidogrel 75 mg tablet 75 mg PO [facility] 02/26/19 12/06/23 08/25/22 levothyroxine 25 mcg tablet 25 mcg PO DAILY 02/26/19 12/06/23 08/25/22 pantoprazole 20 mg tablet,delayed 20 mg PO DAILY 02/26/19 12/06/23 08/25/22 release tamsulosin 0.4 mg capsule 0.4 mg PO QAM 02/26/19 12/06/23 08/25/22 lisinopril 40 mg tablet (Zestril) 40 mg PO DAILY #30 tabs 03/03/19 12/06/23 08/25/22 apixaban 2.5 mg tablet (Eliquis) 2.5 mg PO BID #60 tabs 12/30/21 12/06/23 08/25/22 sodium chloride 0.65 % nasal spray 2 spray NA Q4H PRN nasal 12/30/21 12/06/23 08/24/22 aerosol (Saline Mist) congestion #45 mL famotidine 20 mg tablet 20 mg PO HS 08/25/22 12/06/23 Unknown finasteride 5 mg tablet 5 mg PO DAILY 08/25/22 12/06/23 Unknown fluticasone fur. 100 mcg-umeclid 1 inh inhalation DAILY 08/25/22 12/06/23 Unknown 62.5 mcg-vilant 25 mcg inhalat.powder (Trelegy Ellipta) potassium chloride 20 mEq 20 meq PO DAILY 08/25/22 12/06/23 Unknown tablet,extended release(part/cryst) (Klor-Con M) pregabalin 150 mg capsule 150 mg PO TID 08/25/22 12/06/23 08/25/22 cyanocobalamin (vitamin B-12) 500 500 mcg PO QAM #30 tabs 08/28/22 12/06/23 Unknown mcg tablet ferrous gluconate 324 mg (38 mg 324 mg PO QAM #30 tabs 08/28/22 12/06/23 Unknown iron) tablet folic acid 1 mg tablet 1 mg PO QAM #30 tabs 08/28/22 12/06/23 Unknown metoprolol succinate 25 mg 25 mg PO BID #60 tabs 08/28/22 12/06/23 Unknown tablet,extended release 24 hr acetaminophen 500 mg tablet 1,000 mg PO Q8H PRN Pain 12/06/23 12/06/23 Unknown (Tylenol Extra Strength) albuterol sulfate 90 mcg/actuation 2 puff inhalation Q4H PRN 12/06/23 12/06/23 Unknown aerosol inhaler Shortness Of Breath Or Wheezing silver sulfadiazine 1 % topical 1 applic topical DAILY 12/06/23 12/06/23 Unknown cream Active Medications Generic Name Dose Route Start Last Admin Trade Name Freq PRN Reason Stop Dose Admin Albuterol 3 ml 12/07/23 07:00 12/08/23 10:51 Albut/Ipratrop 3mg/0.5mg Neb 3 Ml Vial NEB 01/06/24 06:59 3 ml QIDR NERY Administration Protocol Apixaban 2.5 mg 12/07/23 09:00 12/08/23 08:47 Apixaban 2.5 Mg Tab PO 01/06/24 08:59 2.5 mg BID NERY Administration Atorvastatin Calcium 20 mg 12/07/23 09:00 12/08/23 08:48 Atorvastatin 20 Mg Tab PO 01/06/24 08:59 20 mg DAILY NERY Administration Clopidogrel Bisulfate 75 mg 12/07/23 09:00 12/08/23 08:47 Clopidogrel Bisulfate 75 Mg Tab PO 01/06/24 08:59 75 mg QAM NERY Administration Cyanocobalamin 500 mcg 12/07/23 09:00 12/08/23 08:47 Cyanocobalamin (B-12) 500 Mcg Tablet PO 01/06/24 08:59 500 mcg QAM NERY Administration Famotidine 20 mg 12/07/23 21:00 12/07/23 21:02 Famotidine 20 Mg Tab PO 01/06/24 20:59 20 mg HS NERY Administration Ferrous Gluconate 324 mg 12/07/23 09:00 12/08/23 08:47 Ferrous Gluconate 324 Mg Tab PO 01/06/24 08:59 324 mg QAM NERY Administration Finasteride 5 mg 12/07/23 09:00 12/08/23 08:48 Finasteride 5 Mg Tab PO 01/06/24 08:59 5 mg DAILY NERY Administration Fluticasone Furoate 1 puffs 12/07/23 09:00 12/08/23 13:47 Fluticasone Furoate 100mcg 14 Puffs/Inhaler INH 01/06/24 08:59 1 puffs DAILY NERY Administration Folic Acid 1 mg 12/07/23 09:00 12/08/23 08:47 Folic Acid 1 Mg Tab PO 01/06/24 08:59 1 mg QAM NERY Administration Guaifenesin 600 mg 12/07/23 21:00 12/08/23 08:46 Guaifenesin 600 Mg Tabcr PO 01/06/24 20:59 600 mg Q12 NERY Administration Insulin Aspart 0 units 12/07/23 16:30 12/08/23 13:45 Insulin Aspart Per Unit Charge SC 01/06/24 16:29 Not Given ACHS NERY Levothyroxine Sodium 25 mcg 12/07/23 06:30 12/08/23 06:24 Levothyroxine Sodium 25 Mcg Tablet PO 01/06/24 06:29 25 mcg DAILYBB NERY Administration Metoprolol Succinate 12.5 mg 12/07/23 21:00 12/08/23 08:47 Metoprolol Succ 25mg Ext Rel Tab PO 01/06/24 20:59 Not Given BID NERY Pantoprazole Sodium 40 mg 12/07/23 09:00 12/08/23 08:47 Pantoprazole 40 Mg Tab PO 01/06/24 08:59 40 mg DAILY NERY Administration Potassium Chloride 20 meq 12/07/23 09:00 12/08/23 08:47 Potassium Chloride Crtab 20 Meq Tabcr PO 01/06/24 08:59 20 meq DAILY NERY Administration Prednisone 40 mg 12/08/23 09:00 12/08/23 08:46 Prednisone 20 Mg Tab PO 01/07/24 08:59 40 mg DAILY NERY Administration Pregabalin 150 mg 12/07/23 09:00 12/08/23 13:49 Pregabalin 150 Mg Cap PO 01/06/24 08:59 150 mg TID NERY Administration Silver Sulfadiazine 1 appln 12/07/23 09:00 12/08/23 13:47 Silver Sulfadiazine 1% Cr 50 Gm Jar TOP 01/06/24 08:59 1 appln DAILY NERY Administration Tamsulosin HCl 0.4 mg 12/07/23 09:00 12/08/23 08:48 Tamsulosin Hcl 0.4 Mg Cap PO 01/06/24 08:59 0.4 mg QAM NERY Administration Umeclidinium/Vilanterol 1 puffs 12/07/23 09:00 12/08/23 13:47 Umeclidinium/Vilanterol 62.5/25mcg 7 Puffs/Inhaler INH 01/06/24 08:59 1 puffs DAILY NERY Administration
[2023-12-08] MEDS: predniSONE 20 MG TAB PO SCH (08:46)
--- NOTE | 2023-12-08 11:34 | Cardiology Progress Note ---
Date of Service December 08, 2023 Assessment & Plan (1) Acute exacerbation of chronic obstructive pulmonary disease: (2) Atypical chest pain: (3) ASCVD (arteriosclerotic cardiovascular disease): (4) Tachy-krupa syndrome: Plan 83-year-old male admitted with an exacerbation of his end stage chronic obstructive pulmonary disease. Telemetry initially with Tachy-Krupa Syndrome. Metoprolol succinate dosing subsequently adjusted with improvement, without further bradycardia. Patient asymptomatic in regards to the atrial ectopy and the short paroxysms of PAT/SVT. Pacemaker implantation would be high risk and the patient requests avoidance of invasive procedures. Continue conservative cardiac medical management. Continue reduced dose apixaban anticoagulation noting history of atrial flutter status post ablation, and atrial fibrillation. 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 Echo this admission with preserved LV systolic function. Increase oral hydration. Change lisinopril to BID dosing in an attempt to aid labile blood pressure and dizziness. May need to consider reduction in tamsulosin dosing to every other day next. OK to feed. Please contact with any questions or concerns. Admission and Anticipated Discharge Date Admission Date: December 06, 2023 Supervising Physician Co-Signing Physician Notes Attending attestation: Case reviewed with the advanced practitioner. I have personally performed a history and physical examination on the patient. I have reviewed the advanced practitioner's documentation on the date of service referenced in note, and I agree with, and take responsibility for the plan of care. Echocardiogram revealed mild concentric left ventricular hypertrophy, normal biventricular systolic function, LVEF in the range of 55 to 60%, pulmonary artery systolic pressure of 35 mmHg, preloaded normal. Continue metoprolol succinate 12.5 mg twice daily. Migue Guzmán DO Subjective Patient interviewed and examined, chart, medications, and telemetry reviewed. Overall, feeling better today. + Dizziness with positional changes. No chest pain. No palpitations. Stable shortness of breath with minimal activity. No orthopnea, PND, or peripheral ed luana. Telemetry: No significant bradycardia. Heart rates mostly 60 to 100 bpm. Predominant rhythm is sinus. Frequent atrial ectopy noted along with PAT and SVT Review of Systems Review of Systems: Complete Review of Systems is as stated above, negative, or noncontributory Physical Exam Physical Exam: General: A&Ox3. Cachectic. No acute distress. Hard of hearing HENT: Normocephalic. Atraumatic. Mucous membranes are dry Eyes: PER. Conjunctiva pink, sclera clear. Neck: Bilateral carotid bruits. No JVD. No HJR. Heart: Regular at 80 bpm. No murmur. Lungs: Diminished. No rales. No wheezing appreciated. Abdomen: +BS. Soft. Nontender. No masses or organomegaly. Extremities: Excoriations without evidence of cellulitis/infection. No clubbing, cyanosis, or edema. Limited neurological examination is without focal deficits. Pulses: radial=2/4, posterior tibial=0/4. Results & Data Vital Signs (Past 12 Hours) Vital Signs Temp Pulse Resp BP Pulse Ox O2 Del Method O2 Flow Rate 12/08/23 10:51 80 17 97 Nasal Cannula 4 12/08/23 10:36 36.3 C L 65 20 154/95 H 98 Nasal Cannula 4 12/08/23 07:23 57 L 19 155/76 H 99 Nebulizer 12/08/23 07:18 64 16 Nasal Cannula 4 12/08/23 03:31 36.8 C 69 18 151/82 H 93 Nasal Cannula 4 Laboratory Results Cardiac Enzymes 12/07/23 12/07/23 Range/Units 11:10 17:30 Troponin I High Sens 36.8 H D 44.7 H (0-20) pg/ml CBC 12/08/23 Range/Units 06:11 WBC 5.17 (4.8-10.8) K/ul RBC 4.27 L (4.70-6.10) M/uL Hgb 12.7 L (14.0-18.0) g/dl Hct 38.8 L (42.0-52.0) % Plt Count 92 L (130-400) K/uL Comprehensive Metabolic Panel 12/08/23 Range/Units 06:11 Sodium 137 (136-145) mmol/L Potassium 4.0 (3.5-5.1) mmol/L Chloride 100 (98-107) mmol/L Carbon Dioxide 29 (21-32) mmol/L BUN 28 H (6-23) mg/dl Creatinine 0.87 (0.6-1.4) mg/dl Glucose 142 H (70-99(Fasting)) mg/dl Calcium 8.2 L (8.6-10.3) mg/dl Intake and Output 12/07/23 12/08/23 12/08/23 22:59 06:59 14:59 Intake Total 200 / 690 490 / 690 Output Total 400 / 500 Balance 200 / 190 90 / 190 Intake: Oral 200 / 690 490 / 690 Output: Urine 400 / 500 Other: Weight 51.9 kg 51.3 kg Weight Measurement Method Built in [facility]
[2023-12-08] MEDS: AZITHROMYCIN 250 MG TAB PO ONE (15:03)
--- NOTE | 2023-12-09 00:50 | Electrocardiogram Report ---
Test Reason : Blood Pressure : */* mmHG Vent. Rate : 85 BPM Atrial Rate : 85 BPM P-R Int : 138 ms QRS Dur : 74 ms QT Int : 350 ms P-R-T Axes : -13 -1 196 degrees QTcB Int : 416 ms Poor data quality, interpretation may be adversely affected Sinus rhythm with Premature supraventricular complexes Low voltage QRS Abnormal ECG When compared with ECG of 27-Aug-2022 05:52, Premature supraventricular complexes are now Present Vent. rate has increased by 29 bpm Questionable change in QRS axis ST now depressed in Anterolateral leads Nonspecific T wave abnormality has replaced inverted T waves in Inferior leads Confirmed by Efren Sawyer ([id number]) on 12/09/2023 12:50:20 AM Referred By: REFERRED SELF Confirmed By: Efren Sawyer
--- NOTE | 2023-12-09 00:51 | Electrocardiogram Report ---
Test Reason : Blood Pressure : */* mmHG Vent. Rate : 84 BPM Atrial Rate : 84 BPM P-R Int : 208 ms QRS Dur : 74 ms QT Int : 300 ms P-R-T Axes : 76 73 252 degrees QTcB Int : 354 ms Sinus rhythm with Premature atrial complexes Septal infarct , age undetermined Abnormal ECG When compared with ECG of 06-Dec-2023 21:38, Septal infarct is now Present ST now depressed in Inferior leads Inverted T waves have replaced nonspecific T wave abnormality in Inferior leads T wave inversion less evident in Lateral leads Confirmed by Efren Sawyer ([id number]) on 12/09/2023 12:51:38 AM Referred By: REFERRED SELF Confirmed By: Efren Sawyer
--- NOTE | 2023-12-09 00:53 | Electrocardiogram Report ---
Test Reason : Blood Pressure : */* mmHG Vent. Rate : 94 BPM Atrial Rate : 94 BPM P-R Int : 224 ms QRS Dur : 86 ms QT Int : 308 ms P-R-T Axes : 70 71 264 degrees QTcB Int : 385 ms Sinus rhythm with 1st degree A-V block Abnormal ECG When compared with ECG of 06-Dec-2023 22:20, Premature atrial complexes are no longer Present Criteria for Septal infarct are no longer Present Confirmed by Efren Sawyer ([id number]) on 12/09/2023 12:53:01 AM Referred By: REFERRED SELF Confirmed By: Efren Sawyer
--- NOTE | 2023-12-09 00:54 | Electrocardiogram Report ---
Test Reason : Blood Pressure : */* mmHG Vent. Rate : 45 BPM Atrial Rate : 45 BPM P-R Int : 158 ms QRS Dur : 82 ms QT Int : 420 ms P-R-T Axes : 64 51 251 degrees QTcB Int : 363 ms Sinus bradycardia with sinus arrhythmia Abnormal ECG When compared with ECG of 06-Dec-2023 22:50, OR interval has decreased Vent. rate has decreased by 49 bpm Confirmed by Efren Sawyer ([id number]) on 12/09/2023 12:53:53 AM Referred By: REFERRED SELF Confirmed By: Efren Sawyer
--- NOTE | 2023-12-09 00:55 | Electrocardiogram Report ---
Test Reason : Blood Pressure : */* mmHG Vent. Rate : 55 BPM Atrial Rate : 55 BPM P-R Int : 142 ms QRS Dur : 90 ms QT Int : 428 ms P-R-T Axes : 73 76 264 degrees QTcB Int : 409 ms Sinus bradycardia with Premature atrial complexes Abnormal ECG When compared with ECG of 07-Dec-2023 08:56, No significant change Confirmed by Efren Sawyer ([id number]) on 12/09/2023 12:54:52 AM Referred By: REFERRED SELF Confirmed By: Efren Sawyer
[2023-12-09] MEDS: AZITHROMYCIN 250 MG TAB PO SCH (09:25)
[2023-12-09] MEDS: lisinopril 20 MG TAB PO SCH (09:27)
--- NOTE | 2023-12-09 09:37 | Cardiology Progress Note ---
Date of Service December 09, 2023 Assessment & Plan (1) Acute exacerbation of chronic obstructive pulmonary disease: (2) Atypical chest pain: (3) ASCVD (arteriosclerotic cardiovascular disease): (4) Tachy-krupa syndrome: Plan 83-year-old male admitted with an exacerbation of his end stage chronic obstructive pulmonary disease. Telemetry initially with Tachy-Krupa Syndrome. Metoprolol succinate dosing subsequently adjusted with improvement, without further bradycardia. Patient asymptomatic in regards to the atrial ectopy and the short paroxysms of PAT/SVT. Pacemaker implantation would be high risk and the patient requests avoidance of invasive procedures. Continue conservative cardiac medical management. Continue reduced dose apixaban anticoagulation noting history of atrial flutter status post ablation, and atrial fibrillation. 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 Echo this admission with preserved LV systolic function. Continue metoprolol succinate 12.5 mg twice daily Admission and Anticipated Discharge Date Admission Date: December 06, 2023 Subjective Patient seen in cardiology follow-up. Feels comfortable. Telemetry reveals sinus rhythm in the 90s alternating with brief SVT episodes in the 130s. He has no subjective symptoms of the tachycardia. Physical Exam Physical Exam: General: A&Ox3. Cachectic. No acute distress. Hard of hearing HENT: Normocephalic. Atraumatic. Mucous membranes are dry Eyes: PER. Conjunctiva pink, sclera clear. Neck: Bilateral carotid bruits. No JVD. No HJR. Heart: Regular at 80 bpm. No murmur. Lungs: Diminished. No rales. No wheezing appreciated. Abdomen: +BS. Soft. Nontender. No masses or organomegaly. Extremities: Excoriations without evidence of cellulitis/infection. No clubbing, cyanosis, or edema. Limited neurological examination is without focal deficits. Results & Data Vital Signs (Past 12 Hours) Vital Signs Temp Pulse Pulse Resp BP Pulse Ox O2 Del Method 12/09/23 08:34 102 H 12/09/23 07:42 76 18 95 Nasal Cannula 12/09/23 07:23 36.5 C 73 19 167/95 H 97 Nasal Cannula 12/09/23 03:56 36.8 C 92 H 18 119/79 91 Nasal Cannula 12/08/23 23:39 89 12/08/23 23:00 36.7 C 96 H 17 106/72 92 Nasal Cannula O2 Flow Rate 12/09/23 08:34 12/09/23 07:42 2.5 12/09/23 07:23 3 12/09/23 03:56 2 12/08/23 23:39 12/08/23 23:00 2 Laboratory Results Intake and Output 12/08/23 12/09/23 12/09/23 22:59 06:59 14:59 Intake Total 440 / 680 240 / 680 Output Total 300 / 700 200 / 700 Balance 140 / -20 40 / -20 Intake: Oral 440 / 680 240 / 680 Output: Urine 300 / 700 200 / 700 # Bowel Movements 0 / 0 0 / 0 Other: Weight 51.4 kg Weight Measurement Method Built in [facility]
[2023-12-09] MEDS: FORMOTEROL 20 MCG/2 ML VIAL NEB SCH (09:49)
[2023-12-09] MEDS: BUDESONIDE 0.5 MG/2 ML VIAL (PULMICORT) NEB SCH (09:50)
[2023-12-09] MEDS: METOPROLOL TARTRATE 1 MG/ML VIAL IV STA (10:13)
--- NOTE | 2023-12-09 10:50 | Hospitalist Progress Note ---
Date of Service December 09, 2023 Assessment & Plan (1) Acute exacerbation of chronic obstructive pulmonary disease: Plan: Mr. Alonso is an 83-year-old male with past medical history significant for chronic respiratory failure with hypoxia on 2.5 L oxygen at home, COPD, hypothyroidism, history of atrial flutter/atrial fibrillation, history of CAD s/p stent, history of chronic systolic and diastolic CHF, pulmonary hypertension, orthostatic hypotension, protein calorie malnutrition, GERD, BPH, postherpetic neuralgia, history of tobacco use, history of radiofrequency ablation procedure for cardiac dysrhythmia, history of duodenal ulcer who lives home alone and was admitted for management of COPD and concerns of tachy-krupa syndrome. Patient with short bursts of SVT on monitor, more prolonged this am into the 140s-150s. Denies any chest pain. Concern exaacerbated by scheduled nebs therefore will discontinue. Plan to consult pulm for any optimization for dispo planning given severe emphysema. Patient was initially doing better from a pulm standpoint, however, seems more wheezy and uncomfortable--will transition back to IV steroid. #Episodic Bradycardia, c/f tachycbrady syndrome #EDWARDS rates as low as 30s overnight, notable cardiac/pulm history Cardiology consulted given concern for need of PM -continue reduced metoprolol to 12.5mg bid with old parameters Orthostatic vs ordered ECHO stable this am with EF 55-60% Metoprolol 12.5bid #SVT likley exacerbated iso neb treatments will discontinue duonebs Metoprolol 5mg IV x1 for 30 min of svt CTM closely #COPD exacerbation #Chronic respiratory failure with home oxygen 2L Presents with shortness of breath and cough CTA chest no PE Received Solu-Medrol and nebs in the ER Discontinued IV methylpred Prednisone 40mg daily x 5 days--however, worsening wheezing today, IV soludmedrol reordered. procal 0.02 Azithromycin for COPD exacerbation Mucinex bid Perforomist and budesonide nebs nery for now Pulm consult: severe emphysema, any optimization for likely endstage, patient not open to palliative discussions #Elevated troponin,like demand iso hypoxia, arrhythmia Troponin 56 and repeat is 57 stable #Multivessel coronary artery disease s/p pci LCx #History of tachymediated cardiomyopathy Echo this admission with preserved LV systolic function. Continue Statin, Plavix, Eliquis and metoprolol succinate #History of a flutter/atrial fibrillation On metoprolol and Eliquis metoprolol reduced as above #Hypertension On lisinopril, metoprolol succinate #Hyperlipidemia On statin #Hypothyroidism On Synthyroid TSH 3.447 #BPH On Flomax and finasteride #GERD On Protonix and Pepcid #Protein calorie malnutrition Dietitian consult placed ensure supplement ordered #Ambulatory dysfunction PT OT ordered DVT prophylaxis On Eliquis Disposition Telemetry Full code. Admission and Anticipated Discharge Date Admission Date: December 06, 2023 Subjective Reports SOB in am, states this happens intermittently at home denies chest pain or other acute concerns Physical Exam Constitutional: WD/WN, vitals as above Respiratory: expiratory wheezing diffuse Cardiovascular: tachycardic Results & Data Results & Data Vital Signs (Past 12 Hours) Vital Signs Temp Pulse Pulse Resp BP BP Pulse Ox 12/09/23 10:28 112 H 131/84 12/09/23 10:13 139 H 157/85 H 12/09/23 09:50 123 H 20 93 12/09/23 09:15 12/09/23 08:34 102 H 12/09/23 07:42 76 18 95 12/09/23 07:23 36.5 C 73 19 167/95 H 97 12/09/23 03:56 36.8 C 92 H 18 119/79 91 12/08/23 23:39 89 12/08/23 23:00 36.7 C 96 H 17 106/72 92 O2 Del Method O2 Flow Rate 12/09/23 10:28 12/09/23 10:13 12/09/23 09:50 Nasal Cannula 2.5 12/09/23 09:15 Nasal Cannula 2 12/09/23 08:34 12/09/23 07:42 Nasal Cannula 2.5 12/09/23 07:23 Nasal Cannula 3 12/09/23 03:56 Nasal Cannula 2 12/08/23 23:39 12/08/23 23:00 Nasal Cannula 2 Laboratory Results labs ordered and pending Medications Administered Home Medications Medication Instructions Recorded Confirmed Last Taken albuterol sulfate 2.5 mg/3 mL 2.5 mg inhalation Q4H PRN 02/26/19 12/06/23 08/24/22 (0.083 %) solution for nebulization Shortness Of Breath Or Wheezing atorvastatin 20 mg tablet 20 mg PO DAILY 02/26/19 12/06/23 08/25/22 clopidogrel 75 mg tablet 75 mg PO QAM 02/26/19 12/06/23 08/25/22 levothyroxine 25 mcg tablet 25 mcg PO DAILY 02/26/19 12/06/23 08/25/22 pantoprazole 20 mg tablet,delayed 20 mg PO DAILY 02/26/19 12/06/23 08/25/22 release tamsulosin 0.4 mg capsule 0.4 mg PO QAM 02/26/19 12/06/23 08/25/22 lisinopril 40 mg tablet (Zestril) 40 mg PO DAILY #30 tabs 03/03/19 12/06/23 08/25/22 apixaban 2.5 mg tablet (Eliquis) 2.5 mg PO BID #60 tabs 12/30/21 12/06/23 08/25/22 sodium chloride 0.65 % nasal spray 2 spray NA Q4H PRN nasal 12/30/21 12/06/23 08/24/22 aerosol (Saline Mist) congestion #45 mL famotidine 20 mg tablet 20 mg PO HS 08/25/22 12/06/23 Unknown finasteride 5 mg tablet 5 mg PO DAILY 08/25/22 12/06/23 Unknown fluticasone fur. 100 mcg-umeclid 1 inh inhalation DAILY 08/25/22 12/06/23 Unknown 62.5 mcg-vilant 25 mcg inhalat.powder (Trelegy Ellipta) potassium chloride 20 mEq 20 meq PO DAILY 08/25/22 12/06/23 Unknown tablet,extended release(part/cryst) (Klor-Con M) pregabalin 150 mg capsule 150 mg PO TID 08/25/22 12/06/23 08/25/22 cyanocobalamin (vitamin B-12) 500 500 mcg PO QAM #30 tabs 08/28/22 12/06/23 Unknown mcg tablet ferrous gluconate 324 mg (38 mg 324 mg PO QAM #30 tabs 08/28/22 12/06/23 Unknown iron) tablet folic acid 1 mg tablet 1 mg PO QAM #30 tabs 08/28/22 12/06/23 Unknown metoprolol succinate 25 mg 25 mg PO BID #60 tabs 08/28/22 12/06/23 Unknown tablet,extended release 24 hr acetaminophen 500 mg tablet 1,000 mg PO Q8H PRN Pain 12/06/23 12/06/23 Unknown (Tylenol Extra Strength) albuterol sulfate 90 mcg/actuation 2 puff inhalation Q4H PRN 12/06/23 12/06/23 Unknown aerosol inhaler Shortness Of Breath Or Wheezing silver sulfadiazine 1 % topical 1 applic topical DAILY 12/06/23 12/06/23 Unknown cream Active Medications Generic Name Dose Route Start Last Admin Trade Name Freq PRN Reason Stop Dose Admin Apixaban 2.5 mg 12/07/23 09:00 12/09/23 09:25 Apixaban 2.5 Mg Tab PO 01/06/24 08:59 2.5 mg BID NERY Administration Atorvastatin Calcium 20 mg 12/07/23 09:00 12/09/23 09:27 Atorvastatin 20 Mg Tab PO 01/06/24 08:59 20 mg DAILY NERY Administration Azithromycin 250 mg 12/09/23 09:00 12/09/23 09:25 Azithromycin 250 Mg Tab PO 12/13/23 08:59 250 mg QAM NERY Administration Budesonide 0.5 mg 12/09/23 09:45 12/09/23 09:50 Budesonide 0.5 Mg/2 Ml Vial (Pulmicort) NEB 01/08/24 09:44 0.5 mg BIDR NERY Administration Clopidogrel Bisulfate 75 mg 12/07/23 09:00 12/09/23 09:27 Clopidogrel Bisulfate 75 Mg Tab PO 01/06/24 08:59 75 mg QAM NERY Administration Cyanocobalamin 500 mcg 12/07/23 09:00 12/09/23 09:25 Cyanocobalamin (B-12) 500 Mcg Tablet PO 01/06/24 08:59 500 mcg QAM NERY Administration Famotidine 20 mg 12/07/23 21:00 12/08/23 21:43 Famotidine 20 Mg Tab PO 01/06/24 20:59 20 mg HS NERY Administration Ferrous Gluconate 324 mg 12/07/23 09:00 12/09/23 09:25 Ferrous Gluconate 324 Mg Tab PO 01/06/24 08:59 324 mg QAM NERY Administration Finasteride 5 mg 12/07/23 09:00 12/09/23 09:25 Finasteride 5 Mg Tab PO 01/06/24 08:59 5 mg DAILY NERY Administration Fluticasone Furoate 1 puffs 12/07/23 09:00 12/09/23 09:27 Fluticasone Furoate 100mcg 14 Puffs/Inhaler INH 01/06/24 08:59 1 puffs DAILY NERY Administration Folic Acid 1 mg 12/07/23 09:00 12/09/23 09:25 Folic Acid 1 Mg Tab PO 01/06/24 08:59 1 mg QAM NERY Administration Formoterol Fumarate 20 mcg 12/09/23 09:45 12/09/23 09:49 Formoterol 20 Mcg/2 Ml Vial NEB 01/08/24 09:44 20 mcg BID NERY Administration Guaifenesin 600 mg 12/07/23 21:00 12/09/23 09:26 Guaifenesin 600 Mg Tabcr PO 01/06/24 20:59 600 mg Q12 NERY Administration Insulin Aspart 0 units 12/07/23 16:30 12/09/23 09:20 Insulin Aspart Per Unit Charge SC 01/06/24 16:29 Not Given ACHS NERY Levothyroxine Sodium 25 mcg 12/07/23 06:30 12/09/23 06:00 Levothyroxine Sodium 25 Mcg Tablet PO 01/06/24 06:29 25 mcg DAILYBB NERY Administration Lisinopril 20 mg 12/09/23 09:00 12/09/23 09:27 Lisinopril 20 Mg Tab PO 01/08/24 08:59 20 mg BID NERY Administration Metoprolol Succinate 12.5 mg 12/07/23 21:00 12/09/23 09:26 Metoprolol Succ 25mg Ext Rel Tab PO 01/06/24 20:59 12.5 mg BID NERY Administration Pantoprazole Sodium 40 mg 12/07/23 09:00 12/09/23 09:25 Pantoprazole 40 Mg Tab PO 01/06/24 08:59 40 mg DAILY NERY Administration Potassium Chloride 20 meq 12/07/23 09:00 12/09/23 09:31 Potassium Chloride Crtab 20 Meq Tabcr PO 01/06/24 08:59 20 meq DAILY NERY Administration Prednisone 40 mg 12/08/23 09:00 12/09/23 09:25 Prednisone 20 Mg Tab PO 01/07/24 08:59 40 mg DAILY NERY Administration Pregabalin 150 mg 12/07/23 09:00 12/09/23 09:25 Pregabalin 150 Mg Cap PO 01/06/24 08:59 150 mg TID NERY Administration Silver Sulfadiazine 1 appln 12/07/23 09:00 12/09/23 09:28 Silver Sulfadiazine 1% Cr 50 Gm Jar TOP 01/06/24 08:59 1 appln DAILY NERY Administration Tamsulosin HCl 0.4 mg 12/07/23 09:00 12/09/23 09:26 Tamsulosin Hcl 0.4 Mg Cap PO 01/06/24 08:59 0.4 mg QAM NERY Administration Umeclidinium/Vilanterol 1 puffs 12/07/23 09:00 12/09/23 09:28 Umeclidinium/Vilanterol 62.5/25mcg 7 Puffs/Inhaler INH 01/06/24 08:59 1 puffs DAILY NERY Administration
[2023-12-09] MEDS ORDERED: methylPREDNISolone 10 mg/mL (For Ped Dose < 7mg) IV SCH (11:00)
[2023-12-09] MEDS: methylPREDNISolone 40 MG in SYRINGE 0 ML IV SCH (11:40)
--- NOTE | 2023-12-09 11:55 | Pulmonary Consultation ---
Date of Consultation December 09, 2023 Assessment & Plan (1) COPD (chronic obstructive pulmonary disease): (2) Chronic respiratory failure with hypoxia: (3) Acute exacerbation of chronic obstructive pulmonary disease: Plan CTA chest 12/07/2023 personally reviewed: Severe centrilobular and paraseptal emphysema appreciated bilaterally Linear scarring of the right upper lobe as well as minimal scarring of the left upper lobe No significant mediastinal lymphadenopathy 2D echo 12/07/2023: EF 55-60%, mild concentric LVH, grade 1 diastolic dysfunction, PASP 35 mmHg, RV normal in size and function -- Acute exacerbation of COPD with emphysema On 2 and half liters at home Takes Trelegy 100 inhaler at home 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 I will discontinue her Anoro as well as Arnuity. Incruse inhaler to be started tomorrow I recommend addition of azithromycin 250 mg Jynygo-Zwmjkuglx-Rhmnbn on discharge Outpatient pulmonary follow-up with PFTs, they can see if he can benefit from Roflumilast He will benefit from a pulmonary rehab which can also be taken care of as an outpatient Ultimately I do think he would benefit from having a talk with palliative care to have goals of care in place. Nutrition consult can be thought of given the COPD cachexia Try to keep O2 saturation between 88-92% Please note the above document was generated using voice recognition software. It may contain grammatical, syntax or spelling errors.Any formal questions or concerns about the content, text or information contained within the body of this dictation should be directly addressed to the provider for clarification. History of Present Illness Attending Physician: Kalyani Quintero MD History of Present Illness 83-year-old male was admitted to the hospital for shortness of breath Past medical history: A-fib, coronary artery disease s/p stent, GERD, BPH, COPD on 2 and half liters oxygen at home Pulmonary consulted for the same At the time of examination patient was resting comfortably on the bed He was saturating 91% on 3 L nasal cannula. He stated that he is feeling better compared to when he came to the hospital for Breathing is improving gradually. Complains of occasional cough. Used to have difficulty bringing it up but right now it is coming up without any issues Denies any hemoptysis. No fever or chills No night sweats, no unintentional weight loss He says that he is compliant with his inhaler on a regular basis at home. 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 Denied using any spray paints Allergies Allergy/AdvReac Type Severity Reaction Status Date / Time No Known Allergies Allergy Verified 12/06/23 23:16 Home Medications Medication Instructions Recorded Confirmed Type albuterol sulfate 2.5 mg/3 mL 2.5 mg inhalation Q4H PRN 02/26/19 12/06/23 History (0.083 %) solution for nebulization Shortness Of Breath Or Wheezing atorvastatin 20 mg tablet 20 mg PO DAILY 02/26/19 12/06/23 History clopidogrel 75 mg tablet 75 mg PO QAM 02/26/19 12/06/23 History levothyroxine 25 mcg tablet 25 mcg PO DAILY 02/26/19 12/06/23 History pantoprazole 20 mg tablet,delayed 20 mg PO DAILY 02/26/19 12/06/23 History release tamsulosin 0.4 mg capsule 0.4 mg PO QAM 02/26/19 12/06/23 History lisinopril 40 mg tablet (Zestril) 40 mg PO DAILY #30 tabs 03/03/19 12/06/23 Rx apixaban 2.5 mg tablet (Eliquis) 2.5 mg PO BID #60 tabs 12/30/21 12/06/23 Rx sodium chloride 0.65 % nasal spray 2 spray NA Q4H PRN nasal 12/30/21 12/06/23 Rx aerosol (Saline Mist) congestion #45 mL famotidine 20 mg tablet 20 mg PO HS 08/25/22 12/06/23 History finasteride 5 mg tablet 5 mg PO DAILY 08/25/22 12/06/23 History fluticasone fur. 100 mcg-umeclid 1 inh inhalation DAILY 08/25/22 12/06/23 History 62.5 mcg-vilant 25 mcg inhalat.powder (Trelegy Ellipta) potassium chloride 20 mEq 20 meq PO DAILY 08/25/22 12/06/23 History tablet,extended release(part/cryst) (Klor-Con M) pregabalin 150 mg capsule 150 mg PO TID 08/25/22 12/06/23 History cyanocobalamin (vitamin B-12) 500 500 mcg PO QAM #30 tabs 08/28/22 12/06/23 Rx mcg tablet ferrous gluconate 324 mg (38 mg 324 mg PO QAM #30 tabs 08/28/22 12/06/23 Rx iron) tablet folic acid 1 mg tablet 1 mg PO QAM #30 tabs 08/28/22 12/06/23 Rx metoprolol succinate 25 mg 25 mg PO BID #60 tabs 08/28/22 12/06/23 Rx tablet,extended release 24 hr acetaminophen 500 mg tablet 1,000 mg PO Q8H PRN Pain 12/06/23 12/06/23 History (Tylenol Extra Strength) albuterol sulfate 90 mcg/actuation 2 puff inhalation Q4H PRN 12/06/23 12/06/23 History aerosol inhaler Shortness Of Breath Or Wheezing silver sulfadiazine 1 % topical 1 applic topical DAILY 12/06/23 12/06/23 History cream Patient History Medical History History of upper gastrointestinal bleeding Diastolic dysfunction Surgical History S/P angioplasty with stent Family History Other Hypertension Social History Smoking Status: Never smoker Tobacco Type: Cigarettes Second Hand Exposure: No; Do You Dip or Chew Tobacco: No; Hx Alcohol Use: No Hx Substance Use: No Preferred Language: Honduran Communication Ability: Effective Communications Strategist Required: No Beliefs That Will Affect Care: None marital status: / Current Living Situation: Alone current occupational status: retired Feels Safe at Home: Yes Assistive Devices: Oxygen - Continuous Review of Systems 2 Review of Systems: All systems reviewed & are unremarkable except as noted in HPI & below Physical Exam 2 Physical Exam: Constitutional: No acute distress, frail-appearing HEENT: EOMI, PERRLA, very hard to hear Respiratory system: Decreased air entry bilaterally, no rhonchi, positive mild crackles bilateral lower lobes, positive expiratory wheeze bilaterally CVS: S1-S2 positive, no murmurs or gallops Abdomen: Soft, nontender, nondistended, positive bowel sounds x4 Extremities: +2 pulses bilaterally radialis/ dorsalis pedis, no cyanosis, no edema Neuro: Awake alert oriented x3 Psych: Normal mood and affect G/U: No Delvalle Skin: no rashes, warm and dry Lymphatic: no cervical or axillary lymphadenopathy Results & Data Results & Data Vital Signs (Past 12 Hours) Vital Signs Temp Pulse Pulse Resp BP BP Pulse Ox 12/09/23 10:46 36.7 C 124 H 24 133/82 90 12/09/23 10:28 112 H 131/84 12/09/23 10:13 139 H 157/85 H 12/09/23 09:50 123 H 20 93 12/09/23 09:15 12/09/23 08:34 102 H 12/09/23 07:42 76 18 95 12/09/23 07:23 36.5 C 73 19 167/95 H 97 12/09/23 03:56 36.8 C 92 H 18 119/79 91 O2 Del Method O2 Flow Rate 12/09/23 10:46 Nasal Cannula 3 12/09/23 10:28 12/09/23 10:13 12/09/23 09:50 Nasal Cannula 2.5 12/09/23 09:15 Nasal Cannula 2 12/09/23 08:34 12/09/23 07:42 Nasal Cannula 2.5 12/09/23 07:23 Nasal Cannula 3 12/09/23 03:56 Nasal Cannula 2 Laboratory Results 12/08/23 06:11 PG Care Time/CCT Total # of Minutes Spent Total Time Spent with Patient: Total time spent is greater than 50% in coordination of care (as documented) at patient's floor/unit and/or counseling patient: Coding Level of Care Code 80493 INT INP/OBS CARE MIN Diagnoses COPD (chronic obstructive pulmonary disease) J44.9 Chronic respiratory failure with hypoxia J96.11 Acute exacerbation of chronic obstructive pulmonary disease J44.1
[2023-12-09 11:59] LABS: Calcium 8.5 mg/dl (8.6-10.3); Creatinine Clr Calc Pharmacy 46.8 ml/min; Est GFR (African American) 92.5 ml/min; Est GFR (Non-African American) 79.8 ml/min; Magnesium 1.8 mg/dl (1.7-2.4); Phosphorus 1.7 mg/dl (2.5-4.9); Potassium 3.8 mmol/L (3.5-5.1)
--- NOTE | 2023-12-10 07:00 | Hospitalist Progress Note ---
Date of Service December 10, 2023 Assessment & Plan (1) Acute exacerbation of chronic obstructive pulmonary disease: Plan: Mr. Alonso is an 83-year-old male with past medical history significant for chronic respiratory failure with hypoxia on 2.5 L oxygen at home, COPD, hypothyroidism, history of atrial flutter/atrial fibrillation, history of CAD s/p stent, history of chronic systolic and diastolic CHF, pulmonary hypertension, orthostatic hypotension, protein calorie malnutrition, GERD, BPH, postherpetic neuralgia, history of tobacco use, history of radiofrequency ablation procedure for cardiac dysrhythmia, history of duodenal ulcer who lives home alone and was admitted for management of COPD and concerns of tachy-krupa syndrome. on 12/08, Patient with short bursts of SVT on monitor, more prolonged this am into the 140s-150s. Denies any chest pain. Concern exacerbated by scheduled nebs therefore will discontinue. Pulm consulted for optimization given concer of endstage COPD. On 12/09, patient doing much better clinically, though with reports of fatigue. Patient motivated to not go to rehab and plans to ambulate in room to "show" it is not needed. Patient declined resources. Ongoing family conversations with daughter and granddaughter for dispo planning and resources offered. At this time, patient will likely return home in 1-2 days with cards, pulm, and pcp follow up. #Episodic Bradycardia, c/f tachycbrady syndrome #EDWARDS rates as low as 30s overnight, notable cardiac/pulm history Cardiology consulted given concern for need of PM -continue reduced metoprolol to 12.5mg bid with old parameters Orthostatic vs stable ECHO stable this am with EF 55-60% lisinopril 20mg bid for more stable bp control Metoprolol 12.5bid #SVT likley exacerbated iso neb treatments Metoprolol 5mg IV x1 for 30 min of svt CTM closely Continue current Metoprolol dosing #COPD exacerbation #Chronic respiratory failure with home oxygen 2L Presents with shortness of breath and cough CTA chest no PE Received Solu-Medrol and nebs in the ER Discontinued IV methylpred Prednisone 40mg daily x 5 days--however, worsening wheezing today, IV soludmedrol reordered. 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 Continue Statin, Plavix, Eliquis and metoprolol succinate #History of a flutter/atrial fibrillation On metoprolol and Eliquis metoprolol reduced as above #Hypertension On lisinopril, metoprolol succinate #Hyperlipidemia On statin #Hypothyroidism On Synthyroid TSH 3.447 #BPH On Flomax and finasteride #GERD On Protonix and Pepcid #Protein calorie malnutrition Dietitian consult placed ensure supplement: boost BID #Ambulatory dysfunction PT OT DVT prophylaxis On Eliquis Disposition Telemetry Full code. Admission and Anticipated Discharge Date Admission Date: December 06, 2023 Subjective NAEO Reports feeling fatigued this am Rates better controlled overnight into this morning Denies chest pain or palpitations, reports breathing feels baseline Adamant against rehab--states he "just wants to go home." Declines additional services "have you seen meals on wheels, its awful." Encouraged reconsideration, patient states he will think about it for now, but doesn't feel it is "necessary" Physical Exam Constitutional: thin cachectic gentleman, partially edentulous Respiratory: diminshed breath sounds, few scattered expiratory wheezes Cardiovascular: ?irregular, normal rates Results & Data Results & Data Vital Signs (Past 12 Hours) Vital Signs Temp Pulse Resp BP Pulse Ox O2 Del Method O2 Flow Rate 12/10/23 03:08 36.6 C 78 18 142/73 H 94 Nasal Cannula 5 12/09/23 23:00 36.5 C 90 18 134/78 95 Nasal Cannula 5 12/09/23 20:39 73 17 94 Nasal Cannula 5 12/09/23 20:03 36.4 C L 92 H 18 128/73 96 Nasal Cannula 5 12/09/23 19:40 Nasal Cannula 5 Laboratory Results [facility] 12/09/23 12/10/23 11:08 06:17 Sodium 138 137 Potassium 3.8 4.4 Chloride 101 99 Carbon Dioxide 31 31 BUN 27 H 26 H Creatinine 0.87 0.83 Glucose 96 113 H Calcium 8.5 L 8.6 Medications Administered Home Medications Medication Instructions Recorded Confirmed Last Taken albuterol sulfate 2.5 mg/3 mL 2.5 mg inhalation Q4H PRN 02/26/19 12/06/23 08/24/22 (0.083 %) solution for nebulization Shortness Of Breath Or Wheezing atorvastatin 20 mg tablet 20 mg PO DAILY 02/26/19 12/06/23 08/25/22 clopidogrel 75 mg tablet 75 mg PO QAM 02/26/19 12/06/23 08/25/22 levothyroxine 25 mcg tablet 25 mcg PO DAILY 02/26/19 12/06/23 08/25/22 pantoprazole 20 mg tablet,delayed 20 mg PO DAILY 02/26/19 12/06/23 08/25/22 release tamsulosin 0.4 mg capsule 0.4 mg PO QAM 02/26/19 12/06/23 08/25/22 lisinopril 40 mg tablet (Zestril) 40 mg PO DAILY #30 tabs 03/03/19 12/06/23 08/25/22 apixaban 2.5 mg tablet (Eliquis) 2.5 mg PO BID #60 tabs 12/30/21 12/06/23 08/25/22 sodium chloride 0.65 % nasal spray 2 spray NA Q4H PRN nasal 12/30/21 12/06/23 08/24/22 aerosol (Saline Mist) congestion #45 mL famotidine 20 mg tablet 20 mg PO HS 08/25/22 12/06/23 Unknown finasteride 5 mg tablet 5 mg PO DAILY 08/25/22 12/06/23 Unknown fluticasone fur. 100 mcg-umeclid 1 inh inhalation DAILY 08/25/22 12/06/23 Unknown 62.5 mcg-vilant 25 mcg inhalat.powder (Trelegy Ellipta) potassium chloride 20 mEq 20 meq PO DAILY 08/25/22 12/06/23 Unknown tablet,extended release(part/cryst) (Klor-Con M) pregabalin 150 mg capsule 150 mg PO TID 08/25/22 12/06/23 08/25/22 cyanocobalamin (vitamin B-12) 500 500 mcg PO QAM #30 tabs 08/28/22 12/06/23 Unknown mcg tablet ferrous gluconate 324 mg (38 mg 324 mg PO QAM #30 tabs 08/28/22 12/06/23 Unknown iron) tablet folic acid 1 mg tablet 1 mg PO QAM #30 tabs 08/28/22 12/06/23 Unknown metoprolol succinate 25 mg 25 mg PO BID #60 tabs 08/28/22 12/06/23 Unknown tablet,extended release 24 hr acetaminophen 500 mg tablet 1,000 mg PO Q8H PRN Pain 12/06/23 12/06/23 Unknown (Tylenol Extra Strength) albuterol sulfate 90 mcg/actuation 2 puff inhalation Q4H PRN 12/06/23 12/06/23 Unknown aerosol inhaler Shortness Of Breath Or Wheezing silver sulfadiazine 1 % topical 1 applic topical DAILY 12/06/23 12/06/23 Unknown cream Active Medications Generic Name Dose Route Start Last Admin Trade Name Freq PRN Reason Stop Dose Admin Apixaban 2.5 mg 12/07/23 09:00 12/09/23 21:21 Apixaban 2.5 Mg Tab PO 01/06/24 08:59 2.5 mg BID NERY Administration Atorvastatin Calcium 20 mg 12/07/23 09:00 12/09/23 09:27 Atorvastatin 20 Mg Tab PO 01/06/24 08:59 20 mg DAILY NERY Administration Azithromycin 250 mg 12/09/23 09:00 12/09/23 09:25 Azithromycin 250 Mg Tab PO 12/13/23 08:59 250 mg QAM NERY Administration Budesonide 0.5 mg 12/09/23 09:45 12/09/23 20:39 Budesonide 0.5 Mg/2 Ml Vial (Pulmicort) NEB 01/08/24 09:44 0.5 mg BIDR NERY Administration Clopidogrel Bisulfate 75 mg 12/07/23 09:00 12/09/23 09:27 Clopidogrel Bisulfate 75 Mg Tab PO 01/06/24 08:59 75 mg QAM NERY Administration Cyanocobalamin 500 mcg 12/07/23 09:00 12/09/23 09:25 Cyanocobalamin (B-12) 500 Mcg Tablet PO 01/06/24 08:59 500 mcg QAM NERY Administration Famotidine 20 mg 12/07/23 21:00 12/09/23 21:22 Famotidine 20 Mg Tab PO 01/06/24 20:59 20 mg HS NERY Administration Ferrous Gluconate 324 mg 12/07/23 09:00 12/09/23 09:25 Ferrous Gluconate 324 Mg Tab PO 01/06/24 08:59 324 mg QAM NERY Administration Finasteride 5 mg 12/07/23 09:00 12/09/23 09:25 Finasteride 5 Mg Tab PO 01/06/24 08:59 5 mg DAILY NERY Administration Folic Acid 1 mg 12/07/23 09:00 12/09/23 09:25 Folic Acid 1 Mg Tab PO 01/06/24 08:59 1 mg QAM NERY Administration Formoterol Fumarate 20 mcg 12/09/23 09:45 12/09/23 20:39 Formoterol 20 Mcg/2 Ml Vial NEB 01/08/24 09:44 20 mcg BID NERY Administration Guaifenesin 600 mg 12/07/23 21:00 12/09/23 21:21 Guaifenesin 600 Mg Tabcr PO 01/06/24 20:59 600 mg Q12 NERY Administration Insulin Aspart 0 units 12/07/23 16:30 12/09/23 21:22 Insulin Aspart Per Unit Charge SC 01/06/24 16:29 2 units ACHS NERY Administration Levothyroxine Sodium 25 mcg 12/07/23 06:30 12/10/23 06:05 Levothyroxine Sodium 25 Mcg Tablet PO 01/06/24 06:29 25 mcg DAILYBB NERY Administration Lisinopril 20 mg 12/09/23 09:00 12/09/23 21:21 Lisinopril 20 Mg Tab PO 01/08/24 08:59 20 mg BID NERY Administration Metoprolol Succinate 12.5 mg 12/07/23 21:00 12/09/23 21:21 Metoprolol Succ 25mg Ext Rel Tab PO 01/06/24 20:59 12.5 mg BID NERY Administration Pantoprazole Sodium 40 mg 12/07/23 09:00 12/09/23 09:25 Pantoprazole 40 Mg Tab PO 01/06/24 08:59 40 mg DAILY NERY Administration Potassium Chloride 20 meq 12/07/23 09:00 12/09/23 09:31 Potassium Chloride Crtab 20 Meq Tabcr PO 01/06/24 08:59 20 meq DAILY NERY Administration Pregabalin 150 mg 12/07/23 09:00 12/09/23 21:21 Pregabalin 150 Mg Cap PO 01/06/24 08:59 150 mg TID NERY Administration Silver Sulfadiazine 1 appln 12/07/23 09:00 12/09/23 09:28 Silver Sulfadiazine 1% Cr 50 Gm Jar TOP 01/06/24 08:59 1 appln DAILY NERY Administration Tamsulosin HCl 0.4 mg 12/07/23 09:00 12/09/23 09:26 Tamsulosin Hcl 0.4 Mg Cap PO 01/06/24 08:59 0.4 mg QAM NERY Administration
[2023-12-10 07:03] LABS: BUN Creatinine Ratio 31.3 (10-20); Calcium 8.6 mg/dl (8.6-10.3); Creatinine Clr Calc Pharmacy 48.7 ml/min; Est GFR (African American) 94.3 ml/min; Est GFR (Non-African American) 81.4 ml/min; Phosphorus 2.9 mg/dl (2.5-4.9); Potassium 4.4 mmol/L (3.5-5.1)
--- NOTE | 2023-12-10 07:17 | Electrocardiogram Report ---
Test Reason : Blood Pressure : */* mmHG Vent. Rate : 55 BPM Atrial Rate : * BPM P-R Int : * ms QRS Dur : 90 ms QT Int : 446 ms P-R-T Axes : * 55 244 degrees QTcB Int : 426 ms Sinus bradycardia Abnormal ECG When compared with ECG of 07-Dec-2023 04:18, QT has lengthened Confirmed by Crow Machado ([id number]) on 12/10/2023 7:17:23 AM Referred By: REFERRED SELF Confirmed By: Crow Machado
--- NOTE | 2023-12-10 07:19 | Electrocardiogram Report ---
Test Reason : Blood Pressure : */* mmHG Vent. Rate : 133 BPM Atrial Rate : 133 BPM P-R Int : 158 ms QRS Dur : 80 ms QT Int : 284 ms P-R-T Axes : 74 66 250 degrees QTcB Int : 422 ms Sinus tachycardia with Premature atrial complexes Abnormal ECG When compared with ECG of 08-Dec-2023 06:26, Vent. rate has increased by [address] now depressed in Inferior leads ST now depressed in Anterior leads Confirmed by Crow Machado ([id number] on 12/10/2023 7:18:49 AM Referred By: REFERRED SELF Confirmed By: Crow Machado
[2023-12-10] MEDS: methylPREDNISolone 40 MG in SYRINGE 0 ML IV SCH (08:35)
--- NOTE | 2023-12-10 08:35 | Pulmonology Progress Note ---
Date of Service December 10, 2023 Assessment & Plan (1) COPD (chronic obstructive pulmonary disease): (2) Chronic respiratory failure with hypoxia: (3) Acute exacerbation of chronic obstructive pulmonary disease: Plan CTA chest 12/07/2023 personally reviewed: Severe centrilobular and paraseptal emphysema appreciated bilaterally Linear scarring of the right upper lobe as well as minimal scarring of the left upper lobe No significant mediastinal lymphadenopathy 2D echo 12/07/2023: EF 55-60%, mild concentric LVH, grade 1 diastolic dysfunction, PASP 35 mmHg, RV normal in size and function -- Acute exacerbation of COPD with emphysema On 2 and half liters at home Takes Trelegy 100 inhaler at home 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 QTc 409 on 12/08/2023 -- A-fib On Eliquis -- DNI Plan: Continue with formoterol and budesonide along with Incruse I recommend addition of azithromycin 250 mg [id number]-Fqttvx on discharge Outpatient pulmonary follow-up with PFTs, they can see if he can benefit from Roflumilast He will benefit from a pulmonary rehab which can also be taken care of as an outpatient Given the significant deconditioning I think it is reasonable to consider rehab for the patient on discharge Nutrition consult can be thought of given the COPD cachexia Try to keep O2 saturation between 88-92% Ultimately I do think he would benefit from having a talk with palliative care to have goals of care in place. Case was discussed with primary team No further recommendation from pulmonary perspective, will sign off Please call directly with any questions Please note the above document was generated using voice recognition software. It may contain grammatical, syntax or spelling errors.Any formal questions or concerns about the content, text or information contained within the body of this dictation should be directly addressed to the provider for clarification. Admission and Anticipated Discharge Date Admission Date: December 06, 2023 Subjective Patient seen and examined at bedside. No acute distress, no adverse events overnight Patient had just returned from standing up at the edge of the bed. He was huffing and puffing Saturation was 91% on 4 and half liters. As per the nurse was also in the room patient desaturated to low 80s on 3 L when he tried to get up Denies any cough, shortness of breath is still the same No headache or blurry vision Review of Systems 2 Review of Systems: All systems reviewed & are unremarkable except as noted in Subjective Physical Exam 2 Physical Exam: Constitutional: No acute distress, frail-appearing HEENT: EOMI, PERRLA, very hard to hear Respiratory system: Decreased air entry bilaterally, no rhonchi, positive mild crackles bilateral lower lobes, positive expiratory wheeze bilaterally CVS: S1-S2 positive, no murmurs or gallops Abdomen: Soft, nontender, nondistended, positive bowel sounds x4 Extremities: +2 pulses bilaterally radialis/ dorsalis pedis, no cyanosis, no edema Neuro: Awake alert oriented x3 Psych: Normal mood and affect G/U: No Delvalle Skin: no rashes, warm and dry Lymphatic: no cervical or axillary lymphadenopathy Results & Data Results & Data Vital Signs (Past 12 Hours) Vital Signs Temp Pulse Resp BP Pulse Ox O2 Del Method O2 Flow Rate 12/10/23 07:24 60 18 95 Nasal Cannula 3 12/10/23 03:08 36.6 C 78 18 142/73 H 94 Nasal Cannula 5 12/09/23 23:00 36.5 C 90 18 134/78 95 Nasal Cannula 5 12/09/23 20:39 73 17 94 Nasal Cannula 5 Laboratory Results 12/08/23 06:11 12/10/23 06:17 PG Care Time/CCT Total # of Minutes Spent Total Time Spent with Patient: Total time spent is greater than 50% in coordination of care (as documented) at patient's floor/unit and/or counseling patient: Coding Level of Care Code 21193 SUB INP/OBS CARE 2/35MIN Diagnoses COPD (chronic obstructive pulmonary disease) J44.9 Chronic respiratory failure with hypoxia J96.11 Acute exacerbation of chronic obstructive pulmonary disease J44.1
[2023-12-10] MEDS: UMECLIDINIUM BROMIDE 62.5MCG/BLISTER 7 PUFFS/INHALER INH SCH (08:39)
--- NOTE | 2023-12-10 10:42 | Cardiology Progress Note ---
Date of Service December 10, 2023 Assessment & Plan (1) Acute exacerbation of chronic obstructive pulmonary disease: (2) Atypical chest pain: (3) ASCVD (arteriosclerotic cardiovascular disease): (4) Tachy-krupa syndrome: Plan 83-year-old male admitted with an exacerbation of his end stage chronic obstructive pulmonary disease. Telemetry initially with Tachy-Krupa Syndrome. Metoprolol succinate dosing subsequently adjusted with improvement, without further bradycardia. Patient asymptomatic in regards to the atrial ectopy and the short paroxysms of PAT/SVT. Pacemaker implantation would be high risk and the patient requests avoidance of invasive procedures. Continue conservative cardiac medical management. Continue reduced dose apixaban anticoagulation noting history of atrial flutter status post ablation, and atrial fibrillation. 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 Echo this admission with preserved LV systolic function. Continue metoprolol succinate 12.5 mg twice daily Pulmonary input noted and appreciated. From a cardiology perspective, it is felt the patient is approaching end-stage point in his lung disease. I do not think that escalating his dose of metoprolol or placing a pacemaker would change his trajectory, meaning I do not think it would help him feel better or live longer. Admission and Anticipated Discharge Date Admission Date: December 06, 2023 Subjective Patient seen in cardiology follow-up. No symptoms at rest. Denies any subjective sensation of elevated heart rate. Telemetry reveals sinus rhythm in the 80s with frequent runs of SVT, rates as high as the 130s. Physical Exam Physical Exam: General: A&Ox3. Cachectic. No acute distress. Hard of hearing HENT: Normocephalic. Atraumatic. Mucous membranes are dry Eyes: PER. Conjunctiva pink, sclera clear. Neck: Bilateral carotid bruits. No JVD. No HJR. Heart: Regular at 80 bpm. No murmur. Lungs: Diminished. No rales. No wheezing appreciated. Abdomen: +BS. Soft. Nontender. No masses or organomegaly. Extremities: Excoriations without evidence of cellulitis/infection. No clubbing, cyanosis, or edema. Limited neurological examination is without focal deficits. Results & Data Vital Signs (Past 12 Hours) Vital Signs Temp Pulse Pulse Resp BP Pulse Ox O2 Del Method 12/10/23 08:32 36.3 C L 80 20 93 Nasal Cannula 12/10/23 08:30 77 09/01/24 08:30 Nasal Cannula 12/10/23 07:24 60 18 95 Nasal Cannula 12/10/23 03:08 36.6 C 78 18 142/73 H 94 Nasal Cannula 12/09/23 23:00 36.5 C 90 18 134/78 95 Nasal Cannula O2 Flow Rate 12/10/23 08:32 3 12/10/23 08:30 12/10/23 08:30 3 12/10/23 07:24 3 12/10/23 03:08 5 12/09/23 23:00 5
--- NOTE | 2023-12-11 07:22 | Hospitalist Progress Note ---
Date of Service December 11, 2023 Assessment & Plan (1) Acute exacerbation of chronic obstructive pulmonary disease: Plan: Mr. Alonso is an 83-year-old male with past medical history significant for chronic respiratory failure with hypoxia on 2.5 L oxygen at home, COPD, hypothyroidism, history of atrial flutter/atrial fibrillation, history of CAD s/p stent, history of chronic systolic and diastolic CHF, pulmonary hypertension, orthostatic hypotension, protein calorie malnutrition, GERD, BPH, postherpetic neuralgia, history of tobacco use, history of radiofrequency ablation procedure for cardiac dysrhythmia, history of duodenal ulcer who lives home alone and was admitted for management of COPD and concerns of tachy-krupa syndrome. on 12/08, Patient with short bursts of SVT on monitor, more prolonged this am into the 140s-150s. Denies any chest pain. Concern exacerbated by scheduled nebs therefore will discontinue. Pulm consulted for optimization given concer of endstage COPD. On 12/09, patient doing much better clinically, though with reports of fatigue. Patient motivated to not go to rehab and plans to ambulate in room to "show" it is not needed. Patient declined resources. Ongoing family conversations with daughter and granddaughter for dispo planning and resources offered. At this time, patient will likely return home in 1-2 days with cards, pulm, and pcp follow up. #Episodic Bradycardia, c/f tachycbrady syndrome #EDWARDS rates as low as 30s overnight, notable cardiac/pulm history Cardiology consulted given concern for need of PM -continue reduced metoprolol to 12.5mg bid with old parameters Orthostatic vs stable ECHO stable this am with EF 55-60% lisinopril 20mg bid for more stable bp control Metoprolol 12.5bid Plan for rehab #SVT likley exacerbated iso neb treatments Metoprolol 5mg IV x1 for 30 min of svt CTM closely Continue current Metoprolol dosing #COPD exacerbation #Chronic respiratory failure with home oxygen 2L Presents with shortness of breath and cough CTA chest no PE Received Solu-Medrol and nebs in the ER Discontinued IV methylpred Prednisone 40mg daily x 5 days--however, worsening wheezing today, IV soludmedrol reordered. procal 0.02 Azithromycin for COPD exacerbation Mucinex bid Perforomist and budesonide nebs nery for now Pulm consult: severe emphysema, any optimization for likely endstage, patient not open to palliative discussions Added Incruse Recommends 250mg Azithro MWF on d/c Will plan for op pulm follow with consideration of roflumilast Continue po prednisone #Elevated troponin,like demand iso hypoxia, arrhythmia Troponin 56 and repeat is 57 stable #Multivessel coronary artery disease s/p pci LCx #History of tachymediated cardiomyopathy Echo this admission with preserved LV systolic function. Continue Statin, Plavix, Eliquis and metoprolol succinate #History of a flutter/atrial fibrillation On metoprolol and Eliquis metoprolol reduced as above #Hypertension On lisinopril, metoprolol succinate #Hyperlipidemia On statin #Hypothyroidism On Synthyroid TSH 3.447 #BPH On Flomax and finasteride #GERD On Protonix and Pepcid #Protein calorie malnutrition Dietitian consult placed ensure supplement: boost BID #Ambulatory dysfunction PT OT DVT prophylaxis On Eliquis Disposition Telemetry Full code. Admission and Anticipated Discharge Date Admission Date: December 06, 2023 Subjective NAEO Reports EDWARDS and feeling fatigued Upset over rehab, but agreeable now given reduced capacity Physical Exam Respiratory: diminished, minimal wheezing clear with cough Cardiovascular: tachycardic to 90s Results & Data Results & Data Vital Signs (Past 12 Hours) Vital Signs Temp Pulse Resp BP Pulse Ox Pulse Ox O2 Del Method 12/11/23 02:55 36.6 C 72 17 132/73 95 Nasal Cannula 12/11/23 01:00 95 12/10/23 23:35 36.7 C 77 17 119/77 95 Nasal Cannula 12/10/23 20:11 81 18 94 Nasal Cannula 12/10/23 20:04 36.8 C 83 17 113/70 94 Nasal Cannula 12/10/23 20:00 Nasal Cannula O2 Del Method O2 Flow Rate O2 Flow Rate 12/11/23 02:55 2 12/11/23 01:00 Nasal Cannula 4 12/10/23 23:35 4 12/10/23 20:11 4 12/10/23 20:04 4 12/10/23 20:00 4 Medications Administered Home Medications Medication Instructions Recorded Confirmed Last Taken albuterol sulfate 2.5 mg/3 mL 2.5 mg inhalation Q4H PRN 02/26/19 12/06/23 08/24/22 (0.083 %) solution for nebulization Shortness Of Breath Or Wheezing atorvastatin 20 mg tablet 20 mg PO DAILY 02/26/19 12/06/23 08/25/22 clopidogrel 75 mg tablet 75 mg PO QAM 02/26/19 12/06/23 08/25/22 levothyroxine 25 mcg tablet 25 mcg PO DAILY 02/26/19 12/06/23 08/25/22 pantoprazole 20 mg tablet,delayed 20 mg PO DAILY 02/26/19 12/06/23 08/25/22 release tamsulosin 0.4 mg capsule 0.4 mg PO QAM 02/26/19 12/06/23 08/25/22 lisinopril 40 mg tablet (Zestril) 40 mg PO DAILY #30 tabs 03/03/19 12/06/23 08/25/22 apixaban 2.5 mg tablet (Eliquis) 2.5 mg PO BID #60 tabs 12/30/21 12/06/23 08/25/22 sodium chloride 0.65 % nasal spray 2 spray NA Q4H PRN nasal 12/30/21 12/06/23 08/24/22 aerosol (Saline Mist) congestion #45 mL famotidine 20 mg tablet 20 mg PO HS 08/25/22 12/06/23 Unknown finasteride 5 mg tablet 5 mg PO DAILY 08/25/22 12/06/23 Unknown fluticasone fur. 100 mcg-umeclid 1 inh inhalation DAILY 08/25/22 12/06/23 Unk nown 62.5 mcg-vilant 25 mcg inhalat.powder (Trelegy Ellipta) potassium chloride 20 mEq 20 meq PO DAILY 08/25/22 12/06/23 Unknown tablet,extended release(part/cryst) (Klor-Con M) pregabalin 150 mg capsule 150 mg PO TID 08/25/22 12/06/23 08/25/22 cyanocobalamin (vitamin B-12) 500 500 mcg PO QAM #30 tabs 08/28/22 12/06/23 Unknown mcg tablet ferrous gluconate 324 mg (38 mg 324 mg PO QAM #30 tabs 08/28/22 12/06/23 Unknown iron) tablet folic acid 1 mg tablet 1 mg PO QAM #30 tabs 08/28/22 12/06/23 Unknown metoprolol succinate 25 mg 25 mg PO BID #60 tabs 08/28/22 12/06/23 Unknown tablet,extended release 24 hr acetaminophen 500 mg tablet 1,000 mg PO Q8H PRN Pain 12/06/23 12/06/23 Unknown (Tylenol Extra Strength) albuterol sulfate 90 mcg/actuation 2 puff inhalation Q4H PRN 12/06/23 12/06/23 Unknown aerosol inhaler Shortness Of Breath Or Wheezing silver sulfadiazine 1 % topical 1 applic topical DAILY 12/06/23 12/06/23 Unknown cream Active Medications Generic Name Dose Route Start Last Admin Trade Name Freq PRN Reason Stop Dose Admin Apixaban 2.5 mg 12/07/23 09:00 12/11/23 09:03 Apixaban 2.5 Mg Tab PO 01/06/24 08:59 2.5 mg BID NERY Administration Atorvastatin Calcium 20 mg 12/07/23 09:00 12/11/23 09:02 Atorvastatin 20 Mg Tab PO 01/06/24 08:59 20 mg DAILY NERY Administration Azithromycin 250 mg 12/09/23 09:00 12/11/23 09:03 Azithromycin 250 Mg Tab PO 12/13/23 08:59 250 mg QAM NERY Administration Budesonide 0.5 mg 12/09/23 09:45 12/11/23 07:54 Budesonide 0.5 Mg/2 Ml Vial (Pulmicort) NEB 01/08/24 09:44 0.5 mg BIDR NERY Administration Clopidogrel Bisulfate 75 mg 12/07/23 09:00 12/11/23 09:03 Clopidogrel Bisulfate 75 Mg Tab PO 01/06/24 08:59 75 mg QAM NERY Administration Cyanocobalamin 500 mcg 12/07/23 09:00 12/11/23 09:04 Cyanocobalamin (B-12) 500 Mcg Tablet PO 01/06/24 08:59 500 mcg QAM NERY Administration Famotidine 20 mg 12/07/23 21:00 12/10/23 20:48 Famotidine 20 Mg Tab PO 01/06/24 20:59 20 mg HS NERY Administration Ferrous Gluconate 324 mg 12/07/23 09:00 12/11/23 09:02 Ferrous Gluconate 324 Mg Tab PO 01/06/24 08:59 324 mg QAM NERY Administration Finasteride 5 mg 12/07/23 09:00 12/11/23 09:03 Finasteride 5 Mg Tab PO 01/06/24 08:59 5 mg DAILY NERY Administration Folic Acid 1 mg 12/07/23 09:00 12/11/23 09:04 Folic Acid 1 Mg Tab PO 01/06/24 08:59 1 mg QAM NERY Administration Formoterol Fumarate 20 mcg 12/09/23 09:45 12/11/23 07:54 Formoterol 20 Mcg/2 Ml Vial NEB 01/08/24 09:44 20 mcg BID NERY Administration Guaifenesin 600 mg 12/07/23 21:00 12/11/23 09:04 Guaifenesin 600 Mg Tabcr PO 01/06/24 20:59 600 mg Q12 NERY Administration Insulin Aspart 0 units 12/07/23 16:30 12/11/23 09:02 Insulin Aspart Per Unit Charge SC 01/06/24 16:29 Not Given ACHS NERY Levothyroxine Sodium 25 mcg 12/07/23 06:30 12/11/23 05:31 Levothyroxine Sodium 25 Mcg Tablet PO 01/06/24 06:29 25 mcg DAILYBB NERY Administration Lisinopril 20 mg 12/09/23 09:00 12/11/23 09:04 Lisinopril 20 Mg Tab PO 01/08/24 08:59 20 mg BID NERY Administration Metoprolol Succinate 12.5 mg 12/07/23 21:00 12/11/23 09:01 Metoprolol Succ 25mg Ext Rel Tab PO 01/06/24 20:59 12.5 mg BID NERY Administration Pantoprazole Sodium 40 mg 12/07/23 09:00 12/11/23 09:02 Pantoprazole 40 Mg Tab PO 01/06/24 08:59 40 mg DAILY NERY Administration Potassium Chloride 20 meq 12/07/23 09:00 12/11/23 09:12 Potassium Chloride Crtab 20 Meq Tabcr PO 01/06/24 08:59 20 meq DAILY NERY Administration Prednisone 40 mg 12/11/23 09:00 12/11/23 09:04 Prednisone 20 Mg Tab PO 01/10/24 08:59 40 mg DAILY NERY Administration Pregabalin 150 mg 12/07/23 09:00 12/11/23 09:12 Pregabalin 150 Mg Cap PO 01/06/24 08:59 150 mg TID NERY Administration Silver Sulfadiazine 1 appln 12/07/23 09:00 12/11/23 09:05 Silver Sulfadiazine 1% Cr 50 Gm Jar TOP 01/06/24 08:59 1 appln DAILY NERY Administration Tamsulosin HCl 0.4 mg 12/07/23 09:00 12/11/23 09:03 Tamsulosin Hcl 0.4 Mg Cap PO 01/06/24 08:59 0.4 mg QAM NERY Administration Umeclidinium [place] 1 puffs 12/10/23 09:00 12/11/23 09:05 Umeclidinium [place] 62.5mcg/Blister 7 Puffs/Inhaler INH 01/09/24 08:59 1 puffs DAILY NERY Administration
[2023-12-11] MEDS: predniSONE 20 MG TAB PO SCH (09:04)
--- NOTE | 2023-12-11 09:48 | Cardiology Progress Note ---
Date of Service December 11, 2023 Assessment & Plan (1) Acute exacerbation of chronic obstructive pulmonary disease: (2) Atypical chest pain: (3) ASCVD (arteriosclerotic cardiovascular disease): (4) Tachy-krupa syndrome: Plan 83-year-old male admitted with an exacerbation of his end stage chronic obstructive pulmonary disease. Telemetry initially with Tachy-Krupa Syndrome. Metoprolol succinate dosing subsequently adjusted with improvement, without further bradycardia. Patient asymptomatic in regards to the atrial ectopy and the short paroxysms of PAT/SVT. Pacemaker implantation would be high risk and the patient requests avoidance of invasive procedures. -Cardiology recommendations unchanged compared to yesterday. Continue conservative cardiac medical management. Continue reduced dose apixaban anticoagulation noting history of atrial flutter status post ablation, and atrial fibrillation. 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 Echo this admission with preserved LV systolic function. Continue metoprolol succinate 12.5 mg twice daily Pulmonary input noted and appreciated. From a cardiology perspective, it is felt the patient is approaching end-stage point in his lung disease. I do not think that escalating his dose of metoprolol or placing a pacemaker would change his trajectory, meaning I do not think it would help him feel better or live longer. Admission and Anticipated Discharge Date Admission Date: December 06, 2023 Subjective Patient seen in cardiology follow-up. Apparently was slightly more short of breath this morning. Telemetry relatively unchanged with sinus rhythm in the 90s noted during my assessment, frequent episodes of SVT up to 130 bpm. Physical Exam Physical Exam: General: A&Ox3. Cachectic. No acute distress. Hard of hearing HENT: Normocephalic. Atraumatic. Mucous membranes are dry Eyes: PER. Conjunctiva pink, sclera clear. Neck: Bilateral carotid bruits. No JVD. No HJR. Heart: Regular at 80 bpm. No murmur. Lungs: Diminished. No rales. No wheezing appreciated. Abdomen: +BS. Soft. Nontender. No masses or organomegaly. Extremities: Excoriations without evidence of cellulitis/infection. No clubbing, cyanosis, or edema. Limited neurological examination is without focal deficits. Results & Data Vital Signs (Past 12 Hours) Vital Signs Temp Pulse Resp BP Pulse Ox Pulse Ox O2 Del Method 12/11/23 07:54 74 18 93 Nasal Cannula 12/11/23 07:48 36.5 C 80 22 148/87 H 93 Nasal Cannula 12/11/23 07:45 Nasal Cannula 12/11/23 02:55 36.6 C 72 17 132/73 95 Nasal Cannula 12/11/23 01:00 95 12/10/23 23:35 36.7 C 77 17 119/77 95 Nasal Cannula O2 Del Method O2 Flow Rate O2 Flow Rate 12/11/23 07:54 4 12/11/23 07:48 4 12/11/23 07:45 4 12/11/23 02:55 2 12/11/23 01:00 Nasal Cannula 4 12/10/23 23:35 4
[2023-12-12 05:23] LABS: Hematocrit (blood only) 36.7 % (42.0-52.0); Hemoglobin 12.3 g/dl (14.0-18.0); Mean Corpuscular Hgb Conc 33.5 g/dL (32.0-36.0); Mean Corpuscular Volume 89.5 fL (80.0-100.0); Mean Platelet Volume 10.7 fL (9.4-12.4); Platelet Count 162 K/uL (130-400); RDW Coefficient of Variation 14.8 % (11.5-14.5); RDW Standard Deviation 48.7 fL (36.4-46.3); White Blood Count 5.91 K/ul (4.8-10.8)
[2023-12-12 05:38] LABS: BUN Creatinine Ratio 37.4 (10-20); Calcium 8.2 mg/dl (8.6-10.3); Creatinine Clr Calc Pharmacy 44.3 ml/min; Est GFR (Non-African American) 77.7 ml/min; Magnesium 2.3 mg/dl (1.7-2.4); Phosphorus 3.7 mg/dl (2.5-4.9); Potassium 4.2 mmol/L (3.5-5.1)
--- NOTE | 2023-12-12 10:52 | Cardiology Progress Note ---
Date of Service December 12, 2023 Assessment & Plan (1) Acute exacerbation of chronic obstructive pulmonary disease: (2) Atypical chest pain: (3) ASCVD (arteriosclerotic cardiovascular disease): (4) Tachy-krupa syndrome: (5) Paroxysmal atrial tachycardia: Plan 83-year-old male admitted with an exacerbation of his end stage chronic obstructive pulmonary disease. Telemetry initially with Tachy-Krupa Syndrome. Metoprolol succinate Reduced from 25 mg twice daily to 12.5 mg twice daily. No further bradycardia on telemetry. Patient asymptomatic in regards to the atrial ectopy and the short paroxysms of PAT/SVT. Pacemaker implantation would be high risk and the patient requests avoidance of invasive procedures. Continue conservative cardiac medical management. Continue reduced dose apixaban anticoagulation noting history of atrial flutter status post ablation, and atrial fibrillation. 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 Echo this admission with preserved LV systolic function. Continue metoprolol succinate 12.5 mg twice daily Pulmonary input noted and appreciated. Cardiology will sign off. Please call with further concerns/questions. Admission and Anticipated Discharge Date Admission Date: December 06, 2023 Subjective Patient seen and examined at the bedside. Denies palpitations, lightheadedness, or dizziness. Telemetry reveals sinus rhythm with short runs of paroxysmal atrial tachycardia. Metoprolol succinate reduced to 12.5 mg twice daily during hospitalization due to tachybradycardia syndrome. Review of Systems Review of Systems: All systems reviewed & are unremarkable except as noted in Subjective Physical Exam Constitutional: + ill appearing; no acute distress Respiratory: no respiratory distress, no labored breathing and no retractions Auscultation: + diminished lung sounds and + wheezes (Mild expiratory wheeze); no rales and no rhonchi Cardiovascular: Rate/Rhythm: regular rate and regular rhythm Heart Sounds: normal S1 and normal S2; no murmur Vessels: no JVD Extremities: no edema Gastrointestinal (Abdomen): Inspection/Auscultation: normal bowel sounds; abdomen not distended Neurologic: CN's II-XI intact bilaterally and moves all extremities Results & Data Vital Signs (Past 12 Hours) Vital Signs Temp Pulse Resp BP Pulse Ox O2 Del Method O2 Del Method 12/12/23 07:57 36.3 C L 67 19 171/85 H 94 Nasal Cannula 12/12/23 07:24 77 18 94 Nasal Cannula 12/12/23 03:10 36.7 C 83 21 124/79 94 Nasal Cannula 12/12/23 01:00 Nasal Cannula 12/11/23 23:00 36.6 C 71 18 127/85 94 Room Air, Nasal Cannula O2 Flow Rate O2 Flow Rate 12/12/23 07:57 3 12/12/23 07:24 4 12/12/23 03:10 2 12/12/23 01:00 3 12/11/23 23:00 3 Laboratory Results CBC 12/12/23 Range/Units 04:26 WBC 5.91 (4.8-10.8) K/ul RBC 4.10 L (4.70-6.10) M/uL Hgb 12.3 L (14.0-18.0) g/dl Hct 36.7 L (42.0-52.0) % Plt Count 162 (130-400) K/uL Comprehensive Metabolic Panel 12/12/23 Range/Units 04:26 Sodium 135 L (136-145) mmol/L Potassium 4.2 (3.5-5.1) mmol/L Chloride 100 (98-107) mmol/L Carbon Dioxide 29 (21-32) mmol/L BUN 34 H (6-23) mg/dl Creatinine 0.91 (0.6-1.4) mg/dl Glucose 112 H (70-99(Fasting)) mg/dl Calcium 8.2 L (8.6-10.3) mg/dl Intake and Output 12/11/23 12/12/23 12/12/23 22:59 06:59 14:59 Intake Total 200 / 680 Output Total 100 / 550 300 / 550 Balance -100 / 130 -100 / 130 Intake: Oral 200 / 680 Output: Urine 100 / 550 300 / 550 Other: Weight 51 kg Weight Measurement Method Built in [facility]
--- NOTE | 2023-12-12 11:46 | Hospitalist Progress Note ---
Date of Service December 12, 2023 Assessment & Plan (1) Acute exacerbation of chronic obstructive pulmonary disease: Plan: Mr. Alonso is an 83-year-old male with past medical history significant for chronic respiratory failure with hypoxia on 2.5 L oxygen at home, COPD, hypothyroidism, history of atrial flutter/atrial fibrillation, history of CAD s/p stent, history of chronic systolic and diastolic CHF, pulmonary hypertension, orthostatic hypotension, protein calorie malnutrition, GERD, BPH, postherpetic neuralgia, history of tobacco use, history of radiofrequency ablation procedure for cardiac dysrhythmia, history of duodenal ulcer who lives home alone and was admitted for management of COPD and concerns of tachy-krupa syndrome. on 12/08, Patient with short bursts of SVT on monitor, more prolonged this am into the 140s-150s. Denies any chest pain. Concern exacerbated by scheduled nebs therefore will discontinue. Pulm consulted for optimization given concer of endstage COPD. On 12/09, patient doing much better clinically, though with reports of fatigue. Patient motivated to not go to rehab and plans to ambulate in room to "show" it is not needed. Patient declined resources. Ongoing family conversations with daughter and granddaughter for dispo planning and resources offered. Patient finally agreeable to rehab and wishes to go to [facility]. He knows he needs to improve his lung capacity as he is limited. Patient medically stable at this time for discharge to rehab as authorization comes through. #Episodic Bradycardia, c/f tachycbrady syndrome #EDWARDS rates as low as 30s overnight, notable cardiac/pulm history Cardiology consulted given concern for need of PM -continue reduced metoprolol to 12.5mg bid with old parameters Orthostatic vs stable ECHO stable this am with EF 55-60% lisinopril 20mg bid for more stable bp control Metoprolol 12.5bid Plan for rehab, pending auth #SVT likley exacerbated iso neb treatments Metoprolol 5mg IV x1 for 30 min of svt CTM closely Continue current Metoprolol dosing #COPD exacerbation #Chronic respiratory failure with home oxygen 2L Presents with shortness of breath and cough CTA chest no PE Received Solu-Medrol and nebs in the ER Discontinued IV methylpred Prednisone 40mg daily x 5 days--however, worsening wheezing today, IV soludmedrol reordered. 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 Continue Statin, Plavix, Eliquis and metoprolol succinate #History of a flutter/atrial fibrillation On metoprolol and Eliquis metoprolol reduced as above #Hypertension On lisinopril, metoprolol succinate #Hyperlipidemia On statin #Hypothyroidism On Synthyroid TSH 3.447 #BPH On Flomax and finasteride #GERD On Protonix and Pepcid #Protein calorie malnutrition Dietitian consult placed ensure supplement: boost BID #Ambulatory dysfunction PT OT: rehab DVT prophylaxis On Eliquis Disposition Telemetry Full code. Admission and Anticipated Discharge Date Admission Date: December 06, 2023 Subjective NAEO Denies new concerns, eager to get to next "step" and home Still agreeable to rehab Physical Exam Constitutional: WD/WN, vitals as above Respiratory: diminished bibasilar, no wheezing today noted Cardiovascular: RRR, no murmur, no edema Results & Data Results & Data Vital Signs (Past 12 Hours) Vital Signs Temp Pulse Resp BP Pulse Ox O2 Del Method O2 Del Method 12/12/23 11:33 36.5 C 84 19 151/89 H 92 Nasal Cannula 12/12/23 07:57 36.3 C L 67 19 171/85 H 94 Nasal Cannula 12/12/23 07:24 77 18 94 Nasal Cannula 12/12/23 03:10 36.7 C 83 21 124/79 94 Nasal Cannula 12/12/23 01:00 Nasal Cannula O2 Flow Rate O2 Flow Rate 12/12/23 11:33 3 12/12/23 07:57 3 12/12/23 07:24 4 12/12/23 03:10 2 12/12/23 01:00 3 Laboratory Results Short CBC 12/12/23 Range/Units 04:26 WBC 5.91 (4.8-10.8) K/ul Hgb 12.3 L (14.0-18.0) g/dl Hct 36.7 L (42.0-52.0) % Plt Count 162 (130-400) K/uL [facility] 12/12/23 04:26 Sodium 135 L Potassium 4.2 Chloride 100 Carbon Dioxide 29 BUN 34 H Creatinine 0.91 Glucose 112 H Calcium 8.2 L Medications Administered Home Medications Medication Instructions Recorded Confirmed Last Taken albuterol sulfate 2.5 mg/3 mL 2.5 mg inhalation Q4H PRN 02/26/19 12/06/23 08/24/22 (0.083 %) solution for nebulization Shortness Of Breath Or Wheezing atorvastatin 20 mg tablet 20 mg PO DAILY 02/26/19 12/06/23 08/25/22 clopidogrel 75 mg tablet 75 mg PO QAM 02/26/19 12/06/23 08/25/22 levothyroxine 25 mcg tablet 25 mcg PO DAILY 02/26/19 12/06/23 08/25/22 pantoprazole 20 mg tablet,delayed 20 mg PO DAILY 02/26/19 12/06/23 08/25/22 release tamsulosin 0.4 mg capsule 0.4 mg PO QAM 02/26/19 12/06/23 08/25/22 lisinopril 40 mg tablet (Zestril) 40 mg PO DAILY #30 tabs 03/03/19 12/06/23 08/25/22 apixaban 2.5 mg tablet (Eliquis) 2.5 mg PO BID #60 tabs 12/30/21 12/06/23 08/25/22 sodium chloride 0.65 % nasal spray 2 spray NA Q4H PRN nasal 12/30/21 12/06/23 08/24/22 aerosol (Saline Mist) congestion #45 mL famotidine 20 mg tablet 20 mg PO HS 08/25/22 12/06/23 Unknown finasteride 5 mg tablet 5 mg PO DAILY 08/25/22 12/06/23 Unknown fluticasone fur. 100 mcg-umeclid 1 inh inhalation DAILY 08/25/22 12/06/23 Unknown 62.5 mcg-vilant 25 mcg inhalat.powder (Trelegy Ellipta) potassium chloride 20 mEq 20 meq PO DAILY 08/25/22 12/06/23 Unknown tablet,extended release(part/cryst) (Klor-Con M) pregabalin 150 mg capsule 150 mg PO TID 08/25/22 12/06/23 08/25/22 cyanocobalamin (vitamin B-12) 500 500 mcg PO QAM #30 tabs 08/28/22 12/06/23 Unknown mcg tablet ferrous gluconate 324 mg (38 mg 324 mg PO QAM #30 tabs 08/28/22 12/06/23 Unknown iron) tablet folic acid 1 mg tablet 1 mg PO QAM #30 tabs 08/28/22 12/06/23 Unknown metoprolol succinate 25 mg 25 mg PO BID #60 tabs 08/28/22 12/06/23 Unknown tablet,extended release 24 hr acetaminophen 500 mg tablet 1,000 mg PO Q8H PRN Pain 12/06/23 12/06/23 Unknown (Tylenol Extra Strength) albuterol sulfate 90 mcg/actuation 2 puff inhalation Q4H PRN 12/06/23 12/06/23 Unknown aerosol inhaler Shortness Of Breath Or Wheezing silver sulfadiazine 1 % topical 1 applic topical DAILY 12/06/23 12/06/23 Unknown cream Active Medications Generic Name Dose Route Start Last Admin Trade Name Freq PRN Reason Stop Dose Admin Apixaban 2.5 mg 12/07/23 09:00 12/12/23 08:41 Apixaban 2.5 Mg Tab PO 01/06/24 08:59 2.5 mg BID NERY Administration Atorvastatin Calcium 20 mg 12/07/23 09:00 12/12/23 08:41 Atorvastatin 20 Mg Tab PO 01/06/24 08:59 20 mg DAILY NERY Administration Azithromycin 250 mg 12/09/23 09:00 12/12/23 08:41 Azithromycin 250 Mg Tab PO 12/13/23 08:59 250 mg QAM NERY Administration Budesonide 0.5 mg 12/09/23 09:45 12/12/23 07:23 Budesonide 0.5 Mg/2 Ml Vial (Pulmicort) NEB 01/08/24 09:44 0.5 mg BIDR NERY Administration Clopidogrel Bisulfate 75 mg 12/07/23 09:00 12/12/23 08:42 Clopidogrel Bisulfate 75 Mg Tab PO 01/06/24 08:59 75 mg QAM NERY Administration Cyanocobalamin 500 mcg 12/07/23 09:00 12/12/23 08:43 Cyanocobalamin (B-12) 500 Mcg Tablet PO 01/06/24 08:59 500 mcg QAM NERY Administration Famotidine 20 mg 12/07/23 21:00 12/11/23 20:22 Famotidine 20 Mg Tab PO 01/06/24 20:59 20 mg HS NERY Administration Ferrous Gluconate 324 mg 12/07/23 09:00 12/12/23 08:43 Ferrous Gluconate 324 Mg Tab PO 01/06/24 08:59 324 mg QAM NERY Administration Finasteride 5 mg 12/07/23 09:00 12/12/23 08:42 Finasteride 5 Mg Tab PO 01/06/24 08:59 5 mg DAILY NERY Administration Folic Acid 1 mg 12/07/23 09:00 12/12/23 08:42 Folic Acid 1 Mg Tab PO 01/06/24 08:59 1 mg QAM NERY Administration Formoterol Fumarate 20 mcg 12/09/23 09:45 12/12/23 07:23 Formoterol 20 Mcg/2 Ml Vial NEB 01/08/24 09:44 20 mcg BID NERY Administration Guaifenesin 600 mg 12/07/23 21:00 12/12/23 08:43 Guaifenesin 600 Mg Tabcr PO 01/06/24 20:59 600 mg Q12 NERY Administration Insulin Aspart 0 units 12/07/23 16:30 12/12/23 09:59 Insulin Aspart Per Unit Charge SC 01/06/24 16:29 Not Given ACHS [facility] Levothyroxine Sodium 25 mcg 12/07/23 06:30 12/12/23 06:23 Levothyroxine Sodium 25 Mcg Tablet PO 01/06/24 06:29 25 mcg DAILYBB NERY Administration Lisinopril 20 mg 12/09/23 09:00 12/12/23 08:43 Lisinopril 20 Mg Tab PO 01/08/24 08:59 20 mg BID NERY Administration Metoprolol Succinate 12.5 mg 12/07/23 21:00 12/12/23 08:42 Metoprolol Succ 25mg Ext Rel Tab PO 01/06/24 20:59 12.5 mg BID NERY Administration Pantoprazole Sodium 40 mg 12/07/23 09:00 12/12/23 08:43 Pantoprazole 40 Mg Tab PO 01/06/24 08:59 40 mg DAILY NERY Administration Potassium Chloride 20 meq 12/07/23 09:00 12/12/23 08:55 Potassium Chloride Crtab 20 Meq Tabcr PO 01/06/24 08:59 20 meq DAILY NERY Administration Prednisone 40 mg 12/11/23 09:00 12/12/23 08:43 Prednisone 20 Mg Tab PO 01/10/24 08:59 40 mg DAILY NERY Administration Pregabalin 150 mg 12/07/23 09:00 12/12/23 08:55 Pregabalin 150 Mg Cap PO 01/06/24 08:59 150 mg TID NERY Administration Silver Sulfadiazine 1 appln 12/07/23 09:00 12/12/23 08:44 Silver Sulfadiazine 1% Cr 50 Gm Jar TOP 01/06/24 08:59 1 appln DAILY NERY Administration Tamsulosin HCl 0.4 mg 12/07/23 09:00 12/12/23 08:44 Tamsulosin Hcl 0.4 Mg Cap PO 01/06/24 08:59 0.4 mg QAM NERY Administration Umeclidinium [place] 1 puffs 12/10/23 09:00 12/12/23 11:13 Umeclidinium [place] 62.5mcg/Blister 7 Puffs/Inhaler INH 01/09/24 08:59 1 puffs DAILY NERY Administration
[2023-12-13] MEDS ORDERED: methylPREDNISolone 1000 MG/16 ML IV STA (10:13)
[2023-12-13] MEDS: METOPROLOL SUCC 25MG EXT REL TAB PO ONE (10:23)
[2023-12-13] MEDS: methylPREDNISolone 40 MG in SYRINGE 0 ML IV STA (10:23)
[2023-12-13 10:46] LABS: iSTAT Art Bld Gas pCO2 Correct 28 mmHg (35-46); iSTAT Art Bld Gas pH Corrected 7.391 (7.35-7.45); iSTAT Arterial Blood Gas HCO3 17 meg/L (19-24); iSTAT Arterial Blood Gas pCO2 29 mmHg (35-46); iSTAT Arterial Blood Gas pH 7.38 (7.35-7.45); iSTAT Arterial Blood Gas pO2 60 mmHg (80-95); iSTAT Arterial Blood Gas pO2 C 58; iSTAT Carbon Dioxide 18 mmol/L (24-31); iSTAT FiO2 40 %; iSTAT Hematocrit 42 % (42-52); iSTAT Hemoglobin 14.3 g/dl (14.0-18.0); iSTAT Potassium 4.4 mmol/L (3.3-5.0); iSTAT Sodium 136 mmol/L (135-144)
[2023-12-13 10:49] LABS: Basophils # (auto) 0.01 K/uL (0.00-0.20); Basophils % (auto) 0.1 %; Hematocrit (blood only) 41.4 % (42.0-52.0); Hemoglobin 13.9 g/dl (14.0-18.0); Immature Granulocytes # (auto) 0.07 K/uL (0.01-0.20); Immature Granulocytes % (auto) 0.8 %; Lymphocytes # (auto) 0.47 K/uL (1.20-3.40); Lymphocytes % (auto) 5.5 %; Mean Corpuscular Hemoglobin 30.2 pg (25.0-34.0); Mean Corpuscular Hgb Conc 33.6 g/dL (32.0-36.0); Mean Corpuscular Volume 89.8 fL (80.0-100.0); Mean Platelet Volume 10.6 fL (9.4-12.4); Monocytes # (auto) 0.76 K/uL (0.11-0.59); Monocytes % (auto) 8.9 %; Neutrophils # (auto) 7.27 K/uL (1.40-6.50); Neutrophils % (auto) 84.7 %; Platelet Count 246 K/uL (130-400); RDW Coefficient of Variation 14.9 % (11.5-14.5); Red Blood Count 4.61 M/uL (4.70-6.10); White Blood Count 8.58 K/ul (4.8-10.8)
--- NOTE | 2023-12-13 10:57 | XRay Report ---
XR chest 1V portable HISTORY: 83 years-old Male shortness of breath COMPARISON: CTA chest 12/06/2023 TECHNIQUE: AP view of the chest FINDINGS: Cardiac silhouette is unchanged. Severe emphysema with chronic fibrosis. No pneumothorax, large pleur al effusion or overt pulmonary edema. Subsegmental left basilar predominant opacities have progressed . There are also mild right basilar densities present. Bones appear grossly intact. IMPRESSION: 1. New/progressive left greater than right bibasilar opacities may represent atelectasis versus pneum onia. 2. Emphysema with chronic fibrosis. ACT 112: Negative or not required by law. The above report was generated using voice recognition software. It may contain grammatical, syntax o r spelling errors. Electronically signed by: Fritz Becerra M.D. 12/13/2023 10:55 AM
[2023-12-13 11:07] LABS: Albumin Level 3.4 gm/dl (3.4-5.0); BUN Creatinine Ratio 32.4 (10-20); Bilirubin,Total 1.9 mg/dl (0.2-1.0); Calcium 8.4 mg/dl (8.6-10.3); Creatinine Clr Calc Pharmacy 39.3 ml/min; Est GFR (African American) 78.4 ml/min; Est GFR (Non-African American) 67.7 ml/min; Globulin 3.4 gm/dl (2.5-4.0); Magnesium 2.5 mg/dl (1.7-2.4); Phosphorus 4.4 mg/dl (2.5-4.9); Potassium 4.5 mmol/L (3.5-5.1); Total Protein 6.8 gm/dl (6.0-8.3)
[2023-12-13] MEDS: SODIUM CHLORIDE 0.9% 1,000 ML IV ONE (11:25)
[2023-12-13] MEDS: SODIUM CHLORIDE 0.9% 1,000 ML IV SCH (11:25)
[2023-12-13] MEDS: AZITHROMYCIN 250 MG TAB PO SCH (11:26)
[2023-12-13] MEDS: CEFEPIME 2,000 MG in SYRINGE 0 ML IV SCH (12:24)
[2023-12-13] MEDS: LEVALBUTEROL 1.25 MG/3 ML NEB NEB SCH (13:21)
[2023-12-13] MEDS: IPRATROPIUM BROMIDE NEB SOLN 0.02% 0.5MG/2.5ML VIAL NEB SCH (13:21)
--- NOTE | 2023-12-13 13:35 | Cardiology Progress Note ---
Date of Service December 13, 2023 Assessment & Plan (1) Acute exacerbation of chronic obstructive pulmonary disease: (2) Pneumonia involving left lung: (3) Paroxysmal atrial tachycardia: (4) Atypical chest pain: (5) ASCVD (arteriosclerotic cardiovascular disease): (6) Tachy-krupa syndrome: Plan 83-year-old male admitted with an exacerbation of his end stage chronic obstructive pulmonary disease. Repeat x-ray today demonstrating left lower lobe pneumonia. Ongoing hypoxia requiring high flow oxygen. Supraventricular dysrhythmias driven by hypoxia and ongoing respiratory insufficiency now with new left lower lobe pneumonia. Tachy-krupa syndrome noted. No recurrent pauses on telemetry. Metoprolol succinate reduced from 25 mg twice daily to 12.5 mg twice daily on admission. Pacemaker implantation would be high risk and the patient requests avoidance of invasive procedures. Continue conservative cardiac medical management. Continue reduced dose apixaban anticoagulation noting history of atrial flutter status post ablation, and atrial fibrillation. Continue clopidogrel and atorvastatin due to multivessel coronary artery disease status post PCI of the left circumflex. Echo this admission with preserved LV systolic function. Poor prognosis. Findings and recommendations discussed with hospitalist for continuity of care. Admission and Anticipated Discharge Date Admission Date: December 06, 2023 Subjective 83-year-old male seen and examined at the bedside. Patient evaluation requested due to recurrent atrial tachycardia. Episode of paroxysmal supraventricular tachycardia heart rate of 200 bpm recorded this a.m. Heart rate improved with IV and oral beta-jd therapy. Patient reports significant dyspnea and hypox ia during the episode. Repeat x-ray demonstrating left lower lobe pneumonia. Currently improved on high flow oxygen. Review of Systems Review of Systems: All systems reviewed & are unremarkable except as noted in Subjective Physical Exam Constitutional: + ill appearing; no acute distress Respiratory: no respiratory distress, no labored breathing and no retractions Auscultation: + diminished lung sounds and + wheezes (Mild expiratory wheeze); no rales and no rhonchi Cardiovascular: Rate/Rhythm: regular rate and regular rhythm Heart Sounds: normal S1 and normal S2; no murmur Vessels: no JVD Extremities: no edema Gastrointestinal (Abdomen): Inspection/Auscultation: normal bowel sounds; abdomen not distended Neurologic: CN's II-XI intact bilaterally and moves all extremities Results & Data Vital Signs (Past 12 Hours) Vital Signs Temp Pulse Pulse Resp BP BP Pulse Ox 12/13/23 13:22 116 H 22 96 12/13/23 11:42 36.6 C 94 H 22 114/79 92 12/13/23 10:30 140 H 27 H 90 12/13/23 09:23 12/13/23 09:14 112 H 12/13/23 07:46 36.4 C L 79 22 190/97 H 89 L 12/13/23 07:07 76 20 92 12/13/23 02:55 36.3 C L 70 21 147/98 H 92 O2 Del Method O2 Flow Rate FiO2 12/13/23 13:22 High Flow Nasal Cannula 30 50 12/13/23 11:42 High Flow Nasal Cannula 30 50 12/13/23 10:30 High Flow Nasal Cannula 30 50 12/13/23 09:23 Nasal Cannula 3 12/13/23 09:14 12/13/23 07:46 Nasal Cannula 3 12/13/23 07:07 Nasal Cannula 2.5 12/13/23 02:55 Nasal Cannula Laboratory Results Cardiac Enzymes 12/13/23 Range/Units 10:32 AST 22 (13-39) U/L CBC 12/13/23 Range/Units 10:32 WBC 8.58 (4.8-10.8) K/ul RBC 4.61 L (4.70-6.10) M/uL Hgb 13.9 L (14.0-18.0) g/dl Hct 41.4 L (42.0-52.0) % Plt Count 246 D (130-400) K/uL Neut # (Auto) 7.27 H (1.40-6.50) K/uL Lymph # (Auto) 0.47 L (1.20-3.40) K/uL [place] # (Auto) 0.76 H (0.11-0.59) K/uL Eos # (Auto) 0.00 (0.00-0.50) K/uL Baso # (Auto) 0.01 (0.00-0.20) K/uL Comprehensive Metabolic Panel 12/13/23 Range/Units 10:32 Sodium 138 (136-145) mmol/L Potassium 4.5 (3.5-5.1) mmol/L Chloride 100 (98-107) mmol/L Carbon Dioxide 25 (21-32) mmol/L BUN 33 H (6-23) mg/dl Creatinine 1.02 (0.6-1.4) mg/dl Glucose 168 H (70-99(Fasting)) mg/dl Calcium 8.4 L (8.6-10.3) mg/dl AST 22 (13-39) U/L ALT 19 (7-52) U/L Alkaline Phosphatase 77 (34-104) U/L Total Protein 6.8 (6.0-8.3) gm/dl Albumin 3.4 (3.4-5.0) gm/dl Intake and Output 12/12/23 12/13/23 12/13/23 22:59 06:59 14:59 Intake Total 120 / 420 1000 / 1000 Output Total 200 / 600 175 / 600 Balance -80 / -180 -175 / -180 1000 / 1000 Intake: IV 1000 / 1000 Sodium Chloride 0.9% 1,000 ml @ 1000 / 1000 999 mls/hr IV .Q1H1M ONE Rx#: [id number] Oral 120 / 420 Output: Urine 200 / 600 175 / 600 Other: Weight 50.6 kg Weight Measurement Method Built in [facility] (2) Pneumonia involving left lung Pneumonia type: due to unspecified organism Lung location: lower lobe of lung Qualified Code(s): J18.9 - Pneumonia, unspecified organism
[2023-12-13] MEDS: FUROSEMIDE INJ 20 MG/2 ML VIAL IV ONE (13:52)
--- NOTE | 2023-12-13 15:00 | Pulmonology Progress Note ---
Date of Service December 13, 2023 Assessment & Plan (1) COPD (chronic obstructive pulmonary disease): (2) Chronic respiratory failure with hypoxia: (3) Acute exacerbation of chronic obstructive pulmonary disease: Plan Impression: 83-year-old male with advanced COPD and chronic hypoxemic respiratory failure. He had increasing shortness of breath today which may have been associated with an episode of tachycardia which is since resolved. He is not bronchospastic. His ABG showed only hypoxemic respiratory failure. Swallow evaluation in the past did demonstrate aspiration events and the patient is at risk for recurrent aspiration episodes. Nevertheless I suspect that his most recent episode of deterioration may have been related to his tachycardia which may be poorly tolerated. Agree with cardiology that the patient's overall prognosis is poor. Recommendations: 1. COPD: Continue formoterol and budesonide nebs as well as Incruse and as needed albuterol Atrovent. Do not think he requires parenteral steroids currently as he is not significantly bronchospastic. DC Solu-Medrol and replace with prednisone 20 mg a day with plans for short burst 2. Hypoxemic respiratory failure: Patient's oxygenation appears significantly improved. Can wean off of high flow as tolerated. Would try and target oxygen saturations around 90% and avoid trying to target oxygen saturations higher than this. 3. Tachybradycardia syndrome: Management per cardiology. I suspect his symptoms would be improved with better heart rate control however this appears to be limited by bradycardia. Agree that the patient is a poor candidate for pacing. 4. Questionable pneumonia: The patient's white count is normal. He has not been febrile. Prior studies did demonstrate aspiration several years ago. Suspect that still may be the case. He has been initiated on broad-spectrum antibiotics. Seems reasonable to continue in 24 hours with plans to rapidly taper depending on clinical course. 5. Consideration for discussion of goals of therapy might be appropriate. If the patient would respond poorly to mechanical ventilation or ACLS interventions. Will reassess in the a.m. Feel free to contact us with questions or concerns Admission and Anticipated Discharge Date Admission Date: December 06, 2023 Subjective Asked by hospitalist to reevaluate this patient admitted with COPD. He had been seen previously by one of my colleagues. He had been doing well but this morning he got up to use the restroom. Oriented to his telemetry report and the bedside nurse, the patient developed SVT upon returning to bed and became short of breath. He had an ABG and chest x-ray performed. He is been initiated on antibiotics and given steroids. He is resting comfortably currently on high flow oxygen with oxygen saturations in the mid 90% range. The patient does not report coughing or wheezing. He denies chest pain or palpitations. Review of Systems Review of Systems: All systems reviewed & are unremarkable except as noted in Subjective Physical Exam Constitutional: + cachectic and + frail appearing; no ac carmen distress Neck: trachea midline, no thyromegaly Respiratory: no respiratory distress, no labored breathing, no cough and not tachypneic Auscultation: + diminished lung sounds; no wheezes Cardiovascular: Rate/Rhythm: + tachycardic Heart Sounds: normal S1, normal S2 and + murmur Extremities: no edema Gastrointestinal (Abdomen): normal bowel sounds, soft, nontender, no hepatosplenomegaly Musculoskeletal: Extremities: extremities normal to inspection Skin: no rashes, warm and dry Neurologic: Nonfocal exam Lymphatic: no cervical lymphadenopathy Results & Data Results & Data Vital Signs (Past 12 Hours) Vital Signs Temp Pulse Pulse Resp BP BP Pulse Ox 12/13/23 14:49 112 H 12/13/23 13:22 116 H 22 96 12/13/23 11:42 36.6 C 94 H 22 114/79 92 12/13/23 10:30 140 H 27 H 90 12/13/23 09:23 12/13/23 09:14 112 H 12/13/23 07:46 36.4 C L 79 22 190/97 H 89 L 12/13/23 07:07 76 20 92 12/13/23 02:55 36.3 C L 70 21 147/98 H 92 O2 Del Method O2 Flow Rate FiO2 12/13/23 14:49 12/13/23 13:22 High Flow Nasal Cannula 30 50 12/13/23 11:42 High Flow Nasal Cannula 30 50 12/13/23 10:30 High Flow Nasal Cannula 30 50 12/13/23 09:23 Nasal Cannula 3 12/13/23 09:14 12/13/23 07:46 Nasal Cannula 3 12/13/23 07:07 Nasal Cannula 2.5 12/13/23 02:55 Nasal Cannula Critical Care Results & Data Vital Signs (Past 12 Hours) Vital Signs Temp Pulse Pulse Resp BP BP Pulse Ox 12/13/23 14:49 112 H 12/13/23 13:22 116 H 22 96 12/13/23 11:42 36.6 C 94 H 22 114/79 92 12/13/23 10:30 140 H 27 H 90 12/13/23 09:23 12/13/23 09:14 112 H 12/13/23 07:46 36.4 C L 79 22 190/97 H 89 L 12/13/23 07:07 76 20 92 12/13/23 02:55 36.3 C L 70 21 147/98 H 92 O2 Del Method O2 Flow Rate FiO2 12/13/23 14:49 12/13/23 13:22 High Flow Nasal Cannula 30 50 12/13/23 11:42 High Flow Nasal Cannula 30 50 12/13/23 10:30 High Flow Nasal Cannula 30 50 12/13/23 09:23 Nasal Cannula 3 12/13/23 09:14 12/13/23 07:46 Nasal Cannula 3 12/13/23 07:07 Nasal Cannula 2.5 12/13/23 02:55 Nasal Cannula Lab & Micro Results (Past 24 Hours) RBC 4.61 M/uL (4.70-6.10) L 12/13/23 WBC 8.58 K/ul (4.8-10.8) 12/13/23 Hgb 13.9 g/dl (14.0-18.0) L 12/13/23 Hct 41.4 % (42.0-52.0) L 12/13/23 MCV 89.8 fL (80.0-100.0) 12/13/23 MCH 30.2 pg (25.0-34.0) 12/13/23 MCHC 33.6 g/dL (32.0-36.0) 12/13/23 RDW Standard Deviation 49.0 fL (36.4-46.3) H 12/13/23 RDW Coefficient of Variation 14.9 % (11.5-14.5) H 12/13/23 Plt Count 246 K/uL (130-400) 12/13/23 MPV 10.6 fL (9.4-12.4) 12/13/23 Neutrophils (%) (Auto) 84.7 % 12/13/23 Lymphocytes (%) (Auto) 5.5 % 12/13/23 Monocytes # (Auto) 0.76 K/uL (0.11-0.59) H 12/13/23 Eosinophils # (Auto) 0.00 K/uL (0.00-0.50) 12/13/23 Immature Granulocyte % (Auto) 0.8 % 12/13/23 Neutrophils # (Auto) 7.27 K/uL (1.40-6.50) H 12/13/23 Lymphocytes # (Auto) 0.47 K/uL (1.20-3.40) L 12/13/23 Monocytes # (Auto) 0.76 K/uL (0.11-0.59) H 12/13/23 Eosinophils # (Auto) 0.00 K/uL (0.00-0.50) 12/13/23 Basophils # (Auto) 0.01 K/uL (0.00-0.20) 12/13/23 Immature Granulocyte # (Auto) 0.07 K/uL (0.01-0.20) 4 Na 138 mmol/L (136-145) 12/13/23 K 4.5 mmol/L (3.5-5.1) 12/13/23 Cl 100 mmol/L (98-107) 12/13/23 CO2 25 mmol/L (21-32) 12/13/23 Anion Gap 13 (3-11) H 12/13/23 BUN 33 mg/dl (6-23) H 12/13/23 Creatinine 1.02 mg/dl (0.6-1.4) 12/13/23 Estimated GFR ( Amer) 78.4 ml/min 12/13/23 Estimated GFR (Non-Af Amer) 67.7 ml/min 12/13/23 BUN/Creatinine Ratio 32.4 (10-20) H 12/13/23 Glu 168 mg/dl (70-99(Fasting)) H 12/13/23 Ca 8.4 mg/dl (8.6-10.3) L 12/13/23 Phosphorus Level 4.4 mg/dl (2.5-4.9) 12/13/23 Total Bilirubin 1.9 mg/dl (0.2-1.0) H 12/13/23 AST 22 U/L (13-39) 12/13/23 ALT 19 U/L (7-52) 12/13/23 Alkaline Phosphatase 77 U/L (34-104) 12/13/23 TP 6.8 gm/dl (6.0-8.3) 12/13/23 Albumin 3.4 gm/dl (3.4-5.0) 12/13/23 Globulin 3.4 gm/dl (2.5-4.0) 12/13/23 Albumin/Globulin Ratio 1.0 (0.9-2) 12/13/23 Mg 2.5 mg/dl (1.7-2.4) H 12/13/23 10:32 Calcium Level 8.4 mg/dl (8.6-10.3) L 12/13/23 10:32 Diagnostic Findings (Past 24 Hours) Chest X-Ray 12/13/23 10:02 XR chest 1V portable HISTORY: 83 years-old Male shortness of breath COMPARISON: CTA chest 12/06/2023 TECHNIQUE: AP view of the chest FINDINGS: Cardiac silhouette is unchanged. Severe emphysema with chronic fibrosis. No pneumothorax, large pleural effusion or overt pulmonary edema. Subsegmental left basilar predominant opacities have progressed. There are also mild right basilar densities present. Bones appear grossly intact. IMPRESSION: 1. New/progressive left greater than right bibasilar opacities may represent atelectasis versus pneumonia. 2. Emphysema with chronic fibrosis. ACT 112: Negative or not required by law. The above report was generated using voice recognition software. It may contain grammatical, syntax or spelling errors. Electronically signed by: Fritz Becerra M.D. 12/13/2023 10:55 AM I & O Totals 24 Hours 12/12/23 12/13/23 12/14/23 06:59 06:59 06:59 Intake Total 680 / 680 420 / 420 1100 / 1100 Output Total 550 / 550 600 / 600 Balance 130 / 130 -180 / -180 1100 / 1100 Cumulative 12/06/23 20:32 thru 12/13/23 14:32 Intake Total 4920 Output Total 3326 Balance 1594 RT Ventilator Mngmt (Last Documented) Ventilator Ordered Settings Respiratory Rate 22 12/13/23 13:22 Fraction of Inspired Oxygen 50 12/13/23 13:22 Ventilator - PT Measurements Respiratory Rate 22 PG Care Time/CCT Total # of Minutes Spent Total Time Spent with Patient: Total time spent is greater than 50% in coordination of care (as documented) at patient's floor/unit and/or counseling patient: Coding Level of Care Code 96880 SUB INP/OBS CARE 2MIN Diagnoses COPD (chronic obstructive pulmonary disease) J44.9 Chronic respiratory failure with hypoxia J96.11 Acute exacerbation of chronic obstructive pulmonary disease J44.1
[2023-12-13] MEDS ORDERED: methylPREDNISolone 40 MG in SYRINGE 0 ML IV SCH (16:00)
--- NOTE | 2023-12-13 16:27 | Hospitalist Progress Note ---
Date of Service December 13, 2023 Assessment & Plan (1) Acute exacerbation of chronic obstructive pulmonary disease: Plan: per admitting service notes with addendum: Mr. Alonso is an 83-year-old male with past medical history significant for chronic respiratory failure with hypoxia on 2.5 L oxygen at home, COPD, hypothyroidism, history of atrial flutter/atrial fibrillation, history of CAD s/p stent, history of chronic systolic and diastolic CHF, pulmonary h ypertension, orthostatic hypotension, protein calorie malnutrition, GERD, BPH, postherpetic neuralgia, history of tobacco use, history of radiofrequency ablation procedure for cardiac dysrhythmia, history of duodenal ulcer who lives home alone and was admitted for management of COPD and concerns of tachy-krupa syndrome. on 12/08, Patient with short bursts of SVT on monitor, more prolonged this am into the 140s-150s. Denies any chest pain. Concern exacerbated by scheduled nebs therefore will discontinue. Pulm consulted for optimization given concer of endstage COPD. On 12/09, patient doing much better clinically, though with reports of fatigue. Patient motivated to not go to rehab and plans to ambulate in room to "show" it is not needed. Patient declined resources. Ongoing family conversations with daughter and granddaughter for dispo planning and resources offered. Patient finally agreeable to rehab and wishes to go to [facility]. He knows he needs to improve his lung capacity as he is limited. Patient medically stable at this time for discharge to rehab as authorization comes through. Acute on Chronic Hypoxic Respiratory Failure Metabolic Acidosis secondary to Lactic Acidosis Left lower lobe pneumonia, possible Aspiration component currently on 6 L O2--> high flow O2 CXR: LLL pneumonia VBG: metabolic acidosis Lactic Acid: 5 1 L NSS bolus given Cefepime IV started continue Azithro mwf Nebs QID added requested Pulm SVC to re-eval patient, appreciate the recommendations Speech therapy eval #Episodic Bradycardia, c/f tachycbrady syndrome #EDWARDS rates as low as 30s overnight, notable cardiac/pulm history Cardiology consulted given concern for need of PM -continue reduced metoprolol to 12.5mg bid with old parameters Orthostatic vs stable ECHO stable this am with EF 55-60% lisinopril 20mg bid for more stable bp control Metoprolol 12.5bid 9/4 SVT in 200s this AM given additional Metoprolol not a good candidate for pacemaker placement as per Cardiology service, case discussed with Dr. Tovar #SVT likley exacerbated iso neb treatments Metoprolol 5mg IV x1 for 30 min of svt CTM closely Continue current Metoprolol dosing #COPD exacerbation #Chronic respiratory failure with home oxygen 2L Presents with shortness of breath and cough CTA chest no PE Received Solu-Medrol and nebs in the ER Discontinued IV methylpred Prednisone 40mg daily x 5 days--however, worsening wheezing today, IV soludmedrol reordered. 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 Continue Statin, Plavix, Eliquis and metoprolol succinate #History of a flutter/atrial fibrillation On metoprolol and Eliquis metoprolol reduced as above #Hypertension On lisinopril, metoprolol succinate #Hyperlipidemia On statin #Hypothyroidism On Synthyroid TSH 3.447 #BPH On Flomax and finasteride #GERD On Protonix and Pepcid #Protein calorie malnutrition Dietitian consult placed ensure supplement: boost BID #Ambulatory dysfunction PT OT: rehab DVT prophylaxis On Eliquis Disposition Telemetry Full code. Admission and Anticipated Discharge Date Admission Date: December 06, 2023 Subjective ff up for Tachy krupa syndrome, COPD exacerbation, etc notified by RN, patient hypoxic, in respiratory distress, HR 200s seen at bedside, on 6 L NC states he is short of breath, speaks in phrases with accessory muscle use denies chest pain no other symptoms Review of Systems Review of Systems: all noted and negative except for above Physical Exam Physical Exam: General- oriented x 3,(+) tachypneic, speaks in phrases with (+) accessory musc le use Eyes- anicteric Neck- no JVD Lungs- (+) diminished BS bilaterally Heart- tachycardic, regular rhythm; no murmurs Abdomen- normal bowel sounds, nondistended, soft, no tenderness Extremities- no pretibial edema, no calf tenderness Neuro- alert, oriented x 3; no gross focal neurologic deficits Skin- warm & dry Results & Data Results & Data Vital Signs (Past 12 Hours) Vital Signs Temp Pulse Pulse Resp BP BP Pulse Ox 12/13/23 15:52 36.3 C L 80 20 135/78 94 12/13/23 14:49 112 H 12/13/23 13:22 116 H 22 96 12/13/23 11:42 36.6 C 94 H 22 114/79 92 12/13/23 10:30 140 H 27 H 90 12/13/23 09:23 12/13/23 09:14 112 H 12/13/23 07:46 36.4 C L 79 22 190/97 H 89 L 12/13/23 07:07 76 20 92 O2 Del Method O2 Flow Rate FiO2 12/13/23 15:52 High Flow Nasal Cannula 25 40 12/13/23 14:49 12/13/23 13:22 High Flow Nasal Cannula 30 50 12/13/23 11:42 High Flow Nasal Cannula 30 50 12/13/23 10:30 High Flow Nasal Cannula 30 50 12/13/23 09:23 Nasal Cannula 3 12/13/23 09:14 12/13/23 07:46 Nasal Cannula 3 12/13/23 07:07 Nasal Cannula 2.5 all noted and reviewed including below
[2023-12-13] MEDS: SODIUM CHLOR 7% 4 ML NEB NEB SCH (19:35)
[2023-12-13] MEDS: guaiFENesin 600 MG TABCR PO SCH (20:30)
[2023-12-14 06:40] LABS: Hematocrit (blood only) 35.5 % (42.0-52.0); Hemoglobin 11.7 g/dl (14.0-18.0); Mean Corpuscular Hemoglobin 29.8 pg (25.0-34.0); Mean Corpuscular Volume 90.6 fL (80.0-100.0); Mean Platelet Volume 10.5 fL (9.4-12.4); Platelet Count 177 K/uL (130-400); RDW Coefficient of Variation 14.8 % (11.5-14.5); RDW Standard Deviation 49.3 fL (36.4-46.3); Red Blood Count 3.92 M/uL (4.70-6.10); White Blood Count 5.43 K/ul (4.8-10.8)
--- NOTE | 2023-12-14 07:56 | Pulmonology Progress Note ---
Date of Service December 14, 2023 Assessment & Plan (1) COPD (chronic obstructive pulmonary disease): (2) Chronic respiratory failure with hypoxia: (3) Acute exacerbation of chronic obstructive pulmonary disease: Plan Impression: 83-year-old male with advanced COPD and chronic hypoxemic respiratory failure. His episode of shortness of breath yesterday may have been related to an episode of tachycardia. It is resolved fairly quickly and he is back to his baseline status. His overall performance status is poor Recommendations: 1. COPD: Continue formoterol and budesonide nebs as well as Incruse and as needed albuterol Atrovent. Will complete prednisone 20 mg a day for 5 days 2. Hypoxemic respiratory failure: Patient's oxygenation appears significantly improved. Now down to his baseline oxygen requirement. Recommend out of bed to chair and ambulate as tolerated. May require formal two-step to determine optimal oxygen requirement. Would target oxygen saturation at or above 90%. Continue flutter valve. Add incentive spirometry 3. Tachybradycardia syndrome: Management per cardiology. I suspect his symptoms would be improved with better heart rate control however this appears to be limited by bradycardia. Recommend additional control of his hypertension. Agree that the patient is a poor candidate for pacing. 4. Questionable pneumonia: He has been afebrile. My suspicion for an infectious process is quite low. Will de-escalate antibiotics down to oral Augmentin which she can complete for 5 days 5. Consideration for discussion of goals of therapy might be appropriate. If the patient would respond poorly to mechanical ventilation or ACLS interventions. Patient appears to be back at his baseline pulmonary status. Pulmonary will sign off. Feel free to contact us with questions or concerns. The patient can follow-up with his [facility] pulmonary group at follow-up if needed Admission and Anticipated Discharge Date Admission Date: December 06, 2023 Subjective Patient seen and examined. EMR reviewed. Patient reports that he is doing better. He is down to his baseline oxygen requirement. He is not coughing or wheezing. He slept reasonably well. He denies any chest pain or palpitations. No fevers chills or night sweats. Review of Systems 2 Review of Systems: All systems reviewed & are unremarkable except as noted in HPI & below Physical Exam 2 Constitutional: + cachectic and + frail appearing; no ac jena distress Neck: trachea midline, no thyromegaly Respiratory: no respiratory distress, no labored breathing, no cough and not tachypneic Auscultation: + diminished lung sounds; no wheezes Cardiovascular: Rate/Rhythm: + tachycardic Heart Sounds: normal S1, normal S2 and + murmur Extremities: no edema Gastrointestinal (Abdomen): normal bowel sounds, soft, nontender, no hepatosplenomegaly Musculoskeletal: Extremities: extremities normal to inspection Skin: no rashes, warm and dry Lymphatic: no cervical lymphadenopathy Results & Data Results & Data Vital Signs (Past 12 Hours) Vital Signs Temp Pulse Resp BP BP Pulse Ox O2 Del Method 12/14/23 07:45 100 H 20 96 Nasal Cannula 12/14/23 07:02 36.3 C L 65 19 172/82 H 96 High Flow Nasal Cannula 12/14/23 02:55 36.1 C L 99 H 14 166/80 H 91 High Flow Nasal Cannula 12/14/23 00:32 69 19 96 Nasal Cannula 12/13/23 22:45 36.2 C L 90 20 155/89 H 98 High Flow Nasal Cannula 12/13/23 20:02 36.5 C 79 23 162/78 H 94 High Flow Nasal Cannula 12/13/23 20:00 High Flow Nasal Cannula O2 Flow Rate FiO2 12/14/23 07:45 3 12/14/23 07:02 25 30 12/14/23 02:55 12/14/23 00:32 3 12/13/23 22:45 12/13/23 20:02 12/13/23 20:00 5 Laboratory Results 12/14/23 06:06 PG Care Time/CCT Total # of Minutes Spent Total Time Spent with Patient: Total time spent is greater than 50% in coordination of care (as documented) at patient's floor/unit and/or counseling patient: Coding Level of Care Code 47594 SUB INP/OBS CARE 2/35MIN Diagnoses COPD (chronic obstructive pulmonary disease) J44.9 Chronic respiratory failure with hypoxia J96.11 Acute exacerbation of chronic obstructive pulmonary disease J44.1
[2023-12-14] MEDS: predniSONE 20 MG TAB PO SCH (08:16)
[2023-12-14] MEDS: AMOXICILLIN/CLAVULANATE 875 MG TAB PO SCH (08:27)
--- NOTE | 2023-12-14 11:47 | Cardiology Progress Note ---
Date of Service December 14, 2023 Assessment & Plan (1) Acute exacerbation of chronic obstructive pulmonary disease: (2) Pneumonia involving left lung: (3) Paroxysmal atrial tachycardia: (4) Atypical chest pain: (5) ASCVD (arteriosclerotic cardiovascular disease): (6) Tachy-krupa syndrome: Plan 83-year-old male admitted with an exacerbation of his end stage chronic obstructive pulmonary disease. Repeat x-ray 12/13/2023 demonstrating left lower lobe pneumonia. High flow oxygen weaned to 3 L nasal cannula yesterday. Supraventricular dysrhythmias driven by hypoxia, severe COPD with left lower lobe pneumonia/Possible aspiration. Tachy-krupa syndrome noted. No recurrent pauses on telemetry. Appears metoprolol was removed from patient's medication list. Restart metoprolol to tartrate 12.5 mg twice daily. Pacemaker implantation would be high risk and the patient requests avoidance of invasive procedures. Continue conservative cardiac medical management. Continue reduced dose apixaban anticoagulation noting history of atrial flutter status post ablation, and atrial fibrillation. Continue clopidogrel and atorvastatin due to multivessel coronary artery disease status post PCI of the left circumflex. Echo this admission with preserved LV systolic function. Poor prognosis. Admission and Anticipated Discharge Date Admission Date: December 06, 2023 Subjective 83-year-old male seen and examined at the bedside. Respiratory status improved this morning. Continues to have short runs of atrial tachycardia and possible atrial fibrillation on telemetry. No recurrent symptomatic bradycardia or significant pauses. Denies chest pain or palpitations. Review of Systems Review of Systems: All systems reviewed & are unremarkable except as noted in Subjective Physical Exam Constitutional: + ill appearing; no acute distress Respiratory: no respiratory distress, no labored breathing and no retractions Auscultation: + diminished lung sounds and + wheezes (Mild expiratory wheeze); no rales and no rhonchi Cardiovascular: Rate/Rhythm: regular rate and regular rhythm Heart Sounds: normal S1 and normal S2; no murmur Vessels: no JVD Extremities: no edema Gastrointestinal (Abdomen): Inspection/Auscultation: normal bowel sounds; abdomen not distended Neurologic: CN's II-XI intact bilaterally and moves all extremities Results & Data Vital Signs (Past 12 Hours) Vital Signs Temp Pulse Resp BP BP Pulse Ox O2 Del Method 12/14/23 08:00 Nasal Cannula 12/14/23 07:45 100 H 20 96 Nasal Cannula 12/14/23 07:02 36.3 C L 65 19 172/82 H 96 High Flow Nasal Cannula 12/14/23 02:55 36.1 C L 99 H 14 166/80 H 91 High Flow Nasal Cannula 12/14/23 00:32 69 19 96 Nasal Cannula O2 Flow Rate FiO2 12/14/23 08:00 3 12/14/23 07:45 3 12/14/23 07:02 25 30 12/14/23 02:55 12/14/23 00:32 3 Laboratory Results CBC 12/14/23 Range/Units 06:06 WBC 5.43 (4.8-10.8) K/ul RBC 3.92 L (4.70-6.10) M/uL Hgb 11.7 L (14.0-18.0) g/dl Hct 35.5 L (42.0-52.0) % Plt Count 177 (130-400) K/uL Intake and Output 12/13/23 12/14/23 12/14/23 22:59 06:59 14:59 Intake Total 1395.333 / 2495.333 1000 / 1000 Output Total 725 / 1075 350 / 1075 Balance 670.333 / 1420.333 -350 / 1425.932 6146 / 1000 Intake: IV 745.333 / 4169.103 0148 / 1000 Sodium Chloride 0.9% 1,000 ml @ 745.333 / 075.837 8658 / 1000 80 mls/hr IV .[id number] [facility] Rx#: [id number] Oral 650 / 750 Output: Urine 725 / 1075 350 / 1075 Other: Weight 51.5 kg Weight Measurement Method Built in [facility] (2) Pneumonia involving left lung Pneumonia type: due to unspecified organism Lung location: lower lobe of lung Qualified Code(s): J18.9 - Pneumonia, unspecified organism
[2023-12-14] MEDS: METOPROLOL TARTRATE 25 MG TAB PO SCH (13:02)
[2023-12-14 15:12] LABS: BUN Creatinine Ratio 31.6 (10-20); Calcium 7.7 mg/dl (8.6-10.3); Creatinine Clr Calc Pharmacy 53.6 ml/min; Est GFR (African American) 97.8 ml/min; Est GFR (Non-African American) 84.4 ml/min; Magnesium 2.2 mg/dl (1.7-2.4); Phosphorus 2.4 mg/dl (2.5-4.9); Potassium 4.1 mmol/L (3.5-5.1)
--- NOTE | 2023-12-14 18:00 | Hospitalist Progress Note ---
Date of Service December 14, 2023 Assessment & Plan (1) Acute exacerbation of chronic obstructive pulmonary disease: Plan: per admitting service notes with addendum: Mr. Alonso is an 83-year-old male with past medical history significant for chronic respiratory failure with hypoxia on 2.5 L oxygen at home, COPD, hypothyroidism, history of atrial flutter/atrial fibrillation, history of CAD s/p stent, history of chronic systolic and diastolic CHF, pulmonary h ypertension, orthostatic hypotension, protein calorie malnutrition, GERD, BPH, postherpetic neuralgia, history of tobacco use, history of radiofrequency ablation procedure for cardiac dysrhythmia, history of duodenal ulcer who lives home alone and was admitted for management of COPD and concerns of tachy-krupa syndrome. on 12/08, Patient with short bursts of SVT on monitor, more prolonged this am into the 140s-150s. Denies any chest pain. Concern exacerbated by scheduled nebs therefore will discontinue. Pulm consulted for optimization given concer of endstage COPD. On 12/09, patient doing much better clinically, though with reports of fatigue. Patient motivated to not go to rehab and plans to ambulate in room to "show" it is not needed. Patient declined resources. Ongoing family conversations with daughter and granddaughter for dispo planning and resources offered. Patient finally agreeable to rehab and wishes to go to [facility]. He knows he needs to improve his lung capacity as he is limited. Patient medically stable at this time for discharge to rehab as authorization comes through. Acute on Chronic Hypoxic Respiratory Failure Metabolic Acidosis secondary to Lactic Acidosis Left lower lobe pneumonia, possible Aspiration component currently on 6 L O2--> high flow O2 CXR: LLL pneumonia VBG: metabolic acidosis Lactic Acid: 5 1 L NSS bolus given Cefepime IV started continue Azithro mwf Nebs QID added requested Pulm SVC to re-eval patient, appreciate the recommendations Speech therapy eval #Episodic Bradycardia, c/f tachycbrady syndrome #EDWARDS rates as low as 30s overnight, notable cardiac/pulm history Cardiology consulted given concern for need of PM -continue reduced metoprolol to 12.5mg bid with old parameters Orthostatic vs stable ECHO stable this am with EF 55-60% lisinopril 20mg bid for more stable bp control Metoprolol 12.5bid 9/4 SVT in 200s this AM given additional Metoprolol not a good candidate for pacemaker placement as per Cardiology service, case discussed with Dr. Tovar 12/13 No recurrence of SVTs Continue metoprolol 12.5 mg p.o. twice daily #SVT likley exacerbated iso neb treatments Metoprolol 5mg IV x1 for 30 min of svt CTM closely per above #COPD exacerbation #Chronic respiratory failure with home oxygen 2L Presents with shortness of breath and cough CTA chest no PE Received Solu-Medrol and nebs in the ER Discontinued IV methylpred Prednisone 40mg daily x 5 days--however, worsening wheezing today, IV soludmedrol reordered. 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 Continue Statin, Plavix, Eliquis and metoprolol succinate #History of a flutter/atrial fibrillation On metoprolol and Eliquis #Hypertension On lisinopril, metoprolol succinate #Hyperlipidemia On statin #Hypothyroidism On Synthyroid TSH 3.447 #BPH On Flomax and finasteride #GERD On Protonix and Pepcid #Protein calorie malnutrition Dietitian consult placed ensure supplement: boost BID #Ambulatory dysfunction PT OT: rehab DVT prophylaxis On Eliquis Disposition anticipate transition to SNF tomorrow Full code. Admission and Anticipated Discharge Date Admission Date: December 06, 2023 Subjective Follow-up for acute respiratory distress, etc. Seen resting in bed, on 3 L of O2 via nasal cannula Comfortable States he feels better than yesterday Breathing is much better, occasional dry cough, no chest pain, no fevers or chills No palpitations, dizziness, no other new symptoms Review of Systems Review of Systems: all noted and negative except for above Physical Exam Physical Exam: General- oriented x 3, not in distress, speaks in sentences with no effort or accessory muscle use Eyes- anicteric Neck- no JVD Lungs- Diminished but clear breath sounds bilaterally Heart- normal rate, regular rhythm; no murmurs Abdomen- normal bowel sounds, nondistended, soft, nontender Extremities- no pretibial edema, no calf tenderness Neuro- alert, oriented x 3; no gross focal neurologic deficits Skin- warm & dry Results & Data Results & Data Vital Signs (Past 12 Hours) Vital Signs Temp Pulse Resp BP Pulse Ox O2 Del Method O2 Flow Rate 12/14/23 15:36 36.3 C L 85 18 173/89 H 94 Room Air 12/14/23 12:13 97 H 19 94 Nasal Cannula 3 12/14/23 12:03 36.4 C L 82 20 187/89 H 96 Nasal Cannula 3 12/14/23 08:00 Nasal Cannula 3 12/14/23 07:45 100 H 20 96 Nasal Cannula 3 12/14/23 07:02 36.3 C L 65 19 172/82 H 96 High Flow Nasal Cannula 25 FiO2 12/14/23 15:36 12/14/23 12:13 12/14/23 12:03 12/14/23 08:00 12/14/23 07:45 12/14/23 07:02 30 all noted and reviewed including below
[2023-12-14 18:56] LABS: Albumin Level 2.9 gm/dl (3.4-5.0)
[2023-12-14] MEDS: POT PHOSPHATE MONOBASIC W/ SOD TAB PO SCH (21:20)
[2023-12-15] MEDS: lisinopril 20 MG TAB PO STA (04:52)
[2023-12-15] MEDS: ALBUT/IPRATROP 3MG/0.5MG NEB 3 ML VIAL NEB STA (05:31)
[2023-12-15] MEDS: METOPROLOL TARTRATE 25 MG TAB PO STA (06:01)
--- NOTE | 2023-12-15 07:19 | XRay Report ---
XR chest 1V portable HISTORY: 83 years-old Male sob acute shortness breath COMPARISON: 12/13/2023 TECHNIQUE: AP view of the chest FINDINGS: Cardiac silhouette is unchanged. Severe emphysema with chronic fibrosis. No pneumothorax, large pleur al effusion or overt pulmonary edema. There are persistent bibasilar airspace opacities present. The bones appear grossly intact. IMPRESSION: 1. Persistent bibasilar predominant opacities which may represent atelectasis versus pneumonia. 2. Emphysema with chronic fibrosis. ACT 112: Negative or not required by law. The above report was generated using voice recognition software. It may contain grammatical, syntax o r spelling errors. Electronically signed by: Fritz Becerra M.D. 12/15/2023 7:17 AM
[2023-12-15] MEDS: NITROGLYCERIN 2% OINTMENT 30GM TUBE EXT SCH (09:42)
[2023-12-15] MEDS: METOPROLOL TARTRATE 1 MG/ML VIAL IV PRN (11:10)
[2023-12-15] MEDS: LORazepam 0.5 MG TAB PO STA (11:10)
--- NOTE | 2023-12-15 11:39 | XRay Report ---
XR chest 1V portable HISTORY: ff up pneumonia, hypoxia COMPARISON: Chest 12/15/2023. FINDINGS: No pneumothorax. Severe emphysematous changes again noted. Linear scarlike density within t he right lung apex persists. The heart is top normal in size. No evidence for pulmonary edema. Inters titial and patchy airspace opacities within the mid to lower lung zones are again noted. This likely represents a pneumonia. This has slightly progressed on the left. No definite pleural effusions. No a cute fractures. IMPRESSION: 1. Interstitial and patchy bibasilar airspace opacities most pronounced on the left. This has slightl y progressed and favors a pneumonia. This could be due to prior aspiration. 2. Emphysema again noted. ACT 112: Negative or not required by law. Electronically signed by: Tra Monsivais M.D. 12/15/2023 11:38 AM
[2023-12-15] MEDS: amLODIPine BESYLATE 5 MG TAB PO SCH (12:27)
--- NOTE | 2023-12-15 13:06 | Cardiology Progress Note ---
Date of Service December 15, 2023 Assessment & Plan (1) HTN (hypertension): (2) Paroxysmal atrial tachycardia: (3) Tachy-krupa syndrome: (4) Acute exacerbation of chronic obstructive pulmonary disease: (5) Pneumonia involving left lung: (6) ASCVD (arteriosclerotic cardiovascular disease): Plan 83-year-old male admitted with an exacerbation of his end stage chronic obstructive pulmonary disease. Repeat x-ray 12/13/2023 demonstrating left lower lobe pneumonia. High flow oxygen weaned to 3 L nasal cannula yesterday. Supraventricular dysrhythmias driven by hypoxia, severe COPD with left lower lobe pneumonia/Possible aspiration. Uncontrolled hypertension overnight. Add topical nitrates and amlodipine to improve blood pressure control. Tachy-krupa syndrome noted. No recurrent pauses on telemetry. Continue metoprolol to tartrate 12.5 mg twice daily. Pacemaker implantation would be high risk and the patient requests avoidance of invasive procedures. Continue conservative cardiac medical management. Continue reduced dose apixaban anticoagulation noting history of atrial flutter status post ablation, and atrial fibrillation. Continue clopidogrel and atorvastatin due to multivessel coronary artery disease status post PCI of the left circumflex. Echo this admission with preserved LV systolic function. Poor prognosis. I discussed possible referral to palliative care, however, patient not ready to consider at this time. Admission and Anticipated Discharge Date Admission Date: December 06, 2023 Subjective 83-year-old male seen and examined at the bedside. Atrial fibrillation with rapid ventricular response recorded this a.m. when attempting swallow evaluation. Currently feeling better. Blood pressure markedly elevated last evening. Denies chest pain at this time. Offers no other concerns/complaints. Review of Systems Review of Systems: All systems reviewed & are unremarkable except as noted in Subjective Physical Exam Constitutional: + ill appearing; no acute distress Respiratory: no respiratory distress, no labored breathing and no retractions Auscultation: + diminished lung sounds and + wheezes (Mild expiratory wheeze); no rales and no rhonchi Cardiovascular: Rate/Rhythm: regular rate and regular rhythm Heart Sounds: normal S1 and normal S2; no murmur Vessels: no JVD Extremities: no edema Gastrointestinal (Abdomen): Inspection/Auscultation: normal bowel sounds; abdomen not distended Neurologic: CN's II-XI intact bilaterally and moves all extremities Results & Data Vital Signs (Past 12 Hours) Vital Signs Temp Pulse Pulse Resp BP BP BP 12/15/23 11:31 36.9 C 106 H 28 H 12/15/23 11:25 115 H 12/15/23 11:10 138 H 143/89 H 12/15/23 07:48 36.6 C 85 20 192/106 H 210/89 H 12/15/23 07:08 84 20 12/15/23 05:44 61 194/101 H 12/15/23 05:31 60 22 12/15/23 05:30 71 190/84 H 12/15/23 04:29 73 199/100 H 12/15/23 02:50 36.5 C 77 18 187/95 H Pulse Ox O2 Del Method O2 Flow Rate 12/15/23 11:31 94 Nasal Cannula 4 12/15/23 11:25 12/15/23 11:10 12/15/23 07:48 92 Nasal Cannula 4 12/15/23 07:08 96 Nasal Cannula 4 12/15/23 05:44 12/15/23 05:31 96 Nasal Cannula 4 12/15/23 05:30 12/15/23 04:29 12/15/23 02:50 90 Nasal Cannula Laboratory Results Comprehensive Metabolic Panel 12/14/23 12/14/23 Range/Units 06:06 14:26 Sodium Cancelled 137 Potassium Cancelled 4.1 Chloride Cancelled 107 Carbon Dioxide Cancelled 25 BUN Cancelled 24 H Creatinine Cancelled 0.76 Glucose Cancelled 127 H Calcium Cancelled 7.7 L Albumin 2.9 L (3.4-5.0) gm/dl Intake and Output 12/14/23 12/15/23 12/15/23 22:59 06:59 14:59 Intake Total 1850 / 3314 464 / 3314 Output Total 325 / 550 225 / 550 Balance 1525 / 2764 239 / 2764 Intake: IV 1000 / 2464 464 / 2464 Sodium Chloride 0.9% 1,000 ml @ 1000 / 2464 464 / 2464 80 mls/hr IV [id number] Rx#: [id number] Oral 850 / 850 Output: Urine 325 / 550 225 / 550 Other: Weight 53.4 kg Weight Measurement Method Built in [facility] (1) HTN (hypertension) Hypertension type: primary hypertension Qualified Code(s): I10 - Essential (primary) hypertension (5) Pneumonia involving left lung Pneumonia type: due to unspecified organism Lung location: lower lobe of lung Qualified Code(s): J18.9 - Pneumonia, unspecified organism
--- NOTE | 2023-12-15 18:54 | Hospitalist Progress Note ---
Date of Service December 15, 2023 Assessment & Plan (1) Acute exacerbation of chronic obstructive pulmonary disease: Plan: per admitting service notes with addendum: Mr. Alonso is an 83-year-old male with past medical history significant for chronic respiratory failure with hypoxia on 2.5 L oxygen at home, COPD, hypothyroidism, history of atrial flutter/atrial fibrillation, history of CAD s/p stent, history of chronic systolic and diastolic CHF, pulmonary h ypertension, orthostatic hypotension, protein calorie malnutrition, GERD, BPH, postherpetic neuralgia, history of tobacco use, history of radiofrequency ablation procedure for cardiac dysrhythmia, history of duodenal ulcer who lives home alone and was admitted for management of COPD and concerns of tachy-krupa syndrome. on 12/08, Patient with short bursts of SVT on monitor, more prolonged this am into the 140s-150s. Denies any chest pain. Concern exacerbated by scheduled nebs therefore will discontinue. Pulm consulted for optimization given concer of endstage COPD. On 12/09, patient doing much better clinically, though with reports of fatigue. Patient motivated to not go to rehab and plans to ambulate in room to "show" it is not needed. Patient declined resources. Ongoing family conversations with daughter and granddaughter for dispo planning and resources offered. Patient finally agreeable to rehab and wishes to go to [facility]. He knows he needs to improve his lung capacity as he is limited. Patient medically stable at this time for discharge to rehab as authorization comes through. Acute on Chronic Hypoxic Respiratory Failure Metabolic Acidosis secondary to Lactic Acidosis Left lower lobe pneumonia, possible Aspiration component currently on 6 L O2--> high flow O2 CXR: LLL pneumonia VBG: metabolic acidosis Lactic Acid: 5 1 L NSS bolus given Cefepime IV started continue Azithro mwf Nebs QID added requested Pulm SVC to re-eval patient, appreciate the recommendations Speech therapy eval 12/14 on 4 L repeat CXR: possible increase in L lower lobe infiltrate likely aspiration speech therapy eval continue augmentin, prednisone, nebs #Episodic Bradycardia, c/f tachycbrady syndrome #EDWARDS rates as low as 30s overnight, notable cardiac/pulm history Cardiology consulted given concern for need of PM -continue reduced metoprolol to 12.5mg bid with old parameters Orthostatic vs stable ECHO stable this am with EF 55-60% lisinopril 20mg bid for more stable bp control Metoprolol 12.5bid 12/12 SVT in 200s this AM given additional Metoprolol not a good candidate for pacemaker placement as per Cardiology service, case discussed with Dr. Tovar 12/14 (+) a fib RVR Continue metoprolol 12.5 mg p.o. twice daily #SVT likley exacerbated iso neb treatments Metoprolol 5mg IV x1 for 30 min of svt CTM closely per above #COPD exacerbation #Chronic respiratory failure with home oxygen 2L Presents with shortness of breath and cough CTA chest no PE Received Solu-Medrol and nebs in the ER Discontinued IV methylpred Prednisone 40mg daily x 5 days--however, worsening wheezing today, IV soludmedrol reordered. 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 Continue Statin, Plavix, Eliquis and metoprolol succinate #History of a flutter/atrial fibrillation On metoprolol and Eliquis #Hypertension On lisinopril, metoprolol succinate (+) hypertensive urgency added Amlodipine, Nitropaste monitor #Hyperlipidemia On statin #Hypothyroidism On Synthyroid TSH 3.447 #BPH On Flomax and finasteride #GERD On Protonix and Pepcid #Protein calorie malnutrition Dietitian consult placed ensure supplement: boost BID #Ambulatory dysfunction PT OT: rehab DVT prophylaxis On Eliquis Disposition anticipate transition to SNF tomorrow Full code. Admission and Anticipated Discharge Date Admission Date: December 06, 2023 Subjective Follow-up for pneumonia, tachybradycardia syndrome, etc. Seen resting in bed, comfortable, not in distress on 4 L of oxygen Noted to be hypertensive, systolic BP 200s denies headache, chest pain, palpitations, dizziness reports some mild dyspnea noted to have a fib RVR while being transported to video swallow Review of Systems Review of Systems: all noted and negative except for above Physical Exam Physical Exam: General- oriented x 3, not in distress, speaks in sentences with no effort or accessory muscle use Eyes- anicteric Neck- no JVD Lungs- diminished breath sounds bilaterally Heart- normal rate, regular rhythm; no murmurs Abdomen- normal bowel sounds, nondistended, soft, no tenderness Extremities- no pretibial edema, no calf tenderness Neuro- alert, oriented x 3; no gross focal neurologic deficits Skin- warm & dry Results & Data Results & Data Vital Signs (Past 12 Hours) Vital Signs Temp Pulse Pulse Resp BP BP BP 12/15/23 16:30 36.6 C 98 H 21 116/75 12/15/23 16:00 118 H 12/15/23 11:31 36.9 C 106 H 28 H 12/15/23 11:25 115 H 12/15/23 11:10 138 H 143/89 H 12/15/23 07:48 36.6 C 85 20 192/106 H 210/89 H 12/15/23 07:30 12/15/23 07:08 84 20 Pulse Ox O2 Del Method O2 Flow Rate 12/15/23 16:30 92 Nasal Cannula 4 12/15/23 16:00 12/15/23 11:31 94 Nasal Cannula 4 12/15/23 11:25 12/15/23 11:10 12/15/23 07:48 92 Nasal Cannula 4 12/15/23 07:30 Nasal Cannula 4 12/15/23 07:08 96 Nasal Cannula 4 all noted and reviewed including below
[2023-12-15] MEDS: METOPROLOL TARTRATE 25 MG TAB PO SCH (20:58)
[2023-12-15] MEDS: lisinopril 20 MG TAB PO SCH (21:00)
[2023-12-16] MEDS: CARBOHYDRATES FOR HYPOGLYCEMIA PO PRN (08:00)
--- NOTE | 2023-12-16 15:04 | Hospitalist Progress Note ---
Date of Service December 16, 2023 Assessment & Plan (1) Acute exacerbation of chronic obstructive pulmonary disease: Plan: per admitting service notes with addendum: Mr. Alonso is an 83-year-old male with past medical history significant for chronic respiratory failure with hypoxia on 2.5 L oxygen at home, COPD, hypothyroidism, history of atrial flutter/atrial fibrillation, history of CAD s/p stent, history of chronic systolic and diastolic CHF, pulmonary h ypertension, orthostatic hypotension, protein calorie malnutrition, GERD, BPH, postherpetic neuralgia, history of tobacco use, history of radiofrequency ablation procedure for cardiac dysrhythmia, history of duodenal ulcer who lives home alone and was admitted for management of COPD and concerns of tachy-krupa syndrome. on 12/08, Patient with short bursts of SVT on monitor, more prolonged this am into the 140s-150s. Denies any chest pain. Concern exacerbated by scheduled nebs therefore will discontinue. Pulm consulted for optimization given concer of endstage COPD. On 12/09, patient doing much better clinically, though with reports of fatigue. Patient motivated to not go to rehab and plans to ambulate in room to "show" it is not needed. Patient declined resources. Ongoing family conversations with daughter and granddaughter for dispo planning and resources offered. Patient finally agreeable to rehab and wishes to go to [facility]. He knows he needs to improve his lung capacity as he is limited. Patient medically stable at this time for discharge to rehab as authorization comes through. Acute on Chronic Hypoxic Respiratory Failure Metabolic Acidosis secondary to Lactic Acidosis Left lower lobe pneumonia, possible Aspiration component currently on 6 L O2--> high flow O2 CXR: LLL pneumonia VBG: metabolic acidosis Lactic Acid: 5 1 L NSS bolus given Cefepime IV started continue Azithro mwf Nebs QID added requested Pulm SVC to re-eval patient, appreciate the recommendations Speech therapy eval 12/14 on 4 L repeat CXR: possible increase in L lower lobe infiltrate likely aspiration speech therapy eval continue augmentin, prednisone, nebs 12/15 stable on 4 L continue present regimen #Episodic Bradycardia, c/f tachycbrady syndrome #EDWARDS rates as low as 30s overnight, notable cardiac/pulm history Cardiology consulted given concern for need of PM -continue reduced metoprolol to 12.5mg bid with old parameters Orthostatic vs stable ECHO stable this am with EF 55-60% lisinopril 20mg bid for more stable bp control Metoprolol 12.5bid 12/12 SVT in 200s this AM given additional Metoprolol not a good candidate for pacemaker placement as per Cardiology service, case discussed with Dr. Tovar 12/14 (+) a fib RVR Continue metoprolol 12.5 mg p.o. twice daily 12/15 HR stable contine present regimen #SVT likley exacerbated iso neb treatments Metoprolol 5mg IV x1 for 30 min of svt CTM closely per above #COPD exacerbation #Chronic respiratory failure with home oxygen 2L Presents with shortness of breath and cough CTA chest no PE Received Solu-Medrol and nebs in the ER Discontinued IV methylpred Prednisone 40mg daily x 5 days--however, worsening wheezing today, IV soludmedrol reordered. 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 Continue Statin, Plavix, Eliquis and metoprolol succinate #History of a flutter/atrial fibrillation On metoprolol and Eliquis #Hypertension On lisinopril, metoprolol succinate (+) hypertensive urgency added Amlodipine, Nitropaste monitor 12/15 BP improving continue to monitor closely #Hyperlipidemia On statin #Hypothyroidism On Synthyroid TSH 3.447 #BPH On Flomax and finasteride #GERD On Protonix and Pepcid #Protein calorie malnutrition Dietitian consult placed ensure supplement: boost BID #Ambulatory dysfunction PT OT: rehab DVT prophylaxis On Eliquis Disposition anticipate transition to SNF tomorrow Full code. Admission and Anticipated Discharge Date Admission Date: December 06, 2023 Subjective ff up for pneumonia, TBS, etc seen resting in bed, comfortable states he feels fine overall breathing is ok, no cough no chest pain, dizziness, palpitations no other symptoms Review of Systems Review of Systems: all noted and negative except for above Physical Exam Physical Exam: General- oriented x 3, not in distress, speaks in sentences with no effort or accessory muscle use Eyes- anicteric Neck- no JVD Lungs- diminished but clear breath sounds bilaterally Heart- normal rate, regular rhythm; no murmurs Abdomen- normal bowel sounds, nondistended, soft, no tenderness Extremities- no pretibial edema, no calf tenderness Neuro- alert, oriented x 3; no gross focal neurologic deficits Skin- warm & dry Results & Data Results & Data Vital Signs (Past 12 Hours) Vital Signs Temp Pulse Resp BP Pulse Ox O2 Del Method O2 Flow Rate 12/16/23 14:59 36.6 C 83 18 124/69 95 Nasal Cannula 6 12/16/23 14:04 71 20 95 Nasal Cannula 4 12/16/23 11:08 36.5 C 81 18 150/86 H 92 Nasal Cannula 3 12/16/23 08:00 Nasal Cannula 4 12/16/23 07:38 36.6 C 71 18 183/73 H 92 Nasal Cannula 3 12/16/23 07:19 68 20 96 Nasal Cannula 4 all noted and reviewed including below
[2023-12-17] MEDS: LORazepam 0.5 MG TAB PO ONE (06:21)
[2023-12-17] MEDS: ISOSORBIDE MONO EXTENDED REL 30 MG TABCR PO SCH (08:59)
[2023-12-17 11:32] LABS: Hematocrit (blood only) 33.3 % (42.0-52.0); Mean Corpuscular Hemoglobin 29.5 pg (25.0-34.0); Mean Corpuscular Volume 89.3 fL (80.0-100.0); Platelet Count 203 K/uL (130-400); RDW Coefficient of Variation 14.6 % (11.5-14.5); RDW Standard Deviation 47.3 fL (36.4-46.3); Red Blood Count 3.73 M/uL (4.70-6.10); White Blood Count 8.36 K/ul (4.8-10.8)
[2023-12-17 11:48] LABS: BUN Creatinine Ratio 23.1 (10-20); Basophils # (auto) 0.01 K/uL (0.00-0.20); Basophils % (auto) 0.1 %; Calcium 7.2 mg/dl (8.6-10.3); Creatinine Clr Calc Pharmacy 64.2 ml/min; Eosinophils # (auto) 0.03 K/uL (0.00-0.50); Eosinophils % (auto) 0.4 %; Est GFR (African American) 104.3 ml/min; Immature Granulocytes # (auto) 0.28 K/uL (0.01-0.20); Immature Granulocytes % (auto) 3.3 %; Lymphocytes # (auto) 0.15 K/uL (1.20-3.40); Lymphocytes % (auto) 1.8 %; Monocytes # (auto) 0.29 K/uL (0.11-0.59); Monocytes % (auto) 3.5 %; Neutrophils % (auto) 90.9 %; Potassium 3.6 mmol/L (3.5-5.1)
--- NOTE | 2023-12-17 14:38 | Hospitalist Progress Note ---
Date of Service December 17, 2023 Assessment & Plan (1) Acute exacerbation of chronic obstructive pulmonary disease: Plan: per admitting service notes with addendum: Mr. Alonso is an 83-year-old male with past medical history significant for chronic respiratory failure with hypoxia on 2.5 L oxygen at home, COPD, hypothyroidism, history of atrial flutter/atrial fibrillation, history of CAD s/p stent, history of chronic systolic and diastolic CHF, pulmonary h ypertension, orthostatic hypotension, protein calorie malnutrition, GERD, BPH, postherpetic neuralgia, history of tobacco use, history of radiofrequency ablation procedure for cardiac dysrhythmia, history of duodenal ulcer who lives home alone and was admitted for management of COPD and concerns of tachy-krupa syndrome. on 12/08, Patient with short bursts of SVT on monitor, more prolonged this am into the 140s-150s. Denies any chest pain. Concern exacerbated by scheduled nebs therefore will discontinue. Pulm consulted for optimization given concer of endstage COPD. On 12/09, patient doing much better clinically, though with reports of fatigue. Patient motivated to not go to rehab and plans to ambulate in room to "show" it is not needed. Patient declined resources. Ongoing family conversations with daughter and granddaughter for dispo planning and resources offered. Patient finally agreeable to rehab and wishes to go to [facility]. He knows he needs to improve his lung capacity as he is limited. Patient medically stable at this time for discharge to rehab as authorization comes through. Acute on Chronic Hypoxic Respiratory Failure Metabolic Acidosis secondary to Lactic Acidosis Left lower lobe pneumonia, possible Aspiration component currently on 6 L O2--> high flow O2 CXR: LLL pneumonia VBG: metabolic acidosis Lactic Acid: 5 1 L NSS bolus given Cefepime IV started continue Azithro mwf Nebs QID added requested Pulm SVC to re-eval patient, appreciate the recommendations Speech therapy eval 12/14 on 4 L repeat CXR: possible increase in L lower lobe infiltrate likely aspiration speech therapy eval continue augmentin, prednisone, nebs 12/15 stable on 4 L continue present regimen 12/16 Remained stable Anticipate discharge tomorrow if patient remains medically stable #Episodic Bradycardia, c/f tachycbrady syndrome #EDWARDS rates as low as 30s overnight, notable cardiac/pulm history Cardiology consulted given concern for need of PM -continue reduced metoprolol to 12.5mg bid with old parameters Orthostatic vs stable ECHO stable this am with EF 55-60% lisinopril 20mg bid for more stable bp control Metoprolol 12.5bid 12/12 SVT in 200s this AM given additional Metoprolol not a good candidate for pacemaker placement as per Cardiology service, case discussed with Dr. Tovar 12/14 (+) a fib RVR Continue metoprolol 12.5 mg p.o. twice daily 12/15 HR stable contine present regimen 12/16 Heart rate remains stable continue present regimen #SVT likley exacerbated iso neb treatments Metoprolol 5mg IV x1 for 30 min of svt CTM closely per above #COPD exacerbation #Chronic respiratory failure with home oxygen 2L Presents with shortness of breath and cough CTA chest no PE Received Solu-Medrol and nebs in the ER Discontinued IV methylpred Prednisone 40mg daily x 5 days--however, worsening wheezing today, IV soludmedrol reordered. 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 Continue Statin, Plavix, Eliquis and metoprolol succinate #History of a flutter/atrial fibrillation On metoprolol and Eliquis #Hypertension On lisinopril, metoprolol succinate (+) hypertensive urgency added Amlodipine, Nitropaste monitor 12/15 BP improving continue to monitor closely 12/16 Nitropaste transitioned to Imdur Blood pressure improved Monitor #Hyperlipidemia On statin #Hypothyroidism On Synthyroid TSH 3.447 #BPH On Flomax and finasteride #GERD On Protonix and Pepcid #Protein calorie malnutrition Dietitian consult placed ensure supplement: boost BID #Ambulatory dysfunction PT OT: rehab DVT prophylaxis On Eliquis Disposition anticipate transition to SNF tomorrow Full code. Admission and Anticipated Discharge Date Admission Date: December 06, 2023 Subjective Follow-up for pneumonia, tachybradycardia syndrome, etc. Seen resting in bed, sitting up, on 4 L of oxygen recently, Not in distress, comfortable States he feels fine overall Breathing is okay, no cough No chest pain, dizziness, palpitations No other new symptoms Review of Systems Review of Systems: all noted and negative except for above Physical Exam Physical Exam: General- oriented x 3, not in distress, speaks in sentences with no effort or accessory muscle use Eyes- anicteric Neck- no JVD Lungs- Diminished but clear breath sounds bilaterally, no rales/wheezes Heart- normal rate, regular rhythm; no murmurs Abdomen- normal bowel sounds, nondistended, soft, No tenderness Extremities- no pretibial edema, no calf tenderness Neuro- alert, oriented x 3; no gross focal neurologic deficits Skin- warm & dry Results & Data Results & Data Vital Signs (Past 12 Hours) Vital Signs Temp Pulse Pulse Resp BP BP Pulse Ox 12/17/23 12:00 78 18 95 12/17/23 11:43 36.6 C 66 18 132/76 92 12/17/23 08:00 12/17/23 08:00 36.5 C 85 19 174/93 H 94 12/17/23 07:44 70 12/17/23 06:57 84 20 95 12/17/23 05:47 175/96 H 12/17/23 03:05 36.4 C L 91 H 21 156/82 H 96 O2 Del Method O2 Flow Rate 12/17/23 12:00 Nasal Cannula 4 12/17/23 11:43 Nasal Cannula 4.0 12/17/23 08:00 Nasal Cannula 4 12/17/23 08:00 Nasal Cannula 4.0 12/17/23 07:44 12/17/23 06:57 Nasal Cannula 5 12/17/23 05:47 12/17/23 03:05 Nasal Cannula all noted and reviewed including below
--- NOTE | 2023-12-18 12:12 | Fluoroscopy Report ---
MODIFIED BARIUM SWALLOW CLINICAL HISTORY: assess for aspiration COMPARISON STUDY: Modified barium swallow and barium swallow February 28, 2019. FLUOROSCOPY TIME: 1.17 minutes. Ka, r: 6.42 mGy. TECHNIQUE: A modified barium swallow was performed in conjunction with Speech Pathology. The patient ingested varying consistencies of barium containing material. Video fluoroscopy was performed. FINDINGS: No aspiration was noted with sips of thin liquids. Penetration was noted with thin liquids via straw. However, there was no aspiration. There was no aspiration with nectar thick liquids, puddi ng or cracker and pudding consistencies. Epiglottic inversion was normal. Laryngeal elevation was nor mal. IMPRESSION: 1. No tracheal aspiration. Intact swallowing mechanism. 2. Full recommendations by Speech pathology to follow. ACT 112: Negative or not required by law. Electronically signed by: Harris Schwartz M.D. 12/18/2023 12:11 PM
--- NOTE | 2023-12-18 16:39 | Hospitalist Progress Note ---
Date of Service December 18, 2023 Assessment & Plan (1) Acute exacerbation of chronic obstructive pulmonary disease: Plan: per admitting service notes with addendum: Mr. Alonso is an 83-year-old male with past medical history significant for chronic respiratory failure with hypoxia on 2.5 L oxygen at home, COPD, hypothyroidism, history of atrial flutter/atrial fibrillation, history of CAD s/p stent, history of chronic systolic and diastolic CHF, pulmonary h ypertension, orthostatic hypotension, protein calorie malnutrition, GERD, BPH, postherpetic neuralgia, history of tobacco use, history of radiofrequency ablation procedure for cardiac dysrhythmia, history of duodenal ulcer who lives home alone and was admitted for management of COPD and concerns of tachy-krupa syndrome. on 12/08, Patient with short bursts of SVT on monitor, more prolonged this am into the 140s-150s. Denies any chest pain. Concern exacerbated by scheduled nebs therefore will discontinue. Pulm consulted for optimization given concer of endstage COPD. On 12/09, patient doing much better clinically, though with reports of fatigue. Patient motivated to not go to rehab and plans to ambulate in room to "show" it is not needed. Patient declined resources. Ongoing family conversations with daughter and granddaughter for dispo planning and resources offered. Patient finally agreeable to rehab and wishes to go to [facility]. He knows he needs to improve his lung capacity as he is limited. Patient medically stable at this time for discharge to rehab as authorization comes through. Acute on Chronic Hypoxic Respiratory Failure Metabolic Acidosis secondary to Lactic Acidosis Left lower lobe pneumonia, possible Aspiration component currently on 6 L O2--> high flow O2 CXR: LLL pneumonia VBG: metabolic acidosis Lactic Acid: 5 1 L NSS bolus given Cefepime IV started continue Azithro mwf Nebs QID added requested Pulm SVC to re-eval patient, appreciate the recommendations Speech therapy eval 12/14 on 4 L repeat CXR: possible increase in L lower lobe infiltrate likely aspiration speech therapy eval continue augmentin, prednisone, nebs 12/15 stable on 4 L continue present regimen 12/17 Remained stable Anticipate discharge tomorrow if patient remains medically stable #Episodic Bradycardia, c/f tachycbrady syndrome #EDWARDS rates as low as 30s overnight, notable cardiac/pulm history Cardiology consulted given concern for need of PM -continue reduced metoprolol to 12.5mg bid with old parameters Orthostatic vs stable ECHO stable this am with EF 55-60% lisinopril 20mg bid for more stable bp control Metoprolol 12.5bid 12/12 SVT in 200s this AM given additional Metoprolol not a good candidate for pacemaker placement as per Cardiology service, case discussed with Dr. Tovar 12/14 (+) a fib RVR Continue metoprolol 12.5 mg p.o. twice daily 12/15 HR stable contine present regimen 12/17 Heart rate stable continue present regimen #SVT likley exacerbated iso neb treatments Metoprolol 5mg IV x1 for 30 min of svt CTM closely per above #COPD exacerbation #Chronic respiratory failure with home oxygen 2L Presents with shortness of breath and cough CTA chest no PE Received Solu-Medrol and nebs in the ER Discontinued IV methylpred Prednisone 40mg daily x 5 days--however, worsening wheezing today, IV soludmedrol reordered. 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 Continue Statin, Plavix, Eliquis and metoprolol succinate #History of a flutter/atrial fibrillation On metoprolol and Eliquis #Hypertension On lisinopril, metoprolol succinate (+) hypertensive urgency added Amlodipine, Nitropaste monitor 12/15 BP improving continue to monitor closely 12/17 Nitropaste transitioned to Imdur Blood pressure improved Monitor #Hyperlipidemia On statin #Hypothyroidism On Synthyroid TSH 3.447 #BPH On Flomax and finasteride #GERD On Protonix and Pepcid #Protein calorie malnutrition Dietitian consult placed ensure supplement: boost BID #Ambulatory dysfunction PT OT: rehab DVT prophylaxis On Eliquis Disposition anticipate transition to SNF tomorrow Full code. Admission and Anticipated Discharge Date Admission Date: December 06, 2023 Subjective ff up for tbs, etc seen resting in chair, comfortable, in good spirits feels better overall no chest pain, dyspnea, palpitations, dizziness no other symptoms Review of Systems Review of Systems: all noted and negative except for above Physical Exam Physical Exam: General- oriented x 3, not in distress, speaks in sentences with no effort or accessory muscle use Eyes- anicteric Neck- no JVD Lungs- clear breath sounds bilaterally, no crackles/wheezing Heart- normal rate, regular rhythm; no murmurs Abdomen- normal bowel sounds, nondistended, soft, nontender Extremities- no pretibial edema, no calf tenderness Neuro- alert, oriented x 3; no gross focal neurologic deficits Skin- warm & dry Results & Data Results & Data Vital Signs (Past 12 Hours) Vital Signs Temp Pulse Resp BP BP Pulse Ox O2 Del Method 12/18/23 15:55 36.4 C L 81 19 141/88 H 92 Nasal Cannula 12/18/23 12:54 85 17 92 Nasal Cannula 12/18/23 11:55 93 12/18/23 11:34 36.4 C L 68 19 130/87 92 Nasal Cannula 12/18/23 09:08 Nasal Cannula 12/18/23 08:00 36.5 C 86 18 176/79 H 98 Room Air 12/18/23 07:04 71 19 90 Nasal Cannula O2 Flow Rate 12/18/23 15:55 4.0 12/18/23 12:54 4 12/18/23 11:55 4 12/18/23 11:34 4.0 12/18/23 09:08 3 12/18/23 08:00 12/18/23 07:04 4 all noted and reviewed including below
[2023-12-19 10:09] LABS: Calcium 7.5 mg/dl (8.6-10.3); Creatinine Clr Calc Pharmacy 67.6 ml/min; Est GFR (Non-African American) 92.4 ml/min; Potassium 3.5 mmol/L (3.5-5.1)
--- NOTE | 2023-12-19 11:40 | Hospitalist Progress Note ---
Date of Service December 19, 2023 Assessment & Plan (1) Acute exacerbation of chronic obstructive pulmonary disease: Plan: per admitting service notes with addendum: Mr. Alonso is an 83-year-old male with past medical history significant for chronic respiratory failure with hypoxia on 2.5 L oxygen at home, COPD, hypothyroidism, history of atrial flutter/atrial fibrillation, history of CAD s/p stent, history of chronic systolic and diastolic CHF, pulmonary hypertension, orthostatic hypotension, protein calorie malnutrition, GERD, BPH, postherpetic neuralgia, history of tobacco use, history of radiofrequency ablation procedure for cardiac dysrhythmia, history of duodenal ulcer who lives home alone and was admitted for management of COPD and concerns of tachy-krupa syndrome. on 12/08, Patient with short bursts of SVT on monitor, more prolonged this am into the 140s-150s. Denies any chest pain. Concern exacerbated by scheduled nebs therefore will discontinue. Pulm consulted for optimization given concer of endstage COPD. On 12/09, patient doing much better clinically, though with reports of fatigue. Patient motivated to not go to rehab and plans to ambulate in room to "show" it is not needed. Patient declined resources. Ongoing family conversations with daughter and granddaughter for dispo planning and resources offered. Patient finally agreeable to rehab and wishes to go to [facility]. He knows he needs to improve his lung capacity as he is limited. Patient medically stable at this time for discharge to rehab as authorization comes through. Acute on Chronic Hypoxic Respiratory Failure Metabolic Acidosis secondary to Lactic Acidosis Left lower lobe pneumonia, possible Aspiration component 12/13/2023 Patient went into respiratory distress in the morning on 6 L O2--> high flow O2 CXR: LLL pneumonia VBG: metabolic acidosis Lactic Acid: 5 1 L NSS bolus given Cefepime IV started continue Azithro mwf Nebs QID added requested Pulm SVC to re-eval patient, appreciate the recommendations Speech therapy eval 12/18 Patient improved significantly Back to baseline 4 L of nasal cannula Completed Augmentin x 5 days Completed prednisone 20 mg p.o. x 5 days #Episodic Bradycardia, c/f tachycbrady syndrome #EDWARDS rates as low as 30s overnight, notable cardiac/pulm history Cardiology consulted given concern for need of PM -continue reduced metoprolol to 12.5mg bid with old parameters Orthostatic vs stable ECHO stable this am with EF 55-60% lisinopril 20mg bid for more stable bp control Metoprolol 12.5bid 12/12 SVT in 200s while in respiratory distress given additional Metoprolol not a good candidate for pacemaker placement as per Cardiology service, case discussed with Dr. Tovar 12/14 (+) a fib RVR Continue metoprolol 12.5 mg p.o. twice daily 12/18 Heart rate stable continue present regimen #SVT likley exacerbated iso neb treatments Metoprolol 5mg IV x1 for 30 min of svt per above #COPD exacerbation #Chronic respiratory failure with home oxygen 2L Presents with shortness of breath and cough CTA chest no PE Received Solu-Medrol and nebs in the ER Discontinued IV methylpred Prednisone 40mg daily x 5 days--however, worsening wheezing today, IV soludmedrol reordered. 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 Continue Statin, Plavix, Eliquis and metoprolol succinate #History of a flutter/atrial fibrillation On metoprolol and Eliquis #Hypertension On lisinopril, metoprolol succinate (+) hypertensive urgency added Amlodipine, Nitropaste 12/18 Nitropaste transitioned to Imdur Blood pressure improved Monitor #Hyperlipidemia On statin #Hypothyroidism On Synthyroid TSH 3.447 #BPH On Flomax and finasteride #GERD On Protonix and Pepcid #Protein calorie malnutrition Dietitian consult placed ensure supplement: boost BID #Ambulatory dysfunction PT OT: rehab DVT prophylaxis On Eliquis Disposition anticipate transition to SNF when accepted Admission and Anticipated Discharge Date Admission Date: December 06, 2023 Subjective ff up for tachybrady syndrome, pneumonia, etc seen resting in bed, comfortable, sitting up, on 4 L having breakfast states he feels fine overall no chest pain, dyspnea, palpitations, dizziness no cough no other symptoms states he is ready for discharge Review of Systems Review of Systems: all noted and negative except for above Physical Exam Physical Exam: General- oriented x 3, not in distress, speaks in sentences with no effort or accessory muscle use Eyes- anicteric Neck- no JVD Lungs- diminished but clear breath sounds bilaterally no rales/wheezes Heart- normal rate, regular rhythm; no murmurs Abdomen- normal bowel sounds, nondistended, soft, nontender Extremities- no pretibial edema, no calf tenderness Neuro- alert, oriented x 3; no gross focal neurologic deficits Skin- warm & dry Results & Data Results & Data Vital Signs (Past 12 Hours) Vital Signs Temp Pulse Pulse Resp BP Pulse Ox O2 Del Method 12/19/23 08:16 Nasal Cannula 12/19/23 07:57 36.5 C 73 18 167/81 H 93 Nasal Cannula 12/19/23 07:08 68 18 96 Nasal Cannula 12/19/23 03:05 36.4 C L 79 18 160/80 H 95 Nasal Cannula 12/19/23 00:58 63 17 99 Nasal Cannula 12/19/23 00:00 65 O2 Flow Rate 12/19/23 08:16 4 12/19/23 07:57 4.0 12/19/23 07:08 4 12/19/23 03:05 12/19/23 00:58 4 12/19/23 00:00 all noted and reviewed including below
[2023-12-19] MEDS: POTASSIUM CHLORIDE CRTAB 20 MEQ TABCR PO STA (13:03)
[2023-12-20 07:41] VITALS: BP 185/79; PULSE 85; RESP 22; TEMP 97.7; O2SAT 90
--- NOTE | 2023-12-20 10:37 | Discharge Summary ---
Date of Service December 20, 2023 Admission HPI Per Admitting Provider 83-year-old male with past medical history significant for chronic respiratory failure with hypoxia on 2.5 L oxygen at home, COPD, hypothyroidism, history of atrial flutter/atrial fibrillation, history of CAD s/p stent, history of chronic systolic and diastolic CHF, pulmonary hypertension, orthostatic hypotension, protein calorie malnutrition, GERD, BPH, postherpetic neuralgia, history of tobacco use, history of radiofrequency ablation procedure for cardiac dysrhythmia, history of duodenal ulcer who lives at home is brought in by grandchildren as patient having shortness of breath and cough and weakness. Pa cuong having cough bringing phlegm last few days. And short of breath with minimal exertion. Supposed to ambulate with walker but not using it as per granddaughter's. No fevers. Earlier had chest pain but currently no chest pain. Currently no headache. Feeling dizzy when he stands up. Seems to losing his balance while ambulating. No blurry vision. No runny nose or sore throat. Appetite is not great. No difficulty swallowing. No nausea. No abdominal pain. Somewhat constipated. Normal bladder movements. Hemodynamics okay. Past medical history. As mentioned above Past surgical history. EGD. Cardiac stent. Social history. . Lives alone. Quit smoking 2001. Smoked 3 packs a day for 50 years. No drug use. No alcohol use. Family history. No family history on file Admission Exam Per Admitting Provider General- Not in distress Head- atraumatic Eyes- PERRL. ENT- oropharynx clear Neck- supple, no JVD. Resp: Bilateral diminished breath sounds, Mild rhonchi, no wheezing Heart- regular rhythm; no murmur, no gallop. Abdomen- normal bowel sounds, soft, nontender, no distension Extremities- no pretibial edema, no erythema seen Neuro- alert, oriented PERRL, no facial palsy; no dysarthria; moves extremities. Principal Diagnosis Acute on chronic respiratory failure COPD exacerbation Left lower lobe pneumonia Tachybrady syndrome Hypertension Discharge Exam Constitutional + well hydrated; no acute distress Eyes PERRL, conjunctivae normal, anicteric sclerae ENMT external ear and nose normal, oropharynx normal Respiratory On nasal cannula, not in resp distress, diminished breath sounds Cardiovascular S1 S2 Gastrointestinal (Abdomen) normal bowel sounds, soft, nontender, no hepatosplenomegaly Musculoskeletal No pedal edema Neurologic PERRL, EOMI, accommodation nl, no face palsy, no dysarthria Psychiatric A+Ox3, euthymic affect Discharge Data Allergies Allergy/AdvReac Type Severity Reaction Status Date / Time No Known Allergies Allergy Verified 12/06/23 23:16 Consultations 12/06/23 23:08 ED Decision to Admit Stat 12/07/23 09:22 Consult Cardiology Routine 12/09/23 10:44 Consult Pulmonology Routine Ordered Studies 12/06/23 22:52 CT angio chest PE protocol Stat 12/18/23 10:00 FL video swallow Routine Hospital Course (1) Acute exacerbation of chronic obstructive pulmonary disease: per admitting service notes with addendum: Mr. Alonso is an 83-year-old male with past medical history significant for chronic respiratory failure with hypoxia on 2.5 L oxygen at home, COPD, hypothyroidism, history of atrial flutter/atrial fibrillation, history of CAD s/p stent, history of chronic systolic and diastolic CHF, pulmonary h ypertension, orthostatic hypotension, protein calorie malnutrition, GERD, BPH, postherpetic neuralgia, history of tobacco use, history of radiofrequency ablation procedure for cardiac dysrhythmia, history of duodenal ulcer who lives home alone and was admitted for management of COPD and concerns of tachy-krupa syndrome. on 12/08, Patient with short bursts of SVT on monitor, more prolonged this am into the 140s-150s. Denies any chest pain. Concern exacerbated by scheduled nebs therefore will discontinue. Pulm consulted for optimization given concer of endstage COPD. On 12/09, patient doing much better clinically, though with reports of fatigue. Patient motivated to not go to rehab and plans to ambulate in room to "show" it is not needed. Patient declined resources. Ongoing family conversations with daughter and granddaughter for dispo planning and resources offered. Patient finally agreeable to rehab and wishes to go to [facility]. He knows he needs to improve his lung capacity as he is limited. Patient medically stable at this time for discharge to rehab as authorization comes through. Acute on Chronic Hypoxic Respiratory Failure Metabolic Acidosis secondary to Lactic Acidosis Left lower lobe pneumonia COPD exacerbation Chronic respiratory failure with home oxygen 2L Presents with shortness of breath and cough CTA chest no PE CXR: LLL pneumonia VBG: metabolic acidosis Lactic Acid: 5 Was treated with IV antibiotics Also was treated with steroid Pulm evaluated Patient was started on Azithromycin MWF going forward Episodic Bradycardia, tachybrady syndrome Had HR as low as 30s overnight as well as episodes of SVT Cardiology evaluated. Patient not a good candidate for PPM Metoprolol succinate stopped and started on metoprolol tartarate at a lower dose 12.5mg BID Elevated troponin,like demand ischemia in the setting of hypoxia, arrhythmia Troponin 56 and repeat is 57 stable History of Multivessel coronary artery disease s/p pci LCx History of tachymediated cardiomyopathy Echo this admission with preserved LV systolic function. Continue Statin, Plavix, Eliquis and metoprolol as above History of a flutter/atrial fibrillation On metoprolol and Eliquis Hypertension Home lisinopril changed to 20mg BID Started on amlodipine and imdur while inpatient Hyperlipidemia On statin Hypothyroidism On Synthyroid TSH 3.447 BPH On Flomax and finasteride GERD On Protonix Protein calorie malnutrition Continue ensure supplement: boost BID Ambulatory dysfunction PT OT: rehab recommended I called daughter and updated her about plan and medication changes Total Time Total Time Spent Total Time Spent (In Minutes): 45 Total Time Includes: Examination of the Patient, Discharge Planning, Medication Reconciliation and Other Discharge Plan Discharge Items Patient Disposition: Transfer Group Home Fac Reason For Visit: COPD EX, ELEVATED TROP Discharge Diagnosis: Acute on chronic respiratory failure COPD exacerbation Left lower lobe pneumonia Tachybrady syndrome Hypertension Condition on Discharge: Fair Activity: Resume your previous activity Non-emergency contact: Primary Care Provider, Cannery Tender Engineer and Loan Processing Supervisor Call non-emergency contact if: you have any medication questions and your symptoms worsen Follow-up/Referrals: Rafa Montelongo MD [Primary Care Provider] - Diet: Heart Healthy and Low Sodium (2gm) Addtl Attending Provider Instructions: Mr Alonso You were admitted to the hospital and managed for the above listed diagnoses. Some changes were made to your blood pressure medications as follows: - Your lisinopril was changed to 20mg twice a day - Your metoprolol succinate was changed to metoprolol tartarate 12.5mg twice a day - You were started on amlodipine and imdur for better blood pressure control. You were also started on azithromycin on mondays, wednesdays and fridays per Pulmonology recommendations. Please ensure you follow up with your Pulmonologis t. Please ensure follow up with your Primary Doctor and Cannery Tender Engineer. It was a pleasure taking care of you. Pending Studies at Discharge: No Stand-Alone Forms: [facility] Skilled Items Patient informed of condition?: Yes DNR: No (Conditional code) Discharge Level of Care: Skilled Communicable Disease: No Discharge Prognosis: Stable Lines: None Urinary Catheter: No Medications and DC Order Prescriptions: New azithromycin 250 mg Tablet 250 mg PO [id number] Qty: 18 0RF amlodipine [Norvasc] 5 mg Tablet 5 mg PO QAM Qty: 30 0RF isosorbide mononitrate 30 mg Tablet Extended Release 24 Hr 30 mg PO QAM Qty: 30 0RF metoprolol tartrate 25 mg Tablet 12.5 mg PO BID Qty: 30 0RF guaifenesin 100 mg/5 mL liquid 200 mg PO Q6H PRN (Reason: cough) Qty: 1000 0RF Continued silver sulfadiazine 1 % Cream 1 applic TOPICAL DAILY Rx Instructions: apply a 1.5 mm thickness atorvastatin 20 mg tablet 20 mg PO DAILY Qty: 30 0RF albuterol sulfate 2.5 mg /3 mL (0.083 %) solution for nebulization 2.5 mg inhalation Q4H PRN (Reason: Shortness Of Breath Or Wheezing) Qty: 75 0RF clopidogrel 75 mg tablet 75 mg PO QAM Qty: 30 0RF acetaminophen [Tylenol Extra Strength] 500 mg Tablet 1,000 mg PO Q8H PRN (Reason: Pain) Qty: 50 0RF levothyroxine 25 mcg tablet 25 mcg PO DAILY Qty: 30 0RF pantoprazole 20 mg tablet,delayed release (DR/EC) 20 mg PO DAILY Qty: 30 0RF potassium chloride [Klor-Con M20] 20 mEq tablet,ER particles/crystals 20 meq PO DAILY Qty: 30 0RF famotidine 20 mg Tablet 20 mg PO HS Qty: 30 0RF cyanocobalamin (vitamin B-12) 500 mcg Tablet 500 mcg PO QAM Qty: 30 0RF tamsulosin 0.4 mg capsule 0.4 mg PO QAM Qty: 30 0RF folic acid 1 mg Tablet 1 mg PO QAM Qty: 30 0RF albuterol sulfate 90 mcg/actuation Hfa Aerosol Inhaler 2 puff INHALATION Q4H PRN (Reason: Shortness Of Breath Or Wheezing) Qty: 6.7 0RF finasteride 5 mg tablet 5 mg PO DAILY Qty: 30 0RF Saline Mist 0.65 % Aerosol,[place] 2 spray NA Q4H PRN (Reason: nasal congestion) Qty: 45 0RF pregabalin 150 mg capsule 150 mg PO TID Qty: 90 0RF ferrous gluconate 324 mg (38 mg iron) Tablet 324 mg PO QAM Qty: 30 0RF Eliquis 2.5 mg Tablet 2.5 mg PO BID Qty: 60 0RF Trelegy Ellipta 100-62.5-25 mcg blister with device 1 inh INHALATION DAILY Qty: 30 0RF Changed lisinopril [Zestril] 40 mg Tablet 20 mg PO BID Qty: 30 0RF Discontinued metoprolol succinate 25 mg tablet extended release 24 hr 25 mg PO BID Qty: 60 0RF Discharge Orders: Discharge Order (Routine); Ordered 12/20/23 Ordered By: Mai Bhandari/Other Patient Handouts: A1C, What Is COPD, 5 Steps for Eating Healthier Admission Data Admit Date/Time: 12/06/23 23:50 Attending Provider: Mai Jackson I. Admit Provider: Preet Crawford Primary Care Provider: Rafa Montelongo Other Providers: Preet Crawford; Olivia Funez; [facility]; [place]; [facility]; Stuart Aguilar Other Interventions: Discharge Summary Assessment (RN) Last Done: 12/20/23 11:36
== END 2023-12-20 11:38 | DRG 190 ==
LOC: ED 20:42 → SUATTDRO 23:50 → EDINP 23:50 → 4W 12-07 01:29